=== PATIENT | male | born 1945 | race Caucasian/White ===

== ENCOUNTER 2020-07-02 16:12 | Emergency (ER) | payer OTHER, SELFPAY ==
--- OUTSIDE RECORDS SUMMARY | 2020-07-02 16:16 | XMS REPORT | Clinical Summary ---
:1945 Author Organization [facility] Address [address] [place] [address] Care Team Providers Name Role Phone Pcp, No Primary Care Provider Unavailable Allergies No Known Allergies Medications Medication Sig Dispensed Refills Start Date End Date Status apixaban (ELIQUIS) Take 1 tablet (5 mg 60 tablet 1 02/09/2020 Active 5 mg Tab tablet total) by mouth 2 (two) times daily. atorvastatin Take 1 tablet (10 mg 30 tablet 11 02/09/202002/08 Active (LIPITOR) 10 MG total) by mouth 1 tablet nightly. carvediloL (COREG) Take 1 tablet (12.5 60 tablet 11 02/09/2020 Active 12.5 MG tablet mg total) by mouth 2 1 (two) times daily. citalopram (CELEXA) Take 1 tablet (20 mg 30 tablet 0 0 Active 20 MG tablet total) by mouth 1 daily. folic acid Take 1 tablet (1 mg 30 tablet 11 02/10/2020 02/10/20 2 Active (FOLVITE) 1 MG total) by mouth 1 tablet daily. insulin lispro Inject 12 Units 10 mL 0 02/09/2020 02/09/20 2 Active (HUMALOG) 100 subcutaneously 3 1 unit/mL injection (three) times daily before meals. levothyroxine Take 1 tablet (175 30 tablet 11 02/10/2020 Active (SYNTHROID, mcg total) by mouth 1 LEVOTHROID) 175 MCG Every morning on an tablet empty stomach. pantoprazole Take 1 tablet (40 mg 30 tablet 0 02/10/2020 Active (PROTONIX) 40 MG total) by mouth tablet daily. tamsulosin (FLOMAX) Take 1 capsule (0.4 30 capsule 11 0 Active 0.4 mg Cap 24 hr mg total) by mouth capsule daily. thiamine 100 MG Take 1 tablet (100 30 tablet 11 02/10/2020 04/0 Active tablet mg total) by mouth 1 daily. finasteride Take 1 tablet (5 mg 30 tablet 0 02/09/2020 02 Active (PROSCAR) 5 mg total) by mouth 1 tablet daily. insulin detemir Inject 40 Units 30 mL 1 02/09/2020 02 U-100 (LEVEMIR) 100 subcutaneously 2 0 unit/mL injection (two) times daily for 30 days. furosemide (LASIX) Take 1 tablet (20 mg 30 tablet 0 02/10/2020 20 MG tablet total) by mouth 0 daily for 30 days. Active Problems Problem Noted Date Acute metabolic encephalopathy 01/30/2020 TRICIA (acute kidney injury) 01/30/2020 Acute hypoxemic respiratory failure 01/25/2020 Aspiration pneumonitis 01/25/2020 Encounters Date Type Specialty Care Team Description 01/25/2020 - Hospital General Internal Debbie Cohen MD Acute respiratory failure with hypoxia ( HCC) (Primary Dx); 02/09/2020 Encounter Medicine Clementina Billy Aspiratio n pneumonitis (HCC); MD Jefe Severe sepsis with septic shock (HCC); Jarad Harrison TRICIA (acu te kidney injury) (HCC); MD Sumeet DVT (deep vein thrombosis) in ; Rodo Drake Acute metaboli c encephalopathy; MD Zulema Acute urinary retention Abida Mayberry MD Athreya, Khannan Kameshvaran, MD 01/25/2020 Orders Only General Internal Medicine 01/25/2020 Telephone Critical Care Debbie Cohen MD Peer-to-P eer Call Medicine after 07/02/2019 Social History Tobacco Use Types Packs/Day Years Used Date Never Assessed Sex Assigned at Date Recorded Not on file Job Start Date Occupation Industry Not on file Not on file Not on file Travel History Travel Start Travel End No recent travel history available. Last Filed Vital Signs Vital Sign Reading Time Taken Blood Pressure 116/59 02/09/2020 4:00 PM CDT Pulse 60 02/09/2020 4:00 PM CDT Temperature 36.8 C (98.3 F) 02/09/2020 4:00 PM CDT Respiratory Rate 18 02/09/2020 4:00 PM CDT Oxygen Saturation 96% 02/09/2020 4:00 PM CDT Inhaled Oxygen Concentration 36% 02/07/2020 8:34 PM CDT Weight 103 kg (227 lb) 02/09/2020 6:00 AM CDT Height 177.8 cm (5' 10") 01/25/2020 5:00 PM CDT Body Mass Index 32.57 02/09/2020 6:00 AM CDT Plan of Treatment Not on file Procedures Procedure Name Priority Date/Time Associated Comments Diagnosis RHYTHM STRIP - SCAN 02/10/2020 9:10 AM CDT POCT-GLUCOSE METER Routine 02/09/2020 5:35 Resul ts for this PM CDT procedure are i n the results section. POCT-GLUCOSE METER Routine 02/09/2020 12:47 Resul ts for this PM CDT procedure are i n the results section. US ABDOMEN COMPLETE Routine 02/09/2020 12:05 Resu lts for this PM CDT procedure are i n the results section. POCT-GLUCOSE METER Routine 02/09/2020 8:24 Resul ts for this AM CDT procedure are i n the results section. ECG 12-LEAD Routine 02/09/2020 7:37 Results for this AM CDT procedure are i n the results section. CBC W/PLT COUNT & AUTO Routine 02/09/2020 3:49 R esults for this DIFFERENTIAL AM CDT procedure are i n the results section. BASIC METABOLIC PANEL Routine 02/09/2020 3:49 Re sults for this (7) AM CDT procedure are i n the results section. AMMONIA Routine 02/09/2020 3:49 Results for this AM CDT procedure are i n the results section. CBC W/PLT COUNT & AUTO Routine 02/09/2020 3:49 R esults for this DIFFERENTIAL AM CDT procedure are i n the results section. PHOSPHORUS Routine 02/09/2020 3:49 Results for this AM CDT procedure are i n the results section. CALCIUM, IONIZED Routine 02/09/2020 3:49 Results for this AM CDT procedure are i n the results section. POCT-GLUCOSE METER Routine 02/08/2020 8:55 Resul ts for this PM CDT procedure are i n the results section. POCT-GLUCOSE METER Routine 02/08/2020 5:33 Resul ts for this PM CDT procedure are i n the results section. POCT-GLUCOSE METER Routine 02/08/2020 12:13 Resul ts for this PM CDT procedure are i n the results section. ECG 12-LEAD Routine 02/08/2020 11:33 Results for this AM CDT procedure are i n the results section. POCT-GLUCOSE METER Routine 02/08/2020 7:16 Resul ts for this AM CDT procedure are i n the results section. CALCIUM, IONIZED Routine 02/08/2020 3:36 Results for this AM CDT procedure are i n the results section. CBC W/PLT COUNT & AUTO Routine 02/08/2020 3:35 R esults for this DIFFERENTIAL AM CDT procedure are i n the results section. COMPREHENSIVE METABOLIC Routine 02/08/2020 3:35 Results for this PANEL AM CDT procedure are i n the results section. CBC W/PLT COUNT & AUTO Routine 02/08/2020 3:35 R esults for this DIFFERENTIAL AM CDT procedure are i n the results section. PHOSPHORUS Routine 02/08/2020 3:35 Results for this AM CDT procedure are i n the results section. MAGNESIUM Routine 02/08/2020 3:35 Results for this AM CDT procedure are i n the results section. BASIC METABOLIC PANEL Routine 02/08/2020 3:35 Re sults for this (7) AM CDT procedure are i n the results section. POCT-GLUCOSE METER Routine 02/07/2020 9:08 Resul ts for this PM CDT procedure are i n the results section. POCT-GLUCOSE METER Routine 02/07/2020 6:05 Resul ts for this PM CDT procedure are i n the results section. URINALYSIS W/ REFLEX Routine 02/07/2020 4:10 Res ults for this URINE CULTURE PM CDT procedure are in the results section. MAGNESIUM Routine 02/07/2020 1:49 Results for this PM CDT procedure are i n the results section. BASIC METABOLIC PANEL Routine 02/07/2020 1:49 Re sults for this (7) PM CDT procedure are i n the results section. POCT-GLUCOSE METER Routine 02/07/2020 12:48 Resul ts for this PM CDT procedure are i n the results section. POCT-GLUCOSE METER Routine 02/07/2020 7:03 Resul ts for this AM CDT procedure are i n the results section. CBC W/PLT COUNT & AUTO Routine 02/07/2020 5:19 R esults for this DIFFERENTIAL AM CDT procedure are i n the results section. COMPREHENSIVE METABOLIC Routine 02/07/2020 5:19 Results for this PANEL AM CDT procedure are i n the results section. CBC W/PLT COUNT & AUTO Routine 02/07/2020 5:19 R esults for this DIFFERENTIAL AM CDT procedure are i n the results section. APTT Routine 02/07/2020 5:19 Results for this AM CDT procedure are i n the results section. MAGNESIUM Routine 02/07/2020 5:19 Results for this AM CDT procedure are i n the results section. PHOSPHORUS Routine 02/07/2020 5:19 Results for this AM CDT procedure are i n the results section. CALCIUM, IONIZED Routine 02/07/2020 5:19 Results for this AM CDT procedure are i n the results section. POCT-GLUCOSE METER Routine 02/06/2020 11:00 Resul ts for this PM CDT procedure are i n the results section. MAGNESIUM Routine 02/06/2020 8:39 Results for this PM CDT procedure are i n the results section. BASIC METABOLIC PANEL Routine 02/06/2020 8:39 Re sults for this (7) PM CDT procedure are i n the results section. POCT-GLUCOSE METER Routine 02/06/2020 7:10 Resul ts for this PM CDT procedure are i n the results section. POCT-GLUCOSE METER Routine 02/06/2020 12:30 Resul ts for this PM CDT procedure are i n the results section. CBC W/PLT COUNT & AUTO Routine 02/06/2020 9:54 R esults for this DIFFERENTIAL AM CDT procedure are i n the results section. CBC W/PLT COUNT & AUTO Routine 02/06/2020 9:54 R esults for this DIFFERENTIAL AM CDT procedure are i n the results section. APTT Routine 02/06/2020 9:54 Results for this AM CDT procedure are i n the results section. MAGNESIUM Routine 02/06/2020 9:54 Results for this AM CDT procedure are i n the results section. PHOSPHORUS Routine 02/06/2020 9:54 Results for this AM CDT procedure are i n the results section. BASIC METABOLIC PANEL Routine 02/06/2020 9:54 Re sults for this (7) AM CDT procedure are i n the results section. POCT-GLUCOSE METER Routine 02/06/2020 5:45 Resul ts for this AM CDT procedure are i n the results section. POCT-GLUCOSE METER Routine 02/06/2020 12:25 Resul ts for this AM CDT procedure are i n the results section. MAGNESIUM Routine 02/05/2020 8:47 Results for this PM CDT procedure are i n the results section. BASIC METABOLIC PANEL Routine 02/05/2020 8:47 Re sults for this (7) PM CDT procedure are i n the results section. XR ANKLE 1 VIEW LEFT Routine 02/05/2020 8:42 Res ults for this PM CDT procedure are i n the results section. POCT-GLUCOSE METER Routine 02/05/2020 5:55 Resul ts for this PM CDT procedure are i n the results section. MAGNESIUM Routine 02/05/2020 2:17 Results for this PM CDT procedure are i n the results section. BASIC METABOLIC PANEL Routine 02/05/2020 2:17 Re sults for this (7) PM CDT procedure are i n the results section. XR CHEST 1 VIEW STAT 02/05/2020 10:10 Results for this PORTABLE/BEDSIDE AM CDT procedure a re in the results section. APTT Routine 02/05/2020 10:05 Results for this AM CDT procedure are i n the results section. POCT-GLUCOSE METER Routine 02/05/2020 6:33 Resul ts for this AM CDT procedure are i n the results section. APTT Routine 02/05/2020 6:17 Results for this AM CDT procedure are i n the results section. CBC W/PLT COUNT & AUTO Routine 02/05/2020 6:13 R esults for this DIFFERENTIAL AM CDT procedure are i n the results section. CBC W/PLT COUNT & AUTO Routine 02/05/2020 6:13 R esults for this DIFFERENTIAL AM CDT procedure are i n the results section. MAGNESIUM Routine 02/05/2020 6:13 Results for this AM CDT procedure are i n the results section. PHOSPHORUS Routine 02/05/2020 6:13 Results for this AM CDT procedure are i n the results section. CALCIUM, IONIZED Routine 02/05/2020 6:13 Results for this AM CDT procedure are i n the results section. BASIC METABOLIC PANEL Routine 02/05/2020 6:13 Re sults for this (7) AM CDT procedure are i n the results section. B-TYPE NATRIURETIC Routine 02/05/2020 6:13 Resul ts for this FACTOR (BNP) AM CDT procedure are i n the results section. POCT-GLUCOSE METER Routine 02/05/2020 12:34 Resul ts for this AM CDT procedure are i n the results section. MAGNESIUM Routine 02/04/2020 11:26 Results for this PM CDT procedure are i n the results section. BASIC METABOLIC PANEL Routine 02/04/2020 11:26 Re sults for this (7) PM CDT procedure are i n the results section. POCT-GLUCOSE METER Routine 02/04/2020 5:29 Resul ts for this PM CDT procedure are i n the results section. MAGNESIUM Routine 02/04/2020 12:32 Results for this PM CDT procedure are i n the results section. BASIC METABOLIC PANEL Routine 02/04/2020 12:32 Re sults for this (7) PM CDT procedure are i n the results section. PT/APTT Routine 02/04/2020 11:23 Results for this AM CDT procedure are i n the results section. C. DIFFICILE GDH TOXIN Routine 02/04/2020 11:23 R esults for this AM CDT procedure are i n the results section. POCT-GLUCOSE METER Routine 02/04/2020 11:20 Resul ts for this AM CDT procedure are i n the results section. POCT-GLUCOSE METER Routine 02/04/2020 5:52 Resul ts for this AM CDT procedure are i n the results section. APTT Routine 02/04/2020 4:51 Results for this AM CDT procedure are i n the results section. APTT Routine 02/04/2020 3:42 Results for this AM CDT procedure are i n the results section. CBC W/PLT COUNT & AUTO Routine 02/04/2020 3:02 R esults for this DIFFERENTIAL AM CDT procedure are i n the results section. APTT Routine 02/04/2020 3:02 Results for this AM CDT procedure are i n the results section. CBC W/PLT COUNT & AUTO Routine 02/04/2020 3:02 R esults for this DIFFERENTIAL AM CDT procedure are i n the results section. MAGNESIUM Routine 02/04/2020 3:02 Results for this AM CDT procedure are i n the results section. BASIC METABOLIC PANEL Routine 02/04/2020 3:02 Re sults for this (7) AM CDT procedure are i n the results section. CALCIUM, IONIZED Routine 02/04/2020 3:02 Results for this AM CDT procedure are i n the results section. PHOSPHORUS Routine 02/04/2020 3:02 Results for this AM CDT procedure are i n the results section. POCT-GLUCOSE METER Routine 02/03/2020 11:58 Resul ts for this PM CDT procedure are i n the results section. MAGNESIUM Routine 02/03/2020 8:50 Results for this PM CDT procedure are i n the results section. BASIC METABOLIC PANEL Routine 02/03/2020 8:50 Re sults for this (7) PM CDT procedure are i n the results section. POCT-GLUCOSE METER Routine 02/03/2020 6:07 Resul ts for this PM CDT procedure are i n the results section. POCT-GLUCOSE METER Routine 02/03/2020 12:15 Resul ts for this PM CDT procedure are i n the results section. MAGNESIUM Routine 02/03/2020 11:28 Results for this AM CDT procedure are i n the results section. BASIC METABOLIC PANEL Routine 02/03/2020 11:28 Re sults for this (7) AM CDT procedure are i n the results section. BLOOD CULTURE Routine 02/03/2020 11:28 Results fo r this AM CDT procedure are i n the results section. BLOOD CULTURE Routine 02/03/2020 11:28 Results fo r this AM CDT procedure are i n the results section. POCT-GLUCOSE METER Routine 02/03/2020 5:46 Resul ts for this AM CDT procedure are i n the results section. BLOOD GAS, ARTERIAL Routine 02/03/2020 2:56 Resu lts for this AM CDT procedure are i n the results section. CBC W/PLT COUNT & AUTO Routine 02/03/2020 2:50 R esults for this DIFFERENTIAL AM CDT procedure are i n the results section. APTT Routine 02/03/2020 2:50 Results for this AM CDT procedure are i n the results section. CBC W/PLT COUNT & AUTO Routine 02/03/2020 2:50 R esults for this DIFFERENTIAL AM CDT procedure are i n the results section. COMPREHENSIVE METABOLIC Routine 02/03/2020 2:50 Results for this PANEL AM CDT procedure are i n the results section. CALCIUM, IONIZED Routine 02/03/2020 2:50 Results for this AM CDT procedure are i n the results section. MAGNESIUM Routine 02/03/2020 2:50 Results for this AM CDT procedure are i n the results section. PHOSPHORUS Routine 02/03/2020 2:50 Results for this AM CDT procedure are i n the results section. XR ABDOMEN / KUB 1 VIEW STAT 02/03/2020 12:15 Results for this AM CDT procedure are i n the results section. POCT-GLUCOSE METER Routine 02/03/2020 12:11 Resul ts for this AM CDT procedure are i n the results section. MAGNESIUM Routine 02/02/2020 9:09 Results for this PM CDT procedure are i n the results section. BASIC METABOLIC PANEL Routine 02/02/2020 9:09 Re sults for this (7) PM CDT procedure are i n the results section. XR ABDOMEN / KUB 1 VIEW STAT 02/02/2020 6:46 Results for this PM CDT procedure are i n the results section. POCT-GLUCOSE METER Routine 02/02/2020 5:30 Resul ts for this PM CDT procedure are i n the results section. POCT-GLUCOSE METER Routine 02/02/2020 12:05 Resul ts for this PM CDT procedure are i n the results section. MAGNESIUM Routine 02/02/2020 12:03 Results for this PM CDT procedure are i n the results section. BASIC METABOLIC PANEL Routine 02/02/2020 12:03 Re sults for this (7) PM CDT procedure are i n the results section. POCT-GLUCOSE METER Routine 02/02/2020 5:32 Resul ts for this AM CDT procedure are i n the results section. CBC W/PLT COUNT & AUTO Routine 02/02/2020 3:09 R esults for this DIFFERENTIAL AM CDT procedure are i n the results section. APTT Routine 02/02/2020 3:09 Results for this AM CDT procedure are i n the results section. CBC W/PLT COUNT & AUTO Routine 02/02/2020 3:09 R esults for this DIFFERENTIAL AM CDT procedure are i n the results section. MAGNESIUM Routine 02/02/2020 3:09 Results for this AM CDT procedure are i n the results section. BASIC METABOLIC PANEL Routine 02/02/2020 3:09 Re sults for this (7) AM CDT procedure are i n the results section. PHOSPHORUS Routine 02/02/2020 3:09 Results for this AM CDT procedure are i n the results section. BLOOD GAS, ARTERIAL Routine 02/02/2020 3:04 Resu lts for this AM CDT procedure are i n the results section. CALCIUM, IONIZED Routine 02/02/2020 3:04 Results for this AM CDT procedure are i n the results section. POCT-GLUCOSE METER Routine 02/02/2020 12:25 Resul ts for this AM CDT procedure are i n the results section. MAGNESIUM Routine 02/01/2020 8:24 Results for this PM CDT procedure are i n the results section. BASIC METABOLIC PANEL Routine 02/01/2020 8:24 Re sults for this (7) PM CDT procedure are i n the results section. APTT Routine 02/01/2020 6:11 Results for this PM CDT procedure are i n the results section. POCT-GLUCOSE METER Routine 02/01/2020 5:11 Resul ts for this PM CDT procedure are i n the results section. SPIN/CONCENTRATION Routine 02/01/2020 3:26 Resul ts for this CHARGE PM CDT procedure are i n the results section. SPIN/CONCENTRATION Routine 02/01/2020 3:26 Resul ts for this CHARGE PM CDT procedure are i n the results section. FUNGUS CULTURE + SMEAR Routine 02/01/2020 3:26 Results for this PM CDT procedure are i n the results section. AFB CULTURE + SMEAR Routine 02/01/2020 3:26 Resu lts for this (NON-SPUTUM) PM CDT procedure are i n the results section. AFB CULTURE + SMEAR Routine 02/01/2020 3:26 Resu lts for this (NON-SPUTUM) PM CDT procedure are i n the results section. BRONCHIAL CULTURE + Routine 02/01/2020 3:26 Resu lts for this GRAM STAIN PM CDT procedure are i n the results section. XR CHEST 1 VIEW Routine 02/01/2020 3:19 Results for this PORTABLE/BEDSIDE PM CDT procedure a re in the results section. BLOOD CULTURE Routine 02/01/2020 1:40 Results fo r this PM CDT procedure are i n the results section. URINALYSIS W/ REFLEX Routine 02/01/2020 1:37 Res ults for this URINE CULTURE PM CDT procedure are in the results section. MAGNESIUM Routine 02/01/2020 1:37 Results for this PM CDT procedure are i n the results section. BASIC METABOLIC PANEL Routine 02/01/2020 1:37 Re sults for this (7) PM CDT procedure are i n the results section. URINE CULTURE Routine 02/01/2020 1:37 Results fo r this PM CDT procedure are i n the results section. BLOOD CULTURE Routine 02/01/2020 1:36 Results fo r this IDENTIFICATION PANEL PM CDT procedu re are in the results section. BLOOD CULTURE Routine 02/01/2020 1:36 Results fo r this PM CDT procedure are i n the results section. POCT-GLUCOSE METER Routine 02/01/2020 11:44 Resul ts for this AM CDT procedure are i n the results section. POCT-GLUCOSE METER Routine 02/01/2020 5:58 Resul ts for this AM CDT procedure are i n the results section. CBC W/PLT COUNT & AUTO Routine 02/01/2020 3:04 R esults for this DIFFERENTIAL AM CDT procedure are i n the results section. APTT Routine 02/01/2020 3:04 Results for this AM CDT procedure are i n the results section. CBC W/PLT COUNT & AUTO Routine 02/01/2020 3:04 R esults for this DIFFERENTIAL AM CDT procedure are i n the results section. MAGNESIUM Routine 02/01/2020 2:59 Results for this AM CDT procedure are i n the results section. BASIC METABOLIC PANEL Routine 02/01/2020 2:59 Re sults for this (7) AM CDT procedure are i n the results section. BLOOD GAS, ARTERIAL Routine 02/01/2020 2:59 Resu lts for this AM CDT procedure are i n the results section. CALCIUM, IONIZED Routine 02/01/2020 2:59 Results for this AM CDT procedure are i n the results section. PHOSPHORUS Routine 02/01/2020 2:59 Results for this AM CDT procedure are i n the results section. POCT-GLUCOSE METER Routine 02/01/2020 12:14 Resul ts for this AM CDT procedure are i n the results section. MAGNESIUM Routine 01/31/2020 8:40 Results for this PM CDT procedure are i n the results section. BASIC METABOLIC PANEL Routine 01/31/2020 8:40 Re sults for this (7) PM CDT procedure are i n the results section. POCT-GLUCOSE METER Routine 01/31/2020 6:49 Resul ts for this PM CDT procedure are i n the results section. MAGNESIUM Routine 01/31/2020 1:01 Results for this PM CDT procedure are i n the results section. BASIC METABOLIC PANEL Routine 01/31/2020 1:01 Re sults for this (7) PM CDT procedure are i n the results section. POCT-GLUCOSE METER Routine 01/31/2020 11:22 Resul ts for this AM CDT procedure are i n the results section. POCT-GLUCOSE METER Routine 01/31/2020 6:21 Resul ts for this AM CDT procedure are i n the results section. CBC W/PLT COUNT & AUTO Routine 01/31/2020 5:22 R esults for this DIFFERENTIAL AM CDT procedure are i n the results section. CBC W/PLT COUNT & AUTO Routine 01/31/2020 5:22 R esults for this DIFFERENTIAL AM CDT procedure are i n the results section. BLOOD GAS, ARTERIAL Routine 01/31/2020 5:22 Resu lts for this AM CDT procedure are i n the results section. APTT Routine 01/31/2020 5:15 Results for this AM CDT procedure are i n the results section. MAGNESIUM Routine 01/31/2020 5:11 Results for this AM CDT procedure are i n the results section. BASIC METABOLIC PANEL Routine 01/31/2020 5:11 Re sults for this (7) AM CDT procedure are i n the results section. CALCIUM, IONIZED Routine 01/31/2020 5:11 Results for this AM CDT procedure are i n the results section. PHOSPHORUS Routine 01/31/2020 5:11 Results for this AM CDT procedure are i n the results section. APTT Routine 01/31/2020 12:40 Results for this AM CDT procedure are i n the results section. POCT-GLUCOSE METER Routine 01/30/2020 11:55 Resul ts for this PM CDT procedure are i n the results section. MAGNESIUM Routine 01/30/2020 8:30 Results for this PM CDT procedure are i n the results section. BASIC METABOLIC PANEL Routine 01/30/2020 8:30 Re sults for this (7) PM CDT procedure are i n the results section. POCT-GLUCOSE METER Routine 01/30/2020 6:17 Resul ts for this PM CDT procedure are i n the results section. PT/APTT Routine 01/30/2020 6:12 Results for this PM CDT procedure are i n the results section. POCT-GLUCOSE METER Routine 01/30/2020 11:17 Resul ts for this AM CDT procedure are i n the results section. MAGNESIUM Routine 01/30/2020 11:16 Results for this AM CDT procedure are i n the results section. BASIC METABOLIC PANEL Routine 01/30/2020 11:16 Re sults for this (7) AM CDT procedure are i n the results section. PT/APTT Routine 01/30/2020 11:16 Results for this AM CDT procedure are i n the results section. SPUTUM CULTURE + GRAM Routine 01/30/2020 11:16 Re sults for this STAIN AM CDT procedure are i n the results section. POCT-GLUCOSE METER Routine 01/30/2020 8:17 Resul ts for this AM CDT procedure are i n the results section. POCT-GLUCOSE METER Routine 01/30/2020 5:09 Resul ts for this AM CDT procedure are i n the results section. PT/APTT Routine 01/30/2020 4:00 Results for this AM CDT procedure are i n the results section. BLOOD GAS, ARTERIAL Routine 01/30/2020 4:00 Resu lts for this AM CDT procedure are i n the results section. CBC W/PLT COUNT & AUTO Routine 01/30/2020 3:26 R esults for this DIFFERENTIAL AM CDT procedure are i n the results section. CBC W/PLT COUNT & AUTO Routine 01/30/2020 3:26 R esults for this DIFFERENTIAL AM CDT procedure are i n the results section. B-TYPE NATRIURETIC Routine 01/30/2020 2:56 Resul ts for this FACTOR (BNP) AM CDT procedure are i n the results section. MAGNESIUM Routine 01/30/2020 2:56 Results for this AM CDT procedure are i n the results section. BASIC METABOLIC PANEL Routine 01/30/2020 2:56 Re sults for this (7) AM CDT procedure are i n the results section. CALCIUM, IONIZED Routine 01/30/2020 2:56 Results for this AM CDT procedure are i n the results section. PHOSPHORUS Routine 01/30/2020 2:56 Results for this AM CDT procedure are i n the results section. XR CHEST 1 VIEW Routine 01/30/2020 12:05 Results for this PORTABLE/BEDSIDE AM CDT procedure a re in the results section. POCT-GLUCOSE METER Routine 01/29/2020 11:30 Resul ts for this PM CDT procedure are i n the results section. PT/APTT Routine 01/29/2020 10:46 Results for this PM CDT procedure are i n the results section. PERIPHERAL VASCULAR 01/29/2020 9:10 REPORT - SCAN PM CDT MAGNESIUM Routine 01/29/2020 8:21 Results for this PM CDT procedure are i n the results section. BASIC METABOLIC PANEL Routine 01/29/2020 8:21 Re sults for this (7) PM CDT procedure are i n the results section. POCT-GLUCOSE METER Routine 01/29/2020 6:02 Resul ts for this PM CDT procedure are i n the results section. POCT-GLUCOSE METER Routine 01/29/2020 4:16 Resul ts for this PM CDT procedure are i n the results section. POCT-GLUCOSE METER Routine 01/29/2020 11:57 Resul ts for this AM CDT procedure are i n the results section. URINALYSIS MICROSCOPIC Routine 01/29/2020 11:10 R esults for this AM CDT procedure are i n the results section. URINALYSIS WITH Routine 01/29/2020 11:10 Results for this MICROSCOPIC IF AM CDT procedure are in INDICATED the results section. APTT Routine 01/29/2020 11:02 Results for this AM CDT procedure are i n the results section. TSH/FREE T4 IF Routine 01/29/2020 11:02 Results f or this INDICATED AM CDT procedure are i n the results section. MAGNESIUM Routine 01/29/2020 11:02 Results for this AM CDT procedure are i n the results section. BASIC METABOLIC PANEL Routine 01/29/2020 11:02 Re sults for this (7) AM CDT procedure are i n the results section. VENOUS DOPPLER LEGS Routine 01/29/2020 11:00 Resu lts for this BILATERAL AM CDT procedure are i n the results section. POCT-GLUCOSE METER Routine 01/29/2020 8:54 Resul ts for this AM CDT procedure are i n the results section. POCT-GLUCOSE METER Routine 01/29/2020 5:49 Resul ts for this AM CDT procedure are i n the results section. CBC W/PLT COUNT & AUTO Routine 01/29/2020 3:29 R esults for this DIFFERENTIAL AM CDT procedure are i n the results section. CBC W/PLT COUNT & AUTO Routine 01/29/2020 3:29 R esults for this DIFFERENTIAL AM CDT procedure are i n the results section. MAGNESIUM Routine 01/29/2020 3:29 Results for this AM CDT procedure are i n the results section. BASIC METABOLIC PANEL Routine 01/29/2020 3:29 Re sults for this (7) AM CDT procedure are i n the results section. BLOOD GAS, ARTERIAL Routine 01/29/2020 3:29 Resu lts for this AM CDT procedure are i n the results section. CALCIUM, IONIZED Routine 01/29/2020 3:29 Results for this AM CDT procedure are i n the results section. PHOSPHORUS Routine 01/29/2020 3:29 Results for this AM CDT procedure are i n the results section. XR CHEST 1 VIEW Routine 01/29/2020 3:10 Results for this PORTABLE/BEDSIDE AM CDT procedure a re in the results section. POCT-GLUCOSE METER Routine 01/28/2020 11:40 Resul ts for this PM CDT procedure are i n the results section. PHOSPHORUS Add-On 01/28/2020 7:57 Results for this PM CDT procedure are i n the results section. MAGNESIUM Routine 01/28/2020 7:57 Results for this PM CDT procedure are i n the results section. BASIC METABOLIC PANEL Routine 01/28/2020 7:57 Re sults for this (7) PM CDT procedure are i n the results section. POCT-GLUCOSE METER Routine 01/28/2020 5:46 Resul ts for this PM CDT procedure are i n the results section. POCT-GLUCOSE METER Routine 01/28/2020 11:34 Resul ts for this AM CDT procedure are i n the results section. MAGNESIUM Routine 01/28/2020 11:19 Results for this AM CDT procedure are i n the results section. BASIC METABOLIC PANEL Routine 01/28/2020 11:19 Re sults for this (7) AM CDT procedure are i n the results section. POCT-GLUCOSE METER Routine 01/28/2020 7:54 Resul ts for this AM CDT procedure are i n the results section. ECG 12-LEAD Routine 01/28/2020 3:51 Results for this AM CDT procedure are i n the results section. ECG 12-LEAD Routine 01/28/2020 3:51 AM CDT Procedure Note - Interface, External Ris In - 01/28/2020 4:06 AM CDT Ventricular Rate 79 BPM Atrial Rate 416 BPM QRS Duration 88 ms Q-T Interval 360 ms QTC Calculation(Bazett) 412 ms R [place] 35 degrees T [place] [address] & T wave abnormality, con log feeder lateral ischemia or digitalis effect Abnormal ECG When compared with ECG of 16:44, Atrial fibrillation has repl aced Sinus rhythm Nonspecific T wave abnormali ty, worse in Inferior leads T wave inversion now evident in Lateral leads QT has shortened BLOOD GAS, ARTERIAL Routine 01/28/2020 3:11 AM CDT Results for this procedure are i n the results section . (CELLAVISION MANUAL DIFF) Routine 01/28/2020 3:10 AM CDT Results for this procedure are i n the results section . CBC W/PLT COUNT & AUTO Routine 01/28/2020 3:10 AM CDT Results for this DIFFERENTIAL procedure are i n the results section . CBC W/PLT COUNT & AUTO Routine 01/28/2020 3:10 AM CDT Results for this DIFFERENTIAL procedure are i n the results section . COMPREHENSIVE METABOLIC Routine 01/28/2020 3:10 AM CDT Results for this PANEL procedure are i n the results section . LACTIC ACID, ARTERIAL Routine 01/28/2020 3:10 AM CDT Results for this procedure are i n the results section . PHOSPHORUS Routine 01/28/2020 3:10 AM CDT Resu lts for this procedure are i n the results section . MAGNESIUM Routine 01/28/2020 3:10 AM CDT Resu lts for this procedure are i n the results section . CALCIUM, IONIZED Routine 01/28/2020 2:02 AM CDT Results for this procedure are i n the results section . POCT-GLUCOSE METER Routine 01/28/2020 1:56 AM CDT Results for this procedure are i n the results section . XR CHEST 1 VIEW Routine 01/28/2020 1:32 AM CDT R esults for this PORTABLE/BEDSIDE procedure a re in the results section . PHOSPHORUS Routine 01/27/2020 8:03 PM CDT Resu lts for this procedure are i n the results section . MAGNESIUM Routine 01/27/2020 8:03 PM CDT Resu lts for this procedure are i n the results section . BASIC METABOLIC PANEL (7) Routine 01/27/2020 8:03 PM CDT Results for this procedure are i n the results section . POCT-GLUCOSE METER Routine 01/27/2020 6:40 PM CDT Results for this procedure are i n the results section . POCT-GLUCOSE METER Routine 01/27/2020 11:58 AM CDT Results for this procedure are i n the results section . XR CHEST 1 VIEW Routine 01/27/2020 10:49 AM CDT R esults for this PORTABLE/BEDSIDE procedure a re in the results section . URINALYSIS W/ MICROSCOPIC Routine 01/27/2020 6:19 AM CDT Results for this procedure are i n the results section . POCT-GLUCOSE METER Routine 01/27/2020 6:18 AM CDT Results for this procedure are i n the results section . BLOOD GAS, ARTERIAL Routine 01/27/2020 4:38 AM CDT Results for this procedure are i n the results section . (CELLAVISION MANUAL DIFF) Routine 01/27/2020 4:37 AM CDT Results for this procedure are i n the results section . CBC W/PLT COUNT & AUTO Routine 01/27/2020 4:37 AM CDT Results for this DIFFERENTIAL procedure are i n the results section . CREATINE KINASE (CK) Routine 01/27/2020 4:37 AM CDT Results for this procedure are i n the results section . B-TYPE NATRIURETIC FACTOR Routine 01/27/2020 4:37 AM CDT Results for this (BNP) procedure are i n the results section . CBC W/PLT COUNT & AUTO Routine 01/27/2020 4:37 AM CDT Results for this DIFFERENTIAL procedure are i n the results section . COMPREHENSIVE METABOLIC Routine 01/27/2020 4:37 AM CDT Results for this PANEL procedure are i n the results section . LACTIC ACID, ARTERIAL Routine 01/27/2020 4:37 AM CDT Results for this procedure are i n the results section . CALCIUM, IONIZED Routine 01/27/2020 4:37 AM CDT Results for this procedure are i n the results section . PHOSPHORUS Routine 01/27/2020 4:37 AM CDT Resu lts for this procedure are i n the results section . MAGNESIUM Routine 01/27/2020 4:37 AM CDT Resu lts for this procedure are i n the results section . ECHOCARDIOGRAM REPORT - SCAN 01/26/2020 9:12 PM CDT POCT-GLUCOSE METER Routine 01/26/2020 6:38 PM CDT Results for this procedure are i n the results section . VANCOMYCIN LEVEL, TROUGH Routine 01/26/2020 5:18 PM CDT Results for this procedure are i n the results section . SPUTUM CULTURE + GRAM STAIN Routine 01/26/2020 2:47 PM CDT Results for this procedure are i n the results section . CORTISOL Routine 01/26/2020 2:42 PM CDT Resu lts for this procedure are i n the results section . BASIC METABOLIC PANEL (7) Routine 01/26/2020 2:42 PM CDT Results for this procedure are i n the results section . URINALYSIS W/ REFLEX URINE Routine 01/26/2020 2:18 PM CDT Results for this CULTURE procedure are i n the results section . CREATININE, RANDOM URINE Routine 01/26/2020 2:18 PM CDT Results for this procedure are i n the results section . PROTEIN, RANDOM URINE Routine 01/26/2020 2:18 PM CDT Results for this procedure are i n the results section . POCT-GLUCOSE METER Routine 01/26/2020 1:58 PM CDT Results for this procedure are i n the results section . 2D ECHO W/ DOPPLER Routine 01/26/2020 1:55 PM CDT Results for this (CW/PW/COLOR) procedure are in the results section . PT/APTT Routine 01/26/2020 8:33 AM CDT Resu lts for this procedure are i n the results section . XR CHEST 1 VIEW Routine 01/26/2020 5:56 AM CDT R esults for this PORTABLE/BEDSIDE procedure a re in the results section . BLOOD GAS, ARTERIAL Routine 01/26/2020 4:32 AM CDT Results for this procedure are i n the results section . LACTIC ACID, ARTERIAL Routine 01/26/2020 4:29 AM CDT Results for this procedure are i n the results section . CALCIUM, IONIZED Routine 01/26/2020 4:29 AM CDT Results for this procedure are i n the results section . (CELLAVISION MANUAL DIFF) Routine 01/26/2020 4:28 AM CDT Results for this procedure are i n the results section . CBC W/PLT COUNT & AUTO Routine 01/26/2020 4:28 AM CDT Results for this DIFFERENTIAL procedure are i n the results section . TROPONIN I Add-On 01/26/2020 4:28 AM CDT Resu lts for this procedure are i n the results section . B-TYPE NATRIURETIC FACTOR Routine 01/26/2020 4:28 AM CDT Results for this (BNP) procedure are i n the results section . CREATINE KINASE (CK) Routine 01/26/2020 4:28 AM CDT Results for this procedure are i n the results section . CBC W/PLT COUNT & AUTO Routine 01/26/2020 4:28 AM CDT Results for this DIFFERENTIAL procedure are i n the results section . COMPREHENSIVE METABOLIC Routine 01/26/2020 4:28 AM CDT Results for this PANEL procedure are i n the results section . PHOSPHORUS Routine 01/26/2020 4:28 AM CDT Resu lts for this procedure are i n the results section . MAGNESIUM Routine 01/26/2020 4:28 AM CDT Resu lts for this procedure are i n the results section . BLOOD GAS, ARTERIAL STAT 01/26/2020 12:12 AM CDT Results for this procedure are i n the results section . POCT-GLUCOSE METER Routine 01/26/2020 12:08 AM CDT Results for this procedure are i n the results section . BASIC METABOLIC PANEL (7) Routine 01/26/2020 12:08 AM CDT Results for this procedure are i n the results section . LACTIC ACID, ARTERIAL Routine 01/26/2020 12:08 AM CDT Results for this procedure are i n the results section . BLOOD GAS, ARTERIAL STAT 01/25/2020 8:22 PM CDT Results for this procedure are i n the results section . PROTEIN, RANDOM URINE Routine 01/25/2020 8:13 PM CDT Results for this procedure are i n the results section . VANCOMYCIN LEVEL, RANDOM Routine 01/25/2020 5:30 PM CDT Results for this procedure are i n the results section . (CELLAVISION MANUAL DIFF) Routine 01/25/2020 5:16 PM CDT Results for this procedure are i n the results section . CBC W/PLT COUNT & AUTO Routine 01/25/2020 5:16 PM CDT Results for this DIFFERENTIAL procedure are i n the results section . CBC W/PLT COUNT & AUTO Routine 01/25/2020 5:16 PM CDT Results for this DIFFERENTIAL procedure are i n the results section . URINALYSIS W/ REFLEX URINE Routine 01/25/2020 5:14 PM CDT Results for this CULTURE procedure are i n the results section . MRSA SCREEN Routine 01/25/2020 4:46 PM CDT Resu lts for this procedure are i n the results section . BLOOD GAS, ARTERIAL Routine 01/25/2020 4:45 PM CDT Results for this procedure are i n the results section . ECG 12-LEAD Routine 01/25/2020 4:44 PM CDT Procedure Note - Interface, External Ris In - 01/25/2020 5:54 PM CDT Ventricular Rate 77 BPM Atrial Rate 77 BPM P-R Interval 184 ms QRS Duration 86 ms Q-T Interval 412 ms QTC Calculation(Bazett) 466 ms P [place] 64 degrees R [place] 18 degrees T [place] 47 degrees Normal sinus rhythm Normal ECG No previous ECGs available ECG 12-LEAD Routine 01/25/2020 4:44 PM Results for this CDT procedure are i n the results section. LACTIC ACID, VENOUS Routine 01/25/2020 4:36 PM R esults for this CDT procedure are i n the results section. D-DIMER Routine 01/25/2020 4:36 PM Results for this CDT procedure are i n the results section. CALCIUM, IONIZED Routine 01/25/2020 4:36 PM Resu lts for this CDT procedure are i n the results section. PHOSPHORUS Routine 01/25/2020 4:36 PM Results for this CDT procedure are i n the results section. MAGNESIUM Routine 01/25/2020 4:36 PM Results for this CDT procedure are i n the results section. URIC ACID Routine 01/25/2020 4:36 PM Results for this CDT procedure are i n the results section. C-REACTIVE PROTEIN Routine 01/25/2020 4:36 PM Re sults for this CDT procedure are i n the results section. LACTATE DEHYDROGENASE Routine 01/25/2020 4:36 PM Results for this (LDH) CDT procedure are i n the results section. COMPREHENSIVE Routine 01/25/2020 4:36 PM Results for this METABOLIC PANEL CDT procedure ar e in the results section. TROPONIN I Routine 01/25/2020 4:36 PM Results for this CDT procedure are i n the results section. B-TYPE NATRIURETIC Routine 01/25/2020 4:36 PM Re sults for this FACTOR (BNP) CDT procedure are i n the results section. MISCELLANEOUS LAB Routine 01/25/2020 4:36 PM Res ults for this ORDER CDT procedure are i n the results section. RESPIRATORY PANEL [facility] Routine 01/25/2020 4:36 PM Results for this CDT procedure are i n the results section. BLOOD CULTURE Routine 01/25/2020 4:36 PM Results for this CDT procedure are i n the results section. BLOOD CULTURE Routine 01/25/2020 4:36 PM Results for this CDT procedure are i n the results section. XR CHEST 1 VIEW STAT 01/25/2020 3:41 PM Resul ts for this PORTABLE/BEDSIDE CDT procedure a re in the results section. 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 after 07/02/2019 Results RHYTHM STRIP - SCAN (02/10/2020 9:10 AM CDT) Narrative Performed At This result has an attachment that is no t available. POC-Glucose meter (02/09/2020 5:35 PM CDT)Only the most recent of60 results within the time period is included. POC-Glucose Meter 124 (H)Comment: : TESTED 70 - 110 mg/dL [facility] AT [address], [address]: Grill Associate/Manufacturing Operator ID = [id number] for CRYSTAL VERAS Specimen Blood Performing Organization Address City/State/Zipcode Phone Number [facility] [address] [place] [phone] CENTER US abdomen complete (02/09/2020 12:05 PM CDT) Specimen Narrative Performed At FINAL REPORT [employer] HISTORY : Alcohol abuse, concern for asc ites and cirrhosis. Patient also with acute kidney injury and urinar y retention COMPARISON : None COMMENT : Complete ultrasound examination of the lilibeth dobson was performed. The liver is normal in size measuring 12.6 c m in length along the right midclavicular line and increased in echo -texture without evidence of a focal mass.The gallbladder appears normal without evidence of stones, sludge, wall thickening or peric holecystic fluid.The biliary tract is within normal limits wi th the common bile duct measuring 4 mm in maximum diameter.T he pancreas is poorly visualized secondary to overlying bowel gas.The spleen is normal in size and echo-texture measuring 12 cm. The right kidney measures 11.8 cm and the left kidney 12.3 cm in m aximum size.There is no evidence of cysts, masses, stones or hyd ronephrosis. The portal vein measures to a maximum of 0.9 cm in diameter. There is no ascites or pleural effusion. The visualized inferior vena cava, hepat ic veins and abdominal aorta are within normal limits. The maximum di ameter of the abdominal aorta is 2.3 cm. IMPRESSION : 1. Hepatic steatosis. No focal hepatic m ass. 2. No hydronephrosis. 3. No ascites. Signed: Fabian Howard MD Report Verified Date/Time:02/09/2020 13:37:24 Reading Location: [address] Radiolog y Reading Room Procedure Note Interface, External Ris In - 02/09/2020 1:39 PM CDT FINAL REPORT HISTORY : Alcohol abuse, concern for asc ites and cirrhosis. Patient also with acute kidney injury and urinar y retention COMPARISON : None COMMENT : Complete ultrasound examination of the lilibeth dobson was performed. The liver is normal in size measuring 12.6 c m in length along the right midclavicular line and increased in echo -texture without evidence of a focal mass. The gallbladder appears n ormal without evidence of stones, sludge, wall thickening or peric holecystic fluid. The biliary tract is within normal limits wi th the common bile duct measuring 4 mm in maximum diameter. The pancreas is poorly visualized secondary to overlying bowel gas. The spleen is normal in size and echo-texture measuring 12 cm. The right kidney measures 11.8 cm and the left kidney 12.3 cm in m aximum size. There is no evidence of cysts, masses, stones or hyd ronephrosis. The portal vein measures to a maximum of 0.9 cm in diameter. There is no ascites or pleural effusion. The visualized inferior vena cava, hepat ic veins and abdominal aorta are within normal limits. The maximum di ameter of the abdominal aorta is 2.3 cm. IMPRESSION : 1. Hepatic steatosis. No focal hepatic m ass. 2. No hydronephrosis. 3. No ascites. Signed: Fabian Howard MD Report Verified Date/Time: 02/09/2020 1 3:37:24 Reading Location: [address] Radiolog y Reading Room Performing Organization Address City/[facility] Phone Number GE RIS ECG 12 lead (02/09/2020 7:37 AM CDT)Only the most recent of4 resultswithin the time period is included. Specimen Narrative Performed At Ventricular Rate 59 BPM GE MUSE Atrial Rate 59 BPM P-R Interval 254 ms QRS Duration 88 ms Q-T Interval 438 ms QTC Calculation(Bazett) 433 ms P [place] 70 degrees R [place] 21 degrees T [place] 64 degrees Sinus bradycardia with 1st degree A-V bl ock Nonspecific T wave abnormality Abnormal ECG When compared with ECG of 08-FEB-2020 11 :33, No significant change was found Confirmed by MD Huffman Roberto ([id number]) on 2019 3:40:17 PM Procedure Note Interface, External Ris In - 02/09/2020 3:40 PM CDT Ventricular Rate 59 BPM Atrial Rate 59 BPM P-R Interval 254 ms QRS Duration 88 ms Q-T Interval 438 ms QTC Calculation(Bazett) 433 ms P [place] 70 degrees R [place] 21 degrees T [place] 64 degrees Sinus bradycardia with 1st degree A-V bl ock Nonspecific T wave abnormality Abnormal ECG When compared with ECG of 08-FEB-2020 11 :33, No significant change was found Confirmed by MD Huffman Roberto ([id number]) on 02/09/2020 3:40:17 PM Performing Organization Address [facility] [place], [place] Phone Number GE MUSE Calcium, Ionized (02/09/2020 3:49 AM CDT)Only the most recent of15 results within the time period is included. Calcium, Ion 1.16 1.12 - 1.27 mmol/L [facility] pH, Blood 7.31 [facility] Specimen Blood Performing Organization Address City/[facility]/Zipcoid Phone Number [facility] [address] [place] [phone] CENTER CBC with platelet count + automated diff (02/09/2020 3:49 AM CDT)Only the most recent of16 resultswithin the time period is included. WBC 7.1 3.5 - 10.5 K/L [facility] RBC 3.61 (L) 4.63 - 6.08 M/L [facility] Hemoglobin 11.2 (L) 13.7 - 17.5 GM/DL [facility] Hematocrit 34.8 (L) 40.1 - 51.0 % [facility] MCV 96.4 (H) 79.0 - 92.2 fL [facility] MCH 31.0 25.7 - 32.2 pg [facility] MCHC 32.2 (L) 32.3 - 36.5 GM/DL [facility] RDW 12.9 11.6 - 14.4 % [facility] Platelets 322 150 - 450 K/CU MM [facility] MPV 10.2 9.4 - 12.4 fL [facility] nRBC 0 0 - 0 /100 WBC [facility] % Neutros 41 % [facility] % Lymphs 44 % [facility] % Monos 8 % [facility] % Eos 4 % [facility] % Baso 1 % [facility] # Neutros 2.95 1.78 - 5.38 K/L [facility] # Lymphs 3.16 1.32 - 3.57 K/L [facility] # Monos 0.59 0.30 - 0.82 K/L [facility] # Eos 0.27 0.04 - 0.54 K/L [facility] # Baso 0.07 0.01 - 0.08 K/L [facility] Immature Granulocytes-Relative 1 0 - 1 % C [facility] Specimen Blood Performing Organization Address City/[facility]/Zipcode Phone Number [facility] [address] [place] [phone] CENTER Phosphorus (02/09/2020 3:49 AM CDT)Only the most recent of18 resultswithin the time period is included. Phosphorus 3.5 2.3 - 4.7 mg/dL [facility] Specimen Blood Narrative Performed At Grill Associate ID - DAMION Broussard [facility] Performing Organization Address City/[facility]/Zipcode Phone Number [address] [phone] CENTER Ammonia (02/09/2020 3:49 AM CDT) Ammonia 28 18 - 72 mol/L [facility] Specimen Blood Narrative Performed At Grill Associate ID - DAMION Broussard [facility] Performing Organization Address City/[facility] Phone Number [address] [phone] CENTER Basic Metabolic Panel (02/09/2020 3:49 AM CDT)Only the most recent of33 results within the time period is included. Sodium 137 136 - 145 meq/L [facility] Potassium 4.0 3.5 - 5.1 meq/L [facility] Chloride 104 98 - 107 meq/L [facility] CO2 28 22 - 29 meq/L [facility] BUN 34 (H) 7 - 21 mg/dL [facility] Creatinine 1.32 (H) 0.57 - 1.25 mg/dL [facility] Glucose 87 70 - 105 mg/dL [facility] Calcium 9.1 8.4 - 10.2 mg/dL [facility] EGFR 53Comment: ESTIMATED GFR IS mL/min/1.73 sq m [facility] NOT ACCURATE CREATININE [facility] CLEARANCE IN PREDICTING GLOMERULAR FILTRATION RATE. ESTIMATED GFR IS NOT APPLICABLE FOR DIALYSIS PATIENTS. Specimen Blood Narrative Performed At Grill Associate ID - DAMION Broussard [facility] Performing Organization Address City/[facility] Phone Number [facility] [address] [place] [phone] CENTER Magnesium (02/08/2020 3:35 AM CDT)Only the most recent of36 resultswithin the time period is included. Magnesium 2.0Comment: Specimen slightly 1.6 - 2.6 mg/dL [facility] Specimen Blood Narrative Performed At Grill Associate ID - BRIGITTE Apple [facility] Performing Organization Address [facility] Phone Number [address] [phone] [place] Comprehensive metabolic panel (02/08/2020 3:35 AM CDT)Only the most recent of7 resultswithin the time period is included. Protein, Total 7.7Comment: Specimen 6.0 - 8.3 gm/dL [facility] slightly hemolyzed [facility] Albumin 3.4 (L)Comment: Specimen 3.5 - 5.0 g/dL [facility] slightly hemolyzed [facility] Alkaline Phosphatase 45 40 - 150 U/L [facility] Total Bilirubin 0.4Comment: Specimen 0.2 - 1.2 mg/dL [facility] slightly hemolyzed [facility] Sodium 139 136 - 145 meq/L [facility] Potassium 3.9Comment: Specimen 3.5 - 5.1 meq/L [facility] slightly hemolyzed [facility] Chloride 106 98 - 107 meq/L [facility] CO2 26 22 - 29 meq/L [facility] BUN 40 (H) 7 - 21 mg/dL [facility] Creatinine 1.43 (H)Comment: 0.57 - 1.25 mg/dL [facility] Specimen slightly [facility] hemolyzed Glucose 98 70 - 105 mg/dL [facility] Calcium 9.7 8.4 - 10.2 mg/dL [facility] AST 26Comment: Specimen 5 - 34 U/L [facility] slightly hemolyzed [facility] ALT 52Comment: Specimen 6 - 55 U/L [facility] slightly hemolyzed [facility] EGFR 49Comment: ESTIMATED GFR mL/min/1.73 sq m [facility] IS NOT ACCURATE [facility] CREATININE CLEARANCE IN PREDICTING GLOMERULAR FILTRATION RATE. ESTIMATED GFR IS NOT APPLICABLE FOR DIALYSIS PATIENTS. Specimen Blood Narrative Performed At Grill Associate ID - BRIGITTE Apple [facility] CENTER Performing Organization Address City/State/Zipcode Phone Number [facility] [address] [place] [address] CENTER Urinalysis w/Microscopic + Reflex to Culture (02/07/2020 4:10 PM CDT)Only the most recent of4 resultswithin the time period is included. Color, UA Colorless [facility] Clarity, UA Clear [facility] Specific Bastian, UA 1.013 1.001 - 1.035 [facility] pH, UA 5.0 5.0 - 8.0 [facility] Protein, UA Negative Negative [facility] Glucose, UA Negative Negative [facility] Ketones, UA Negative Negative [facility] Bilirubin, UA Negative Negative [facility] Blood, UA Negative Negative [facility] Nitrite, UA Negative Negative [facility] Leukocytes, UA Negative Negative [facility] Urobilinogen, UA 0.2 0.2 - 1.0 mg/dL [facility] RBC, UA 2 /HPF [facility] ALTH [facility] WBC, UA 1 /HPF [facility] Mucus Rare [facility] Squam Epithel, UA <1 /HPF [facility] Hyaline Casts, UA 8 /LPF [facility] Specimen Source [facility] Specimen Urine Narrative Performed At Grill Associate ID - tech [facility] Performing Organization Address City/State/Zipcode Phone Number [facility] [address] [place] [address] CENTER aPTT (02/07/2020 5:19 AM CDT)Only the most recent of14 resultswithin the time period is included. PTT 33.0 22.5 - 36.0 seconds [facility] Specimen Blood Performing Organization Address City/[facility]/Zipcode Phone Number [facility] [address] [place] [address] [place] XR ankle 1 view left (02/05/2020 8:42 PM CDT) Specimen Narrative Performed At FINAL REPORT GE RIS RAD, ANKLE, 1 VIEW, LEFT CLINICAL HISTORY: left lateral ankle pan n; r/o fracture TECHNIQUE: RAD, ANKLE, 1 VIEW, LEFT COMPARISON: None IMPRESSION: There is no evidence of fracture or trau matic malalignment. Small calcaneal spur. No focal soft tissue abnormality. Signed: Dereck Bass MD Report Verified Date/Time:02/05/2020 21:50:12 Procedure Note Interface, External Ris In - 02/05/2020 9:53 PM CDT FINAL REPORT RAD, ANKLE, 1 VIEW, LEFT CLINICAL HISTORY: left lateral ankle pan n; r/o fracture TECHNIQUE: RAD, ANKLE, 1 VIEW, LEFT COMPARISON: None IMPRESSION: There is no evidence of fracture or trau matic malalignment. Small calcaneal spur. No focal soft tissue abnormality. Signed: Dereck Bass MD Report Verified Date/Time: 02/05/2020 2 1:50:12 Performing Organization Address City/State/Zipcode Phone Number GE R[facility] XR chest 1 view portable / bedside (02/05/2020 10:10 AM CDT)Only the most recent of8 resultswithin the time period is included. Specimen Narrative Performed At FINAL REPORT GE RIS RAD, CHEST, 1 VIEW, NON DEPT INDICATION: pneumonia, pulm edema COMPARISON: Prior day's exam FINDINGS: Portable frontal view of the c hest. IMPRESSION: Limited by underpenetration and patient rotation. Support Lines: Interval extubation. Ente donn tube is stable. Lungs and pleura: Lungs are hypoinflated with central congestive changes favoring edema. No cerebral effu ngozi. No pneumothorax. Heart and mediastinum: Stable contours. Additional findings: None. Signed: JR Loyola Robert MD Report Verified Date/Time:02/05/2020 10:26:24 Reading Location: [facility] Reading Room Procedure Note Interface, External Ris In - 02/05/2020 10:28 AM CDT FINAL REPORT RAD, CHEST, 1 VIEW, NON DEPT INDICATION: pneumonia, pulm edema COMPARISON: Prior day's exam FINDINGS: Portable frontal view of the c hest. IMPRESSION: Limited by underpenetration and patient rotation. Support Lines: Interval extubation. Ente donn tube is stable. Lungs and pleura: Lungs are hypoinflated with central congestive changes favoring edema. No cerebral effu ngozi. No pneumothorax. Heart and mediastinum: Stable contours. Additional findings: None. Signed: JR Milla, Shannan ENG Report Verified Date/Time: 02/05/2020 1 0:26:24 [facility] Reading [facility] Performing Organization Address City/[facility]/Zipcode Phone Number GE RIS B-type Natriuretic Factor (BNP) (02/05/2020 6:13 AM CDT)Only the most recent of 5 resultswithin the time period is included. BNP 66 0 - 100 pg/mL [facility] Specimen Blood Narrative Performed At Grill Associate LISA - ADMION Broussard [facility] Performing Organization Address City/[facility] Phone Number [facility] [address] [place] [address] CENTER Clostridium difficile [facility] Toxin (02/04/2020 11:23 AM CDT) C. Difficle Toxin Negative Negative [facility] C. Difficile [facility] Antigen NegativeComment: No Negative [facility] indication of Clostridium [facility] difficile infection and no colonization. Discontinue enteric isolation and therapy. Specimen Stool Narrative Performed At Testing performed by [employer] [facility] Assay.For GDH, published sensitivity of the assay is 98.7% compared to cytotoxicity testing.For Toxin AB, published sensitivity is 87.8% and specificity 99.4% compared to cytotoxicity testing. Verification of kit performance was done by the [facility] prior to clinical use. Performing Organization Address [facility]/Zipcode Phone Number [facility] [address] [place] [address] CENTER PT/aPTT (02/04/2020 11:23 AM CDT)Only the most recent of6 resultswithin the time period is included. Protime 15.0 (H) 11.9 - 14.2 seconds [facility] INR 1.2 <=5.9 [facility] PTT 89.3 (H) 22.5 - 36.0 seconds [facility] Specimen Blood Narrative Performed At Effective 04/01/2019: PT Reference Range [facility] Change New: 11.9-14.2Previous: 11.7-14.7 RECOMMENDED COUMADIN/WARFARIN INR THERAPY RANGES STANDARD DOSE: 2.0-3.0Includes: PROPHYLAXIS for venous thrombosis, systemic embolization; TREATMENT for venous thrombosis and/or pulmonary embolus. HIGH RISK: Target INR is 2.5-3.5 for patients wiht mechanical heart valves. Performing Organization Address City/[facility] Clinic[facility] Phone Number [address] [address] [place] Blood Culture - Routine (Left Venipuncture) (02/03/2020 11:28 AM CDT)Only the most recent of6 resultswithin the time period is included. Result No growth in 5 days [facility] Specimen Blood Performing Organization Address City/[facility] Phone Number [address] [address] [place] Blood gas, arterial (02/03/2020 2:56 AM CDT)Only the most recent of12 results within the time period is included. pH, Arterial 7.44 7.35 - 7.45 [facility] pCO2, Arterial 38 35 - 45 mmHg [facility] pO2, Arterial 244 (H) 80 - 90 mmHg [facility] O2 Sat, Arterial 99.6 (H) 96.0 - 97.0 % [facility] HCO3, Arterial 26 21 - 29 mmol/L [facility] Base Excess, Arterial 1.7 -2.0 - 3.0 mmol/L [facility] Patient Temperature 37.5 C [facility] FIO2 50.0 % [facility] Specimen Blood, Arterial Performing Organization Address City/[facility]/Zipcode Phone Number [address] [address] CENTER XR abdomen / KUB 1 view (02/03/2020 12:15 AM CDT)Only the most recent of2 resultswithin the time period is included. Specimen Narrative Performed At FINAL REPORT GE RIS CLINICAL HISTORY: NG tube placement chec k TECHNIQUE: RAD, ABDOMEN/KUB, 1 VIEW AP COMPARISON: Radiograph the abdomen dated same day. IMPRESSION: Gastric decompression tube with tip over lying the gastric pylorus, recommend retracting approximately 4 to 5 cm. Otherwise unchanged examination the interval. Nonobstructive bowel gas pattern without distended loops of bowel. Heterogeneous airspace opacities in the bilateral bases, incompletely evaluated. Signed: Jace Ibrahim MD Report Verified Date/Time:02/03/2020 03:33:27 Procedure Note Interface, External Ris In - 02/03/2020 3:35 AM CDT FINAL REPORT CLINICAL HISTORY: NG tube placement chec k TECHNIQUE: RAD, ABDOMEN/KUB, 1 VIEW AP COMPARISON: Radiograph the abdomen dated same day. IMPRESSION: Gastric decompression tube with tip over lying the gastric pylorus, recommend retracting approximately 4 to 5 cm. Otherwise unchanged examination the interval. Nonobstructive bowel gas pattern without distended loops of bowel. Heterogeneous airspace opacities in the bilateral bases, incompletely evaluated. Signed: Jace Ibrahim MD Report Verified Date/Time: 02/03/2020 0 3:33:27 Performing Organization Address City/State/Zipcode Phone Number GE RIS SPIN/CONCENTRATION CHARGE (02/01/2020 3:26 PM CDT)Only the most recent of2 resultswithin the time period is included. Concentration charged Done [facility] Specimen BAL Performing Organization Address City/[facility]/Zipcode Phone Number [facility] [address] [address] [place] AF[place] culture + smear (non-sputum) (02/01/2020 3:26 PM CDT)Only the most recent of2 resultswithin the time period is included. Result No acid-fast bacilli isolated in [facility] 42 days CENTER AFB Smear No acid fast bacilli seen [facility] Specimen Bronch Washing Performing Organization Address [facility] Phone Number [address] [address] [place] Bronchial culture + gram stain (02/01/2020 3:26 PM CDT) Result <1+ Normal respiratory wilbur [facility] Gram Stain Result 2+ WBCs [facility] Gram Stain Result No organisms seen [facility] Specimen Bronch Washing Performing Organization Address [facility] Cliniccoid Phone Number [address] [address] [place] Fungus culture + smear (02/01/2020 3:26 PM CDT) Result <1+ Eli albicans (A) [facility] Fungus Smear No fungi seen [facility] Specimen Bronch Washing Performing Organization Address [facility] Cliniccoid Phone Number [address] [address] [place] Urine culture (02/01/2020 1:37 PM CDT) Result No growth [facility] Specimen Urine Performing Organization Address [facility] Clinic[facility]oid Phone Number [address] [address] [place] Blood Culture Panel(BioFire) (02/01/2020 1:36 PM CDT) LISTERIA MONOCYTOGENES Not detected Not detected [facility] STAPHYLOCOCCUS Detected (A) Not detected [facility] [place] Coagulase negative Staph species (CoNS)- methici llin resistant CENTER First-line therapy: Vancomycin MecA DETECTED Possible contamination. The likelihood of pathogenicity is increased if the organism is observed in multiple blood cultures obtained from separate venipunctures. Reference Range: Not Detected STAPHYLOCOCCUS AUREUS Not detected Not detected [facility] Streptococcus Not detected Not detected [facility] STREPTOCOCCUS AGALACTIAE Not detected Not detected [facility] STREPTOCOCCUS PNEUMONIAE Not detected Not detected [facility] Streptococcus pyogenes (Group Not detected Not detected [facility] ACINETOBACTER BAUMANNII Not detected Not detected [facility] HAEMOPHILUS INFLUENZAE Not detected Not detected [facility] NEISSERIA MENINGITIDIS Not detected Not detected [facility] ENTEROBACTERIACEAE Not detected Not detected [facility] ENTEROBACTER CLOACOE COMPLEX Not detected Not detected [facility] KLEBSIELLA OXYTOCA Not detected Not detected [facility] KLEBSIELLA PNEUMONIAE Not detected Not detected [facility] PROTEUS Not detected Not detected [facility] SERRATIA MARCESCENS Not detected Not detected [facility] ELI ALBICANS Not detected Not detected [facility] ELI GLABRATA Not detected Not detected [facility] ELI KRUSEI Not detected Not detected [facility] ELI PARAPSILOSIS Not detected Not detected [facility] ELI TROPICALIS Not detected Not detected [facility] ESCHERICHIA COLI Not detected Not detected [facility] METHICILLIN-RESISTANCE GENE Detected (A) Not detected [facility] VANCOMYCIN-RESISTANCE GENE [facility] CARBAPENEM-RESISTANCE GENE [facility] ENTEROCOCCUS Not detected Not detected [facility] PSEUDOMONAS AERUGINOSA Not detected Not detected [facility] Specimen Blood Narrative Performed At Other bacteria and resistance markers not [facility] targeted by this PCR panel cannot be excluded; therefore clinical correlation and follow up of serology, culture results, and other molecular studies is required. The results are not intended to be used as the sole means for clinical diagnosis or patient management decisions. This sample was tested at the [facility] using the DAQRI Blood Culture ID Panel. It is FDA cleared and has been verified and approved by the [facility] for clinical use. This laboratory is CLIA-certified and [employer] (CAP)-accredited to perform high complexity testing. Performing Organization Address City/State/Zipcode Phone Number [address] [address] [place] Sputum Culture + Gram Stain (01/30/2020 11:16 AM CDT)Only the most recent of2 resultswithin the time period is included. Result 4+ Normal respiratory wilbur [facility] Gram Stain Result 2+ WBCs [facility] Gram Stain Result 5-10 epithelial cells [facility] Gram Stain Result 2+ gram negative rods [facility] Gram Stain Result <1+ gram positive cocci in [facility] pairs and clusters [facility] R Gram Stain Result <1+ yeast [facility] Gram Stain Result 1+ gram variable rods [facility] Specimen Sputum Performing Organization Address City/State/Zipcode Phone Number [address] [address] [place] PERIPHERAL VASCULAR REPORT - SCAN (01/29/2020 9:10 PM CDT) Narrative Performed At This result has an attachment that is no t available. Urinalysis Microscopic Only (01/29/2020 11:10 AM CDT) RBC, UA 1,122 /HPF [facility] WBC, UA 1 /HPF [facility] Mucus Rare [facility] Squam Epithel, UA 1 /HPF [facility] Specimen Urine Narrative Performed At Grill Associate ID - tech [facility] Performing Organization Address City/State/Zipcode Phone Number [facility] [address] [place] [address] CENTER Urinalysis with Microscopic If Indicated (01/29/2020 11:10 AM CDT) Color, UA Yellow [facility] Clarity, UA Hazy [facility] Specific Bastian, UA 1.011 1.001 - 1.035 [facility] pH, UA 6.0 5.0 - 8.0 [facility] Protein, UA 70 mg/dL (A) Negative [facility] Glucose, UA 300 mg/dL (A) Negative [facility] Ketones, UA Negative Negative [facility] Bilirubin, UA Negative Negative [facility] Blood, UA Large (A) Negative [facility] Nitrite, UA Negative Negative [facility] Leukocytes, UA Moderate (A) Negative [facility] Urobilinogen, UA 0.2 0.2 - 1.0 mg/dL [facility] Specimen Source [facility] Specimen Urine Narrative Performed At Grill Associate ID - [auto] [facility] Performing Organization Address City/State/Zipcode Phone Number [facility] [address] [place] [address] CENTER TSH/Free T4 If Indicated (01/29/2020 11:02 AM CDT) TSH 1.52 0.35 - 4.94 uIU/mL [facility]ENTER Specimen Blood Narrative Performed At Grill Associate ID Edel BELCHER [facility] Performing Organization Address City/State/Zipcode Phone Number [facility] MEDICAL [address] [place] [address] CENTER Venous doppler legs bilateral (01/29/2020 11:00 AM CDT) Ejection Fraction [facility] ECHO HEAR TLAB MKCKESSON CPACS Specimen Impressions Performed At Right Impression [facility] ECHO HEARTLAB MKCKESSON CPACS 1. There is partial deep venous obstruction in the common femoral and femoral veins. 2. There is no deep venous obstruction in the profunda femoral, popliteal, posterior tibial or peroneal veins. 3. There is no superficial venous obstruction in the great saphenous vein. Left Impression 1. There is no deep venous obstruction in the common femoral, profunda femoral, femoral, popliteal, posterior tibial or peroneal veins. 2. There is no superficial venous obstruction in the great saphenous vein. Conclusions Summary Venous duplex imaging and compression of the bilateral lower extremities were performed. The veins were adequately visualized. The right venous system was positive for sub acute partial deep venous obstruction in the thigh. The left venous systems were patent and compressible with no evidence of thrombus. The venous Doppler waveforms were phasic with respiration. Signature Velocities are measured in cm/s ; Diameters are measured in cm Narrative Performed At [facility] - Lower Extremities DVT Study [facility] ECHO HEARTLAB MKCKESSON CPACS Demographics Patient Name JUAN DIEGO KELLEY Date of Study01/29/2020 [id number] Age[age] Visit Number [id number] Male Accession Number [id number] of Birth1945 ReferringDebbie CohenAppleton Municipal Hospital [id number] Physician SonographerMorena BrowningInterpreting Yani Swan RN, RVT PhysicianMD Astrid Siddiqi RVT Procedure Type of Study: Veins: Lower Extremities DVT Study, VENOUS DOPPLER LEG, BILATERAL. Indications for Study:Hypoxemia. Patient Status:Routine. Study Location:Portable. Technical Quality:Adequate visualization . - Results were reported to:Sheela UMAÑA @ [place]. Risk Factors History of Disease + +----+------ + !Diagnosis !Date!Comments ! + +----+------ + !History/Risk Factors:!! DM, HTN, OBESITY ! + +----+------ + Procedure Note Interface, External Ris In - 01/29/2020 6:17 PM CDT [facility] - Lower Extremities DVT Study Demographics Patient Name JUAN DIEGO KELLEY Da te of Study 01/29/2020 Ag e 74 Visit Number [id number] Ge nder Male Accession Number [id number] Da te of 1945 Referring Debbie Diaz om Number [id number] Physician Web Applications Programmer Morena Browning In terpreting Yani Swan RN, RVT Ph ysician MD Astrid Siddiqi RVT Procedure Type of Study: Veins: Lower Extremities DVT Study, ROBBIE OUS DOPPLER LEG, BILATERAL. Indications for Study:Hypoxemia. Patient Status:Routine. Study Location:Portable. Technical Quality:Adequate visualization . - Results were reported to:Sheela UMAÑA @ 1 200. Risk Factors History of Disease + +- ---+ + !Diagnosis !D ate!Comments ! + +- ---+ + !History/Risk Factors: ! !DM, HTN, OBESITY ! + +- ---+ + Impressions Right Impression 1. There is partial deep venous obstruct ion in the common femoral and femoral veins. 2. There is no deep venous obstruction i n the profunda femoral, popliteal, posterior tibial or peroneal veins. 3. There is no superficial venous obstru ction in the great saphenous vein. Left Impression 1. There is no deep venous obstruction i n the common femoral, profunda femoral, femoral, popliteal, posterior t ibial or peroneal veins. 2. There is no superficial venous obstru ction in the great saphenous vein. Conclusions Summary Venous duplex imaging and compression o f the bilateral lower extremities were performed. The veins were adequate ly visualized. The right venous system was positive for sub acute parti al deep venous obstruction in the thigh. The left venous systems were pat ent and compressible with no evidence of thrombus. The venous Dopple r waveforms were phasic with respiration. Signature Velocities are measured in cm/s ; Diamet ers are measured in cm Performing Organization Address City/State/Zipcode Phone Number [facility] MKCKESSON CPACS Manual Differential (01/28/2020 3:10 AM CDT)Only the most recent of4 results within the time period is included. % Neutros 70 % [facility] % Lymphs 10 % [facility] % Monos 7 % [facility] % Eos 4 % [facility] % Bands 9 0 - 10 % [facility] # Neutros 5.53 (H) 1.78 - 5.38 K/ul [facility] # Lymphs 0.79 (L) 1.32 - 3.57 K/ul [facility] # Monos 0.55 0.30 - 0.82 K/uL [facility] # Eos 0.32 0.04 - 0.54 K/uL [facility] # Bands 0.71 0.00 - 0.80 K/uL [facility] Total Counted 100 [facility] RBC Morphology Normal [facility] WBC Morphology Normal [facility] Platelet Morphology Normal [facility] Specimen Blood Narrative Performed At Grill Associate ID - [id number] [facility] Performing Organization Address City/[facility]/Zipcode Phone Number [address] [address] CENTER Lactic Acid, Arterial (01/28/2020 3:10 AM CDT)Only the most recent of4 results within the time period is included. Lactate, Art 1.5 0.5 - 2.2 mmol/L [facility] Specimen Blood, Arterial Narrative Performed At Grill Associate ID - DAMION M [facility] Performing Organization Address City/[facility] Phone Number [address] [address] [place] Urinalysis w/Microscopic (01/27/2020 6:19 AM CDT) Color, UA Yellow [facility] Clarity, UA Hazy [facility] Specific Bastian, UA 1.018 1.001 - 1.035 [facility] pH, UA 5.5 5.0 - 8.0 [facility] Protein, UA 30 mg/dL (A) Negative [facility] Glucose, UA >1000 mg/dL (A) Negative [facility] Ketones, UA Negative Negative [facility] Bilirubin, UA Negative Negative [facility] Blood, UA Moderate (A) Negative [facility] Nitrite, UA Negative Negative [facility] Leukocytes, UA Negative Negative [facility] Urobilinogen, UA 0.2 0.2 - 1.0 mg/dL [facility] RBC, UA 28 /HPF [facility] WBC, UA 3 /HPF [facility] Bacteria, UA Occasional [facility] Hyaline Casts, UA 1 /LPF [facility] Specimen Source [facility] Specimen Urine Narrative Performed At Grill Associate ID - [auto] [facility] Grill Associate ID - tech Performing Organization Address City/[facility]/Zipcode Phone Number [address] [address] CENTER Creatine Kinase (CK) (01/27/2020 4:37 AM CDT)Only the most recent of2 results within the time period is included. Total CK 149 29 - 200 U/L [facility] Specimen Blood Narrative Performed At Grill Associate ID - DAMION Broussard [facility] [place] Performing Organization Address City/[facility]/Zipcode Phone Number [address] [address] CENTER ECHOCARDIOGRAM REPORT - SCAN (01/26/2020 9:12 PM CDT) Narrative Performed At This result has an attachment that is no t available. Vancomycin level, trough (01/26/2020 5:18 PM CDT) Vancomycin Tr 12.5 10.0 - 20.0 ug/mL [facility] Specimen Blood Narrative Performed At Grill Associate ID - HARSHIL [facility] [place] Performing Organization Address City/[facility]/Zipcode Phone Number [address] [address] CENTER Cortisol (01/26/2020 2:42 PM CDT) Cortisol, Total 13.1 3.7 - 19.4 ug/dL [facility] Specimen Blood Narrative Performed At Grill Associate ID - HARSHIL [facility] Performing Organization Address City/[facility]/Zipcode Phone Number [address] [address] CENTER Protein, random urine (01/26/2020 2:18 PM CDT)Only the most recent of2 results within the time period is included. Protein, Urine 25 (H) 0 - 14 mg/dL [facility] Specimen Urine Narrative Performed At Grill Associate ID - BS [facility] Performing Organization Address [facility]/Zipcode Phone Number [address] [address] [place] Creatinine, random urine (01/26/2020 2:18 PM CDT) Creatinine, Ur 123.0 mg/dL [facility] Specimen Urine Narrative Performed At Reference Range: No Normals [facility] Grill Associate ID - BS Performing Organization Address City/[facility]/Zipcode Phone Number [address] [address] [place] 2D Echo W/Doppler(CW/PW/Color) (01/26/2020 1:55 PM CDT) Ejection Fraction [facility] ECHO HEAR TLAB [facility] Specimen Narrative Performed At Transthoracic Echocardiography Report (T TE) [facility] ECHO HEARTLAB [facility] Demographics Patient Name JUAN DIEGO KELLEY Date of Study01/26/2020 [id number] Gender Mal e Visit Number [id number] Unknown [id number] Room [id number] Number Date of Birth1945Referring Everett Black PA-C Age74 year(s)Web Applications Programmer Jessica Garcia Interpreting Mark Lopez Physician MD Albania Gonzalez MD Procedure Type of Study TTE procedure:2DECHO W DOPPLER(CW/PW/COLOR) (Routine) Indications:Hypoxia. Clinical History Tobacco Abuse, AtOH Abuse, HTN, DM II, A KI Contrast Medium: Definity. Height: 70 inches Weight: 108.86 kg (240 lbs) BSA: 2.26 m^2 BMI: 34.44 kg/m^2 HR: 84 bpm BP: 133/76 mmHg Summary 1. The left ventricle is chamber size (by vol index) is normal (male - LVED vol - 34-74ml/m2). Normal LV wall thickness. All of the LV segments contract normally . Global LV systolic function normal . LVEF by Vance's method of disk assessment is normal (>60%) . Grade 1 diastolic dysfunction (impaired relaxation and low-normal LA pressure). 2. RV is partially visualized. In the limited views, the RV is mildly dilated with normal systolic function. S' 13 cm/sec. 3. LA size is mildly enlarged (35-41 ml/m2) . RA cavity size is mildly dilated. 4. A trace of tricuspid regurgitation. Unable to estimate peak systolic PA pressure; inadequate TR velocity signal. The estimated RA pressure by IVC dynamics 0-5mmHg . 5. No significant pericardial effusion is visualized. Previous Study No prior exam available for comparison. Signature Findings Technical Quality: Technically fair exam . Left Ventricle The left ventricle is chamber size (by vol index) is normal (male - LVED vol - 34-74ml/m2). No rmal LV wall thickness. Al l of the LV segments contract normally . Gl obal LV systolic function normal . LV EF by Vance's method of disk assessmen t is no rmal (>60%) . Th e LVEF was measured using Vance's bi-p laila me thod of disk . LV endocardium is adequately visualized wit h IV ul trasound enhancing agent. Gr grant 1 diastolic dysfunction (impaired re laxation an d low-normal LA pressure). LV endocardium is partially visualized with IV ul trasound enhancing agent. Left AtriumLA size is mildly enlarged (35-41 ml/m2) . Right VentricleRV is partially visualized. In the limited views, th e RV is mildly dilated with normal systo lic fu nction. S' 13 cm/sec. Imaging is subopti mal for me asurement of TAPSE. Right Atrium RA cavity size is mildly dilated. Atrial SeptumIV saline contrast injection was technically in adequate to detect a PFO (patent foramen ovale) at rest and post Valsalva . Aortic Valve Trileaflet aortic valve. Mild AoV cusp ca lcification. No evidence of aortic stenosis. No evidence of aortic regurgitation. Mitral Valve Mild MV leaflet thickening. Tr julissa mitral regurgitation. Tricuspid ValveTV structure is normal. A trace of tricuspid regurgitation. Unable to es timate peak systolic PA pressure; inadeq uate TR ve locity signal. Pulmonic Valve Normal PV structure and function. AortaAortic root size (SInus of Valsalva diameter) i s no rmal . Proximal ascending aorta size mil dly di lated . 3.8 cm PericardiumNo significant pericardial effusion is visualized. IVC/SVC/PA/PV/PleuralThe estimated RA pressure by IVC dynamics 0-5mmHg . Chambers/Structures Left Atrium LA Volume: 78.55 ml LA Area: 23.12 cm^2 LA Vol. Index: 35 ml/m^2 Left Ventricle LVIDd: 5.11 cm LV Septum Diastolic: 1.08 cm LV PW Diastolic: 1.07 cm LVEDV Vance's:104.68 ml LVESV Vance's:38.5 ml LVEF Vance's: 63.2 %LVEDV I: 46 ml/m^2 LVESVI: 17 ml/m^2 LVOT Diameter: 2.23 cm Right Atrium RA Area: 17 cm^2 RA Vol. (Sngl Plane): 5 1 ml Right Ventricle RV Diast Dim.: 4.2 cm Aorta Ao Root S of Jacqueline.: 3.35 cmAscending Aorta: 3.82 cm Doppler/Quantitative Measurements Mitral Valve MV Peak E-Wave: 0.62 m/sMV Peak A-Wave: 0.66 m/s E/A Ratio: 0. 94 Peak Gradient: 1.53 mmHg Deceleration Time: 295.4 msec MV Alexei. Peak: Tissue Doppler E' Septal Velocity: 0.07 m/sE/E': 8.94 E' Lateral Velocity: 0.07 m/s Aortic Valve Peak Velocity: 1.17 m/sMean Velocity: 0.88 m/s Peak Gradient: 5.47 mmHg Mean Gradient: 3.44 mmHg AV Area (continuity): 3.2 cm^2 AV VTI: 18.66 cm AV DVI: 0.82 LVOT Peak Velocity: 0.99 m/s Peak Gradient: 3.94 mmHg Mean Velocity: 0.7 m/sMean Gradient: 2.29 mmHg LVOT Diameter: 2.23 cmLVOT VTI: 15.28 cm LVOT Area: 3.91 cm^2LVOT SV:59.65 ml LVOT CO: 5.01 l/min LVOT CI: 2.22 l/min/m^2 Procedure Note Interface, External Ris In - 01/26/2020 4:35 PM CDT Transthoracic Echocardiography Report (TTE) Demographics Patient Name JUAN DIEGO KELLEY Date of Study 01/26/2020 Gender Male Visit Number [id number] Race Unknown Room Num [place] [id number] Number Date of 1945 Refermadelyn barrett Physician En Black PA-C Age 74 year(s) Sonograp her Jessica Patten Car Dumper Mark Kimball MD, MD Procedure Type of Study TTE procedure:2DECHO W DOPPLE R(CW/PW/COLOR) (Routine) Indications:Hypoxia. Clinical History Tobacco Abuse, AtOH Abuse, HTN, DM II, A KI Contrast Medium: Definity. Height: 70 inches Weight: 108.86 kg (240 lbs) BSA: 2.26 m^2 BMI: 34.44 kg/m^2 HR: 84 bpm BP: 133/76 mmHg Summary 1. The left ventricle is chamber size ( by vol index) is normal (male - LVED vol - 34-74ml/m2). Normal LV wall thickness. All of the LV segments contract normally . Global LV systolic function normal . LVEF by Vance's method of disk assessment is normal (>6 0%) . Grade 1 diastolic dysfunction (impaired relaxation and low-normal LA pressure). 2. RV is partially visualized. In the l imited views, the RV is mildly dilated with normal systolic function. S' 13 cm/sec. 3. LA size is mildly enlarged (35-41 ml /m2) . RA cavity size is mildly dilated. 4. A trace of tricuspid regurgitation. Unable to estimate peak systolic PA pressure; inadequate TR velocity signal . The estimated RA pressure by IVC dynamics 0-5mmHg . 5. No significant pericardial effusion is visualized. Previous Study No prior exam available for comparison. Signature Findings Technical Quality: Technically fair exam . Left Ventricle The left ventric le is chamber size (by vol index) is normal (male - LVED vol - 34-74ml/m2). Normal LV wall t hickness. All of the LV se gments contract normally . Global LV systol ic function normal . LVEF by Vance' s method of disk assessment is normal (>60%) . The LVEF was sonu sured using Vance's bi-plane method of disk . LV endocardium i s adequately visualized with IV ultrasound enhan cing agent. Grade 1 diastoli c dysfunction (impaired relaxation and low-normal L A pressure). LV endocardium i s partially visualized with IV ultrasound enhan cing agent. Left Atrium LA size is mildl y enlarged (35-41 ml/m2) . Right Ventricle RV is partially visualized. In the limited views, the RV is mildly dilated with normal systolic function. S' 13 cm/sec. Imaging is suboptimal for measurement of T APSE. Right Atrium RA cavity size i s mildly dilated. Atrial Septum IV saline contra st injection was technically inadequate to de tect a PFO (patent foramen ovale) at rest and post Valsalva . Aortic Valve Trileaflet aorti c valve. Mild AoV cusp calcification. No evidence of a ortic stenosis. No evidence of a ortic regurgitation. Mitral Valve Mild MV leaflet thickening. Trace mitral reg urgitation. Tricuspid Valve TV structure is normal. A trace of tricu spid regurgitation. Unable to estimate peak sy stolic PA pressure; inadequate TR velocity signal. Pulmonic Valve Normal PV struct ure and function. Aorta Aortic root size (SInus of Valsalva diameter) is normal . Proxima l ascending aorta size mildly dilated . 3.8 cm Pericardium No significant p ericardial effusion is visualized. IVC/SVC/PA/PV/Pleural The estimated RA pressure by IVC dynamics 0-5mmHg . Chambers/Structures Left Atrium LA Volume: 78.55 ml LA Area: 23.12 cm^2 LA Vol. Index: 35 ml/m^2 Left Ventricle LVIDd: 5.11 cm LV Septum Diastolic: 1.08 cm LV PW Diastolic: 1.07 cm LVEDV Vance's:104.68 ml LVESV Vance's:38.5 ml LVEF Vance's: 63.2 % LVEDVI: 46 ml/m^2 LVESVI: 17 ml/m^2 LVOT Diameter: 2.23 cm Right Atrium RA Area: 17 cm^2 RA Vol. (Sngl Plane): 51 ml Right Ventricle RV Diast Dim.: 4.2 cm Aorta Ao Root S of Jacqueline.: 3.35 cm Ascending Aorta: 3.82 cm Doppler/Quantitative Measurements Mitral Valve MV Peak E-Wave: 0.62 m/s M V Peak A-Wave: 0.66 m/s E /A Ratio: 0.94 P eak Gradient: 1.53 mmHg D eceleration Time: 295.4 msec MV Alexei. Peak: Tissue Doppler E' Septal Velocity: 0.07 m/s E /E': 8.94 E' Lateral Velocity: 0.07 m/s Aortic Valve Peak Velocity: 1.17 m/s Mean Velocity: 0.88 m/s Peak Gradient: 5.47 mmHg Mean Gradient: 3.44 mmHg AV Area (continuity): 3.2 cm^2 AV VTI: 18.66 cm AV DVI: 0.82 LVOT Peak Velocity: 0.99 m/s Pea k Gradient: 3.94 mmHg Mean Velocity: 0.7 m/s Sonu n Gradient: 2.29 mmHg LVOT Diameter: 2.23 cm LVO T VTI: 15.28 cm LVOT Area: 3.91 cm^2 LVO T SV:59.65 ml LVOT CO: 5.01 l/min LVO T CI: 2.22 l/min/m^2 Performing Organization Address [facility] Phone Number [facility] CPACS Troponin I (01/26/2020 4:28 AM CDT)Only the most recent of2 resultswithin the time period is included. Troponin I 0.18 (H) 0.00 - 0.03 ng/mL [facility] Specimen Blood Narrative Performed At Troponin I (TnI) levels must be interpreted [facility] in the context of the presenting symptoms and the clinical findings. Elevated TnI levels indicate myocardial damage, but are not specific for ischemic heart disease. Elevated TnI levels are seen in patients with other cardiac conditions (including myocarditis and congestive heart failure), and slight TnI elevations occur in patients with other conditions, including sepsis, renal failure, acidosis, acute neurological disease, and persistent tachyarrhythmia. Grill Associate ID - HARSHIL Performing Organization Address [facility] ClinicSurvataid Phone Number [address] [address] CENTER Vancomycin level, random (01/25/2020 5:30 PM CDT) Vancomycin Rm 5.2 ug/mL [facility] Specimen Blood Narrative Performed At Reference Range: No Normals [facility] Grill Associate ID - BS Performing Organization Address [facility] Phone Number [address] [address] CENTER MRSA screen (01/25/2020 4:46 PM CDT) Result No MRSA isolated [facility] Specimen Nasal Performing Organization Address [facility] [place] [place] Phone Number [facility] [address] [place] [address] CENTER Respiratory Panel [facility] (01/25/2020 4:36 PM CDT) Human Metapneumovirus Not detected Not detected, [facility] Rhinovirus Not detected Not detected, [facility] Influenza A Not detected Not detected, [facility] INFLUENZA A (NO SUBTYPE) [facility] Influenza A subtype H1 [facility] Influenza A Subtype H3 [facility] Influenza A Subtype H1-2009 [facility] Influenza B Not detected Not detected, [facility] Respiratory Syncytial Virus Not detected Not detected, [facility] Parainfluenza Virus 1 Not detected Not detected, [facility] Parainfluenza Virus 2 Not detected Not detected, [facility] Parainfluenza virus 3 Not detected Not detected, [facility] Parainfluenza Virus 4 Not detected Not detected, [facility] Adenovirus Not detected Not detected, [facility] Coronavirus 229E Not detected Not detected, [facility] Coronavirus HKU1 Not detected Not detected, [facility] Coronavirus NL63 Not detected Not detected, [facility] Coronavirus OC43 Not detected Not detected, [facility] Bordetella Pertussis Not detected Not detected, [facility] Chlamydophila Pneumoniae Not detected Not detected, [facility] Mycoplasma Pneumoniae Not detected Not detected, [facility] Specimen Nasopharyngeal Narrative Performed At Other viruses and bacteria not targeted by [facility] this PCR panel cannot be excluded; therefore clinical correlation and follow up of serology, culture results, and other molecular studies is required. The results are not intended to be used as the sole means for clinical diagnosis or patient management decisions. This sample was tested at the [facility] using the [employer] FilmArray Respiratory Panel. It is FDA cleared and has been verified and approved by the [facility] for clinical use on nasopharyngeal swab specimens. The performance of the FilmArray RP has not been established in individuals who received influenza vaccine.Recent administration of a nasal influenza vaccine may cause false positive results for Influenza A and/or Influenza B. Performing Organization Address City/State/[facility] Cliniccode Phone Number [address] [address] CENTER C-Reactive Protein (01/25/2020 4:36 PM CDT) CRP 9.61 (H) 0.00 - 0.50 mg/dL [facility] Specimen Blood Narrative Performed At Grill Associate ID - BS [facility] Performing Organization Address [facility] [place] [place] Phone Number [address] [address] CENTER SARS-COV2 (01/25/2020 4:36 PM CDT) Scan Result SEE SCANNED REPORT [facility] Specimen Nasopharyngeal Narrative Performed At This result has an attachment that is no t available. Performing Organization Address City/[facility] Phone Number [facility] [address] [place], [place] Lactic acid, venous (01/25/2020 4:36 PM CDT) Lactate, Venous 6.86 (HH)Comment: 0.50 - 2.20 mmol/L [facility] hemolyzed Specimen Blood Narrative Performed At Grill Associate ID - BS [facility] Performing Organization Address City/[facility] Cliniccode Phone Number [address] [address] CENTER D-dimer (01/25/2020 4:36 PM CDT) D-Dimer, Quant 3.32 (H) <0.50 MG/L FEU [facility] Specimen Blood Narrative Performed At Intended Use: The D-Dimer Assay can be used [facility] to aid in the diagnosis of Deep Vein Thrombosis (DVT) and Pulmonary Embolism Disease (PED). In patients with low pre-test probability, various studies concerning STA Liatest D-dimer test have reported that with a cutoff value of 0.50 MG/L FEU, the Negative Predictive Value (NPV) regarding the exclusion of thrombosis is within 95-100% range. Performing Organization Address [facility] Cliniccode Phone Number [address] [address] [place] Uric acid (01/25/2020 4:36 PM CDT) Uric Acid 10.7 (H) 2.6 - 7.2 mg/dL [facility] Specimen Blood Narrative Performed At Grill Associate ID - BS [facility] Performing Organization Address [facility] Cliniccoid Phone Number [address] [address] CENTER Lactate dehydrogenase (LDH) (01/25/2020 4:36 PM CDT) LDH 187 125 - 220 U/L [facility] Specimen Blood Narrative Performed At Grill Associate ID - BS [facility] Performing Organization Address [facility] Phone Number [address] [address] CENTER Insert Arterial Line (01/25/2020 9:00 AM CDT) Narrative Performed At Zofia Valdes NP 01/25/2020 11: 05 PM Insert Arterial Line Date/Time: 01/25/2020 11:00 PM Performed by: Zofia Valdes NP Authorized by: Zofia Valdes NP Consent: The procedure was performed in an emergent situation. Relevant documents: relevant documents p resent and verified Test results: test results available and properly labeled Site marked: the operative site was bryan ed Imaging studies: imaging studies availab le Patient identity confirmed: arm band and hospital-assi gn identification number Time out: Immediately prior to procedure a "time out" was called to verify the correct patient, procedure, equipmen t, clinical support nurse and site/side marked as required. Preparation: Patient was prepped and draped in the usu al sterile fashion. Indications: multiple ABGs and hemodynam ic monitoring Location: right radial Anesthesia: local infiltration Anesthesia: Local Anesthetic: lidocaine 1% without e pinephrine Sedation: Patient sedated: no Man's test normal: yes Needle gauge: 22 Seldinger technique: Seldinger technique used Number of attempts: 1 (Attempted to guide wire the lef t arteril line and failed ) Post-procedure: line sutured and dressin g applied Post-procedure CMS: normal Patient tolerance: Patient tolerated the procedure wel l with no immediate complications Comments: Left radial arterial line without blood retu rn and positional. Attempted to guidewire and failed. Pressure applied. H emostasis achieved. No complications noted. Pulses are intac t. after 07/02/2019 Insurance Payer Benefit Plan / Group Subscriber ID Type Phone A ddress MEDICARE MEDICARE PART A xxxxxxxxxxx Medicare INSTITUTIONAL S [facility] xxxxxxxxx CDC REVIEW CDC REVIEW xxxxxxxxxx [address] [place] [place] [address] Advance Directives For more information, please contact:[address] [phone] Code Status Date Activated Date Inactivated Comments Partial Code 01/25/2020 6:29 PM 02/09/2020 8:06 PM This code status was determined by: Spouse Step son spoke with spouse who had many previous conversatio ns about medical wishes with the zeina ent Drug Protocol After Arrest Occurs? No Mechanical Ventilation with Yes Intubation? Bag/Mask? Yes Internal/External Pacemaker? Yes Transfer to Critical Care? Yes Chest Compressions? No Defibrillation/Cardioversion? No Full Code 01/25/2020 3:20 PM 01/25/2020 6:28 PM This code status was determined by: Patient
--- OUTSIDE RECORDS SUMMARY | 2020-07-02 16:22 | XMS REPORT | Continuity of Care Document ---
:1945 Author Organization [facility] t Address [address] [place] [address] Care Team Providers Name Role Phone Pcp Primary Care Physician Unavailable VICKI Attending Clinician Unavailable Vicki ENG Attending Clinician Jefe Billy MD Attending Clinician Sumeet Harrison MD Attending Clinician Zulema Drake MD Attending Clinician Jefe ENG Attending Clinician Ady Nelson MD Attending Clinician Nolan Garzon MD Attending Clinician Pob, Lab Main Attending Clinician Unavailable VICKI Admitting Clinician Unavailable Nolan Garzon MD Admitting Clinician Payers Payer Name Policy Policy Number Effective Expiration Source Type Date Date MEDICAREMEDICARE PART xxxxxxxxxxx [facility] INSTIT[facility] [place] xxxxxxxxx [facility] [id number] [facility] CDC REVIEWCDC xxxxxxxxxx [facility] REVIEWxxxxxxxxxxPO [facility] [id number] [place] Advance Directives Directive Decision Effective Date Termination Date Comments Sour ce Partial Code This Yes 2020-01-25 2020-02-09 [facility] code status was 00:00:00 00:00:00 - Medical determined by: Center Spouse Step son spoke with spouse who had many previous conversations about medical wishes with the patient Drug Protocol After Arrest Occurs? No Mechanical Ventilation with Intubation? Yes Bag/Mask? Yes Internal/External Pacemaker? Yes Transfer to Critical Care? Yes Chest Compressions? No Defibrillation/Cardi oversion? No Problems Condition Condition Condition Status Onset Resolution Last Treating Co mments Source Name Details Category Date Date Treatment Clinician Date Acute Acute Disease Active [facility] metabolic metabolic 3-28 [facility] - encephalop encephalop 00:00: Me dical athy athy 00 [place] TRICIA (acute TRICIA (acute Disease Active [facility] kidney kidney 3-28 [facility] - injury) injury) 00:00: Medical 00 [place] Acute Acute Disease Active [facility] hypoxemic hypoxemic 3-23 [facility] - respirator respirator 00:00: Me dical y failure y failure 00 [facility] Aspiration Aspiration Disease Active [facility] pneumoniti pneumoniti 3-23 Felicia kes - s s 00:00: Medical 00 [place] Allergies, Adverse Reactions, Alerts Allergy Allergy Status Severity Reaction(s) Onset Inactive Treating Comm ents Source Name Type Date Date Clinician Penicill DA Active [facility] ins 8 Clear 00:00: Hernandez [address] [place] [address] Social History Social Habit Start Date Stop Date Quantity Comments Source Sex Assigned At [facility] Medications Ordered Filled Start Stop Current Ordering Indication Dosage Frequency Signature Comments Components Source Medication Medication Date Date Medication? Clinician (SIG) Name Name pantoprazol Yes 40mg QD Take [address] [facility] e 4-08 tablet (40 [facility] - (PROTONIX) 00:00: mg total) Me dical 40 MG 00 by mouth Center tablet daily. tamsulosin Yes .4mg QD Take 1 [facility] (FLOMAX) 4-08 capsule [facility] - 0.4 mg Cap 00:00: (0.4 mg Medi danielle 24 hr 00 total) by Center capsule mouth daily. citalopram 2020- No 20mg QD Take [address] [facility] [address] (CELEXA) 20 02-09 04-08 tablet (20 L ukes - MG tablet 00:00: 23:59 mg total) Me dical 00 :00 by mouth Center daily. folic acid 2020- No 1mg QD Take [address] [facility] [address] (FOLVITE) 1 02-09 04-08 tablet (1 Felicia kes - MG tablet 00:00: 23:59 mg total) Me dical 00 :00 by mouth Center daily. levothyroxi 2020- No 175ug Take [address] ne 02-09-08 tablet [facility] - (SYNTHROID, 00:00: 23:59 (175 mcg M edical LEVOTHROID) 00 :00 total) by [facility] ter 175 MCG mouth tablet Every morning on an empty stomach. thiamine 2020- No 100mg QD Take 1 [facility] 100 MG 02-09-08 tablet [facility] - tablet 00:00: 23:59 (100 mg Medical 00 :00 total) by Center mouth daily. furosemide 2019- No 20mg QD Take [address] [facility] [address] (LASIX) 20 02-09 05-08 tablet (20 Felicia kes - MG tablet 00:00: 23:59 mg total) Me dical 00 :00 by mouth Center daily for 30 days. apixaban 2019-0 Yes 5mg Q.5D Take [address] [address] (ELIQUIS) 5 4-07 tablet (5 Zuly es - mg Tab 00:00: mg total) Medica l tablet 00 by mouth 2 Center (two) times daily. atorvastati 2020- No 10mg QD Take [address] [facility] [address] n (LIPITOR) 02-08-07 tablet (10 L ukes - 10 MG 00:00: 23:59 mg total) Medica l tablet 00 :00 by mouth Center nightly. carvediloL 2020- No 12.5mg Q.5D Take [address] (COREG) 02-08-07 tablet [facility] - 12.5 MG 00:00: 23:59 (12.5 mg Medic al tablet 00 :00 total) by Center mouth 2 (two) times daily. insulin No 12U Inject [address] [facility] [address] lispro 02-08-07 Units [facility] - (HUMALOG) 00:00: 23:59 subcutaneo M edical 100 unit/mL 00 :00 usly 3 Center injection (three) times daily before meals. finasteride 5mg QD Take [address] (PROSCAR) 5 02-08 tablet (5 Felicia kes - mg tablet 00:00: 23:59 mg total) Me dical 00 :00 by mouth Center daily. insulin 40U Q.5D Inject 40 [facility] detemir 02-08 05-07 Units [facility] - U-100 00:00: 23:59 subcutaneo Medic al (LEVEMIR) 00 :00 usly 2 Center 100 unit/mL (two) injection times daily for 30 days. Vital Signs Vital Name Observation Time Observation Value Comments Source Systolic blood 2020-02-09 16:00:00 116 mm[Hg] [facility] Diastolic blood 2020-02-09 16:00:00 59 mm[Hg] [facility] Heart rate 2020-02-09 16:00:00 60 /min [facility] Body temperature 2020-02-09 16:00:00 36.83 Rachael [facility] Respiratory rate 2020-02-09 16:00:00 18 /min [facility] Oxygen saturation in 2020-02-09 16:00:00 96 /min [facility] Arterial blood by Medical Ce nter Pulse oximetry Body weight Measured 2020-02-09 06:00:00 102.967 kg [facility] BMI 2020-02-09 06:00:00 32.57 kg/m2 [facility] Body height 2020-01-25 17:00:00 177.8 cm [facility] Procedures Procedure Date / Time Performing Clinician Source Performed RHYTHM STRIP - SCAN 2020-02-10 09:10:08 Provider, Default [facility] POCT-GLUCOSE METER 2020-02-09 17:35:[address] [facility] POCT-GLUCOSE METER 2020-02-09 12:47:[address] [facility] US ABDOMEN COMPLETE 2020-02-09 12:05:[address] [facility] POCT-GLUCOSE METER 2020-02-09 08:24:[address] [facility] ECG 12-LEAD 2020-02-09 07:37:44 LesterrolandAlina mcelroycameron [facility] CALCIUM, IONIZED 2020-02-09 03:49:00 Leodan, Sammy Reynolds [facility] PHOSPHORUS 2020-02-09 03:49:00 Leodan, Sammy K [facility] AMMONIA 2020-02-09 03:49:00 Alina Nelsoncameron [facility] BASIC METABOLIC PANEL (7) 2020-02-09 03:49:00 Aman Nelson [facility] CBC W/PLT COUNT & AUTO 2020-02-09 03:49:00 Kishore Osorio CH I [facility] POCT-GLUCOSE METER 2020-02-08 20:55:[address] [facility] POCT-GLUCOSE METER 2020-02-08 17:33:[address] [facility] POCT-GLUCOSE METER 2020-02-08 12:13:[address] [facility] ECG 12-LEAD 2020-02-08 11:33:24 Alina Nelsoncameron [facility] POCT-GLUCOSE METER 2020-02-08 07:16:00 Amn Jefea [facility] CALCIUM, IONIZED 2020-02-08 03:36:00 Leodan, Sammy K [facility] BASIC METABOLIC PANEL (7) 2020-02-08 03:35:00 Leodan, Sammy K CH I [facility] MAGNESIUM 2020-02-08 03:35:00 Leodan, Sammy Reynolds [facility] PHOSPHORUS 2020-02-08 03:35:00 Leodan, [facility] COMPREHENSIVE METABOLIC 2020-02-08 [facility] W/PLT COUNT & AUTO 2020-02-08 03:35:00 Giorgio Jacques [facility] POCT-GLUCOSE METER 2020-02-07 21:08:00 Jefe, [facility] POCT-GLUCOSE METER 2020-02-07 18:05:00 Jefe, [facility] URINALYSIS W/ REFLEX 2020-02-07 16:10:00 Jefe, [facility] URINE CULTURE [facility] BASIC METABOLIC PANEL (7) 2020-02-07 13:49:00 Leodan, [facility] MAGNESIUM 2020-02-07 13:49:00 Leodan, [facility] POCT-GLUCOSE METER 2020-02-07 12:48:00 Jefe, [facility] POCT-GLUCOSE METER 2020-02-07 07:03:00 Jefe, [facility] CALCIUM, IONIZED 2020-02-07 05:19:00 Leodan, Sammy [facility] PHOSPHORUS 2020-02-07 05:19:00 Leodan, [facility] MAGNESIUM 2020-02-07 05:19:00 Leodan, [facility] Rodolfo [facility] APTT 2020-02-07 05:19:00 Leodan, [facility] COMPREHENSIVE METABOLIC 2020-02-07 05:19:00 Bandar [facility] CBC W/PLT COUNT & AUTO 2020-02-07 05:19:00 Giorgio Jacques [facility] POCT-GLUCOSE METER 2020-02-06 23:00:00 Jefe, [facility] BASIC METABOLIC PANEL (7) 2020-02-06 20:39:00 Leodan, Sammy K [facility] I [facility] MAGNESIUM 2020-02-06 20:39:00 Leodan, Sammy Reynolds [facility] POCT-GLUCOSE METER 2020-02-06 19:10:00 Abida Mayberry [facility] POCT-GLUCOSE METER 2020-02-06 12:30:00 Rodo Drake [facility] BASIC METABOLIC PANEL (7) 2020-02-06 09:54:00 Leodan, Sammy Reynolds [facility] PHOSPHORUS 2020-02-06 09:54:00 Leodan, Sammy Reynolds [facility] MAGNESIUM 2020-02-06 09:54:00 Leodan, Sammy Rodolfo [facility] APTT 2020-02-06 09:54:00 Leodan, [facility] CBC W/PLT COUNT & AUTO 2020-02-06 09:54:00 Giorgio Jacques [facility] POCT-GLUCOSE METER 2020-02-06 05:45:00 Rodo Drake [facility] POCT-GLUCOSE METER 2020-02-06 00:25:00 Rodo Drake [facility] BASIC METABOLIC PANEL (7) 2020-02-05 20:47:00 LeodanSammy swann [facility] MAGNESIUM 2020-02-05 20:47:00 Leodan [facility] XR ANKLE 1 VIEW LEFT 2020-02-05 20:42:00 Leodan, [facility] POCT-GLUCOSE METER 2020-02-05 17:55:00 Rodo Drake [facility] BASIC METABOLIC PANEL (7) 2020-02-05 14:17:00 Leodan, Sammy Rodolfo [facility] MAGNESIUM 2020-02-05 14:17:00 Leodan, [facility] XR CHEST 1 VIEW 2020-02-05 10:10:00 Rodo Drake [facility] PORTABLE/BEDSIDE Medical Center APTT 2020-02-05 10:05:00 Rodo Drake [facility] POCT-GLUCOSE METER 2020-02-05 06:33:00 [facility] 2020-02-05 06:17:00 Leodan, [facility] B-TYPE NATRIURETIC FACTOR 2020-02-05 06:13:00 Leodan, Sammy Reynolds [facility] (BNP) [facility] BASIC METABOLIC PANEL (7) 2020-02-05 06:13:00 Leodan, Sammy Reynolds [facility] CALCIUM, IONIZED 2020-02-05 06:13:00 Leodan, [facility] PHOSPHORUS 2020-02-05 06:13:00 Leodan, [facility] MAGNESIUM 2020-02-05 06:13:00 Leodan, [facility] CBC W/PLT COUNT & AUTO 2020-02-05 06:13:00 Leodan, [facility] POCT-GLUCOSE METER 2020-02-05 00:34:00 Rodo Drake [facility] BASIC METABOLIC PANEL (7) 2020-02-04 23:26:00 Ledoan, Sammy K [facility] MAGNESIUM 2020-02-04 23:26:00 Leodan, [facility] POCT-GLUCOSE METER 2020-02-04 17:29:00 Noelle Rodo [facility] BASIC METABOLIC PANEL (7) 2020-02-04 12:32:[address] [facility] MAGNESIUM 2020-02-04 12:32:00 Jesse Morris [facility] C. DIFFICILE GDH TOXIN 2020-02-04 11:23:00 Giorgio Jacques [facility] PT/APTT 2020-02-04 11:23:[address] [facility] POCT-GLUCOSE METER 2020-02-04 11:20:[address] [facility] POCT-GLUCOSE METER 2020-02-04 05:52:00 Rodo Drake [facility] APTT 2020-02-04 04:51:00 [facility] 2020-02-04 03:42:00 Jarad Gresham [facility] PHOSPHORUS 2020-02-04 03:02:00 En Black [facility] CALCIUM, IONIZED 2020-02-04 03:02:[address] [facility] [place] BASIC METABOLIC PANEL (7) 2020-02-04 03:02:00 Jesse Morris CH I [facility] MAGNESIUM 2020-02-04 03:02:00 Jesse Morris [facility] APTT 2020-02-04 03:02:00 Jarad Gresham [facility] CBC W/PLT COUNT & AUTO 2020-02-04 03:02:00 Sammy Alcocer [facility] POCT-GLUCOSE METER 2020-02-03 23:58:00 Rodo Drake [facility] BASIC METABOLIC PANEL (7) 2020-02-03 20:50:00 Jesse Morris CH I [facility] MAGNESIUM 2020-02-03 20:50:00 Jesse Morris [facility] POCT-GLUCOSE METER 2020-02-03 18:07:00 Rodo Drake [facility] POCT-GLUCOSE METER 2020-02-03 12:15:00 Rodo Drake [facility] BLOOD CULTURE 2020-02-03 11:28:00 Zara [facility] BASIC METABOLIC PANEL (7) 2020-02-03 11:28:00 Jesse Morris CH I [facility] MAGNESIUM 2020-02-03 11:28:00 Jesse Morris [facility] POCT-GLUCOSE METER 2020-02-03 05:46:00 Rodo Drake [facility] BLOOD GAS, ARTERIAL 2020-02-03 02:56:00 Black, En [facility] PHOSPHORUS 2020-02-03 02:50:00 En Black [facility] MAGNESIUM 2020-02-03 02:50:00 Jesse Morris [facility] CALCIUM, IONIZED 2020-02-03 02:50:00 Kwesi Portillo [facility] COMPREHENSIVE METABOLIC 2020-02-03 02:50:00 [facility] 2020-02-03 02:50:00 Jarad Gresham [facility] CBC W/PLT COUNT & AUTO 2020-02-03 02:50:00 [facility] / KUB 1 VIEW 2020-02-03 00:15:00 Ila Freeman [facility] POCT-GLUCOSE METER 2020-02-03 00:11:00 Rodo Drake [facility] BASIC METABOLIC PANEL (7) 2020-02-02 21:09:00 Jesse Morris CH, I [facility] MAGNESIUM 2020-02-02 21:09:00 Jesse Morris [facility] XR ABDOMEN / KUB 1 VIEW 2020-02-02 18:46:00 Rodo Drake [facility] POCT-GLUCOSE METER 2020-02-02 17:30:00 Rodo Drake [facility] POCT-GLUCOSE METER 2020-02-02 12:05:00 Rodo Drake [facility] BASIC METABOLIC PANEL (7) 2020-02-02 12:03:00 Jesse Morris CH, I [facility] MAGNESIUM 2020-02-02 12:03:00 Jesse Morris [facility] POCT-GLUCOSE METER 2020-02-02 05:32:00 Rodo Drake [facility] PHOSPHORUS 2020-02-02 03:09:00 En Black [facility] BASIC METABOLIC PANEL (7) 2020-02-02 03:09:00 RandallJesse stark CARYL I [facility] MAGNESIUM 2020-02-02 03:09:00 ThomasJesse pettit [facility] APTT 2020-02-02 03:09:00 Jarad Gresham [facility] CBC W/PLT COUNT & AUTO 2020-02-02 03:09:00 Ila Freeman [facility] CALCIUM, IONIZED 2020-02-02 03:04:[address] [facility] [place] BLOOD GAS, ARTERIAL 2020-02-02 03:04:00 Wayne En [facility] POCT-GLUCOSE METER 2020-02-02 00:25:00 Rodo Drake Zulema [facility] BASIC METABOLIC PANEL (7) 2020-02-01 20:24:00 RandallJesse stark CARYL I [facility] MAGNESIUM 2020-02-01 20:24:00 RandallJesse stark [facility] APTT 2020-02-01 18:11:00 Jarad Gresham [facility] POCT-GLUCOSE METER 2020-02-01 17:11:00 Rodo Drake Zulema [facility] BRONCHIAL CULTURE + GRAM 2020-02-01 15:26:00 Datar, [facility] AFB CULTURE + SMEAR 2020-02-01 15:26:00 Datar, [facility] (NON-SPUTUM) [facility] FUNGUS CULTURE + SMEAR 2020-02-01 15:26:00 Datar, [facility] SPIN/CONCENTRATION CHARGE 2020-02-01 15:26:00 Datar, [facility] XR CHEST 1 VIEW 2020-02-01 15:19:00 Datar, [facility] PORTABLE/BEDSIDE Medical Center BLOOD CULTURE 2020-02-01 13:40:00 Rodo Drake [facility] URINE CULTURE 2020-02-01 13:37:00 Rodo Drake [facility] BASIC METABOLIC PANEL (7) 2020-02-01 13:37:00 Jesse Morris CH I [facility] MAGNESIUM 2020-02-01 13:37:00 Jesse Morris [facility] URINALYSIS W/ REFLEX 2020-02-01 13:37:00 Rodo Drake [facility] URINE CULTURE [facility] BLOOD CULTURE 2020-02-01 13:36:00 Rodo Drake [facility] BLOOD CULTURE 2020-02-01 13:36:00 Rodo Drake [facility] IDENTIFICATION [facility] Medical Jose ter POCT-GLUCOSE METER 2020-02-01 11:44:00 Rodo Drake [facility] POCT-GLUCOSE METER 2020-02-01 05:58:00 Rodo Drake [facility] APTT 2020-02-01 03:04:00 Jarad Gresham [facility] CBC W/PLT COUNT & AUTO 2020-02-01 03:04:00 Domi Jordan [facility] PHOSPHORUS 2020-02-01 02:59:00 Black [facility] CALCIUM, IONIZED 2020-02-01 02:59:00 Black [facility] BLOOD GAS, ARTERIAL 2020-02-01 02:59:00 Barry [facility] BASIC METABOLIC PANEL (7) 2020-02-01 02:59:00 Jesse Morris CH I [facility] MAGNESIUM 2020-02-01 02:59:00 Jesse Morris [facility] POCT-GLUCOSE METER 2020-02-01 00:14:00 Rodo Drake [facility] BASIC METABOLIC PANEL (7) 2020-01-31 20:40:00 Jesse Morris CH I [facility] MAGNESIUM 2020-01-31 20:40:00 Jesse Morris [facility] POCT-GLUCOSE METER 2020-01-31 18:49:00 Rodo Drake [facility] BASIC METABOLIC PANEL (7) 2020-01-31 13:01:00 Jesse Morris CH I [facility] MAGNESIUM 2020-01-31 13:01:00 Jesse Morris [facility] POCT-GLUCOSE METER 2020-01-31 11:22:00 Rodo Drake [facility] POCT-GLUCOSE METER 2020-01-31 06:21:00 Rodo Drake [facility] BLOOD GAS, ARTERIAL 2020-01-31 05:22:00 [facility] CBC W/PLT COUNT & AUTO 2020-01-31 05:22:00 Elly Duarte [facility] APTT 2020-01-31 05:15:00 Jarad Gresham [facility] PHOSPHORUS 2020-01-31 05:11:00 Barry [facility] CALCIUM, IONIZED 2020-01-31 05:11:00 Barry [facility] BASIC METABOLIC PANEL (7) 2020-01-31 05:11:00 Jesse Morris CH I [facility] MAGNESIUM 2020-01-31 05:11:00 Jesse Morris [facility] APTT 2020-01-31 00:40:00 Domi Jordan [facility] POCT-GLUCOSE METER 2020-01-30 23:55:00 Rodo Drake [facility] BASIC METABOLIC PANEL (7) 2020-01-30 20:30:00 Jesse Morris CH I [facility] MAGNESIUM 2020-01-30 20:30:00 Jesse Morris [facility] POCT-GLUCOSE METER 2020-01-30 18:17:00 Rodo Drake [facility] PT/APTT 2020-01-30 18:12:00 Rodo Drake [facility] POCT-GLUCOSE METER 2020-01-30 11:17:00 Rodo Drake [facility] SPUTUM CULTURE + GRAM 2020-01-30 11:16:00 Domi Jordan [facility] PT/APTT 2020-01-30 11:16:00 Jarad Gresham [facility] BASIC METABOLIC PANEL (7) 2020-01-30 11:16:00 Jesse Morris CH, I [facility] MAGNESIUM 2020-01-30 11:16:00 Jesse Morris [facility] POCT-GLUCOSE METER 2020-01-30 08:17:00 Rodo Drake [facility] POCT-GLUCOSE METER 2020-01-30 05:09:00 Jarad Harrison [facility] BLOOD GAS, ARTERIAL 2020-01-30 04:00:00 En Black [facility] PT/APTT 2020-01-30 04:00:00 Jarad Gresham [facility] CBC W/PLT COUNT & AUTO 2020-01-30 03:26:00 Jarad Gresham [facility] PHOSPHORUS 2020-01-30 02:56:00 Wayne En [facility] CALCIUM, IONIZED 2020-01-30 02:56:[address] [facility] [place] BASIC METABOLIC PANEL (7) 2020-01-30 02:56:00 Jesse Morris CH, I [facility] MAGNESIUM 2020-01-30 02:56:00 Jesse Morris [facility] B-TYPE NATRIURETIC FACTOR 2020-01-30 02:56:00 Rodo Drake [facility] (BNP) [facility] XR CHEST 1 VIEW 2020-01-30 00:05:00 Jarad Harrison [facility] - PORTABLE/BEDSIDE [facility] POCT-GLUCOSE METER 2020-01-29 23:30:00 Jarad Harrison [facility] PT/APTT 2020-01-29 22:46:00 Jarad Gresham [facility] PERIPHERAL VASCULAR 2020-01-29 21:10:34 Lanie Bustos [facility] BASIC METABOLIC PANEL (7) 2020-01-29 20:21:00 Jesse Morris CH, I [facility] MAGNESIUM 2020-01-29 20:21:00 Jesse Morris [facility] POCT-GLUCOSE METER 2020-01-29 18:02:00 Jarad Harrison [facility] POCT-GLUCOSE METER 2020-01-29 16:16:00 Jarad Harrison [facility] POCT-GLUCOSE METER 2020-01-29 11:57:00 Jarda Harrison [facility] URINALYSIS WITH 2020-01-29 11:10:00 Jesse Morris [facility] - MICROSCOPIC IF INDICATED [facility] URINALYSIS MICROSCOPIC 2020-01-29 11:10:00 Jesse Morris [facility] BASIC METABOLIC PANEL (7) 2020-01-29 11:02:00 Jesse Morris CH, I [facility] MAGNESIUM 2020-01-29 11:02:00 Jesse Morris [facility] TSH/FREE T4 IF INDICATED 2020-01-29 11:02:00 Domi Jordan [facility] APTT 2020-01-29 11:02:00 Domi Jordan [facility] VENOUS DOPPLER LEGS 2020-01-29 11:00:00 Taran Dupree [facility] POCT-GLUCOSE METER 2020-01-29 08:54:00 Jarad Harrison [facility] POCT-GLUCOSE METER 2020-01-29 05:49:00 Jarad Harrison [facility] PHOSPHORUS 2020-01-29 03:29:00 En Black [facility] CALCIUM, IONIZED 2020-01-29 03:29:[address] [facility] [place] BLOOD GAS, ARTERIAL 2020-01-29 03:29:00 En Black [facility] BASIC METABOLIC PANEL (7) 2020-01-29 03:29:00 Jesse Morris CH I [facility] MAGNESIUM 2020-01-29 03:29:00 Jesse Morris [facility] CBC W/PLT COUNT & AUTO 2020-01-29 03:29:00 Jovanny Dias [facility] XR CHEST 1 VIEW 2020-01-29 03:10:00 Jarad Harrison [facility]/BEDSIDE [facility] POCT-GLUCOSE METER 2020-01-28 23:40:00 Jarad Harrison [facility] BASIC METABOLIC PANEL (7) 2020-01-28 19:57:00 Jesse Morris CH I [facility] MAGNESIUM 2020-01-28 19:57:00 Jesse Morris [facility] PHOSPHORUS 2020-01-28 19:57:00 Jovanny Dias [facility] POCT-GLUCOSE METER 2020-01-28 17:46:00 Jarad Harrison [facility] POCT-GLUCOSE METER 2020-01-28 11:34:00 Jarad Harrison [facility] BASIC METABOLIC PANEL (7) 2020-01-28 11:19:00 Jesse Morris CH I [facility] MAGNESIUM 2020-01-28 11:19:00 Jesse Morris [facility] POCT-GLUCOSE METER 2020-01-28 07:54:00 Jarad Harrison [facility] ECG 12-LEAD 2020-01-28 03:51:08 Unknown, [facility] BLOOD GAS, ARTERIAL 2020-01-28 03:11:00 En Black [facility] MAGNESIUM 2020-01-28 03:10:00 Black, [facility] PHOSPHORUS 2020-01-28 03:10:00 Wayne [facility] LACTIC ACID, ARTERIAL 2020-01-28 03:10:00 Wayne [facility] COMPREHENSIVE METABOLIC 2020-01-28 03:10:00 Bandar [facility] CBC W/PLT COUNT & AUTO 2020-01-28 03:10:00 Bandar [facility] (CELLAVISION MANUAL DIFF) 2020-01-28 03:10[facility]00 [facility] 2020-01-28 02:02:00 Portillo [facility] POCT-GLUCOSE METER 2020-01-28 01:56:00 [facility] 2020-01-28 01:32:00 Jarad Harrison [facility] - PORTABLE/BEDSIDE [facility] BASIC METABOLIC PANEL (7) 2020-01-27 20:03:00 Jesse Morris [facility] MAGNESIUM 2020-01-27 20:03:00 Jesse Morris [facility] PHOSPHORUS 2020-01-27 20:03:00 Alexandra [facility] POCT-GLUCOSE METER 2020-01-27 18:40:00 Jarad Harrison [facility] POCT-GLUCOSE METER 2020-01-27 11:58:00 Hunter [facility] XR CHEST 1 VIEW 2020-01-27 10:49:00 Datar, Champ Carpenter [facility] PORTABLE/BEDSIDE [facility] URINALYSIS W/ MICROSCOPIC 2020-01-27 06:19:00 Bandar [facility] POCT-GLUCOSE METER 2020-01-27 06:18:00 Clementina Billy [facility] BLOOD GAS, ARTERIAL 2020-01-27 04:38:00 Wayne [facility] MAGNESIUM 2020-01-27 04:37:00 Wayne [facility] PHOSPHORUS 2020-01-27 04:37:00 Wayne [facility] CALCIUM, IONIZED 2020-01-27 04:37:00 Wayne [facility] LACTIC ACID, ARTERIAL 2020-01-27 04:37:00 Wayne [facility] COMPREHENSIVE METABOLIC 2020-01-27 04:37:00 Bandar [facility] B-TYPE NATRIURETIC FACTOR 2020-01-27 04:37:00 [facility] CREATINE KINASE (CK) 2020-01-27 04:37:00 Bandar [facility] CBC W/PLT COUNT & AUTO 2020-01-27 04:37:00 Bandar [facility] (CELLAVISION MANUAL DIFF) 2020-01-27 04:37:00 Kwesi Portillo [facility] ECHOCARDIOGRAM REPORT - 2020-01-26 21:12:42 Provider, [facility] POCT-GLUCOSE METER 2020-01-26 18:38:00 Clementina Billy [facility] VANCOMYCIN LEVEL, TROUGH 2020-01-26 17:18:00 Taran Dupree [facility] SPUTUM CULTURE + GRAM 2020-01-26 14:47:00 Taran Dupree [facility] BASIC METABOLIC PANEL (7) 2020-01-26 14:42:[address] [facility] CORTISOL 2020-01-26 14:42:00 Taran Dupree [facility] PROTEIN, RANDOM URINE 2020-01-26 14:18:00 [facility]AT[facility], RANDOM URINE 2020-01-26 14:18:00 Bandar [facility] URINALYSIS W/ REFLEX 2020-01-26 14:18:[address] [facility] POCT-GLUCOSE METER 2020-01-26 13:58:00 MariajoseClementina [facility] 2D ECHO W/ DOPPLER 2020-01-26 13:55:58 Wayne [facility] (CW/PW/COLOR) [facility] PT/APTT 2020-01-26 08:33:00 Taran Dupree [facility] XR CHEST 1 VIEW 2020-01-26 05:56:[address] [facility]/BEDSIDE [facility] BLOOD GAS, ARTERIAL 2020-01-26 04:32:00 [facility], ION[facility]ED 2020-01-26 04:29:00 [facility] LACTIC ACID, ARTERIAL 2020-01-26 04:29:00 [facility] MAGNESIUM 2020-01-26 04:28[facility]00 [facility] 2020-01-26 [facility]:28[facility] COMPREHENSIVE METABOLIC 2020-01-26 04:28:00 Bandar [facility] CREATINE KINASE (CK) 2020-01-26 04:28:00 [facility] B-TYPE NATRIURETIC FACTOR 2020-01-26 04:28:00 [facility] TROPONIN I 2020-01-26 04:28:00 aTran Dupree [facility] CBC W/PLT COUNT & AUTO 2020-01-26 04:28:00 [facility] (CELLAVISION MANUAL DIFF) 2020-01-26 04:28:00 [facility] BLOOD GAS, ARTERIAL 2020-01-26 00:12:00 Lucio [facility] LACTIC ACID, ARTERIAL 2020-01-26 00:08:00 Latrell Ponce [facility] BASIC METABOLIC PANEL (7) 2020-01-26 00:08:00 Zoifa Valdes I [facility] POCT-GLUCOSE METER 2020-01-26 00:08:00 Debbie Cohen [facility] BLOOD GAS, ARTERIAL 2020-01-25 20:22:00 Zofia Valdes [facility] PROTEIN, RANDOM URINE 2020-01-25 20:13:00 Kwesi Portillo [facility] VANCOMYCIN LEVEL, RANDOM 2020-01-25 17:30:00 MagalisGilmar [facility] CBC W/PLT COUNT & AUTO 2020-01-25 17:16:00 Gus [facility]ac[facility] S t [facility] DIFFERENTIAL [facility] (CELLAVISION MANUAL DIFF) 2020-01-25 17:16:00 Gus Blackegan [facility] URINALYSIS W/ REFLEX 2020-01-25 17:14:00 Gus Blackegan [facility] URINE CULTURE [facility] MRSA SCREEN 2020-01-25 16:46:00 [facility] BLOOD GAS, ARTERIAL 2020-01-25 16:45:00 Wayne [facility] ECG 12-LEAD 2020-01-25 16:44:26 Unknown, Hl7 [facility] BLOOD CULTURE 2020-01-25 16:36:00 Gus Blackegan [facility] RESPIRATORY PANEL [facility] 2020-01-25 16:36:00 Gus Blackegan [facility] S [facility] MISCELLANEOUS LAB ORDER 2020-01-25 16:36:00 Gus Blackegan [facility] B-TYPE NATRIURETIC FACTOR 2020-01-25 16:36:00 En Black [facility] (BNP) [facility] TROPONIN I 2020-01-25 16:36:00 [facility] COMPREHENSIVE METABOLIC 2020-01-25 16:36:00 Gus Blackegan [facility] PANEL [facility] LACTATE DEHYDROGENASE 2020-01-25 16:36:00 Black, [facility] (LDH) [facility] C-REACTIVE PROTEIN 2020-01-25 16:36:00 Black [facility] URIC ACID 2020-01-25 16:36:00 [facility] MAGNESIUM 2020-01-25 16:36:00 [facility] PHOSPHORUS 2020-01-25 16:36:00 Black [facility] CALCIUM, IONIZED 2020-01-25 16:36:00 [facility] s [facility] D-DIMER 2020-01-25 16:36:00 [facility] LACTIC ACID, VENOUS 2020-01-25 16:36:00 [facility] XR CHEST 1 VIEW 2020-01-25 15:41:00 Black [facility] - PORTABLE/BEDSIDE [facility] CA INSERT 2020-01-25 09:00:[address] [facility],ART,PERCUT,SHORTTERM [facility] Encounters Start End Encounter Admission Attending Care Care Encounter Source Date/Time Date/Time Type Type Clinicians Facility Department ID 2019-12-17 2019-12-17 [facility] [id number] 07:58:01 10:31:00 Encounter Gilmar Davis [id number] Nolan Crenshaw [id number] Surgical [id number] Hayes 071 2019-12-15 2019-12-15 Carpenter Maintenance Joan Almodovar [facility] [id number] 15:39:58 15:54:58 Visit Lab Wellington Davis [id number] [place] [id number] Professio [id number] [facility] Results Test Description Test Time Test Comments Results Result Comments Source GLUCOSE BEDSIDE TESTING 2020-06-07 16:38:00 Test Item Value Reference Range Interpretation Comme nts GLUCOSE BEDSIDE TESTING (test code = GLUBED) 133 mg/dL 70-110 H GLUCOSE BEDSIDE [id number] 11:34:00 Test Item Value Reference Range Interpretation Comments GLUCOSE BEDSIDE TESTING (test code 141 mg/dL 70-110 H = GLUBED) BASIC METABOLIC [id number] 11:23:00 Test Item Value Reference Range Interpretation Comments SODIUM (test code = NA) 139 mmol/L 134-147 N POTASSIUM (test code = K) 4.4 mmol/L 3.4-5.0 N CHLORIDE (test code = CL) 103 mmol/L 100-108 N CARBON DIOXIDE (test code = CO2) 34 mmol/L 21-32 H ANION GAP (test code = GAP) 2.0 GAP calc 4.0-15.0 L GLUCOSE (test code = GLU) 134 MG/DL 70-110 H BLOOD UREA NITROGEN (test code = 22 MG/DL 7-18 H BUN) GLOMERULAR FILTRATION RATE (test 40 estGFR >60 L code = GFR) CREATININE (test code = CREAT) 1.8 MG/DL 0.8-1.3 H CALCIUM (test code = CA) 9.0 MG/DL 8.5-10.1 N GLUCOSE BEDSIDE [id number] 08:36:00 Test Item Value Reference Range Interpretation Comments GLUCOSE BEDSIDE TESTING (test code 146 mg/dL 70-110 H = GLUBED) GLUCOSE BEDSIDE [id number] 20:10:00 Test Item Value Reference Range Interpretation Comments GLUCOSE BEDSIDE TESTING (test code 150 mg/dL 70-110 H = GLUBED) - CT ABD PELVIS W/O [id number] 10:02:00 Name: CANDEI KELLEY [facility] : 1945 Age/S: 74 / M [address] [facility] Unit #: [id number] Loc: [place] [address] Phys: Russ Gordon MD Acct: [id number] Dis Date: Status: ADM IN PHONE #: [phone] Exam Date: 06/06/2020 0909 FAX #: Reason: RENAL ST ONE PROTOCOL EXAMS: CPT: [id number] CT ABD PELVIS W/O CONT 28842 TIME OF STUDY: 06/06/2020 6:00 AM REASON FOR EXAM: RENAL STONE PROTOCOL COMPARISON: Ultrasound 06/05/2020. TECHNIQUE: Helical non- contrast enhanced images were obtained through the abdomen and pelvis. Sagittal and coronal reformats were obtained and reviewed. One or more of the following radiation dose reduction techniques was used: automated exposure control, adjustment of mA and/or KV according to patient size, and/or utilization of iterative reconstruction technique. FINDINGS: CT Abdomen: The included lung bases are clear. The liver, pancreas, kidneys, adrenal glands and spleen all have normal appearance. There is no mesenteric or retroperitoneal adenopathy. The bowel loops are nondilated. A normal appendix is visualized. There is no freefluid or free air. Vascular calcifications involving arterial vessels are noted. Degenerative features involve the osseous structures. . CT Pelvis: The ureters are grossly normal. Bladder is moderately distended. Prostate gland is enlarged. There is no free air, free fluid, loculated collection or adenopathy in the pelvis. The osseous and soft tissue structures are age appropriate. IMPRESSION: 1. Moderately distended bladder with an enlarged prostate gland. Correlate with symptoms of bladder outlet obstruction. 2. Normal appendix. No obstructive ureteral calculi and no hydronephrosis seen. at 1002 Reported and signed by: Michael Noguera M.D. PAGE 1 Signed Report (CONTINUED) Name: CANDIE KELLEY :1945 Age/S: 74 / M [address] [address] Unit #: [id number] Loc: [place] [address] Phys: Russ Gordon MD Acct: [id number] Dis Date: Status: ADM IN PHONE #: [phone] Exam Date: 06/06/2020 0909 FAX #: Reason: RENAL STONE PROTOCOL EXAMS: CPT: [id number] CT ABD PELVIS W/O CONT 01989 <Continued> CC: Russ Harrison MD; Hemal Nolasco MD Technologist:Demond Lieberman, RT(R)(CT) CTDI: DLP: Trnscb Date/Time: 06/06/2020 (1002) [email or web address] Orig Print D/T: S: 06/06/2020 (1005) PAGE 2 Signed ReportCBC W/AUTO [id number] 08:29:00 Test Item Value Reference Range Interpretation Comments WHITE BLOOD CELL 4.9 K/mm3 3.5-11.0 N (test code = WBC) RED BLOOD CELL (test 3.99 M/mm3 4.70-6.10 L code = RBC) HEMOGLOBIN (test code 12.2 G/DL 12.3-15.9 L = HGB) HEMATOCRIT (test code 38.4 % 35.8-46.7 N = HCT) MEAN CELL VOLUME 96.2 Fl 86.3-98.9 N (test code = MCV) MEAN CELL HGB (test 30.6 pg 28.9-34.4 N code = MCH) MEAN CELL HGB 31.8 G/DL 32.1-34.5 L CONCETRATION (test code = MCHC) RED CELL DISTRIBUTION 13.5 SD 11.5-14.5 N WIDTH (test code = RDW) PLATELET COUNT (test 128 K/mm3 150-450 L code = PLT) MEAN PLATELET VOLUME 10.00 fL 7.0-9.6 H (test code = MPV) NEUTROPHIL % (test 41.2 % 40-76 code = NT%) IMMATURE GRANULOCYTE 0.4 % 0.0-5.0 N % (test code = IG%) LYMPHOCYTE % (test 38.7 % 20.5-51.1 N code = LY%) MONOCYTE % (test code 12.6 % 1.7-9.3 H = MO%) EOSINOPHIL % (test 6.1 % 0.0-6.0 H code = EO%) BASOPHIL % (test code 1.0 % 0.0-2.0 N = BA%) NUCLEATED RBC % (test 0.0 /100WBC% 0.0-1.0 N code = NRBC%) NEUTROPHIL # (test 2.0 K/mm3 1.8-7.6 N code = NT#) IMMATURE GRANULOCYTE 0.02 x10 3/uL 0.00-0.03 N # (test code = IG#) LYMPHOCYTE # (test 1.9 K/mm3 0.6-3.0 N code = LY#) MONOCYTE # (test code 0.6 K/mm3 0.2-1.5 N = MO#) EOSINOPHIL # (test 0.3 K/mm3 0.0-0.4 N code = EO#) BASOPHIL # (test code 0.1 K/mm3 0.0-0.2 N = BA#) NUCLEATED RBC # (test 0.0 K/mm3 0.00-0.01 N code = NRBC#) MANUAL DIFF REQUIRED NO DIFF/SCN CRITERIA SLIDE Devon RUEDA (test code = MDIFF) CONSISTA NT WITH AUTO DIFFERENTI AL. COMPREHENSIVE METABOLIC [id number] 08:26:00 Test Item Value Reference Range Interpretation Comments SODIUM (test code = NA) 139 mmol/L 134-147 N POTASSIUM (test code = K) 4.4 mmol/L 3.4-5.0 N CHLORIDE (test code = CL) 108 mmol/L 100-108 N CARBON DIOXIDE (test code = CO2) 25 mmol/L 21-32 ANION GAP (test code = GAP) 6.0 GAP calc 4.0-15.0 N GLUCOSE (test code = GLU) 123 MG/DL 70-110 H BLOOD UREA NITROGEN (test code = 24 MG/DL 7-18 H BUN) GLOMERULAR FILTRATION RATE (test 40 estGFR >60 L code = GFR) CREATININE (test code = CREAT) 1.8 MG/DL 0.8-1.3 H TOTAL PROTEIN (test code = PROT) 7.1 G/DL 6.4-8.2 N ALBUMIN (test code = ALB) 3.0 G/DL 3.4-5.0 L GLOBULIN (test code = GLOB) 4.1 GM/dL ALBUMIN/GLOBULIN RATIO (test 0.7 RATIO 1.2-2.2 L code = A/G) CALCIUM (test code = CA) 8.9 MG/DL 8.5-10.1 N BILIRUBIN TOTAL (test code = 0.30 MG/DL 0.2-1.2 N BILT) SGOT/AST (test code = AST) 19 Unit/L 15-37 N SGPT/ALT (test code = ALT) 31 Unit/L 12-78 N ALKALINE PHOSPHATASE TOTAL (test 43 Unit/L 50-136 L code = ALKP) [id number] 08:26:00 Test Item Value Reference Range Interpretation Comments MAGNESIUM (test code = MAG) 1.8 MG/DL 1.8-2.4 N GLUCOSE BEDSIDE [id number] 17:13:00 Test Item Value Reference Range Interpretation Comments GLUCOSE BEDSIDE TESTING (test code 127 mg/dL 70-110 H = GLUBED) - RETROPERITONEAL [id number] 17:09:00 Name: CANDIE KELLEY : 1945 Age/S: 74 / M [address] Unit #: [id number] Loc: [place] [address] Phys: Russ oGrdon MD Acct: [id number] Dis Date: Status: ADM IN PHONE #: [phone] Exam Date: 06/05/2020 1640 FAX #: Reason: R/O ASCI WYATT VS URINARY RETENTION EXAMS: CPT: [id number] US RETROPERITONEAL COM 36810 ULTRASOUND: - US RETROPERITONEAL COM History: Ascites, urinary retention Comparison: None. B-mode/Koo scale imaging with color Doppler perfusion imaging and spectral analysis was performed. No ascites seen. The right kidney is 11.2 x5.7 x 6.1 cm with normal cortical thickness of 1.2 cm. Echogenicity pattern maintained. No obstruction or perfusion abnormality. The left kidney is 12 x 5 x 5.5 cm also withnormal cortical thickness 1.2 cm. Perfusion and tenderness intact. No obstruction or stone shadowing. The bladder appear to have prominent size with volume possibly at 2.8 L. No obvious wall thickening. The ureteral jets cannot be documented on Doppler. Impression: No evidence of renal abnormality or hydronephrosis. Prominent bladder volume possibly towards a 2.8 L volume. No ascites. Location: U 19 at 1709 Reported and signed by: Shannan Grant M.D CC: Russ Harrison MD; Hemal Quiroz MD Technologist: Wendy Childers Trnscb Date/Time: 06/05/2020 (1709) [email or web address] PAGE 1 Signed Report Name: CANDIE KELLEY : 1945 Age/S: 74 / M [address] [address] Unit #: [id number] Loc: [place] [address] Phys: Russ Gordon MD Acct: [id number] Dis Date: Status: ADM IN PHONE #: [phone] Exam Date: 06/05/2020 1640 FAX #: Reason: R/O ASCITES VS URINARY RETENTION EXAMS: CPT: [id number] [facility] [address] <Continued> Orig Print D/T: S: 06/05/2020 (9802) Probe: PAGE 2 Signed ReportGLUCOSE BEDSIDE TESTING 2020-06-05 12:41:00 Test Item Value Reference Range Interpretation Comments GLUCOSE BEDSIDE TESTING (test code 149 mg/dL 70-110 H = GLUBED) CBC W/AUTO [id number] 10:09:00 Test Item Value Reference Range Interpretation Comments WHITE BLOOD CELL 5.8 K/mm3 3.5-11.0 N (test code = WBC) RED BLOOD CELL (test 4.19 M/mm3 4.70-6.10 L code = RBC) HEMOGLOBIN (test code 12.7 G/DL 12.3-15.9 N = HGB) HEMATOCRIT (test code 40.2 % 35.8-46.7 N = HCT) MEAN CELL VOLUME 95.9 Fl 86.3-98.9 N (test code = MCV) MEAN CELL HGB (test 30.3 pg 28.9-34.4 N code = MCH) MEAN CELL HGB 31.6 G/DL 32.1-34.5 L CONCETRATION (test code = MCHC) RED CELL DISTRIBUTION 13.7 SD 11.5-14.5 N WIDTH (test code = RDW) PLATELET COUNT (test 124 K/mm3 150-450 L code = PLT) MEAN PLATELET VOLUME 10.20 fL 7.0-9.6 H (test code = MPV) NEUTROPHIL % (test 55.4 % 40-76 N code = NT%) IMMATURE GRANULOCYTE 0.3 % 0.0-5.0 N % (test code = IG%) LYMPHOCYTE % (test 28.2 % 20.5-51.1 N code = LY%) MONOCYTE % (test code 9.3 % 1.7-9.3 N = MO%) EOSINOPHIL % (test 6.1 % 0.0-6.0 H code = EO%) BASOPHIL % (test code 0.7 % 0.0-2.0 N = BA%) NUCLEATED RBC % (test 0.0 /100WBC% 0.0-1.0 N code = NRBC%) NEUTROPHIL # (test 3.2 K/mm3 1.8-7.6 N code = NT#) IMMATURE GRANULOCYTE 0.02 x10 3/uL 0.00-0.03 N # (test code = IG#) LYMPHOCYTE # (test 1.6 K/mm3 0.6-3.0 N code = LY#) MONOCYTE # (test code 0.5 K/mm3 0.2-1.5 N = MO#) EOSINOPHIL # (test 0.4 K/mm3 0.0-0.4 N code = EO#) BASOPHIL # (test code 0.0 K/mm3 0.0-0.2 N = BA#) NUCLEATED RBC # (test 0.0 K/mm3 0.00-0.01 N code = NRBC#) MANUAL DIFF REQUIRED NO DIFF/SCN CRITERIA SLIDE R MARIAJOSEW (test code = MDIFF) CONSISTA NT WITH AUTO DIFFERENTI AL. GLUCOSE BEDSIDE [id number] 08:51:00 Test Item Value Reference Range Interpretation Comments GLUCOSE BEDSIDE TESTING (test code 177 mg/dL 70-110 H = GLUBED) BASIC METABOLIC [id number] 08:40:00 Test Item Value Reference Range Interpretation Comments SODIUM (test code = NA) 139 mmol/L 134-147 N POTASSIUM (test code = K) 4.5 mmol/L 3.4-5.0 N CHLORIDE (test code = CL) 105 mmol/L 100-108 N CARBON DIOXIDE (test code = CO2) 31 mmol/L 21-32 N ANION GAP (test code = GAP) 3.0 GAP calc 4.0-15.0 L GLUCOSE (test code = GLU) 173 MG/DL 70-110 H BLOOD UREA NITROGEN (test code = 31 MG/DL 7-18 H BUN) GLOMERULAR FILTRATION RATE (test 27 estGFR >60 L code = GFR) CREATININE (test code = CREAT) 2.5 MG/DL 0.8-1.3 H CALCIUM (test code = CA) 9.1 MG/DL 8.5-10.1 N BASIC METABOLIC [id number] 08:38:00 Test Item Value Reference Range Interpretation Comments SODIUM (test code = NA) 139 mmol/L 134-147 N POTASSIUM (test code = K) 4.5 mmol/L 3.4-5.0 N CHLORIDE (test code = CL) 105 mmol/L 100-108 N CARBON DIOXIDE (test code = CO2) 31 mmol/L 21-32 N ANION GAP (test code = GAP) 3.0 GAP calc 4.0-15.0 L GLUCOSE (test code = GLU) 173 MG/DL 70-110 H BLOOD UREA NITROGEN (test code = 31 MG/DL 7-18 H BUN) GLOMERULAR FILTRATION RATE (test estGFR >60 code = GFR) CREATININE (test code = CREAT) MG/DL 0.8-1.3 CALCIUM (test code = CA) 9.1 MG/DL 8.5-10.1 N NT PRO-BRAIN NATRIURETIC [id number] 08:35:00 Test Item Value Reference Range Interpretation Comments NT PRO-BRAIN NATRIURETIC PEPTI 148 PG/ML 0-100 H (test code = PROBNP) CBC W/AUTO [id number] 08:27:00 Test Item Value Reference Range Interpretation Comments WHITE BLOOD CELL (test code = WBC) 5.8 K/mm3 3.5-11.0 N RED BLOOD CELL (test code = RBC) 4.19 M/mm3 4.70-6.10 L HEMOGLOBIN (test code = HGB) 12.7 G/DL 12.3-15.9 N HEMATOCRIT (test code = HCT) 40.2 % 35.8-46.7 N MEAN CELL VOLUME (test code = MCV) 95.9 Fl 86.3-98.9 N MEAN CELL HGB (test code = MCH) 30.3 pg 28.9-34.4 N MEAN CELL HGB CONCETRATION (test 31.6 G/DL 32.1-34.5 L code = MCHC) RED CELL DISTRIBUTION WIDTH (test SD 11.5-14.5 N code = RDW) PLATELET COUNT (test code = PLT) 124 K/mm3 150-450 L MEAN PLATELET VOLUME (test code = fL 7.0-9.6 H MPV) NEUTROPHIL % (test code = NT%) % 40-76 N IMMATURE GRANULOCYTE % (test code % 0.0-5.0 N = IG%) LYMPHOCYTE % (test code = LY%) % 20.5-51.1 N MONOCYTE % (test code = MO%) % 1.7-9.3 N EOSINOPHIL % (test code = EO%) % 0.0-6.0 H BASOPHIL % (test code = BA%) % 0.0-2.0 N NUCLEATED RBC % (test code = /100WBC% 0.0-1.0 N NRBC%) NEUTROPHIL # (test code = NT#) K/mm3 1.8-7.6 N IMMATURE GRANULOCYTE # (test code x10 3/uL 0.00-0.03 N = IG#) LYMPHOCYTE # (test code = LY#) K/mm3 0.6-3.0 N MONOCYTE # (test code = MO#) K/mm3 0.2-1.5 N EOSINOPHIL # (test code = EO#) K/mm3 0.0-0.4 N BASOPHIL # (test code = BA#) K/mm3 0.0-0.2 N NUCLEATED RBC # (test code = K/mm3 0.00-0.01 N NRBC#) MANUAL DIFF REQUIRED (test code = DIFF/SCN CRITERIA MDIFF) [id number] 01:56:00 Test Item Value Reference Range Interpretation Comments TROPONIN-I (test 0.265 NG/ML 0.000-0.045 HH Negative: < /= 0.045 code = TROPI) Positive: >/= 0.046 Correlation wit h serial results, other cardiac markers, and cl inical findings is nec essary to determine the c linical significance of this result. Quantit ative results using d ifferent methodologies s hould not be compared to one another as nume rical results may julita yby method. Completed by Nursing: NOCoronavirus 2019 nCoV [id number] 00:15:00 Test Item Value Reference Range Interpretation Comments Coronavirus 2019 nCoV Negative Negative Per ma nufacturer, Bedside (test code = negativ e results should [id number]) be treated aspresumptive a nd, if inconsistent wi th clinical signs andsymptoms or necessary for p atient management, belen uld betested with a n alternative mol ecular assay. Negative resultsdo not p reclude SARS-CoV-2 infe ction and should not be usedas the sole basis for patient man agement decisions. Neg ative results should be considered in t he context of apat ient's recent exposure s, history, prese nce of clinicalsigns a nd symptoms consis tent with COVID-19. Emergent procedure? [id number] 22:54:00 Test Item Value Reference Range Interpretation Comments MAGNESIUM (test code = MAG) 1.7 MG/DL 1.8-2.4 L [id number] 22:50:00 Test Item Value Reference Range Interpretation Comments TROPONIN-I (test 0.244 NG/ML 0.000-0.045 HH Negative: < /= 0.045 code = TROPI) Positive: >/= 0.046 Correlation wit h serial results, other cardiac markers, and cl inical findings is nec essary to determine the c linical significance of this result. Quantit ative results using d ifferent methodologies s hould not be compared to one another as nume rical results may julita yby method. Completed by Nursing: NOAFB CULTURE + SMEAR (NON-SPUTUM)2020-03-14 15:15:00 Test Item Value Reference Range Interpretation Comments CULTURE (BEAKER) (test No acid-fast bacilli code = 1095) isolated in 42 days AFB SMEAR (BEAKER) No acid fast bacilli (test code = 994) seen AFB culture + smear (non-sputum)2020-03-14 15:14:00 Test Item Value Reference Range Interpretation Comments Result (test code = No acid-fast bacilli 6463-4) isolated in 42 days AFB Smear (test code = No acid fast bacilli 95811-7) [facility]2020-03-14 15:14:00 Test Item Value Reference Range Interpretation Comments CULTURE (BEAKER) (test No acid-fast bacilli code = 1095) isolated in 42 days AFB SMEAR (BEAKER) No acid fast bacilli (test code = 994) seen [id number] 08:28:00 Test Item Value Reference Range Interpretation Comments Ammonia (test code = 28 18- 72 mol/L 57030-1) JOSE FRANCISCO (test code = JOSE FRANCISCO) 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 ID - DAMION M Lab Interpretation (test Normal code = 58129-5) [facility] Test Item Value Reference Range Interpretation Comments AMMONIA (BEAKER) (test code = 348) 28 mol/L 18-72 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 ID - DAMION MFungus culture + [id number] 18:10:00 Test Item Value Reference Range Interpretation Comments Result (test code = <1+ Miguel Ángel A 6463-4) albicans Fungus Smear (test code = No fungi seen 1406) Lab Interpretation (test Abnormal code = 59892-1) [facility] [id number] 18:10:00 Test Item Value Reference Range Interpretation Comments CULTURE (BEAKER) A <1+ Miguel Ángel albicans (test code = 1095) FUNGUS SMEAR No fungi seen (BEAKER) (test code = 1406) POC-Glucose [id number] 17:46:00 Test Item Value Reference Range Interpretation Comments POC-Glucose Meter (test 124 mg/dL 70-110 H : TE STED AT [facility] code = 1538) [address] [facility], [address]70 30: 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/Techni antonio ID = [id number] for CRYSTAL VERAS Lab Interpretation (test Abnormal code = 68170-3) [facility] [id number] 17:46:00 Test Item Value Reference Range Interpretation Comments POC-GLUCOSE METER 124 mg/dL 70-110 H : TESTED A T [facility] 6720 (BEAKER) (test code = [facility], 1538) [address]: 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/Techni antonio ID = [id number] for CRYSTAL JOSE ECG 12 [id number] 15:40:18Interface, External Ris In - 02/09/2020 3:40 PM CDTVentricular Rate 59 BPMAtrial Rate 59 BPMP-R Interval 254 msQRS Duration 88 msQ-T Interval 438 msQTC Calculation(Bazett) 433 msP [place] 70 degreesR [place] 21 degreesT [place] 64 degreesSinus bradycardia with 1st degree A-V blockNonspecific T wave abnormalityAbnormal ECGWhen compared with ECG of 08-FEB-2020 11:33,No significant change was foundConfirmed by MD Nathanael, Steven ([id number]) on 02/09/2020 3:40:17 [facility], COMPLETE 2020-02-09 13:37:00Reason for exam:->alcohol abuse- concern cirrhosis and ascites. also with TRICIA with urinary retention.FINAL REPORT HISTORY : Alcohol abuse, concern for ascites and cirrhosis. Patient also with acute kidney injury and urinary retention COMPARISON : None COMMENT : Complete ultrasound examination of the abdomen was performed. The liver is normal in size measuring 12.6 cm in lengthalong the right midclavicular line and increased in echo-texture without evidence of a focal mass. The gallbladder appears normal without evidence of stones, sludge, wall thickening or pericholecysticfluid. The biliary tract is within normal limits with the common bile duct measuring 4 mm in maximum diameter. The pancreas is poorly visualized secondary to overlying bowel gas. The spleen is normal in size and echo-texture measuring 12 cm. The right kidney measures 11.8 cm and the left kidney 12.3 cm in maximum size. There is no evidence of cysts, masses, stones or hydronephrosis. The portal vein measures to a maximum of 0.9 cm in diameter. There is no ascites or pleural effusion. The visualized inferior vena cava, hepatic veins and abdominal aorta are within normal limits. The maximum diameter of the abdominal aorta is 2.3 cm. IMPRESSION :1. Hepatic steatosis. No focal hepatic mass.2. No hydronephrosis.3. No ascites. Signed: Fabian Lewis MDReport Verified Date/Time: 02/09/2020 13:37:24 Reading Location: [address] Radiology Reading Room US abdomen [id number] 13:37:00Interface, External Ris In - 02/09/2020 1:39 PM CDTFINAL REPORT HISTORY : Alcohol abuse, concern for ascites and cirrhosis. Patient also with acute kidney injury and urinary retention COMPARISON : None COMMENT : Complete ultrasound examination of the abdomen was performed. Theliver is normal in size measuring 12.6 cm in length along the right midclavicular line and increasedin echo- texture without evidence of a focal mass. The gallbladder appears normal without evidence of stones, sludge, wall thickening or pericholecystic fluid. The biliary tract is within normal limits with the common bile duct measuring 4 mm in maximum diameter. The pancreas is poorly visualized secondary to overlying bowel gas. The spleen is normal in size and echo-texture measuring 12 cm. The right kidney measures 11.8 cm and the left kidney 12.3 cm in maximum size. There is no evidence of cysts, masses, stones or hydronephrosis. The portal vein measures to a maximum of 0.9 cm in diameter. There is no ascites or pleural effusion. The visualized inferior vena cava, hepatic veins and abdominal aorta are within normal limits. The maximum diameter of the abdominal aorta is 2.3 cm. IMPRESSION :1. Hepatic steatosis. No focal hepatic mass.2. No hydronephrosis.3. No ascites. Signed: Fabian Lewis Verified Date/Time: 02/09/2020 13:37:24 Reading Location: [address] [facility] CenterPOCT[facility] [id number] 12:58:00 Test Item Value Reference Range Interpretation Comments POC-GLUCOSE METER 145 mg/dL 70-110 H : TESTED A T [facility] 6720 (BEAKER) (test code = [facility], 1538) [address]: 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/Techni antonio ID = [id number] for SA CRYSTAL HENNESSY POCT-GLUCOSE [id number] 08:36:00 Test Item Value Reference Range Interpretation Comments POC-GLUCOSE METER 100 mg/dL 70-110 : TESTED A T [facility] 6720 (BEAKER) (test code = [facility] [employer] [facility], 1538) [address]: 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/Techni antonio ID = [id number] for SA NTOS, CRYSTAL Calcium, [id number] 07:15:00 Test Item Value Reference Range Interpretation Comments Calcium, Ion (test code = 1993-) 1.16 mmol/L 1.12-1.27 pH, Blood (test code = 79868-0) 7.31 [facility] HospitalCALCIUM, [id number] 07:15:00 Test Item Value Reference Range Interpretation Comments CALCIUM IONIZED (BEAKER) (test 1.16 mmol/L 1.12-1.27 code = 698) PH, BLOOD (BEAKER) (test code = 7.31 1810) Basic Metabolic [id number] 04:26:00 Test Item Value Reference Range Interpretation Comments Sodium (test code = 137 meq/L 498-743 0135-2) Potassium (test code = 4.0 meq/L 3.5-5.1 2823-3) Chloride (test code = 104 meq/L 98-107 2075-0) CO2 (test code = 28 meq/L 22-29 8-9) BUN (test code = 34 mg/dL 7-21 H 3094-0) Creatinine (test code 1.32 mg/dL 0.57-1.25 H = 2160-0) Glucose (test code = 87 mg/dL 70-105 2345-7) Calcium (test code = 9.1 mg/dL 8.4-10.2 00266-8) EGFR (test code = 53 mL/min/1.73 [place] [address]-7) NOT ACCURATE CREATININE CLEARANCE IN PREDICTING GLOMERULAR FILTRATION RATE . ESTIMATED GFR I S NOT APPLICABLE FOR DIALYSIS PATIENTS. JOSE FRANCISCO (test code = JOSE FRANCISCO) 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 ID - DAMION M Lab Interpretation Abnormal (test code = 86436-9) [facility] 04:26:00 Test Item Value Reference Range Interpretation Comments Phosphorus (test code = 3.5 mg/dL 2.3-4.7 2777-1) JOSE FRANCISCO (test code = JOSE FRANCISCO) 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 ID - DAMION M Lab Interpretation (test Normal code = 72636-1) [facility]US2020-[facility]-07 04:26:00 Test Item Value Reference Range Interpretation Comments PHOSPHORUS (BEAKER) (test code = 3.5 mg/dL 2.3-4.7 604) 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 ID - DAMION MBASIC METABOLIC [id number] 04:26:00 Test Item Value Reference Range Interpretation Comments SODIUM (BEAKER) 137 meq/L 136-145 (test code = 381) POTASSIUM (BEAKER) 4.0 meq/L 3.5-5.1 (test code = 379) CHLORIDE (BEAKER) 104 meq/L 98-107 (test code = 382) CO2 (BEAKER) (test 28 meq/L 22-29 code = 355) BLOOD UREA NITROGEN 34 mg/dL 7-21 H (BEAKER) (test code = 354) CREATININE (BEAKER) 1.32 mg/dL 0.57-1.25 H (test code = 358) GLUCOSE RANDOM 87 mg/dL 70-105 (BEAKER) (test code = 652) CALCIUM (BEAKER) 9.1 mg/dL 8.4-10.2 (test code = 697) EGFR (ARIES) (test 53 mL/min/1.73 ESTIMA SARIKA GFR IS code = 1092) sq m NOT ACCURATE CREATININE CLEARANCE IN PREDICTING GLOMERULAR FILTRATION RATE . ESTIMATED GFR I S NOT APPLICABLE FOR DIALYSIS PATIEN TS. 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 ID - DAMION MCBC with platelet count + automated [id number] 04:16:00 Test Item Value Reference Range Interpretation Comments WBC (test code = 6690-2) 7.1 3.5- 10.5 K/L RBC (test code = 789-8) 3.61 4.63- 6.08 M/L L MCHC (test code = 786-4) 32.2 32.3- 36.5 GM/DL L Hematocrit (test code = 4544-3) 34.8 % 40.1-51 L MCV (test code = 787-2) 96.4 fL 79-92.2 H MCH (test code = 785-6) 31.0 pg 25.7-32.2 RDW (test code = 788-0) 12.9 % 11.6-14.4 Platelets (test code = 777-3) 322 150- 450 K/CU MM MPV (test code = 48064-4) 10.2 fL 9.4-12.4 nRBC (test code = 413) 0 0- 0 /100 WBC % Neutros (test code = 429) 41 % % Lymphs (test code = 430) 44 % % Monos (test code = 431) 8 % % Eos (test code = 432) 4 % % Baso (test code = 437) 1 % # Neutros (test code = 670) 2.95 1.78- 5.38 K/L # Lymphs (test code = 414) 3.16 1.32- 3.57 K/L # Monos (test code = 415) 0.59 0.30- 0.82 K/L # Eos (test code = 416) 0.27 0.04- 0.54 K/L # Baso (test code = 417) 0.07 0.01- 0.08 K/L Immature Granulocytes-Relative 1 % 0-1 (test code = 2801) Lab Interpretation (test code = Abnormal 11566-0) [facility] Center[facility] W/PLT COUNT & AUTO [id number] 04:16:00 Test Item Value Reference Range Interpretation Comments WHITE BLOOD CELL COUNT (BEAKER) 7.1 K/ L 3.5-10.5 (test code = 775) RED BLOOD CELL COUNT (BEAKER) 3.61 M/ L 4.63-6.08 L (test code = 761) HEMOGLOBIN (BEAKER) (test code = 11.2 GM/DL 13.7-17.5 L 410) HEMATOCRIT (BEAKER) (test code = 34.8 % 40.1-51.0 L 411) MEAN CORPUSCULAR VOLUME (BEAKER) 96.4 fL 79.0-92.2 H (test code = 753) MEAN CORPUSCULAR HEMOGLOBIN 31.0 pg 25.7-32.2 (BEAKER) (test code = 751) MEAN CORPUSCULAR HEMOGLOBIN CONC 32.2 GM/DL 32.3-36.5 L (BEAKER) (test code = 752) RED CELL DISTRIBUTION WIDTH 12.9 % 11.6-14.4 (BEAKER) (test code = 412) PLATELET COUNT (BEAKER) (test 322 K/CU MM 150-450 code = 756) MEAN PLATELET VOLUME (BEAKER) 10.2 fL 9.4-12.4 (test code = 754) NUCLEATED RED BLOOD CELLS 0 /100 WBC 0-0 (BEAKER) (test code = 413) NEUTROPHILS RELATIVE PERCENT 41 % (BEAKER) (test code = 429) LYMPHOCYTES RELATIVE PERCENT 44 % (BEAKER) (test code = 430) MONOCYTES RELATIVE PERCENT 8 % (BEAKER) (test code = 431) EOSINOPHILS RELATIVE PERCENT 4 % (BEAKER) (test code = 432) BASOPHILS RELATIVE PERCENT 1 % (BEAKER) (test code = 437) NEUTROPHILS ABSOLUTE COUNT 2.95 K/ L 1.78-5.38 (BEAKER) (test code = 670) LYMPHOCYTES ABSOLUTE COUNT 3.16 K/ L 1.32-3.57 (BEAKER) (test code = 414) MONOCYTES ABSOLUTE COUNT (BEAKER) 0.59 K/ L 0.30-0.82 (test code = 415) EOSINOPHILS ABSOLUTE COUNT 0.27 K/ L 0.04-0.54 (BEAKER) (test code = 416) BASOPHILS ABSOLUTE COUNT (BEAKER) 0.07 K/ L 0.01-0.08 (test code = 417) IMMATURE GRANULOCYTES-RELATIVE 1 % 0-1 PERCENT (BEAKER) (test code = 2801) POCT-GLUCOSE [id number] 21:12:00 Test Item Value Reference Range Interpretation Comments POC-GLUCOSE METER 132 mg/dL 70-110 H : [facility] (test code = [facility], 1538) [address]: 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/Techni antonio ID = [id number] for SA MONTEZ, RONI POCT-GLUCOSE [id number] 17:47:00 Test Item Value Reference Range Interpretation Comments POC-GLUCOSE METER 158 mg/dL 70-110 H : [facility] (test code = [facility], 1538) [address]: 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/Techni antonio ID = [id number] for SA NTOS, CRYSTAL Blood Culture - Routine (Left Venipuncture)2020-02-08 13:00:00 Test Item Value Reference Range Interpretation Comments Result (test code = No growth in 5 days 6463-4) [facility] CenterBLOOD [id number] 13:00:00 Test Item Value Reference Range Interpretation Comments CULTURE (BEAKER) (test No growth in 5 days code = 1095) BLOOD [id number] 13:00:00 Test Item Value Reference Range Interpretation Comments CULTURE (BEAKER) (test No growth in 5 days code = 1095) POCT-GLUCOSE [id number] 12:24:00 Test Item Value Reference Range Interpretation Comments POC-GLUCOSE METER 141 mg/dL 70-110 H : Notified RN/MD: (ARIES) (test code = TESTED AT [facility] 6720 1538) [facility], [address]: 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/Techni antonio ID = [id number] for SA NTOS, CRYSTAL POCT-GLUCOSE [id number] 08:24:00 Test Item Value Reference Range Interpretation Comments POC-GLUCOSE METER 109 mg/dL 70-110 : Notified RN/MD: (ARIES) (test code = TESTED AT [facility] 6720 1538) [facility], [address]: 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/Techni antonio ID = [id number] for SA NTOS, CRYSTAL CALCIUM, [id number] 07:47:00 Test Item Value Reference Range Interpretation Comments CALCIUM IONIZED (BEAKER) (test 1.17 mmol/L 1.12-1.27 code = 698) PH, BLOOD (BEAKER) (test code = 7.34 1810) Comprehensive metabolic [id number] 04:20:00 Test Item Value Reference Range Interpretation Comments Protein, Total (test 7.7 6.0- 8.3 gm/dL Speci men slightly code = 2885-2) hemolyzed Albumin (test code = 3.4 g/dL 3.5-5 L Specime n slightly 31152-3) hemolyzed Alkaline Phosphatase 45 U/L 40-150 (test code = 6768-6) Total Bilirubin (test 0.4 mg/dL 0.2-1.2 Specim en slightly code = 1975-2) hemolyzed Sodium (test code = 139 meq/L 213-335 4888-2) Potassium (test code = 3.9 meq/L 3.5-5.1 Speci men slightly 2823-3) hemolyzed Chloride (test code = 106 meq/L 98-107 2075-0) CO2 (test code = 26 meq/L 22-29 2028-9) BUN (test code = 40 mg/dL 7-21 H 3094-0) Creatinine (test code 1.43 mg/dL 0.57-1.25 H Specim en slightly = 2160-0) hemolyzed Glucose (test code = 98 mg/dL 70-105 2345-7) Calcium (test code = 9.7 mg/dL 8.4-10.2 07534-5) AST (test code = 26 U/L 5-34 Specimen sl ightly 1920-8) hemolyzed ALT (test code = 52 U/L 6-55 Specimen sl ightly 1742-6) hemolyzed EGFR (test code = 49 mL/min/1.73 [place] [address]-9) NOT ACCURATE CREATININE CLEARANCE IN PREDICTING GLOMERULAR FILTRATION RATE . ESTIMATED GFR I S NOT APPLICABLE FOR DIALYSIS PATIENTS. JOSE FRANCISCO (test code = JOSE FRANCISCO) 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 ID - BRIGITTE W Lab Interpretation Abnormal (test code = 13850-0) [facility]esium2020-04-06 04:20:00 Test Item Value Reference Range Interpretation Comments Magnesium (test code = 2.0 mg/dL 1.6-2.6 Speci men 11240-0) slightly hemolyzed JOSE FRANCISCO (test code = JOSE FRANCISCO) 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 ID - BRIGITTE W Lab Interpretation Normal (test code = 22245-4) [facility]IUM2020-04-06 04:20:00 Test Item Value Reference Range Interpretation Comments MAGNESIUM (BEAKER) 2.0 mg/dL 1.6-2.6 Specimen slightly (test code = 627) hemolyzed 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 ID - BRIGITTE [id number] 04:20:00 Test Item Value Reference Range Interpretation Comments PHOSPHORUS (BEAKER) 4.3 mg/dL 2.3-4.7 Specimen slightly (test code = 604) hemolyzed 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 ID - BRIGITTE WBASIC METABOLIC [id number] 04:20:00 Test Item Value Reference Range Interpretation Comments SODIUM (BEAKER) 139 meq/L 136-145 (test code = 381) POTASSIUM (BEAKER) 3.9 meq/L 3.5-5.1 Specimen slightly (test code = 379) hemolyzed CHLORIDE (BEAKER) 106 meq/L 98-107 (test code = 382) CO2 (BEAKER) (test 26 meq/L 22-29 code = 355) BLOOD UREA NITROGEN 40 mg/dL 7-21 H (BEAKER) (test code = 354) CREATININE (BEAKER) 1.43 mg/dL 0.57-1.25 H Specimen slightly (test code = 358) hemolyzed GLUCOSE RANDOM 98 mg/dL 70-105 (BEAKER) (test code = 652) CALCIUM (BEAKER) 9.7 mg/dL 8.4-10.2 (test code = 697) EGFR (BEAKER) (test 49 mL/min/1.73 ESTIMA SARIKA GFR IS code = 1092) sq m NOT ACCURATE CREATININE CLEARANCE IN PREDICTING GLOMERULAR FILTRATION RATE . ESTIMATED GFR I S NOT APPLICABLE FOR DIALYSIS PATIEN TS. COMPREHENSIVE METABOLIC [id number] 04:20:00 Test Item Value Reference Range Interpretation Comments TOTAL PROTEIN 7.7 gm/dL 6.0-8.3 Specimen sligh tly (BEAKER) (test code = hemoly zed 770) ALBUMIN (BEAKER) 3.4 g/dL 3.5-5.0 L Specimen sl ightly (test code = 1145) hemolyzed ALKALINE PHOSPHATASE 45 U/L 40-150 (BEAKER) (test code = 346) BILIRUBIN TOTAL 0.4 mg/dL 0.2-1.2 Specimen sli ghtly (BEAKER) (test code = hemoly zed 377) SODIUM (BEAKER) (test 139 meq/L 136-145 code = 381) POTASSIUM (BEAKER) 3.9 meq/L 3.5-5.1 Specimen slightly (test code = 379) hemolyzed CHLORIDE (BEAKER) 106 meq/L 98-107 (test code = 382) CO2 (BEAKER) (test 26 meq/L 22-29 code = 355) BLOOD UREA NITROGEN 40 mg/dL 7-21 H (BEAKER) (test code = 354) CREATININE (BEAKER) 1.43 mg/dL 0.57-1.25 H Specimen slightly (test code = 358) hemolyzed GLUCOSE RANDOM 98 mg/dL 70-105 (BEAKER) (test code = 652) CALCIUM (BEAKER) 9.7 mg/dL 8.4-10.2 (test code = 697) AST (SGOT) (BEAKER) 26 U/L 5-34 Specimen slightly (test code = 353) hemolyzed ALT (SGPT) (BEAKER) 52 U/L 6-55 Specimen slightly (test code = 347) hemolyzed EGFR (BEAKER) (test 49 mL/min/1.73 ESTIMA SARIKA GFR IS code = 1092) sq m NOT ACCURATE CREATININE CLEARANCE IN PREDICTING GLOMERULAR FILTRATION RATE . ESTIMATED GFR I S NOT APPLICABLE FOR DIALYSIS PATIEN TS. 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 ID - BRIGITTE WCBC W/PLT COUNT & AUTO [id number] 04:02:00 Test Item Value Reference Range Interpretation Comments WHITE BLOOD CELL COUNT (BEAKER) 7.1 K/ L 3.5-10.5 (test code = 775) RED BLOOD CELL COUNT (BEAKER) 3.78 M/ L 4.63-6.08 L (test code = 761) HEMOGLOBIN (BEAKER) (test code = 11.6 GM/DL 13.7-17.5 L 410) HEMATOCRIT (BEAKER) (test code = 36.5 % 40.1-51.0 L 411) MEAN CORPUSCULAR VOLUME (BEAKER) 96.6 fL 79.0-92.2 H (test code = 753) MEAN CORPUSCULAR HEMOGLOBIN 30.7 pg 25.7-32.2 (BEAKER) (test code = 751) MEAN CORPUSCULAR HEMOGLOBIN CONC 31.8 GM/DL 32.3-36.5 L (BEAKER) (test code = 752) RED CELL DISTRIBUTION WIDTH 12.9 % 11.6-14.4 (BEAKER) (test code = 412) PLATELET COUNT (BEAKER) (test 337 K/CU MM 150-450 code = 756) MEAN PLATELET VOLUME (BEAKER) 10.2 fL 9.4-12.4 (test code = 754) NUCLEATED RED BLOOD CELLS 0 /100 WBC 0-0 (BEAKER) (test code = 413) NEUTROPHILS RELATIVE PERCENT 39 % (BEAKER) (test code = 429) LYMPHOCYTES RELATIVE PERCENT 45 % (BEAKER) (test code = 430) MONOCYTES RELATIVE PERCENT 9 % (BEAKER) (test code = 431) EOSINOPHILS RELATIVE PERCENT 4 % (BEAKER) (test code = 432) BASOPHILS RELATIVE PERCENT 1 % (BEAKER) (test code = 437) NEUTROPHILS ABSOLUTE COUNT 2.82 K/ L 1.78-5.38 (BEAKER) (test code = 670) LYMPHOCYTES ABSOLUTE COUNT 3.23 K/ L 1.32-3.57 (BEAKER) (test code = 414) MONOCYTES ABSOLUTE COUNT (BEAKER) 0.61 K/ L 0.30-0.82 (test code = 415) EOSINOPHILS ABSOLUTE COUNT 0.29 K/ L 0.04-0.54 (BEAKER) (test code = 416) BASOPHILS ABSOLUTE COUNT (BEAKER) 0.09 K/ L 0.01-0.08 H (test code = 417) IMMATURE GRANULOCYTES-RELATIVE 1 % 0-1 PERCENT (BEAKER) (test code = 2801) POCT-GLUCOSE [id number] 21:20:00 Test Item Value Reference Range Interpretation Comments POC-GLUCOSE METER 213 mg/dL 70-110 H : TESTED Gael T [facility] 6720 (BEAKER) (test code = [place], 1538) [address]: 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/Techni antonio ID = [id number] for MARCIANO DONG POCT-GLUCOSE [id number] 18:16:00 Test Item Value Reference Range Interpretation Comments POC-GLUCOSE METER 177 mg/dL 70-110 H : TESTED A T [facility] 6720 (BEAKER) (test code = [place], 1538) [address]: 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/Techni antonio ID = [id number] for [place] KAMLA, CHAR Urinalysis w/Microscopic + Reflex to [id number] 16:39:00 Test Item Value Reference Range Interpretation Comments Color, UA (test code = Colorless 5778-6) Clarity, UA (test code = Clear 5767-9) Specific [place], UA (test 1.013 1.001-1.035 code = 5811-5) pH, UA (test code = 5.0 5.0-8.0 5803-2) Protein, UA (test code = Negative Negative 30521-4) Glucose, UA (test code = Negative Negative 365) Ketones, UA (test code = Negative Negative 2514-8) Bilirubin, UA (test code = Negative Negative 07344-8) Blood, UA (test code = Negative Negative 82014-7) Nitrite, UA (test code = Negative Negative 5802-4) Leukocytes, UA (test code Negative Negative = 5799-2) Urobilinogen, UA (test 0.2 mg/dL 0.2-1 code = 04903-6) RBC, UA (test code = 2 /HPF 94917-3) WBC, UA (test code = 1 /HPF 5821-4) Mucus (test code = 8247-9) Rare Squam Epithel, UA (test <1 /HPF code = 69101-6) Hyaline Casts, UA (test 8 /LPF code = 68226-9) Specimen Source (test code = 2795) JOSE FRANCISCO (test code = JOSE FRANCISCO) 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 ID - tech [facility]/ REFLEX URINE [id number] 16:39:00 Test Item Value Reference Range Interpretation Comments COLOR (BEAKER) (test code = 470) Colorless CLARITY (BEAKER) (test code = 469) Clear SPECIFIC GRAVITY UA (BEAKER) (test 1.013 1.001-1.035 code = 468) PH UA (BEAKER) (test code = 467) 5.0 5.0-8.0 PROTEIN UA (BEAKER) (test code = Negative Negative 464) GLUCOSE UA (BEAKER) (test code = Negative Negative 365) KETONES UA (BEAKER) (test code = Negative Negative 371) BILIRUBIN UA (BEAKER) (test code = Negative Negative 462) BLOOD UA (BEAKER) (test code = 461) Negative Negative NITRITE UA (BEAKER) (test code = Negative Negative 465) LEUKOCYTE ESTERASE UA (BEAKER) Negative Negative (test code = 466) UROBILINOGEN UA (BEAKER) (test code 0.2 mg/dL 0.2-1.0 = 463) RBC UA (BEAKER) (test code = 519) 2 /HPF WBC UA (BEAKER) (test code = 520) 1 /HPF MUCUS (BEAKER) (test code = 1574) Rare SQUAMOUS EPITHELIAL (BEAKER) (test < /HPF code = 516) HYALINE CASTS (BEAKER) (test code = 8 /LPF 514) SOURCE(BEAKER) (test code = 2795) 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 ID - [id number] 14:19:00 Test Item Value Reference Range Interpretation Comments MAGNESIUM (BEAKER) 2.0 mg/dL 1.6-2.6 Specimen slightly (test code = 627) hemolyzed 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 ID - [place] FBASIC METABOLIC [id number] 14:19:00 Test Item Value Reference Range Interpretation Comments SODIUM (BEAKER) 137 meq/L 136-145 (test code = 381) POTASSIUM (BEAKER) 4.5 meq/L 3.5-5.1 Specimen slightly (test code = 379) hemolyzed CHLORIDE (BEAKER) 109 meq/L 98-107 H (test code = 382) CO2 (BEAKER) (test 17 meq/L 22-29 L code = 355) BLOOD UREA NITROGEN 42 mg/dL 7-21 H (BEAKER) (test code = 354) CREATININE (BEAKER) 1.35 mg/dL 0.57-1.25 H Specimen slightly (test code = 358) hemolyzed GLUCOSE RANDOM 141 mg/dL 70-105 H (BEAKER) (test code = 652) CALCIUM (BEAKER) 9.5 mg/dL 8.4-10.2 (test code = 697) EGFR (BEAKER) (test 52 mL/min/1.73 ESTIMA SARIKA GFR IS code = 1092) sq m NOT ACCURATE CREATININE CLEARANCE IN PREDICTING GLOMERULAR FILTRATION RATE . ESTIMATED GFR I S NOT APPLICABLE FOR DIALYSIS PATIEN TS. 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 ID - [place] FPOCT-GLUCOSE [id number] 12:59:00 Test Item Value Reference Range Interpretation Comments POC-GLUCOSE METER 148 mg/dL 70-110 H : TESTED A T [facility] 6720 (BEAKER) (test code = [place], 1538) [address]: 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/Techni antonio ID = [id number] for CO RTEZ, YO POCT-GLUCOSE [id number] 07:14:00 Test Item Value Reference Range Interpretation Comments POC-GLUCOSE METER 86 mg/dL 70-110 : TESTED A T [facility] 6720 (BEAKER) ([place], [address]: code = 1538) 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/Techni antonio ID = [id number] for JONAS GUYNAEEMJACIEL KLEIN HAIDER IN [id number] 06:46:00 Test Item Value Reference Range Interpretation Comments MAGNESIUM (BEAKER) 1.9 mg/dL 1.6-2.6 Specimen slightly (test code = 627) hemolyzed 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 ID - TONNY [id number] 06:46:00 Test Item Value Reference Range Interpretation Comments PHOSPHORUS (BEAKER) 4.4 mg/dL 2.3-4.7 Specimen slightly (test code = 604) hemolyzed 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 ID - TONNY LCOMPREHENSIVE METABOLIC [id number] 06:46:00 Test Item Value Reference Range Interpretation Comments TOTAL PROTEIN 8.0 gm/dL 6.0-8.3 Specimen sligh tly (BEAKER) (test code = hemoly zed 770) ALBUMIN (BEAKER) 3.5 g/dL 3.5-5.0 Specimen sl ightly (test code = 1145) hemolyzed ALKALINE PHOSPHATASE 45 U/L 40-150 (BEAKER) (test code = 346) BILIRUBIN TOTAL 0.5 mg/dL 0.2-1.2 Specimen sli ghtly (BEAKER) (test code = hemoly zed 377) SODIUM (BEAKER) (test 140 meq/L 136-145 code = 381) POTASSIUM (BEAKER) 4.4 meq/L 3.5-5.1 Specimen slightly (test code = 379) hemolyzed CHLORIDE (BEAKER) 105 meq/L 98-107 (test code = 382) CO2 (BEAKER) (test 27 meq/L 22-29 code = 355) BLOOD UREA NITROGEN 43 mg/dL 7-21 H (BEAKER) (test code = 354) CREATININE (BEAKER) 1.43 mg/dL 0.57-1.25 H Specimen slightly (test code = 358) hemolyzed GLUCOSE RANDOM 76 mg/dL 70-105 (BEAKER) (test code = 652) CALCIUM (BEAKER) 9.7 mg/dL 8.4-10.2 (test code = 697) AST (SGOT) (BEAKER) 27 U/L 5-34 Specimen slightly (test code = 353) hemolyzed ALT (SGPT) (BEAKER) 62 U/L 6-55 H Specimen slightly (test code = 347) hemolyzed EGFR (BEAKER) (test 49 mL/min/1.73 ESTIMA SARIKA GFR IS code = 1092) sq m NOT ACCURATE CREATININE CLEARANCE IN PREDICTING GLOMERULAR FILTRATION RATE . ESTIMATED GFR I S NOT APPLICABLE FOR DIALYSIS PATIEN TS. 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 ID - PIAYA LCALCIUM, [id number] 06:41:00 Test Item Value Reference Range Interpretation Comments CALCIUM IONIZED (BEAKER) (test 1.22 mmol/L 1.12-1.27 code = 698) PH, BLOOD (BEAKER) (test code = 7.31 1810) [id number] 06:26:00 Test Item Value Reference Range Interpretation Comments PTT (test code = 15084-1) 33.0 22.5- 36.0 seconds Lab Interpretation (test code = Normal 77633-1) [facility] Test Item Value Reference Range Interpretation Comments PARTIAL THROMBOPLASTIN TIME 33.0 seconds 22.5-36.0 (BEAKER) (test code = 760) CBC W/PLT COUNT & AUTO [id number] 06:08:00 Test Item Value Reference Range Interpretation Comments WHITE BLOOD CELL COUNT (BEAKER) 8.7 K/ L 3.5-10.5 (test code = 775) RED BLOOD CELL COUNT (BEAKER) 3.73 M/ L 4.63-6.08 L (test code = 761) HEMOGLOBIN (BEAKER) (test code = 11.8 GM/DL 13.7-17.5 L 410) HEMATOCRIT (BEAKER) (test code = 37.0 % 40.1-51.0 L 411) MEAN CORPUSCULAR VOLUME (BEAKER) 99.2 fL 79.0-92.2 H (test code = 753) MEAN CORPUSCULAR HEMOGLOBIN 31.6 pg 25.7-32.2 (BEAKER) (test code = 751) MEAN CORPUSCULAR HEMOGLOBIN CONC 31.9 GM/DL 32.3-36.5 L (BEAKER) (test code = 752) RED CELL DISTRIBUTION WIDTH 13.1 % 11.6-14.4 (BEAKER) (test code = 412) PLATELET COUNT (BEAKER) (test 360 K/CU MM 150-450 code = 756) MEAN PLATELET VOLUME (BEAKER) 10.5 fL 9.4-12.4 (test code = 754) NUCLEATED RED BLOOD CELLS 0 /100 WBC 0-0 (BEAKER) (test code = 413) NEUTROPHILS RELATIVE PERCENT 51 % (BEAKER) (test code = 429) LYMPHOCYTES RELATIVE PERCENT 35 % (BEAKER) (test code = 430) MONOCYTES RELATIVE PERCENT 8 % (BEAKER) (test code = 431) EOSINOPHILS RELATIVE PERCENT 4 % (BEAKER) (test code = 432) BASOPHILS RELATIVE PERCENT 1 % (BEAKER) (test code = 437) NEUTROPHILS ABSOLUTE COUNT 4.40 K/ L 1.78-5.38 (BEAKER) (test code = 670) LYMPHOCYTES ABSOLUTE COUNT 3.06 K/ L 1.32-3.57 (BEAKER) (test code = 414) MONOCYTES ABSOLUTE COUNT (BEAKER) 0.66 K/ L 0.30-0.82 (test code = 415) EOSINOPHILS ABSOLUTE COUNT 0.35 K/ L 0.04-0.54 (BEAKER) (test code = 416) BASOPHILS ABSOLUTE COUNT (BEAKER) 0.11 K/ L 0.01-0.08 H (test code = 417) IMMATURE GRANULOCYTES-RELATIVE 1 % 0-1 PERCENT (BEAKER) (test code = 2801) POCT-GLUCOSE [id number] 23:12:00 Test Item Value Reference Range Interpretation Comments POC-GLUCOSE METER 119 mg/dL 70-110 H : TESTED A T [facility] 6720 (BEAKER) (test code = [facility], 1538) [id number]: 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/Techni antonio ID = [id number] for Kayleigh Soto [id number] 21:23:00 Test Item Value Reference Range Interpretation Comments MAGNESIUM (BEAKER) (test code = 1.9 mg/dL 1.6-2.6 627) 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 ID - DBBASIC METABOLIC [id number] 21:23:00 Test Item Value Reference Range Interpretation Comments SODIUM (BEAKER) 138 meq/L 136-145 (test code = 381) POTASSIUM (BEAKER) 4.0 meq/L 3.5-5.1 (test code = 379) CHLORIDE (BEAKER) 104 meq/L 98-107 (test code = 382) CO2 (BEAKER) (test 24 meq/L 22-29 code = 355) BLOOD UREA NITROGEN 42 mg/dL 7-21 H (BEAKER) (test code = 354) CREATININE (BEAKER) 1.35 mg/dL 0.57-1.25 H (test code = 358) GLUCOSE RANDOM 126 mg/dL 70-105 H (BEAKER) (test code = 652) CALCIUM (BEAKER) 9.5 mg/dL 8.4-10.2 (test code = 697) EGFR (BEAKER) (test 52 mL/min/1.73 ESTIMA SARIKA GFR IS code = 1092) sq m NOT ACCURATE CREATININE CLEARANCE IN PREDICTING GLOMERULAR FILTRATION RATE . ESTIMATED GFR I S NOT APPLICABLE FOR DIALYSIS PATIEN TS. 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 ID - DBPOCT-GLUCOSE [id number] 19:22:00 Test Item Value Reference Range Interpretation Comments POC-GLUCOSE METER 114 mg/dL 70-110 H : TESTED A T [facility] 6720 (BEAKER) (test code = [facility], 1538) [address]: 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/Techni antonio ID = [id number] for Kayleigh Soto POCT-GLUCOSE [id number] 18:30:00 Test Item Value Reference Range Interpretation Comments POC-GLUCOSE METER 170 mg/dL 70-110 H : TESTED A T [facility] 6720 (BEAKER) (test code = [facility], 1538) [id number]: 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/Techni antonio ID = [id number] for [place] KRISTIAN ORELLANA POCT-GLUCOSE [id number] 18:22:00 Test Item Value Reference Range Interpretation Comments POC-GLUCOSE METER 64 mg/dL 70-110 L : TESTED A T [facility] 6720 (BEAKER) (test code = [place], 1538) [address]: 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/Techni antonio ID = [id number] for ROZ FENG BLOOD [id number] 16:00:00 Test Item Value Reference Range Interpretation Comments CULTURE (BEAKER) (test No growth in 5 days code = 1095) Clostridium difficile GDH [id number] 13:33:00 Test Item Value Reference Range Interpretation Comments C. Difficle Toxin Negative Negative (test code = 3494065633) C. Difficile GDH Negative Negative No indicati on of Antigen (test code = Clostri dium 9229471911) difficile infection and n o colonization. Discontinue enteric isolati on and therapy. JOSE FRANCISCO (test code = Testing performed JOSE FRANCISCO) by Alere Rapid Cassette Assay. For GDH, published sensitivity of the assay is 98.7% compared to cytotoxicity testing. For Toxin AB, published sensitivity is 87.8% and specificity 99.4% compared to cytotoxicity testing.Verificati on of kit performance was done by the [facility] Microbiology Lab prior to clinical use. Lab Interpretation Normal (test code = 02934-1) [facility] DI[facility]IC[facility] [id number] 13:33:00 Test Item Value Reference Range Interpretation Comments CDT TOXIN (test code Negative Negative = 9641222421) CDT GDH ANTIGEN (test Negative Negative No ind ication of code = 6823243280) Clostridi um difficile infection and n o colonization. Discontinue ent mirtha isolation and t herapy. Testing performed by Alere Rapid Cassette Assay. For GDH, published sensitivity of the assay is 98.7% compared to cytotoxicity testing. For Toxin AB, published sensitivity is 87.8% and specificity 99.4% compared to cytotoxicity testing.Verification of kit performance was done by the [facility] Microbiology Lab prior to clinical use.[id number] 10:43:00 Test Item Value Reference Range Interpretation Comments MAGNESIUM (BEAKER) 1.8 mg/dL 1.6-2.6 Specimen slightly (test code = 627) hemolyzed 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 ID - CAROLINA [id number] 10:43:00 Test Item Value Reference Range Interpretation Comments PHOSPHORUS (BEAKER) 3.5 mg/dL 2.3-4.7 Specimen slightly (test code = 604) hemolyzed 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 LISA SIM FBASIC METABOLIC [id number] 10:43:00 Test Item Value Reference Range Interpretation Comments SODIUM (BEAKER) 134 meq/L 136-145 L (test code = 381) POTASSIUM (BEAKER) 4.3 meq/L 3.5-5.1 Specimen slightly (test code = 379) hemolyzed CHLORIDE (BEAKER) 104 meq/L 98-107 (test code = 382) CO2 (BEAKER) (test 21 meq/L 22-29 L code = 355) BLOOD UREA NITROGEN 50 mg/dL 7-21 H (BEAKER) (test code = 354) CREATININE (BEAKER) 1.44 mg/dL 0.57-1.25 H Specimen slightly (test code = 358) hemolyzed GLUCOSE RANDOM 309 mg/dL 70-105 H (BEAKER) (test code = 652) CALCIUM (BEAKER) 9.3 mg/dL 8.4-10.2 (test code = 697) EGFR (BEAKER) (test 48 mL/min/1.73 ESTIMA SARIKA GFR IS code = 1092) sq m NOT ACCURATE CREATININE CLEARANCE IN PREDICTING GLOMERULAR FILTRATION RATE . ESTIMATED GFR I S NOT APPLICABLE FOR DIALYSIS PATIEN TSLoulou 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 ID Edel SIM [id number] 10:36:00 Test Item Value Reference Range Interpretation Comments PARTIAL THROMBOPLASTIN TIME 30.1 seconds 22.5-36.0 (BEAKER) (test code = 760) CBC W/PLT COUNT & AUTO [id number] 10:12:00 Test Item Value Reference Range Interpretation Comments WHITE BLOOD CELL COUNT (BEAKER) 8.8 K/ L 3.5-10.5 (test code = 775) RED BLOOD CELL COUNT (BEAKER) 3.63 M/ L 4.63-6.08 L (test code = 761) HEMOGLOBIN (BEAKER) (test code = 11.5 GM/DL 13.7-17.5 L 410) HEMATOCRIT (BEAKER) (test code = 35.0 % 40.1-51.0 L 411) MEAN CORPUSCULAR VOLUME (BEAKER) 96.4 fL 79.0-92.2 H (test code = 753) MEAN CORPUSCULAR HEMOGLOBIN 31.7 pg 25.7-32.2 (BEAKER) (test code = 751) MEAN CORPUSCULAR HEMOGLOBIN CONC 32.9 GM/DL 32.3-36.5 (BEAKER) (test code = 752) RED CELL DISTRIBUTION WIDTH 13.0 % 11.6-14.4 (BEAKER) (test code = 412) PLATELET COUNT (BEAKER) (test 356 K/CU MM 150-450 code = 756) MEAN PLATELET VOLUME (BEAKER) 10.3 fL 9.4-12.4 (test code = 754) NUCLEATED RED BLOOD CELLS 0 /100 WBC 0-0 (BEAKER) (test code = 413) NEUTROPHILS RELATIVE PERCENT 67 % (BEAKER) (test code = 429) LYMPHOCYTES RELATIVE PERCENT 22 % (BEAKER) (test code = 430) MONOCYTES RELATIVE PERCENT 6 % (BEAKER) (test code = 431) EOSINOPHILS RELATIVE PERCENT 3 % (BEAKER) (test code = 432) BASOPHILS RELATIVE PERCENT 1 % (BEAKER) (test code = 437) NEUTROPHILS ABSOLUTE COUNT 5.88 K/ L 1.78-5.38 H (BEAKER) (test code = 670) LYMPHOCYTES ABSOLUTE COUNT 1.94 K/ L 1.32-3.57 (BEAKER) (test code = 414) MONOCYTES ABSOLUTE COUNT (BEAKER) 0.48 K/ L 0.30-0.82 (test code = 415) EOSINOPHILS ABSOLUTE COUNT 0.30 K/ L 0.04-0.54 (BEAKER) (test code = 416) BASOPHILS ABSOLUTE COUNT (BEAKER) 0.08 K/ L 0.01-0.08 (test code = 417) IMMATURE GRANULOCYTES-RELATIVE 1 % 0-1 PERCENT (BEAKER) (test code = 2801) POCT-GLUCOSE [id number] 00:37:00 Test Item Value Reference Range Interpretation Comments POC-GLUCOSE METER 82 mg/dL 70-110 : TESTED A T [facility] 6720 (BEAKER) (test code = [place], 1538) [address]: 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/Techni antonio ID = [id number] for TIMO , RONALD RAD, ANKLE, 1 VIEW, [id number] 21:50:00Reason for exam:->left lateral ankle pain; r/o fractureFINAL REPORT RAD, ANKLE, 1 VIEW, LEFT CLINICAL HISTORY: left lateral ankle pain; r/o fracture TECHNIQUE: RAD, ANKLE, 1 VIEW, LEFT COMPARISON: None IMPRESSION: There is no evidence of fracture or traumatic malalignment. Small calcaneal spur. No focal soft tissue abnormality. Signed: Dereck Aguirre MDReport Verified Date/Time: 02/05/2020 21:50:12 XR ankle 1 view [id number] 21:50:00Interface, External Ris In - 02/05/2020 9:53 PM CDTFINAL REPORT RAD, ANKLE, 1 VIEW, LEFT CLINICAL HISTORY: left lateral ankle pain; r/o fracture TECHNIQUE: RAD, ANKLE, 1 VIEW, LEFT COMPARISON: None IMPRESSION: There is no evidence of fracture or traumatic malalignment. Small calcaneal spur. No focal soft tissue abnormality. Signed: Dereck Aguirre MDReport Verified Date/Time:02/05/2020 21:50:12 [facility] 21:14:00 Test Item Value Reference Range Interpretation Comments MAGNESIUM (BEAKER) (test code = 2.1 mg/dL 1.6-2.6 627) 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 ID - DAMION MBASIC METABOLIC [id number] 21:14:00 Test Item Value Reference Range Interpretation Comments SODIUM (BEAKER) 141 meq/L 136-145 (test code = 381) POTASSIUM (BEAKER) 4.1 meq/L 3.5-5.1 (test code = 379) CHLORIDE (BEAKER) 107 meq/L 98-107 (test code = 382) CO2 (BEAKER) (test 27 meq/L 22-29 code = 355) BLOOD UREA NITROGEN 56 mg/dL 7-21 H (BEAKER) (test code = 354) CREATININE (BEAKER) 1.48 mg/dL 0.57-1.25 H (test code = 358) GLUCOSE RANDOM 121 mg/dL 70-105 H (BEAKER) (test code = 652) CALCIUM (BEAKER) 9.7 mg/dL 8.4-10.2 (test code = 697) EGFR (BEAKER) (test 47 mL/min/1.73 ESTIMA SARIKA GFR IS code = 1092) sq m NOT ACCURATE CREATININE CLEARANCE IN PREDICTING GLOMERULAR FILTRATION RATE . ESTIMATED GFR I S NOT APPLICABLE FOR DIALYSIS PATIEN TS. 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 ID - DAMION MPOCT-GLUCOSE [id number] 18:07:00 Test Item Value Reference Range Interpretation Comments POC-GLUCOSE METER 291 mg/dL 70-110 H : TESTED A T [facility] 6720 (BEAKER) (test code = [place], 1538) [address]: 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/Techni antonio ID = [id number] for BRIANNE LIN [id number] 14:46:00 Test Item Value Reference Range Interpretation Comments MAGNESIUM (BEAKER) (test code = 2.2 mg/dL 1.6-2.6 627) 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 ID - NTPBASIC METABOLIC [id number] 14:46:00 Test Item Value Reference Range Interpretation Comments SODIUM (BEAKER) 137 meq/L 136-145 (test code = 381) POTASSIUM (BEAKER) 4.1 meq/L 3.5-5.1 (test code = 379) CHLORIDE (BEAKER) 106 meq/L 98-107 (test code = 382) CO2 (BEAKER) (test 23 meq/L 22-29 code = 355) BLOOD UREA NITROGEN 55 mg/dL 7-21 H (BEAKER) (test code = 354) CREATININE (BEAKER) 1.51 mg/dL 0.57-1.25 H (test code = 358) GLUCOSE RANDOM 300 mg/dL 70-105 H (BEAKER) (test code = 652) CALCIUM (BEAKER) 9.6 mg/dL 8.4-10.2 (test code = 697) EGFR (BEAKER) (test 46 mL/min/1.73 ESTIMA SARIKA GFR IS code = 1092) sq m NOT ACCURATE CREATININE CLEARANCE IN PREDICTING GLOMERULAR FILTRATION RATE . ESTIMATED GFR I S NOT APPLICABLE FOR DIALYSIS PATIEN TS. 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 ID - [id number] 10:36:00 Test Item Value Reference Range Interpretation Comments PARTIAL THROMBOPLASTIN TIME 42.7 seconds 22.5-36.0 H (ARIES) (test code = 760) RAD, CHEST, 1 VIEW, NON [id number] 10:26:00Reason for exam:->pneumonia, pulm edemaShould this be performed at the bedside?->YesFINAL REPORT RAD, CHEST, 1 VIEW, NON DEPT INDICATION: pneumonia, pulm edema CO MPARISON: Prior day's exam FINDINGS: Portable frontal view of the chest. IMPRESSION: Limited by underpenetration and patient rotation.Support Lines: Interval extubation. Enteric tube is stable. Lungsand pleura: Lungs are hypoinflated with central congestive changes favoring edema. No cerebral effusi on. No pneumothorax.Heart and mediastinum: Stable contours. Additional findings: None. Signed: JR Loyola Robert MDReport Verified Date/Time: 02/05/2020 10:26:24 [facility] 1 view portable / [id number] 10:26:00Interface, External Ris In - 02/05/2020 10:28 AM CDTFINAL REPORT RAD, CHEST, 1 VIEW, NON DEPT INDICATION: pneumonia, pulm edema COMPARISON: Prior day's exam FINDINGS: Portable frontal view of the chest. IMPRESSION: Limited by underpenetration and patient rotation.Support Lines: Interval extubation. Enteric tube is stable. Lungs and pleura: Lungs are hypoinflated with central c ongestive changes favoring edema. No cerebral effusion. No pneumothorax.Heart and mediastinum: Stable contours. Additional findings: None. Signed: JR Loyola Robert MDReport Verified Date/Time:02/05/2020 10:26:24 Reading Location: [facility] Radiology Reading [facility] 07:25:00 Test Item Value Reference Range Interpretation Comments PARTIAL THROMBOPLASTIN TIME > seconds 22.5-36.0 HH (ARIES) (test code = 760) B-type Natriuretic Factor (BNP)2020-02-05 06:54:00 Test Item Value Reference Range Interpretation Comments BNP (test code = 96312-9) 66 pg/mL 0-100 JOSE FRANCISCO (test code = JOSE FRANCISCO) 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 LISA Edel DAMION M Lab Interpretation (test Normal code = 35686-2) [facility] (BNP)2020-02-05 06:54:00 Test Item Value Reference Range Interpretation Comments B-TYPE NATRIURETIC PEPTIDE (BEAKER) 66 pg/mL 0-100 (test code = 700) 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 ID - DAMION [id number] 06:48:00 Test Item Value Reference Range Interpretation Comments PHOSPHORUS (BEAKER) (test code = 4.6 mg/dL 2.3-4.7 604) 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 ID - DAMION [id number] 06:48:00 Test Item Value Reference Range Interpretation Comments MAGNESIUM (BEAKER) (test code = 2.4 mg/dL 1.6-2.6 627) 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 LISA - DAMION MBASIC METABOLIC [id number] 06:48:00 Test Item Value Reference Range Interpretation Comments SODIUM (BEAKER) 141 meq/L 136-145 (test code = 381) POTASSIUM (BEAKER) 4.2 meq/L 3.5-5.1 (test code = 379) CHLORIDE (BEAKER) 109 meq/L 98-107 H (test code = 382) CO2 (BEAKER) (test 24 meq/L 22-29 code = 355) BLOOD UREA NITROGEN 54 mg/dL 7-21 H (BEAKER) (test code = 354) CREATININE (BEAKER) 1.42 mg/dL 0.57-1.25 H (test code = 358) GLUCOSE RANDOM 217 mg/dL 70-105 H (BEAKER) (test code = 652) CALCIUM (BEAKER) 9.3 mg/dL 8.4-10.2 (test code = 697) EGFR (BEAKER) (test 49 mL/min/1.73 ESTIMA SARIKA GFR IS code = 1092) sq m NOT ACCURATE CREATININE CLEARANCE IN PREDICTING GLOMERULAR FILTRATION RATE . ESTIMATED GFR I S NOT APPLICABLE FOR DIALYSIS PATIEN TS. 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 ID - DAMION MPOCT-GLUCOSE [id number] 06:45:00 Test Item Value Reference Range Interpretation Comments POC-GLUCOSE METER 190 mg/dL 70-110 H : TESTED A T [facility] 6720 (BEAKER) (test code = [place], 1538) [address]: 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/Techni antonio ID = [id number] for TERRI DAVIS CALCIUM, [id number] 06:33:00 Test Item Value Reference Range Interpretation Comments CALCIUM IONIZED (BEAKER) (test 1.17 mmol/L 1.12-1.27 code = 698) PH, BLOOD (BEAKER) (test code = 7.36 1810) CBC W/PLT COUNT & AUTO [id number] 06:28:00 Test Item Value Reference Range Interpretation Comments WHITE BLOOD CELL COUNT (BEAKER) 8.9 K/ L 3.5-10.5 (test code = 775) RED BLOOD CELL COUNT (BEAKER) 3.69 M/ L 4.63-6.08 L (test code = 761) HEMOGLOBIN (BEAKER) (test code = 11.8 GM/DL 13.7-17.5 L 410) HEMATOCRIT (BEAKER) (test code = 36.9 % 40.1-51.0 L 411) MEAN CORPUSCULAR VOLUME (BEAKER) 100.0 fL 79.0-92.2 H (test code = 753) MEAN CORPUSCULAR HEMOGLOBIN 32.0 pg 25.7-32.2 (BEAKER) (test code = 751) MEAN CORPUSCULAR HEMOGLOBIN CONC 32.0 GM/DL 32.3-36.5 L (BEAKER) (test code = 752) RED CELL DISTRIBUTION WIDTH 13.0 % 11.6-14.4 (BEAKER) (test code = 412) PLATELET COUNT (BEAKER) (test 324 K/CU MM 150-450 code = 756) MEAN PLATELET VOLUME (BEAKER) 10.7 fL 9.4-12.4 (test code = 754) NUCLEATED RED BLOOD CELLS 0 /100 WBC 0-0 (BEAKER) (test code = 413) NEUTROPHILS RELATIVE PERCENT 61 % (BEAKER) (test code = 429) LYMPHOCYTES RELATIVE PERCENT 28 % (BEAKER) (test code = 430) MONOCYTES RELATIVE PERCENT 6 % (BEAKER) (test code = 431) EOSINOPHILS RELATIVE PERCENT 4 % (BEAKER) (test code = 432) BASOPHILS RELATIVE PERCENT 1 % (BEAKER) (test code = 437) NEUTROPHILS ABSOLUTE COUNT 5.41 K/ L 1.78-5.38 H (BEAKER) (test code = 670) LYMPHOCYTES ABSOLUTE COUNT 2.47 K/ L 1.32-3.57 (BEAKER) (test code = 414) MONOCYTES ABSOLUTE COUNT (BEAKER) 0.54 K/ L 0.30-0.82 (test code = 415) EOSINOPHILS ABSOLUTE COUNT 0.35 K/ L 0.04-0.54 (BEAKER) (test code = 416) BASOPHILS ABSOLUTE COUNT (BEAKER) 0.09 K/ L 0.01-0.08 H (test code = 417) IMMATURE GRANULOCYTES-RELATIVE 1 % 0-1 PERCENT (BEAKER) (test code = 2801) [id number] 01:07:00 Test Item Value Reference Range Interpretation Comments MAGNESIUM (BEAKER) (test code = 2.5 mg/dL 1.6-2.6 627) 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 ID - PIAYA LBASIC METABOLIC [id number] 01:07:00 Test Item Value Reference Range Interpretation Comments SODIUM (BEAKER) 139 meq/L 136-145 (test code = 381) POTASSIUM (BEAKER) 3.9 meq/L 3.5-5.1 (test code = 379) CHLORIDE (BEAKER) 108 meq/L 98-107 H (test code = 382) CO2 (BEAKER) (test 23 meq/L 22-29 code = 355) BLOOD UREA NITROGEN 52 mg/dL 7-21 H (BEAKER) (test code = 354) CREATININE (BEAKER) 1.41 mg/dL 0.57-1.25 H (test code = 358) GLUCOSE RANDOM 168 mg/dL 70-105 H (BEAKER) (test code = 652) CALCIUM (BEAKER) 9.4 mg/dL 8.4-10.2 (test code = 697) EGFR (BEAKER) (test 49 mL/min/1.73 ESTIMA SARIKA GFR IS code = 1092) sq m NOT ACCURATE CREATININE CLEARANCE IN PREDICTING GLOMERULAR FILTRATION RATE . ESTIMATED GFR I S NOT APPLICABLE FOR DIALYSIS PATIEN TS. 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 ID - PIAYA LPOCT-GLUCOSE [id number] 00:45:00 Test Item Value Reference Range Interpretation Comments POC-GLUCOSE METER 158 mg/dL 70-110 H : TESTED A T [facility] 6720 (BEAKER) (test code = [place], 1538) [address]: 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/Techni antonio ID = [id number] for TERRI DAVIS POCT-GLUCOSE [id number] 17:40:00 Test Item Value Reference Range Interpretation Comments POC-GLUCOSE METER 176 mg/dL 70-110 H : TESTED A T [facility] 6720 (BEAKER) (test code = [place], 1538) [address]: 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/Techni antonio ID = [id number] for BRIANNE LIN [id number] 13:00:00 Test Item Value Reference Range Interpretation Comments MAGNESIUM (BEAKER) (test code = 1.9 mg/dL 1.6-2.6 627) 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 ID - CHIQUIS FBASIC METABOLIC [id number] 13:00:00 Test Item Value Reference Range Interpretation Comments SODIUM (BEAKER) 140 meq/L 136-145 (test code = 381) POTASSIUM (BEAKER) 3.7 meq/L 3.5-5.1 (test code = 379) CHLORIDE (BEAKER) 109 meq/L 98-107 H (test code = 382) CO2 (BEAKER) (test 25 meq/L 22-29 code = 355) BLOOD UREA NITROGEN 49 mg/dL 7-21 H (BEAKER) (test code = 354) CREATININE (BEAKER) 1.32 mg/dL 0.57-1.25 H (test code = 358) GLUCOSE RANDOM 190 mg/dL 70-105 H (BEAKER) (test code = 652) CALCIUM (BEAKER) 8.7 mg/dL 8.4-10.2 (test code = 697) EGFR (BEAKER) (test 53 mL/min/1.73 ESTIMA SARIKA GFR IS code = 1092) sq m NOT ACCURATE CREATININE CLEARANCE IN PREDICTING GLOMERULAR FILTRATION RATE . ESTIMATED GFR I S NOT APPLICABLE FOR DIALYSIS PATIEN TS. 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 ID - CHIQUIS FBronchial culture + gram [id number] 11:46:00 Test Item Value Reference Range Interpretation Comments Result (test code = <1+ Normal respiratory 6463-4) wilbur present Gram Stain Result No organisms seen (test code = 1123) [facility] Center[facility] + GRAM [id number] 11:46:00 Test Item Value Reference Range Interpretation Comments CULTURE (BEAKER) <1+ Normal respiratory (test code = 1095) wilbur present GRAM STAIN RESULT 2+ WBCs (BEAKER) (test code = 1123) GRAM STAIN RESULT No organisms seen (BEAKER) (test code = 79625) [id number] 11:43:00 Test Item Value Reference Range Interpretation Comments Protime (test code = 15.0 11.9- 14.2 H 5902-2) seconds INR (test code = 1.2 <=5.9 6301-6) PTT (test code = 89.3 22.5- 36.0 H 10100-1) seconds JOSE FRANCISCO (test code = JOSE FRANCISCO) Effective 04/01/2019: PT Reference Range ChangeNew: 11.9-14.2 Previous: 11.7-14.7 RECOMMENDED COUMADIN/WARFARIN INR THERAPY RANGESSTANDARD DOSE: 2.0-3.0 Includes: PROPHYLAXIS for venous thrombosis, systemic embolization; TREATMENT for venous thrombosis and/or pulmonary embolus.HIGH RISK: Target INR is 2.5-3.5 for patients wiht mechanical heart valves. Lab Interpretation Abnormal (test code = 17611-4) [id number]:43[facility]00 Test Item Value Reference Range Interpretation Comments PROTIME (BEAKER) (test code = 15.0 seconds 11.9-14.2 H 759) INR (BEAKER) (test code = 370) 1.2 <=5.9 PARTIAL THROMBOPLASTIN TIME 89.3 seconds 22.5-36.0 H (BEAKER) (test code = 760) Effective 04/01/2019: PT Reference Range ChangeNew: 11.9-14.2 Previous: 11.7- 14.7RECOMMENDED COUMADIN/WARFARIN INR THERAPY RANGESSTANDARD DOSE: 2.0-3.0 Includes: PROPHYLAXIS for venous thrombosis, systemic embolization; TREATMENT for venous thrombosis and/or pulmonary embolus.HIGH RISK: Target INR is2.5-3.5 for patients wiht mechanical heart valves.POCT-GLUCOSE [id number] 11:38:00 Test Item Value Reference Range Interpretation Comments POC-GLUCOSE METER 173 mg/dL 70-110 H : TESTED A T [facility] 6720 (BEAKER) (test code = [place], 1538) [id number]: 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/Techni antonio ID = [id number] for BRIANNE LIN BLOOD [id number] 10:14:00 Test Item Value Reference Range Interpretation Comments CULTURE A From Aerobic An d (BEAKER) (test Anaerobic Bot tles code = 1095) Coagulase negat gurpreet Staphylococcus GRAM STAIN From aerobic and RESULT (BEAKER) anaerobic (test code = bottles: gram 1123) positive cocci in clusters POCT-GLUCOSE [id number] 06:04:00 Test Item Value Reference Range Interpretation Comments POC-GLUCOSE METER 231 mg/dL 70-110 H : TESTED A T [facility] 6720 (BEAKER) (test code = [facility], 1538) [id number]: 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/Techni antonio ID = [id number] for ROZ LEVINE [id number] 05:28:00 Test Item Value Reference Range Interpretation Comments PARTIAL THROMBOPLASTIN TIME 87.0 seconds 22.5-36.0 H (BEAKER) (test code = 760) [id number] 04:00:00 Test Item Value Reference Range Interpretation Comments PARTIAL THROMBOPLASTIN TIME 160.0 seconds 22.5-36.0 HH (BEAKER) (test code = 760) [id number] 03:34:00 Test Item Value Reference Range Interpretation Comments PARTIAL THROMBOPLASTIN TIME 157.3 seconds 22.5-36.0 HH (BEAKER) (test code = 760) [id number] 03:29:00 Test Item Value Reference Range Interpretation Comments PHOSPHORUS (BEAKER) (test code = 4.5 mg/dL 2.3-4.7 604) 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 ID - [id number] 03:29:00 Test Item Value Reference Range Interpretation Comments MAGNESIUM (BEAKER) (test code = 2.0 mg/dL 1.6-2.6 627) 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 ID - LMBASIC METABOLIC [id number] 03:29:00 Test Item Value Reference Range Interpretation Comments SODIUM (BEAKER) 141 meq/L 136-145 (test code = 381) POTASSIUM (BEAKER) 3.6 meq/L 3.5-5.1 (test code = 379) CHLORIDE (BEAKER) 109 meq/L 98-107 H (test code = 382) CO2 (BEAKER) (test 25 meq/L 22-29 code = 355) BLOOD UREA NITROGEN 43 mg/dL 7-21 H (BEAKER) (test code = 354) CREATININE (BEAKER) 1.45 mg/dL 0.57-1.25 H (test code = 358) GLUCOSE RANDOM 238 mg/dL 70-105 H (BEAKER) (test code = 652) CALCIUM (BEAKER) 8.4 mg/dL 8.4-10.2 (test code = 697) EGFR (BEAKER) (test 48 mL/min/1.73 ESTIMA SARIKA GFR IS code = 1092) sq m NOT ACCURATE CREATININE CLEARANCE IN PREDICTING GLOMERULAR FILTRATION RATE . ESTIMATED GFR I S NOT APPLICABLE FOR DIALYSIS PATIEN TS. 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 ID - LMCALCIUM, [id number] 03:13:00 Test Item Value Reference Range Interpretation Comments CALCIUM IONIZED (BEAKER) (test 1.05 mmol/L 1.12-1.27 L code = 698) PH, BLOOD (BEAKER) (test code = 7.34 1810) CBC W/PLT COUNT & AUTO [id number] 03:12:00 Test Item Value Reference Range Interpretation Comments WHITE BLOOD CELL COUNT (BEAKER) 7.9 K/ L 3.5-10.5 (test code = 775) RED BLOOD CELL COUNT (BEAKER) 3.52 M/ L 4.63-6.08 L (test code = 761) HEMOGLOBIN (BEAKER) (test code = 11.1 GM/DL 13.7-17.5 L 410) HEMATOCRIT (BEAKER) (test code = 36.1 % 40.1-51.0 L 411) MEAN CORPUSCULAR VOLUME (BEAKER) 102.6 fL 79.0-92.2 H (test code = 753) MEAN CORPUSCULAR HEMOGLOBIN 31.5 pg 25.7-32.2 (BEAKER) (test code = 751) MEAN CORPUSCULAR HEMOGLOBIN CONC 30.7 GM/DL 32.3-36.5 L (BEAKER) (test code = 752) RED CELL DISTRIBUTION WIDTH 13.1 % 11.6-14.4 (BEAKER) (test code = 412) PLATELET COUNT (BEAKER) (test 292 K/CU MM 150-450 code = 756) MEAN PLATELET VOLUME (BEAKER) 10.5 fL 9.4-12.4 (test code = 754) NUCLEATED RED BLOOD CELLS 0 /100 WBC 0-0 (BEAKER) (test code = 413) NEUTROPHILS RELATIVE PERCENT 64 % (BEAKER) (test code = 429) LYMPHOCYTES RELATIVE PERCENT 22 % (BEAKER) (test code = 430) MONOCYTES RELATIVE PERCENT 7 % (BEAKER) (test code = 431) EOSINOPHILS RELATIVE PERCENT 4 % (BEAKER) (test code = 432) BASOPHILS RELATIVE PERCENT 1 % (BEAKER) (test code = 437) NEUTROPHILS ABSOLUTE COUNT 5.02 K/ L 1.78-5.38 (BEAKER) (test code = 670) LYMPHOCYTES ABSOLUTE COUNT 1.75 K/ L 1.32-3.57 (BEAKER) (test code = 414) MONOCYTES ABSOLUTE COUNT (BEAKER) 0.55 K/ L 0.30-0.82 (test code = 415) EOSINOPHILS ABSOLUTE COUNT 0.34 K/ L 0.04-0.54 (BEAKER) (test code = 416) BASOPHILS ABSOLUTE COUNT (BEAKER) 0.07 K/ L 0.01-0.08 (test code = 417) IMMATURE GRANULOCYTES-RELATIVE 2 % 0-1 H PERCENT (BEAKER) (test code = 2801) POCT-GLUCOSE [id number] 00:09:00 Test Item Value Reference Range Interpretation Comments POC-GLUCOSE METER 165 mg/dL 70-110 H : [facility] ([facility]ER[facility] (test code = [place], 1538) [address]: 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/Techni antonio ID = [id number] for ROZ LEVINE [id number] 21:34:00 Test Item Value Reference Range Interpretation Comments MAGNESIUM (BEAKER) (test code = 2.1 mg/dL 1.6-2.6 627) 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 ID - CHIQUIS FBASIC METABOLIC [id number] 21:34:00 Test Item Value Reference Range Interpretation Comments SODIUM (BEAKER) 140 meq/L 136-145 (test code = 381) POTASSIUM (BEAKER) 3.5 meq/L 3.5-5.1 (test code = 379) CHLORIDE (BEAKER) 106 meq/L 98-107 (test code = 382) CO2 (BEAKER) (test 24 meq/L 22-29 code = 355) BLOOD UREA NITROGEN 44 mg/dL 7-21 H (BEAKER) (test code = 354) CREATININE (BEAKER) 1.48 mg/dL 0.57-1.25 H (test code = 358) GLUCOSE RANDOM 246 mg/dL 70-105 H (BEAKER) (test code = 652) CALCIUM (BEAKER) 8.8 mg/dL 8.4-10.2 (test code = 697) EGFR (BEAKER) (test 47 mL/min/1.73 ESTIMA SARIKA GFR IS code = 1092) sq m NOT ACCURATE CREATININE CLEARANCE IN PREDICTING GLOMERULAR FILTRATION RATE . ESTIMATED GFR I S NOT APPLICABLE FOR DIALYSIS PATIEN TS. 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 ID Edel SIM FPOCT-GLUCOSE [id number] 18:20:00 Test Item Value Reference Range Interpretation Comments POC-GLUCOSE METER 202 mg/dL 70-110 H : TESTED A T [facility] (BEAKER) (test code = EN[facility]ADUANE Osorio [facility], 1538) [address]: 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/Techni antonio ID = [id number] for DREA RAYA [id number] 12:36:00 Test Item Value Reference Range Interpretation Comments MAGNESIUM (BEAKER) (test code = 2.3 mg/dL 1.6-2.6 627) 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 ID Edel SIM FBASIC METABOLIC [id number] 12:36:00 Test Item Value Reference Range Interpretation Comments SODIUM (BEAKER) 141 meq/L 136-145 (test code = 381) POTASSIUM (BEAKER) 3.5 meq/L 3.5-5.1 (test code = 379) CHLORIDE (BEAKER) 106 meq/L 98-107 (test code = 382) CO2 (BEAKER) (test 26 meq/L 22-29 code = 355) BLOOD UREA NITROGEN 42 mg/dL 7-21 H (BEAKER) (test code = 354) CREATININE (BEAKER) 1.39 mg/dL 0.57-1.25 H (test code = 358) GLUCOSE RANDOM 197 mg/dL 70-105 H (BEAKER) (test code = 652) CALCIUM (BEAKER) 9.2 mg/dL 8.4-10.2 (test code = 697) EGFR (BEAKER) (test 50 mL/min/1.73 ESTIMA SARIKA GFR IS code = 1092) sq m NOT ACCURATE CREATININE CLEARANCE IN PREDICTING GLOMERULAR FILTRATION RATE . ESTIMATED GFR I S NOT APPLICABLE FOR DIALYSIS PATIEN TS. 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 ID - CHIQUIS FPOCT-GLUCOSE [id number] 12:26:00 Test Item Value Reference Range Interpretation Comments POC-GLUCOSE METER 188 mg/dL 70-110 H : TESTED A T [facility] 6720 (BEAKER) (test code = [facility], 1538) [address]: 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/Techni antonio ID = [id number] for DREA RAYA Urine [id number] 07:59:00 Test Item Value Reference Range Interpretation Comments Result (test code = 6463-4) [facility] [id number] 05:57:00 Test Item Value Reference Range Interpretation Comments POC-GLUCOSE METER 199 mg/dL 70-110 H : TESTED A T [facility] 6720 (BEAKER) (test code = [facility], 1538) [address]: 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/Techni antonio ID = [id number] for MO RRIS, MARÍA Blood gas, [id number] 03:37:00 Test Item Value Reference Range Interpretation Comments pH, Arterial (test code = 2744-1) 7.44 7.35-7.45 pCO2, Arterial (test code = 38 35- 45 mmHg 2019-06) pO2, Arterial (test code = 2703-7) 244 80- 90 mmHg H O2 Sat, Arterial (test code = 99.6 % 96-97 H 8-6) HCO3, Arterial (test code = 26 mmol/L 21-29 1959-4) Base Excess, Arterial (test code = 1.7 mmol/L -2-3 1925-7) Patient Temperature (test code = 37.5 C 8310-5) FIO2 (test code = 1819) 50 % Lab Interpretation (test code = Abnormal 20021-0) [facility] [id number] 03:37:00 Test Item Value Reference Range Interpretation Comments PH ARTERIAL (BEAKER) (test code = 7.44 7.35-7.45 383) PCO2 ARTERIAL (BEAKER) (test code 38 mmHg 35-45 = 384) PO2 ARTERIAL (BEAKER) (test code = 244 mmHg 80-90 H 385) O2 SATURATION ARTERIAL (BEAKER) 99.6 % 96.0-97.0 H (test code = 386) HCO3 ARTERIAL (BEAKER) (test code 26 mmol/L 21-29 = 388) BASE EXCESS ARTERIAL (BEAKER) 1.7 mmol/L -2.0-3.0 (test code = 387) PATIENT TEMPERATURE (BEAKER) (test 37.5 C code = 1818) FIO2 (BEAKER) (test code = 1819) 50.0 % CALCIUM, [id number] 03:37:00 Test Item Value Reference Range Interpretation Comments CALCIUM IONIZED (BEAKER) (test 1.14 mmol/L 1.12-1.27 code = 698) PH, BLOOD (BEAKER) (test code = 7.45 1810) [id number] 03:34:00 Test Item Value Reference Range Interpretation Comments MAGNESIUM (BEAKER) (test code = 2.5 mg/dL 1.6-2.6 627) 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 ID - DAMION MCOMPREHENSIVE METABOLIC [id number] 03:34:00 Test Item Value Reference Range Interpretation Comments TOTAL PROTEIN 7.2 gm/dL 6.0-8.3 (BEAKER) (test code = 770) ALBUMIN (BEAKER) 3.2 g/dL 3.5-5.0 L (test code = 1145) ALKALINE PHOSPHATASE 43 U/L 40-150 (BEAKER) (test code = 346) BILIRUBIN TOTAL 0.4 mg/dL 0.2-1.2 (BEAKER) (test code = 377) SODIUM (BEAKER) (test 141 meq/L 136-145 code = 381) POTASSIUM (BEAKER) 3.8 meq/L 3.5-5.1 (test code = 379) CHLORIDE (BEAKER) 106 meq/L 98-107 (test code = 382) CO2 (BEAKER) (test 24 meq/L 22-29 code = 355) BLOOD UREA NITROGEN 43 mg/dL 7-21 H (BEAKER) (test code = 354) CREATININE (BEAKER) 1.38 mg/dL 0.57-1.25 H (test code = 358) GLUCOSE RANDOM 251 mg/dL 70-105 H (BEAKER) (test code = 652) CALCIUM (BEAKER) 9.2 mg/dL 8.4-10.2 (test code = 697) AST (SGOT) (BEAKER) 40 U/L 5-34 H (test code = 353) ALT (SGPT) (BEAKER) 74 U/L 6-55 H (test code = 347) EGFR (BEAKER) (test 51 mL/min/1.73 ESTIMA SARIKA GFR IS code = 1092) sq m NOT ACCURATE CREATININE CLEARANCE IN PREDICTING GLOMERULAR FILTRATION RATE . ESTIMATED GFR I S NOT APPLICABLE FOR DIALYSIS PATIEN TS. 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 ID - DAMION [id number] 03:33:00 Test Item Value Reference Range Interpretation Comments PHOSPHORUS (ARIES) (test code = 4.3 mg/dL 2.3-4.7 604) 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 ID - DAMION MRAD, ABDOMEN/KUB, 1 VIEW [id number] 03:33:00Reason for exam:->NG tube placement checkFINAL REPORT CLINICAL HISTORY: NG tube placement check TECHNIQUE: RAD, ABDOMEN/KUB, 1 VIEW AP COMPARISON: Radiograph the abdomen dated same day. IMPRESSION: Gastric decompressiontube with tip overlying the gastric pylorus, recommend retracting approximately 4 to 5 cm. Otherwiseunchanged examination the interval. Nonobstructive bowel gas pattern without distended loops of bowel. Heterogeneous airspace opacities in the bilateral bases, incompletely evaluated. Signed: Sun Ibrahim MDReport Verified Date/Time: 02/03/2020 03:33:27 XR abdomen / KUB 1 [id number] 03:33:00Interface, External Ris In - 02/03/2020 3:35 AM CDTFINAL REPORT CLINICAL HISTORY: NG tube placement check TECHNIQUE: RAD, ABDOMEN/KUB, 1 VIEW AP COMPARISON: Radiograph the abdomen dated same day. IMPRESSION: Gastric decompression tube with tip overlying the gastric pylorus, recommend retracting approximately 4 to 5 cm. Otherwise unchanged examination the interval. Nonobstructive bowel gas pattern without distended loops of bowel. Heterogeneous airspace opacities in the bilateral bases, incompletely evaluated. Signed: Sun Ibrahim MDReport Verified Date/Time: 02/03/2020 03:33:27 [facility] 03[facility]27[facility]00 Test Item Value Reference Range Interpretation Comments PARTIAL THROMBOPLASTIN TIME 85.5 seconds 22.5-36.0 H (BEAKER) (test code = 760) CBC W/PLT COUNT & AUTO [id number] 03:21:00 Test Item Value Reference Range Interpretation Comments WHITE BLOOD CELL COUNT (BEAKER) 7.8 K/ L 3.5-10.5 (test code = 775) RED BLOOD CELL COUNT (BEAKER) 3.61 M/ L 4.63-6.08 L (test code = 761) HEMOGLOBIN (BEAKER) (test code = 11.4 GM/DL 13.7-17.5 L 410) HEMATOCRIT (BEAKER) (test code = 35.9 % 40.1-51.0 L 411) MEAN CORPUSCULAR VOLUME (BEAKER) 99.4 fL 79.0-92.2 H (test code = 753) MEAN CORPUSCULAR HEMOGLOBIN 31.6 pg 25.7-32.2 (BEAKER) (test code = 751) MEAN CORPUSCULAR HEMOGLOBIN CONC 31.8 GM/DL 32.3-36.5 L (BEAKER) (test code = 752) RED CELL DISTRIBUTION WIDTH 13.1 % 11.6-14.4 (BEAKER) (test code = 412) PLATELET COUNT (BEAKER) (test 321 K/CU MM 150-450 code = 756) MEAN PLATELET VOLUME (BEAKER) 10.5 fL 9.4-12.4 (test code = 754) NUCLEATED RED BLOOD CELLS 0 /100 WBC 0-0 (BEAKER) (test code = 413) NEUTROPHILS RELATIVE PERCENT 72 % (BEAKER) (test code = 429) LYMPHOCYTES RELATIVE PERCENT 17 % (BEAKER) (test code = 430) MONOCYTES RELATIVE PERCENT 6 % (BEAKER) (test code = 431) EOSINOPHILS RELATIVE PERCENT 4 % (BEAKER) (test code = 432) BASOPHILS RELATIVE PERCENT 1 % (BEAKER) (test code = 437) NEUTROPHILS ABSOLUTE COUNT 5.57 K/ L 1.78-5.38 H (BEAKER) (test code = 670) LYMPHOCYTES ABSOLUTE COUNT 1.29 K/ L 1.32-3.57 L (BEAKER) (test code = 414) MONOCYTES ABSOLUTE COUNT (BEAKER) 0.49 K/ L 0.30-0.82 (test code = 415) EOSINOPHILS ABSOLUTE COUNT 0.28 K/ L 0.04-0.54 (BEAKER) (test code = 416) BASOPHILS ABSOLUTE COUNT (BEAKER) 0.05 K/ L 0.01-0.08 (test code = 417) IMMATURE GRANULOCYTES-RELATIVE 2 % 0-1 H PERCENT (BEAKER) (test code = 2801) POCT-GLUCOSE [id number] 00:28:00 Test Item Value Reference Range Interpretation Comments POC-GLUCOSE METER 209 mg/dL 70-110 H : TESTED A T [facility] (BEAKER) (test code = [place], 1538) [address]: 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/Techni antonio ID = [id number] for ROOSEVELT SWANSON [id number] 21:46:00 Test Item Value Reference Range Interpretation Comments MAGNESIUM (BEAKER) (test code = 1.9 mg/dL 1.6-2.6 627) 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 ID - DBBASIC METABOLIC [id number] 21:46:00 Test Item Value Reference Range Interpretation Comments SODIUM (BEAKER) 142 meq/L 136-145 (test code = 381) POTASSIUM (BEAKER) 3.7 meq/L 3.5-5.1 (test code = 379) CHLORIDE (BEAKER) 107 meq/L 98-107 (test code = 382) CO2 (BEAKER) (test 26 meq/L 22-29 code = 355) BLOOD UREA NITROGEN 41 mg/dL 7-21 H (BEAKER) (test code = 354) CREATININE (BEAKER) 1.32 mg/dL 0.57-1.25 H (test code = 358) GLUCOSE RANDOM 196 mg/dL 70-105 H (BEAKER) (test code = 652) CALCIUM (BEAKER) 9.1 mg/dL 8.4-10.2 (test code = 697) EGFR (BEAKER) (test 53 mL/min/1.73 ESTIMA SARIKA GFR IS code = 1092) sq m NOT ACCURATE CREATININE CLEARANCE IN PREDICTING GLOMERULAR FILTRATION RATE . ESTIMATED GFR I S NOT APPLICABLE FOR DIALYSIS PATIEN TS. 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 ID - DBRAD, ABDOMEN/KUB, 1 VIEW [id number] 19:20:00Reason for exam:- >NG TUBE PLACEMENTShould this be performed at the bedside?->YesFINAL REPORT Abdomen one view Comparison: None. Reason for exam: NG TUBE PLACEMENT Findings: Supine view of the abdomen was obtained. There is a nasogastric tube with tip in thegastric body. There is no bowel obstruction. There are small bibasilar opacities which may representatelectasis and/or pneumonia. Signed: Talia Trivedi MDReport Verified Date/Time: 02/02/2020 19:20:58 POCT-GLUCOSE [id number] 17:41:00 Test Item Value Reference Range Interpretation Comments POC-GLUCOSE METER 167 mg/dL 70-110 H : TESTED A T [facility] 6720 ([facility]) (test code = [place], 1538) [address]: 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/Techni antonio ID = [id number] for KENNY LUCIANO SLICK Blood Culture Panel([employer])2020-02-02 16:11:00 Test Item Value Reference Interpretation Comments Range LISTERIA MONOCYTOGENES Not detected Not detected (test code = 90077-3) STAPHYLOCOCCUS (test Detected Not detected A Coagula se code = 21588-5) negative Sta ph species (CoNS)- methicillin resistantFirst- li ne therapy: Vancomycin MecA DETECTED Possib le contamination. The likelihood of pathogenicity i s increased if th e organism is observed in multiple blood cultures obtain ed from separate venipunctures. Reference Range : Not Detected STAPHYLOCOCCUS AUREUS Not detected Not detected (test code = 77307-1) Streptococcus (test Not detected Not detected code = 61799-3) STREPTOCOCCUS Not detected Not detected AGALACTIAE (GROUP B) (test code = 11922-2) STREPTOCOCCUS Not detected Not detected PNEUMONIAE (test code = 50725-0) Streptococcus pyogenes Not detected Not detected (Group A) (test code = 21098-4) ACINETOBACTER BAUMANNII Not detected Not detected (test code = 18672-9) HAEMOPHILUS INFLUENZAE Not detected Not detected (test code = 55703-1) NEISSERIA MENINGITIDIS Not detected Not detected (test code = 80646-9) ENTEROBACTERIACEAE Not detected Not detected (test code = 49438-0) ENTEROBACTER CLOACOE Not detected Not detected COMPLEX (test code = 52151-4) KLEBSIELLA OXYTOCA Not detected Not detected (test code = 87949-8) KLEBSIELLA PNEUMONIAE Not detected Not detected (test code = 47449-7) PROTEUS (test code = Not detected Not detected 22177-8) SERRATIA MARCESCENS Not detected Not detected (test code = 93715-5) MIGUEL ÁNGEL ALBICANS (test Not detected Not detected code = 91678-5) MIGUEL ÁNGEL GLABRATA (test Not detected Not detected code = 88619-7) MIGUEL ÁNGEL KRUSEI (test Not detected Not detected code = 26730-5) MIGUEL ÁNGEL PARAPSILOSIS Not detected Not detected (test code = 08361-7) MIGUEL ÁNGEL TROPICALIS Not detected Not detected (test code = 61039-9) ESCHERICHIA COLI (test Not detected Not detected code = 47760-4) METHICILLIN-RESISTANCE Detected Not detected A GENE (test code = 03372-9) VANCOMYCIN-RESISTANCE GENE (test code = 37578-6) CARBAPENEM-RESISTANCE GENE (test code = 43011-0) ENTEROCOCCUS (test code Not detected Not detected = 07580-1) PSEUDOMONAS AERUGINOSA Not detected Not detected (test code = 37294-3) JOSE FRANCISCO (test code = JOSE FRANCISCO) Other bacteria and resistance markers not targeted by this PCR panel cannot be excluded; therefore clinical correlation and follow up of serology, culture results, and other molecular studies is required. The results are not intended to be used as the sole means for clinical diagnosis or patient management decisions. This sample was tested at the [facility] using the [employer] Blood Culture ID Panel. It is FDA cleared and has been verified and approved by the [facility] for clinical use. This laboratory is CLIA-certified and [employer] (CAP)-accredited to perform high complexity testing. Lab Interpretation Abnormal (test code = 58291-4) [facility] [id number] 16:11:00 Test Item Value Reference Range Interpretation Comments LISTERIA MONOCYTOGENES Not detected Not detected (test code = 8613258) STAPHYLOCOCCUS (test Detected Not detected A Coagula se negative code = 4976867) Staph specie s (CoNS)- methicillin resistantFirst- miguelito e therapy: Vancomycin MecA DETECTED Possib le contamination. The likelihood of pathogenicity i s increased if th e organism is observed in multiple blood cultures obtain ed from separate venipunctures. Reference Range : Not Detected STAPHYLOCOCCUS AUREUS Not detected Not detected (test code = 20161010) STREPTOCOCCUS (test code Not detected Not detected = 0034917) STREPTOCOCCUS AGALACTIAE Not detected Not detected (GROUP B) (test code = 8263344) STREPTOCOCCUS PNEUMONIAE Not detected Not detected (test code = 4268443) STREPTOCOCCUS PYOGENES Not detected Not detected (GROUP A) (test code = 9848698) ACINETOBACTER BAUMANNII Not detected Not detected (test code = 2600471) HAEMOPHILUS INFLUENZAE Not detected Not detected (test code = 7224937) NEISSERIA MENINGITIDIS Not detected Not detected (test code = 0210795) ENTEROBACTERIACEAE (test Not detected Not detected code = 3651581) ENTEROBACTER CLOACOE Not detected Not detected COMPLEX (test code = 8504208) KLEBSIELLA OXYTOCA (test Not detected Not detected code = 6897643) KLEBSIELLA PNEUMONIAE Not detected Not detected (test code = 1650) PROTEUS (test code = Not detected Not detected 1805557) SERRATIA MARCESCENS Not detected Not detected (test code = 2154651) MIGUEL ÁNGEL ALBICANS (test Not detected Not detected code = 9374763) MIGUEL ÁNGEL GLABRATA (test Not detected Not detected code = 7569366) MIGUEL ÁNGEL KRUSEI (test Not detected Not detected code = 3850945) MIGUEL ÁNGEL PARAPSILOSIS Not detected Not detected (test code = 2490142) MIGUEL ÁNGEL TROPICALIS (test Not detected Not detected code = 0910837) ESCHERICHIA COLI (test Not detected Not detected code = 7137589) METHICILLIN-RESISTANCE Detected Not detected A GENE (test code = 9552213) VANCOMYCIN-RESISTANCE GENE (test code = 4459174) CARBAPENEM-RESISTANCE GENE (test code = 5597810) ENTEROCOCCUS-BEAKER Not detected Not detected (test code = 8577879) PSEUDOMONAS Not detected Not detected AERUGINOSA-BEAKER (test code = 5112282) Other bacteria and resistance markers not targeted by this PCR panel cannot be excluded; therefore clinical correlation and follow up of serology, culture results, and other molecular studies is required. The results are not intended to be used as the sole means for clinical diagnosis or patient management decisions. This sample was tested at the [facility] using the [employer] Blood Culture ID Panel. It is FDA cleared and has been verified and approved by the [facility] for clinical use. This laboratory is CLIA-certified and College ofAmerican Pathologists (CAP)-accredited to perform high complexity testing.MAGNESIUM 2020-02-02 14:02:00 Test Item Value Reference Range Interpretation Comments MAGNESIUM (BEAKER) (test code = 2.0 mg/dL 1.6-2.6 627) 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 ID - DAMION MBASIC METABOLIC [id number] 14:02:00 Test Item Value Reference Range Interpretation Comments SODIUM (BEAKER) 141 meq/L 136-145 (test code = 381) POTASSIUM (BEAKER) 3.8 meq/L 3.5-5.1 (test code = 379) CHLORIDE (BEAKER) 103 meq/L 98-107 (test code = 382) CO2 (BEAKER) (test 27 meq/L 22-29 code = 355) BLOOD UREA NITROGEN 44 mg/dL 7-21 H (BEAKER) (test code = 354) CREATININE (BEAKER) 1.33 mg/dL 0.57-1.25 H (test code = 358) GLUCOSE RANDOM 247 mg/dL 70-105 H (BEAKER) (test code = 652) CALCIUM (BEAKER) 9.1 mg/dL 8.4-10.2 (test code = 697) EGFR (BEAKER) (test 53 mL/min/1.73 ESTIMA SARIKA GFR IS code = 1092) sq m NOT ACCURATE CREATININE CLEARANCE IN PREDICTING GLOMERULAR FILTRATION RATE . ESTIMATED GFR I S NOT APPLICABLE FOR DIALYSIS PATIEN TS. 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 ID - DAMION MPOCT-GLUCOSE [id number] 12:16:00 Test Item Value Reference Range Interpretation Comments POC-GLUCOSE METER 230 mg/dL 70-110 H : TESTED A T [facility] 6720 (BEAKER) (test code = ANA[facility] Osorio [facility], 1538) [address]: 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/Techni antonio ID = [id number] for KENNY MUSTAPHA SLICK SPIN/CONCENTRATION [id number] 10:51:00 Test Item Value Reference Range Interpretation Comments Concentration charged (test code = Done 2657) [facility] [id number] 10:51:00 Test Item Value Reference Range Interpretation Comments CONCENTRATION CHARGED (BEAKER) (test Done code = 2657) SPIN/CONCENTRATION [id number] 10:51:00 Test Item Value Reference Range Interpretation Comments CONCENTRATION CHARGED (BEAKER) (test Done code = 2657) POCT-GLUCOSE [id number] 05:43:00 Test Item Value Reference Range Interpretation Comments POC-GLUCOSE METER 287 mg/dL 70-110 H : TESTED A T [facility] (BEAKER) (test code = [place], 1538) [address]: 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/Techni antonio ID = [id number] for MARÍA HOLGUIN [id number] 04:00:00 Test Item Value Reference Range Interpretation Comments PARTIAL THROMBOPLASTIN TIME 78.5 seconds 22.5-36.0 H (BEAKER) (test code = 760) [id number] 03:54:00 Test Item Value Reference Range Interpretation Comments PHOSPHORUS (BEAKER) (test code = 3.5 mg/dL 2.3-4.7 604) 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 ID - DAMION [id number] 03:54:00 Test Item Value Reference Range Interpretation Comments MAGNESIUM (BEAKER) (test code = 2.2 mg/dL 1.6-2.6 627) 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 ID - DAMION MBASIC METABOLIC [id number] 03:54:00 Test Item Value Reference Range Interpretation Comments SODIUM (BEAKER) 141 meq/L 136-145 (test code = 381) POTASSIUM (BEAKER) 3.9 meq/L 3.5-5.1 (test code = 379) CHLORIDE (BEAKER) 104 meq/L 98-107 (test code = 382) CO2 (BEAKER) (test 25 meq/L 22-29 code = 355) BLOOD UREA NITROGEN 43 mg/dL 7-21 H (BEAKER) (test code = 354) CREATININE (BEAKER) 1.41 mg/dL 0.57-1.25 H (test code = 358) GLUCOSE RANDOM 293 mg/dL 70-105 H (BEAKER) (test code = 652) CALCIUM (BEAKER) 9.0 mg/dL 8.4-10.2 (test code = 697) EGFR (BEAKER) (test 49 mL/min/1.73 ESTIMA SARIKA GFR IS code = 1092) sq m NOT ACCURATE CREATININE CLEARANCE IN PREDICTING GLOMERULAR FILTRATION RATE . ESTIMATED GFR I S NOT APPLICABLE FOR DIALYSIS PATIEN TS. 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 ID - DAMION [facility]BC W/PLT COUNT & AUTO [id number] 03:26:00 Test Item Value Reference Range Interpretation Comments WHITE BLOOD CELL COUNT (BEAKER) 7.9 K/ L 3.5-10.5 (test code = 775) RED BLOOD CELL COUNT (BEAKER) 3.51 M/ L 4.63-6.08 L (test code = 761) HEMOGLOBIN (BEAKER) (test code = 11.1 GM/DL 13.7-17.5 L 410) HEMATOCRIT (BEAKER) (test code = 35.2 % 40.1-51.0 L 411) MEAN CORPUSCULAR VOLUME (BEAKER) 100.3 fL 79.0-92.2 H (test code = 753) MEAN CORPUSCULAR HEMOGLOBIN 31.6 pg 25.7-32.2 (BEAKER) (test code = 751) MEAN CORPUSCULAR HEMOGLOBIN CONC 31.5 GM/DL 32.3-36.5 L (BEAKER) (test code = 752) RED CELL DISTRIBUTION WIDTH 13.3 % 11.6-14.4 (BEAKER) (test code = 412) PLATELET COUNT (BEAKER) (test 274 K/CU MM 150-450 code = 756) MEAN PLATELET VOLUME (BEAKER) 10.8 fL 9.4-12.4 (test code = 754) NUCLEATED RED BLOOD CELLS 0 /100 WBC 0-0 (BEAKER) (test code = 413) NEUTROPHILS RELATIVE PERCENT 71 % (BEAKER) (test code = 429) LYMPHOCYTES RELATIVE PERCENT 18 % (BEAKER) (test code = 430) MONOCYTES RELATIVE PERCENT 6 % (BEAKER) (test code = 431) EOSINOPHILS RELATIVE PERCENT 3 % (BEAKER) (test code = 432) BASOPHILS RELATIVE PERCENT 1 % (BEAKER) (test code = 437) NEUTROPHILS ABSOLUTE COUNT 5.59 K/ L 1.78-5.38 H (BEAKER) (test code = 670) LYMPHOCYTES ABSOLUTE COUNT 1.39 K/ L 1.32-3.57 (BEAKER) (test code = 414) MONOCYTES ABSOLUTE COUNT (BEAKER) 0.46 K/ L 0.30-0.82 (test code = 415) EOSINOPHILS ABSOLUTE COUNT 0.20 K/ L 0.04-0.54 (BEAKER) (test code = 416) BASOPHILS ABSOLUTE COUNT (BEAKER) 0.04 K/ L 0.01-0.08 (test code = 417) IMMATURE GRANULOCYTES-RELATIVE 3 % 0-1 H PERCENT (BEAKER) (test code = 2801) BLOOD GAS, [id number] 03:11:00 Test Item Value Reference Range Interpretation Comments PH ARTERIAL (BEAKER) (test code = 7.48 7.35-7.45 H 383) PCO2 ARTERIAL (BEAKER) (test code 38 mmHg 35-45 = 384) PO2 ARTERIAL (BEAKER) (test code = 83 mmHg 80-90 385) O2 SATURATION ARTERIAL (BEAKER) 96.7 % 96.0-97.0 (test code = 386) HCO3 ARTERIAL (BEAKER) (test code 28 mmol/L 21-29 = 388) BASE EXCESS ARTERIAL (BEAKER) 4.3 mmol/L -2.0-3.0 H (test code = 387) PATIENT TEMPERATURE (BEAKER) (test 37.5 C code = 1818) FIO2 (BEAKER) (test code = 1819) 50.0 % CALCIUM, [id number] 03:11:00 Test Item Value Reference Range Interpretation Comments CALCIUM IONIZED (BEAKER) (test 1.11 mmol/L 1.12-1.27 L code = 698) PH, BLOOD (BEAKER) (test code = 7.49 1810) POCT-GLUCOSE [id number] 00:37:00 Test Item Value Reference Range Interpretation Comments POC-GLUCOSE METER 219 mg/dL 70-110 H : TESTED A T [facility] 6720 (BEAKER) (test code = [place], 1538) [address]: 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/Techni antonio ID = [id number] for ROZ LEVINE [id number] 20:47:00 Test Item Value Reference Range Interpretation Comments MAGNESIUM (BEAKER) (test code = 1.9 mg/dL 1.6-2.6 627) 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 ID - [id number] METABOLIC [id number] 20:47:00 Test Item Value Reference Range Interpretation Comments SODIUM (BEAKER) 140 meq/L 136-145 (test code = 381) POTASSIUM (BEAKER) 3.9 meq/L 3.5-5.1 (test code = 379) CHLORIDE (BEAKER) 103 meq/L 98-107 (test code = 382) CO2 (BEAKER) (test 30 meq/L 22-29 H code = 355) BLOOD UREA NITROGEN 45 mg/dL 7-21 H (BEAKER) (test code = 354) CREATININE (BEAKER) 1.43 mg/dL 0.57-1.25 H (test code = 358) GLUCOSE RANDOM 251 mg/dL 70-105 H (BEAKER) (test code = 652) CALCIUM (BEAKER) 8.8 mg/dL 8.4-10.2 (test code = 697) EGFR (BEAKER) (test 49 mL/min/1.73 ESTIMA SARIKA GFR IS code = 1092) sq m NOT ACCURATE CREATININE CLEARANCE IN PREDICTING GLOMERULAR FILTRATION RATE . ESTIMATED GFR I S NOT APPLICABLE FOR DIALYSIS PATIEN TS. 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 ID - [id number] 18:33:00 Test Item Value Reference Range Interpretation Comments PARTIAL THROMBOPLASTIN TIME 70.5 seconds 22.5-36.0 H (BEAKER) (test code = 760) POCT-GLUCOSE [id number] 17:22:00 Test Item Value Reference Range Interpretation Comments POC-GLUCOSE METER 243 mg/dL 70-110 H : TESTED A T [facility] 6720 (BEAKER) (test code = [facility], 1538) [address]: 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/Techni antonio ID = [id number] for KRISTIAN LOZANO RAD, CHEST, 1 VIEW, NON [id number] 15:25:00Reason for exam:- >pneumoniaReason for exam:->post bronchShould this be performed at the bedside?->YesFINAL REPORT Chest, one view HISTORY: Status post bronchoscopy Comparison: 01/30/2020 Findings: Lungs: Mild right basilar airspace disease. Heart: Normal in size. Pleura: No pleural effusion or pneumothorax. Bones: Unremarkable. Lines/tubes: Unchanged in position. IMPRESSION: No significant interval change. Signed: Rafat Torrez Verified Date/Time: 02/01/2020 15:25:50 Reading Location: [facility] Diagnostic Imaging Reading Room - [place] [address] Sputum Culture + Gram [id number] 15:15:00 Test Item Value Reference Range Interpretation Comments Result (test code = 4+ Normal respiratory 6463-4) wilbur present Gram Stain Result 1+ gram variable rods (test code = 1123) [facility] [id number] 15:15:00 Test Item Value Reference Range Interpretation Comments CULTURE (BEAKER) 4+ Normal respiratory (test code = 1095) wilbur present GRAM STAIN RESULT 2+ WBCs (BEAKER) (test code = 1123) GRAM STAIN RESULT 5-10 epithelial cells (BEAKER) (test code = 46382) GRAM STAIN RESULT 2+ gram negative rods (BEAKER) (test code = 56041) GRAM STAIN RESULT <1+ gram positive cocci (BEAKER) (test code = in pairs and clusters 450187) GRAM STAIN RESULT <1+ yeast (BEAKER) (test code = 703413) GRAM STAIN RESULT 1+ gram variable rods (BEAKER) (test code = 848479) URINALYSIS W/ REFLEX URINE [id number] 14:22:00 Test Item Value Reference Range Interpretation Comments COLOR (BEAKER) (test code = 470) Yellow CLARITY (BEAKER) (test code = 469) Clear SPECIFIC GRAVITY UA (BEAKER) (test 1.017 1.001-1.035 code = 468) PH UA (BEAKER) (test code = 467) 5.5 5.0-8.0 PROTEIN UA (BEAKER) (test code = 20 mg/dL Negative A 464) GLUCOSE UA (BEAKER) (test code = Negative Negative 365) KETONES UA (BEAKER) (test code = Negative Negative 371) BILIRUBIN UA (BEAKER) (test code = Negative Negative 462) BLOOD UA (BEAKER) (test code = Moderate Negative A 461) NITRITE UA (BEAKER) (test code = Negative Negative 465) LEUKOCYTE ESTERASE UA (BEAKER) Negative Negative (test code = 466) UROBILINOGEN UA (BEAKER) (test 0.2 mg/dL 0.2-1.0 code = 463) RBC UA (BEAKER) (test code = 519) 201 /HPF WBC UA (BEAKER) (test code = 520) 10 /HPF MUCUS (BEAKER) (test code = 1574) Occasional SOURCE(BEAKER) (test code = 2795) 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 ID - [auto]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 ID - [id number] 14:08:00 Test Item Value Reference Range Interpretation Comments MAGNESIUM (BEAKER) (test code = 1.9 mg/dL 1.6-2.6 627) 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 ID - DAMION MBASIC METABOLIC [id number] 14:08:00 Test Item Value Reference Range Interpretation Comments SODIUM (BEAKER) 141 meq/L 136-145 (test code = 381) POTASSIUM (BEAKER) 3.6 meq/L 3.5-5.1 (test code = 379) CHLORIDE (BEAKER) 103 meq/L 98-107 (test code = 382) CO2 (BEAKER) (test 31 meq/L 22-29 H code = 355) BLOOD UREA NITROGEN 46 mg/dL 7-21 H (BEAKER) (test code = 354) CREATININE (BEAKER) 1.34 mg/dL 0.57-1.25 H (test code = 358) GLUCOSE RANDOM 277 mg/dL 70-105 H (BEAKER) (test code = 652) CALCIUM (BEAKER) 9.0 mg/dL 8.4-10.2 (test code = 697) EGFR (BEAKER) (test 52 mL/min/1.73 ESTIMA SARIKA GFR IS code = 1092) sq m NOT ACCURATE CREATININE CLEARANCE IN PREDICTING GLOMERULAR FILTRATION RATE . ESTIMATED GFR I S NOT APPLICABLE FOR DIALYSIS PATIEN TS. 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 ID - DAMION MPOCT-GLUCOSE [id number] 11:55:00 Test Item Value Reference Range Interpretation Comments POC-GLUCOSE METER 247 mg/dL 70-110 H : TESTED A T [facility] 6720 (BEAKER) (test code = [facility], 1538) [address]: 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/Techni antonio ID = [id number] for [place] LLIAMS, KRISTIAN POCT-GLUCOSE [id number] 06:09:00 Test Item Value Reference Range Interpretation Comments POC-GLUCOSE METER 236 mg/dL 70-110 H : TESTED A T [facility] 6720 (BEAKER) (test code = [facility], 1538) [address]: 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/Techni antonio ID = [id number] for ROZ LEVINE [id number] 03:37:00 Test Item Value Reference Range Interpretation Comments PHOSPHORUS (BEAKER) (test code = 2.7 mg/dL 2.3-4.7 604) 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 ID - DAMION [id number] 03:37:00 Test Item Value Reference Range Interpretation Comments MAGNESIUM (BEAKER) (test code = 2.3 mg/dL 1.6-2.6 627) 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 ID - DAMION MBASIC METABOLIC [id number] 03:37:00 Test Item Value Reference Range Interpretation Comments SODIUM (BEAKER) 141 meq/L 136-145 (test code = 381) POTASSIUM (BEAKER) 3.4 meq/L 3.5-5.1 L (test code = 379) CHLORIDE (BEAKER) 102 meq/L 98-107 (test code = 382) CO2 (BEAKER) (test 30 meq/L 22-29 H code = 355) BLOOD UREA NITROGEN 45 mg/dL 7-21 H (BEAKER) (test code = 354) CREATININE (BEAKER) 1.43 mg/dL 0.57-1.25 H (test code = 358) GLUCOSE RANDOM 235 mg/dL 70-105 H (BEAKER) (test code = 652) CALCIUM (BEAKER) 9.0 mg/dL 8.4-10.2 (test code = 697) EGFR (BEAKER) (test 49 mL/min/1.73 ESTIMA SARIKA GFR IS code = 1092) sq m NOT ACCURATE CREATININE CLEARANCE IN PREDICTING GLOMERULAR FILTRATION RATE . ESTIMATED GFR I S NOT APPLICABLE FOR DIALYSIS PATIEN TS. 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 ID - DAMION [id number] 03:32:00 Test Item Value Reference Range Interpretation Comments PARTIAL THROMBOPLASTIN TIME 66.5 seconds 22.5-36.0 H (BEAKER) (test code = 760) BLOOD GAS, [id number] 03:19:00 Test Item Value Reference Range Interpretation Comments PH ARTERIAL (BEAKER) (test code = 7.47 7.35-7.45 H 383) PCO2 ARTERIAL (BEAKER) (test code 43 mmHg 35-45 = 384) PO2 ARTERIAL (BEAKER) (test code = 67 mmHg 80-90 L 385) O2 SATURATION ARTERIAL (BEAKER) 94.3 % 96.0-97.0 L (test code = 386) HCO3 ARTERIAL (BEAKER) (test code 31 mmol/L 21-29 H = 388) BASE EXCESS ARTERIAL (BEAKER) 6.2 mmol/L -2.0-3.0 H (test code = 387) PATIENT TEMPERATURE (BEAKER) (test 37.0 C code = 1818) FIO2 (BEAKER) (test code = 1819) 40.0 % CALCIUM, [id number] 03:15:00 Test Item Value Reference Range Interpretation Comments CALCIUM IONIZED (BEAKER) (test 1.14 mmol/L 1.12-1.27 code = 698) PH, BLOOD (BEAKER) (test code = 7.47 1810) CBC W/PLT COUNT & AUTO [id number] 03:09:00 Test Item Value Reference Range Interpretation Comments WHITE BLOOD CELL COUNT (BEAKER) 8.3 K/ L 3.5-10.5 (test code = 775) RED BLOOD CELL COUNT (BEAKER) 3.56 M/ L 4.63-6.08 L (test code = 761) HEMOGLOBIN (BEAKER) (test code = 11.3 GM/DL 13.7-17.5 L 410) HEMATOCRIT (BEAKER) (test code = 35.2 % 40.1-51.0 L 411) MEAN CORPUSCULAR VOLUME (BEAKER) 98.9 fL 79.0-92.2 H (test code = 753) MEAN CORPUSCULAR HEMOGLOBIN 31.7 pg 25.7-32.2 (BEAKER) (test code = 751) MEAN CORPUSCULAR HEMOGLOBIN CONC 32.1 GM/DL 32.3-36.5 L (BEAKER) (test code = 752) RED CELL DISTRIBUTION WIDTH 13.1 % 11.6-14.4 (BEAKER) (test code = 412) PLATELET COUNT (BEAKER) (test 231 K/CU MM 150-450 code = 756) MEAN PLATELET VOLUME (BEAKER) 10.6 fL 9.4-12.4 (test code = 754) NUCLEATED RED BLOOD CELLS 0 /100 WBC 0-0 (BEAKER) (test code = 413) NEUTROPHILS RELATIVE PERCENT 63 % (BEAKER) (test code = 429) LYMPHOCYTES RELATIVE PERCENT 22 % (BEAKER) (test code = 430) MONOCYTES RELATIVE PERCENT 8 % (BEAKER) (test code = 431) EOSINOPHILS RELATIVE PERCENT 3 % (BEAKER) (test code = 432) BASOPHILS RELATIVE PERCENT 1 % (BEAKER) (test code = 437) NEUTROPHILS ABSOLUTE COUNT 5.24 K/ L 1.78-5.38 (BEAKER) (test code = 670) LYMPHOCYTES ABSOLUTE COUNT 1.86 K/ L 1.32-3.57 (BEAKER) (test code = 414) MONOCYTES ABSOLUTE COUNT (BEAKER) 0.68 K/ L 0.30-0.82 (test code = 415) EOSINOPHILS ABSOLUTE COUNT 0.26 K/ L 0.04-0.54 (BEAKER) (test code = 416) BASOPHILS ABSOLUTE COUNT (BEAKER) 0.05 K/ L 0.01-0.08 (test code = 417) IMMATURE GRANULOCYTES-RELATIVE 3 % 0-1 H PERCENT (BEAKER) (test code = 2801) POCT-GLUCOSE [id number] 00:26:00 Test Item Value Reference Range Interpretation Comments POC-GLUCOSE METER 183 mg/dL 70-110 H : TESTED A T [facility] 6720 (BEAKER) (test code = [place], 1538) [address]: 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/Techni antonio ID = [id number] for ROZ LEVINE [id number] 21:06:00 Test Item Value Reference Range Interpretation Comments MAGNESIUM (BEAKER) (test code = 1.9 mg/dL 1.6-2.6 627) 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 ID - BSBASIC METABOLIC [id number] 21:06:00 Test Item Value Reference Range Interpretation Comments SODIUM (BEAKER) 142 meq/L 136-145 (test code = 381) POTASSIUM (BEAKER) 3.5 meq/L 3.5-5.1 (test code = 379) CHLORIDE (BEAKER) 104 meq/L 98-107 (test code = 382) CO2 (BEAKER) (test 30 meq/L 22-29 H code = 355) BLOOD UREA NITROGEN 48 mg/dL 7-21 H (BEAKER) (test code = 354) CREATININE (BEAKER) 1.42 mg/dL 0.57-1.25 H (test code = 358) GLUCOSE RANDOM 239 mg/dL 70-105 H (BEAKER) (test code = 652) CALCIUM (BEAKER) 9.0 mg/dL 8.4-10.2 (test code = 697) EGFR (BEAKER) (test 49 mL/min/1.73 ESTIMA SARIKA GFR IS code = 1092) sq m NOT ACCURATE CREATININE CLEARANCE IN PREDICTING GLOMERULAR FILTRATION RATE . ESTIMATED GFR I S NOT APPLICABLE FOR DIALYSIS PATIEN TS. 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 ID - BSPOCT-GLUCOSE [id number] 19:01:00 Test Item Value Reference Range Interpretation Comments POC-GLUCOSE METER 234 mg/dL 70-110 H : TESTED A T [facility] 6720 (BEAKER) (test code = [facility] [employer] [facility], 1538) [address]: 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/Techni antonio ID = [id number] for BRIANNE LIN BASIC METABOLIC [id number] 13:27:00 Test Item Value Reference Range Interpretation Comments SODIUM (BEAKER) 139 meq/L 136-145 (test code = 381) POTASSIUM (BEAKER) 4.1 meq/L 3.5-5.1 Specimen slightly (test code = 379) hemolyzed CHLORIDE (BEAKER) 101 meq/L 98-107 (test code = 382) CO2 (BEAKER) (test 28 meq/L 22-29 code = 355) BLOOD UREA NITROGEN 50 mg/dL 7-21 H (BEAKER) (test code = 354) CREATININE (BEAKER) 1.50 mg/dL 0.57-1.25 H Specimen slightly (test code = 358) hemolyzed GLUCOSE RANDOM 403 mg/dL 70-105 HH (BEAKER) (test code = 652) CALCIUM (BEAKER) 8.6 mg/dL 8.4-10.2 (test code = 697) EGFR (BEAKER) (test 46 mL/min/1.73 ESTIMA SARIKA GFR IS code = 1092) sq m NOT ACCURATE CREATININE CLEARANCE IN PREDICTING GLOMERULAR FILTRATION RATE . ESTIMATED GFR I S NOT APPLICABLE FOR DIALYSIS PATIEN TS. 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 ID - [id number] 13:26:00 Test Item Value Reference Range Interpretation Comments MAGNESIUM (BEAKER) 2.0 mg/dL 1.6-2.6 Specimen slightly (test code = 627) hemolyzed 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 ID - DBPOCT-GLUCOSE [id number] 11:35:00 Test Item Value Reference Range Interpretation Comments POC-GLUCOSE METER 355 mg/dL 70-110 H : TESTED A T [facility] 6720 (BEAKER) (test code = [employer] [facility], 1538) 14[address]: 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/Techni antonio ID = [id number] for BRIANNE LIN BLOOD GAS, [id number] 06:43:00 Test Item Value Reference Range Interpretation Comments PH ARTERIAL (BEAKER) (test code = 7.51 7.35-7.45 H 383) PCO2 ARTERIAL (BEAKER) (test code 39 mmHg 35-45 = 384) PO2 ARTERIAL (BEAKER) (test code = 168 mmHg 80-90 H 385) O2 SATURATION ARTERIAL (BEAKER) 99.3 % 96.0-97.0 H (test code = 386) HCO3 ARTERIAL (BEAKER) (test code 30 mmol/L 21-29 H = 388) BASE EXCESS ARTERIAL (BEAKER) 7.1 mmol/L -2.0-3.0 H (test code = 387) PATIENT TEMPERATURE (BEAKER) (test 37.5 C code = 1818) FIO2 (BEAKER) (test code = 1819) 40.0 % POCT-GLUCOSE [id number] 06:33:00 Test Item Value Reference Range Interpretation Comments POC-GLUCOSE METER 291 mg/dL 70-110 H : [facility] (BEAKER[facility] (test code = [facility], 1538) [address]: 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/Techni antonio ID = [id number] for TERRI DAVIS CALCIUM, [id number] 06:28:00 Test Item Value Reference Range Interpretation Comments CALCIUM IONIZED (BEAKER) (test 1.08 mmol/L 1.12-1.27 L code = 698) PH, BLOOD (BEAKER) (test code = 7.42 1810) [id number] 06:00:00 Test Item Value Reference Range Interpretation Comments MAGNESIUM (BEAKER) 2.1 mg/dL 1.6-2.6 Specimen slightly (test code = 627) hemolyzed 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 ID - [id number] 06:00:00 Test Item Value Reference Range Interpretation Comments PHOSPHORUS (BEAKER) 2.8 mg/dL 2.3-4.7 Specimen slightly (test code = 604) hemolyzed 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 ID - DBBASIC METABOLIC [id number] 06:00:00 Test Item Value Reference Range Interpretation Comments SODIUM (BEAKER) 138 meq/L 136-145 (test code = 381) POTASSIUM (BEAKER) 4.3 meq/L 3.5-5.1 Specimen slightly (test code = 379) hemolyzed CHLORIDE (BEAKER) 101 meq/L 98-107 (test code = 382) CO2 (BEAKER) (test 28 meq/L 22-29 code = 355) BLOOD UREA NITROGEN 45 mg/dL 7-21 H (BEAKER) (test code = 354) CREATININE (BEAKER) 1.47 mg/dL 0.57-1.25 H Specimen slightly (test code = 358) hemolyzed GLUCOSE RANDOM 346 mg/dL 70-105 H (BEAKER) (test code = 652) CALCIUM (BEAKER) 8.7 mg/dL 8.4-10.2 (test code = 697) EGFR (BEAKER) (test 47 mL/min/1.73 ESTIMA SARIKA GFR IS code = 1092) sq m NOT ACCURATE CREATININE CLEARANCE IN PREDICTING GLOMERULAR FILTRATION RATE . ESTIMATED GFR I S NOT APPLICABLE FOR DIALYSIS PATIEN TS. 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 ID - [id number] 05:53:00 Test Item Value Reference Range Interpretation Comments PARTIAL THROMBOPLASTIN TIME 82.7 seconds 22.5-36.0 H (BEAKER) (test code = 760) CBC W/PLT COUNT & AUTO [id number] 05:43:00 Test Item Value Reference Range Interpretation Comments WHITE BLOOD CELL COUNT (BEAKER) 6.4 K/ L 3.5-10.5 (test code = 775) RED BLOOD CELL COUNT (BEAKER) 3.28 M/ L 4.63-6.08 L (test code = 761) HEMOGLOBIN (BEAKER) (test code = 10.5 GM/DL 13.7-17.5 L 410) HEMATOCRIT (BEAKER) (test code = 32.9 % 40.1-51.0 L 411) MEAN CORPUSCULAR VOLUME (BEAKER) 100.3 fL 79.0-92.2 H (test code = 753) MEAN CORPUSCULAR HEMOGLOBIN 32.0 pg 25.7-32.2 (BEAKER) (test code = 751) MEAN CORPUSCULAR HEMOGLOBIN CONC 31.9 GM/DL 32.3-36.5 L (BEAKER) (test code = 752) RED CELL DISTRIBUTION WIDTH 13.2 % 11.6-14.4 (BEAKER) (test code = 412) PLATELET COUNT (BEAKER) (test 176 K/CU MM 150-450 code = 756) MEAN PLATELET VOLUME (BEAKER) 11.1 fL 9.4-12.4 (test code = 754) NUCLEATED RED BLOOD CELLS 0 /100 WBC 0-0 (BEAKER) (test code = 413) NEUTROPHILS RELATIVE PERCENT 57 % (BEAKER) (test code = 429) LYMPHOCYTES RELATIVE PERCENT 25 % (BEAKER) (test code = 430) MONOCYTES RELATIVE PERCENT 11 % (BEAKER) (test code = 431) EOSINOPHILS RELATIVE PERCENT 3 % (BEAKER) (test code = 432) BASOPHILS RELATIVE PERCENT 1 % (BEAKER) (test code = 437) NEUTROPHILS ABSOLUTE COUNT 3.63 K/ L 1.78-5.38 (BEAKER) (test code = 670) LYMPHOCYTES ABSOLUTE COUNT 1.62 K/ L 1.32-3.57 (BEAKER) (test code = 414) MONOCYTES ABSOLUTE COUNT (BEAKER) 0.72 K/ L 0.30-0.82 (test code = 415) EOSINOPHILS ABSOLUTE COUNT 0.17 K/ L 0.04-0.54 (BEAKER) (test code = 416) BASOPHILS ABSOLUTE COUNT (BEAKER) 0.04 K/ L 0.01-0.08 (test code = 417) IMMATURE GRANULOCYTES-RELATIVE 4 % 0-1 H PERCENT (BEAKER) (test code = 2801) [id number] 01:48:00 Test Item Value Reference Range Interpretation Comments PARTIAL THROMBOPLASTIN TIME 76.9 seconds 22.5-36.0 H (BEAKER) (test code = 760) POCT-GLUCOSE [id number] 00:07:00 Test Item Value Reference Range Interpretation Comments POC-GLUCOSE METER 285 mg/dL 70-110 H : TESTED A T [facility] 6720 (BEAKER) (test code = [facility] [place], 1538) [address]: 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/Techni antonio ID = [id number] for TERRI DAVIS [id number] 20:58:00 Test Item Value Reference Range Interpretation Comments MAGNESIUM (BEAKER) (test code = 1.6 mg/dL 1.6-2.6 627) 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 ID - NTPBASIC METABOLIC [id number] 20:58:00 Test Item Value Reference Range Interpretation Comments SODIUM (BEAKER) 141 meq/L 136-145 (test code = 381) POTASSIUM (BEAKER) 3.8 meq/L 3.5-5.1 (test code = 379) CHLORIDE (BEAKER) 103 meq/L 98-107 (test code = 382) CO2 (BEAKER) (test 30 meq/L 22-29 H code = 355) BLOOD UREA NITROGEN 40 mg/dL 7-21 H (BEAKER) (test code = 354) CREATININE (BEAKER) 1.30 mg/dL 0.57-1.25 H (test code = 358) GLUCOSE RANDOM 255 mg/dL 70-105 H (BEAKER) (test code = 652) CALCIUM (BEAKER) 9.0 mg/dL 8.4-10.2 (test code = 697) EGFR (BEAKER) (test 54 mL/min/1.73 ESTIMA SARIKA GFR IS code = 1092) sq m NOT ACCURATE CREATININE CLEARANCE IN PREDICTING GLOMERULAR FILTRATION RATE . ESTIMATED GFR I S NOT APPLICABLE FOR DIALYSIS PATIEN TS. 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 ID - [id number] 18:36:00 Test Item Value Reference Range Interpretation Comments PROTIME (BEAKER) (test code = 13.6 seconds 11.9-14.2 759) INR (BEAKER) (test code = 370) 1.1 <=5.9 PARTIAL THROMBOPLASTIN TIME 46.9 seconds 22.5-36.0 H (BEAKER) (test code = 760) Effective 04/01/2019: PT Reference Range ChangeNew: 11.9-14.2 Previous: 11.7- 14.7RECOMMENDED COUMADIN/WARFARIN INR THERAPY RANGESSTANDARD DOSE: 2.0-3.0 Includes: PROPHYLAXIS for venous thrombosis, systemic embolization; TREATMENT for venous thrombosis and/or pulmonary embolus.HIGH RISK: Target INR is2.5-3.5 for patients wiht mechanical heart valves.POCT-GLUCOSE [id number] 18:33:00 Test Item Value Reference Range Interpretation Comments POC-GLUCOSE METER 205 mg/dL 70-110 H : TESTED A T [facility] 6720 (BEAKER) (test code = [facility] [place], 1538) [id number]: 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/Techni antonio ID = [id number] for BRIANNE LIN BLOOD [id number] 18:00:00 Test Item Value Reference Range Interpretation Comments CULTURE (BEAKER) (test No growth in 5 days code = 1095) BLOOD [id number] 18:00:00 Test Item Value Reference Range Interpretation Comments CULTURE (BEAKER) (test No growth in 5 days code = 1095) [id number] 12:05:00 Test Item Value Reference Range Interpretation Comments MAGNESIUM (BEAKER) 1.7 mg/dL 1.6-2.6 Specimen slightly (test code = 627) hemolyzed 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 ID - PIAYA LBASIC METABOLIC [id number] 12:05:00 Test Item Value Reference Range Interpretation Comments SODIUM (BEAKER) 140 meq/L 136-145 (test code = 381) POTASSIUM (BEAKER) 3.9 meq/L 3.5-5.1 Specimen slightly (test code = 379) hemolyzed CHLORIDE (BEAKER) 101 meq/L 98-107 (test code = 382) CO2 (BEAKER) (test 31 meq/L 22-29 H code = 355) BLOOD UREA NITROGEN 37 mg/dL 7-21 H (BEAKER) (test code = 354) CREATININE (BEAKER) 1.36 mg/dL 0.57-1.25 H Specimen slightly (test code = 358) hemolyzed GLUCOSE RANDOM 316 mg/dL 70-105 H (BEAKER) (test code = 652) CALCIUM (BEAKER) 9.2 mg/dL 8.4-10.2 (test code = 697) EGFR (BEAKER) (test 52 mL/min/1.73 ESTIMA SARIKA GFR IS code = 1092) sq m NOT ACCURATE CREATININE CLEARANCE IN PREDICTING GLOMERULAR FILTRATION RATE . ESTIMATED GFR I S NOT APPLICABLE FOR DIALYSIS PATIEN TS. 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 ID - PIAYA [id number] 12:01:00 Test Item Value Reference Range Interpretation Comments PROTIME (BEAKER) (test code = 13.6 seconds 11.9-14.2 759) INR (BEAKER) (test code = 370) 1.1 <=5.9 PARTIAL THROMBOPLASTIN TIME 54.5 seconds 22.5-36.0 H (BEAKER) (test code = 760) Effective 04/01/2019: PT Reference Range ChangeNew: 11.9-14.2 Previous: 11.7- 14.7RECOMMENDED COUMADIN/WARFARIN INR THERAPY RANGESSTANDARD DOSE: 2.0-3.0 Includes: PROPHYLAXIS for venous thrombosis, systemic embolization; TREATMENT for venous thrombosis and/or pulmonary embolus.HIGH RISK: Target INR is2.5-3.5 for patients wiht mechanical heart valves.POCT-GLUCOSE [id number] 11:40:00 Test Item Value Reference Range Interpretation Comments POC-GLUCOSE METER 285 mg/dL 70-110 H : TESTED A T [facility] (BEAKER) (test code = [facility], 1538) [address]: 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/Techni antonio ID = [id number] for GR TETE, TIEARA POCT-GLUCOSE [id number] 08:30:00 Test Item Value Reference Range Interpretation Comments POC-GLUCOSE METER 286 mg/dL 70-110 H : TESTED A T [facility] 67[facility] (BEAKER) (test code = [facility], 1538) [id number]: 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/Techni antonio ID = [id number] for GR ANT, TIEARA POCT-GLUCOSE [id number] 05:21:00 Test Item Value Reference Range Interpretation Comments POC-GLUCOSE METER 309 mg/dL 70-110 H : TESTED A T [facility] (BEAKER) (test code = [facility], 1538) [address]: 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/Techni antonio ID = [id number] for Pau [place] [id number] 04:59:00 Test Item Value Reference Range Interpretation Comments PHOSPHORUS (BEAKER) (test code = 3.1 mg/dL 2.3-4.7 604) 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 ID - TONNY [id number] 04:59:00 Test Item Value Reference Range Interpretation Comments MAGNESIUM (BEAKER) (test code = 1.8 mg/dL 1.6-2.6 627) 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 ID - TONNY LBASIC METABOLIC [id number] 04:59:00 Test Item Value Reference Range Interpretation Comments SODIUM (BEAKER) 141 meq/L 136-145 (test code = 381) POTASSIUM (BEAKER) 3.9 meq/L 3.5-5.1 (test code = 379) CHLORIDE (BEAKER) 102 meq/L 98-107 (test code = 382) CO2 (BEAKER) (test 29 meq/L 22-29 code = 355) BLOOD UREA NITROGEN 37 mg/dL 7-21 H (BEAKER) (test code = 354) CREATININE (BEAKER) 1.43 mg/dL 0.57-1.25 H (test code = 358) GLUCOSE RANDOM 312 mg/dL 70-105 H (BEAKER) (test code = 652) CALCIUM (BEAKER) 9.3 mg/dL 8.4-10.2 (test code = 697) EGFR (BEAKER) (test 49 mL/min/1.73 ESTIMA SARIKA GFR IS code = 1092) sq m NOT ACCURATE CREATININE CLEARANCE IN PREDICTING GLOMERULAR FILTRATION RATE . ESTIMATED GFR I S NOT APPLICABLE FOR DIALYSIS PATIEN TS. 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 ID - TONNY LB-TYPE NATRIURETIC FACTOR (BNP)2020-01-30 04:48:00 Test Item Value Reference Range Interpretation Comments B-TYPE NATRIURETIC PEPTIDE (BEAKER) 172 pg/mL 0-100 H (test code = 700) 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 ID - TONNY LPT/[id number] 04:39:00 Test Item Value Reference Range Interpretation Comments PROTIME (BEAKER) (test code = 13.9 seconds 11.9-14.2 759) INR (BEAKER) (test code = 370) 1.1 <=5.9 PARTIAL THROMBOPLASTIN TIME 56.7 seconds 22.5-36.0 H (BEAKER) (test code = 760) Effective 04/01/2019: PT Reference Range ChangeNew: 11.9-14.2 Previous: 11.7- 14.7RECOMMENDED COUMADIN/WARFARIN INR THERAPY RANGESSTANDARD DOSE: 2.0-3.0 Includes: PROPHYLAXIS for venous thrombosis, systemic embolization; TREATMENT for venous thrombosis and/or pulmonary embolus.HIGH RISK: Target INR is2.5-3.5 for patients wiht mechanical heart valves.CBC W/PLT COUNT & AUTO [id number] 04:30:00 Test Item Value Reference Range Interpretation Comments WHITE BLOOD CELL COUNT (BEAKER) 5.7 K/ L 3.5-10.5 (test code = 775) RED BLOOD CELL COUNT (BEAKER) 3.42 M/ L 4.63-6.08 L (test code = 761) HEMOGLOBIN (BEAKER) (test code = 10.9 GM/DL 13.7-17.5 L 410) HEMATOCRIT (BEAKER) (test code = 34.1 % 40.1-51.0 L 411) MEAN CORPUSCULAR VOLUME (BEAKER) 99.7 fL 79.0-92.2 H (test code = 753) MEAN CORPUSCULAR HEMOGLOBIN 31.9 pg 25.7-32.2 (BEAKER) (test code = 751) MEAN CORPUSCULAR HEMOGLOBIN CONC 32.0 GM/DL 32.3-36.5 L (BEAKER) (test code = 752) RED CELL DISTRIBUTION WIDTH 13.2 % 11.6-14.4 (BEAKER) (test code = 412) PLATELET COUNT (BEAKER) (test 147 K/CU MM 150-450 L code = 756) MEAN PLATELET VOLUME (BEAKER) 11.4 fL 9.4-12.4 (test code = 754) NUCLEATED RED BLOOD CELLS 0 /100 WBC 0-0 (BEAKER) (test code = 413) NEUTROPHILS RELATIVE PERCENT 57 % (BEAKER) (test code = 429) LYMPHOCYTES RELATIVE PERCENT 21 % (BEAKER) (test code = 430) MONOCYTES RELATIVE PERCENT 14 % (BEAKER) (test code = 431) EOSINOPHILS RELATIVE PERCENT 3 % (BEAKER) (test code = 432) BASOPHILS RELATIVE PERCENT 1 % (BEAKER) (test code = 437) NEUTROPHILS ABSOLUTE COUNT 3.25 K/ L 1.78-5.38 (BEAKER) (test code = 670) LYMPHOCYTES ABSOLUTE COUNT 1.20 K/ L 1.32-3.57 L (BEAKER) (test code = 414) MONOCYTES ABSOLUTE COUNT (BEAKER) 0.80 K/ L 0.30-0.82 (test code = 415) EOSINOPHILS ABSOLUTE COUNT 0.19 K/ L 0.04-0.54 (BEAKER) (test code = 416) BASOPHILS ABSOLUTE COUNT (BEAKER) 0.04 K/ L 0.01-0.08 (test code = 417) IMMATURE GRANULOCYTES-RELATIVE 3 % 0-1 H PERCENT (BEAKER) (test code = 2801) CALCIUM, [id number] 04:18:00 Test Item Value Reference Range Interpretation Comments CALCIUM IONIZED (BEAKER) (test 1.16 mmol/L 1.12-1.27 code = 698) PH, BLOOD (BEAKER) (test code = 7.43 1810) BLOOD GAS, [id number] 04:17:00 Test Item Value Reference Range Interpretation Comments PH ARTERIAL (BEAKER) (test code = 7.43 7.35-7.45 383) PCO2 ARTERIAL (BEAKER) (test code 45 mmHg 35-45 = 384) PO2 ARTERIAL (BEAKER) (test code = 85 mmHg 80-90 385) O2 SATURATION ARTERIAL (BEAKER) 96.3 % 96.0-97.0 (test code = 386) HCO3 ARTERIAL (BEAKER) (test code 29 mmol/L 21-29 = 388) BASE EXCESS ARTERIAL (BEAKER) 3.9 mmol/L -2.0-3.0 H (test code = 387) PATIENT TEMPERATURE (BEAKER) (test 37.5 C code = 1818) FIO2 (BEAKER) (test code = 1819) 45.0 % RAD, CHEST, 1 VIEW, NON [id number] 01:32:00Reason for exam:->respiratory failureShould this be performed at the bedside?->YesFINAL REPORT RAD, CHEST, 1 VIEW, NON DEPT INDICATION: respiratory failure COMP ARISON: Prior day's exam FINDINGS: Portable frontal view of the chest. IMPRESSION: Support Lines:Stable. Lungs and pleura: Unchanged airspace and pleural opacities. No pneumothorax.Heart and mediastinum: Stable contours. Additional findings: None. Signed: Sun Ibrahim Verified Date/ Time: 01/30/2020 01:32:33 POCT-GLUCOSE [id number] 23:41:00 Test Item Value Reference Range Interpretation Comments POC-GLUCOSE METER 326 mg/dL 70-110 H : TESTED A T [facility] 6720 (BEAKER) (test code = [place], 1538) [address]: 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/Techni antonio ID = [id number] for Pau Denton [id number] 23:07:00 Test Item Value Reference Range Interpretation Comments PROTIME (BEAKER) (test code = 14.4 seconds 11.9-14.2 H 759) INR (BEAKER) (test code = 370) 1.2 <=5.9 PARTIAL THROMBOPLASTIN TIME 71.5 seconds 22.5-36.0 H (BEAKER) (test code = 760) Effective 04/01/2019: PT Reference Range ChangeNew: 11.9-14.2 Previous: 11.7- 14.7RECOMMENDED COUMADIN/WARFARIN INR THERAPY RANGESSTANDARD DOSE: 2.0-3.0 Includes: PROPHYLAXIS for venous thrombosis, systemic embolization; TREATMENT for venous thrombosis and/or pulmonary embolus.HIGH RISK: Target INR is2.5-3.5 for patients wiht mechanical heart valves.[id number] 21:32:00 Test Item Value Reference Range Interpretation Comments MAGNESIUM (BEAKER) 1.9 mg/dL 1.6-2.6 Specimen moderately (test code = 627) hemolyzed 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 ID - QUINN EBASIC METABOLIC [id number] 21:32:00 Test Item Value Reference Range Interpretation Comments SODIUM (BEAKER) 139 meq/L 136-145 (test code = 381) POTASSIUM (BEAKER) 4.3 meq/L 3.5-5.1 Specimen moderately (test code = 379) hemolyzed CHLORIDE (BEAKER) 101 meq/L 98-107 (test code = 382) CO2 (BEAKER) (test 29 meq/L 22-29 code = 355) BLOOD UREA NITROGEN 33 mg/dL 7-21 H (BEAKER) (test code = 354) CREATININE (BEAKER) 1.47 mg/dL 0.57-1.25 H Specimen moderately (test code = 358) hemolyzed GLUCOSE RANDOM 343 mg/dL 70-105 H (BEAKER) (test code = 652) CALCIUM (BEAKER) 9.3 mg/dL 8.4-10.2 (test code = 697) EGFR (BEAKER) (test 47 mL/min/1.73 ESTIMA SARIKA GFR IS code = 1092) sq m NOT ACCURATE CREATININE CLEARANCE IN PREDICTING GLOMERULAR FILTRATION RATE . ESTIMATED GFR I S NOT APPLICABLE FOR DIALYSIS PATIEN TS. 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 There is partial deep venous ob struction in the common femoral andfemoral veins.2. There is no deep venous obstruction in the profunda femoral, popliteal,posterior tibial or peroneal veins.3. There is no superficial venous obstruction in the great saphenous vein.Left Impression1. There is no deep venous obstruction in the common fem oral, profundafemoral, femoral, popliteal, posterior tibial or peroneal veins.2. There is no superficial venous obstruction in the great saphenous vein. Conclusions Summary Venous duplex imaging andcompression of the bilateral lower extremities were performed. The veins were adequately visualized.The right venous system was positive for sub acute partial deep venous obstruction in the thigh. Theleft venous systems were patent and compressible with no evidence of thrombus. The venous Doppler waveforms were phasic with respiration. 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 Indications for Study:Hypoxemia.Patient Status:Routine.Study Location:Portable.Technical Quality:Adequate visualization. - Results were reported to:Meaghangael UMAÑA @ 3025.Risk FactorsHistory of Disease+ +----+ --+!Diagnosis !Date!Comments !+ +-- --+ +!History/Risk Factors: ! !DM, HTN, OBESITY !+ +----+ +Imp ressionsRight Impression1. There is partial deep venous obstruction in the common femoral andfemoral veins.2. There is no deep venous obstruction in the profunda femoral, popliteal,posterior tibial or peroneal veins.3. There is no superficial venous obstruction in the great saphenous vein.Left Impression1. There is no deep venous obstruction in the common femoral, profundafemoral, femoral, popliteal, posterior tibial or peroneal veins.2. There is no superficial venous obstruction in [...] Doppler waveforms were phasic with respiration. Signature ------- Velocities are measured in cm/s ; Diameters are measured in [facility] POCT-GLUCOSE [id number] 16:40:00 Test Item Value Reference Range Interpretation Comments POC-GLUCOSE METER 328 mg/dL 70-110 H : TESTED A T [facility] 6720 ([employer]) (test code = [facility], 1538) [address]: 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/Techni antonio ID = [id number] for AMNA CASTANDEA [id number] 16:31:00 Test Item Value Reference Range Interpretation Comments Scan Result (test code = SEE SCANNED REPORT [id number]) [facility] [id number] 16:31:00 Test Item Value Reference Range Interpretation Comments SCAN RESULT (test code = SEE SCANNED REPORT [id number]) POCT-GLUCOSE [id number] 12:19:00 Test Item Value Reference Range Interpretation Comments POC-GLUCOSE METER 328 mg/dL 70-110 H : TESTED A T [facility] 6720 ([employer]) (test code = [employer] [facility], 1538) [address]: 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/Techni antonio ID = [id number] for KRISTIAN LOZANO TSH/Free T4 If [id number] 11:50:00 Test Item Value Reference Range Interpretation Comments TSH (test code = 92435-4) 1.52 0.35- 4.94 uIU/mL JOSE FRANCISCO (test code = JOSE FRANCISCO) 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 ID - ROSIGGYG Lab Interpretation (test Normal code = 56435-7) [facility] T4 IF [id number] 11:50:00 Test Item Value Reference Range Interpretation Comments THYROID STIMULATING HORMONE 1.52 uIU/mL 0.35-4.94 (BEAKER) (test code = 772) 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 ID - ROSIANGUrinalysis Microscopic [id number] 11:30:00 Test Item Value Reference Range Interpretation Comments RBC, UA (test code = 1122 /HPF 40207-0) WBC, UA (test code = 1 /HPF 5821-4) Mucus (test code = 8247-9) Rare Squam Epithel, UA (test 1 /HPF code = 46224-7) JOSE FRANCISCO (test code = JOSE FRANCISCO) 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 ID - tech [facility] CenterURINAL[facility]IS [id number] 11:30:00 Test Item Value Reference Range Interpretation Comments RBC UA (BEAKER) (test code = 519) 1122 /HPF WBC UA (BEAKER) (test code = 520) 1 /HPF MUCUS (BEAKER) (test code = 1574) Rare SQUAMOUS EPITHELIAL (BEAKER) (test 1 /HPF code = 516) 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 ID - [id number] 11:30:00 Test Item Value Reference Range Interpretation Comments MAGNESIUM (BEAKER) 2.0 mg/dL 1.6-2.6 Specimen slightly (test code = 627) hemolyzed 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 ID - ROSIANGBASIC METABOLIC [id number] 11:30:00 Test Item Value Reference Range Interpretation Comments SODIUM (BEAKER) 140 meq/L 136-145 (test code = 381) POTASSIUM (BEAKER) 4.0 meq/L 3.5-5.1 Specimen slightly (test code = 379) hemolyzed CHLORIDE (BEAKER) 102 meq/L 98-107 (test code = 382) CO2 (BEAKER) (test 28 meq/L 22-29 code = 355) BLOOD UREA NITROGEN 28 mg/dL 7-21 H (BEAKER) (test code = 354) CREATININE (BEAKER) 1.46 mg/dL 0.57-1.25 H Specimen slightly (test code = 358) hemolyzed GLUCOSE RANDOM 313 mg/dL 70-105 H (BEAKER) (test code = 652) CALCIUM (BEAKER) 10.0 mg/dL 8.4-10.2 (test code = 697) EGFR (BEAKER) (test 47 mL/min/1.73 ESTIMA SARIKA GFR IS code = 1092) sq m NOT ACCURATE CREATININE CLEARANCE IN PREDICTING GLOMERULAR FILTRATION RATE . ESTIMATED GFR I S NOT APPLICABLE FOR DIALYSIS PATIEN TS. 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 ID - ROSIANGUrinalysis with Microscopic If [id number] 11:27:00 Test Item Value Reference Range Interpretation Comments Color, UA (test code = Yellow 5778-6) Clarity, UA (test code = Hazy 5767-9) Specific [place], UA (test 1.011 1.001-1.035 code = 5811-5) pH, UA (test code = 6.0 5.0-8.0 5803-2) Protein, UA (test code = 70 mg/dL Negative A 39885-3) Glucose, UA (test code = 300 mg/dL Negative A 365) Ketones, UA (test code = Negative Negative 2514-8) Bilirubin, UA (test code = Negative Negative 19794-3) Blood, UA (test code = Large Negative A 31401-5) Nitrite, UA (test code = Negative Negative 5802-4) Leukocytes, UA (test code Moderate Negative A = 5799-2) Urobilinogen, UA (test 0.2 mg/dL 0.2-1 code = 66242-7) Specimen Source (test code = 2795) JOSE FRANCISCO (test code = JOSE FRANCISCO) 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 ID - [auto] Lab Interpretation (test Abnormal code = 98992-5) [facility] WITH MICROSCOPIC IF [id number] 11:27:00 Test Item Value Reference Range Interpretation Comments COLOR (BEAKER) (test code = 470) Yellow CLARITY (BEAKER) (test code = 469) Hazy SPECIFIC GRAVITY UA (BEAKER) (test 1.011 1.001-1.035 code = 468) PH UA (BEAKER) (test code = 467) 6.0 5.0-8.0 PROTEIN UA (BEAKER) (test code = 70 mg/dL Negative A 464) GLUCOSE UA (BEAKER) (test code = 300 mg/dL Negative A 365) KETONES UA (BEAKER) (test code = Negative Negative 371) BILIRUBIN UA (BEAKER) (test code = Negative Negative 462) BLOOD UA (BEAKER) (test code = 461) Large Negative A NITRITE UA (BEAKER) (test code = Negative Negative 465) LEUKOCYTE ESTERASE UA (BEAKER) Moderate Negative A (test code = 466) UROBILINOGEN UA (BEAKER) (test code 0.2 mg/dL 0.2-1.0 = 463) SOURCE(BEAKER) (test code = 2795) 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 ID - [auto][id number] 11:22:00 Test Item Value Reference Range Interpretation Comments PARTIAL THROMBOPLASTIN TIME 29.3 seconds 22.5-36.0 (BEAKER) (test code = 760) Prior to initiating heparinPOCT-GLUCOSE [id number] 09:13:00 Test Item Value Reference Range Interpretation Comments POC-GLUCOSE METER 249 mg/dL 70-110 H : TESTED A T [facility] 6720 (BEAKER) (test code = [facility], 1538) [address]: 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/Techni antonio ID = [id number] for AMNA CASTANEDA POCT-GLUCOSE [id number] 06:09:00 Test Item Value Reference Range Interpretation Comments POC-GLUCOSE METER 251 mg/dL 70-110 H : TESTED A T [facility] 6720 (BEAKER) (test code = [facility] [employer] [facility], 1538) [address]: 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/Techni antonio ID = [id number] for MARÍA HOLGUIN BASIC METABOLIC [id number] 04:23:00 Test Item Value Reference Range Interpretation Comments SODIUM (BEAKER) 138 meq/L 136-145 (test code = 381) POTASSIUM (BEAKER) 4.0 meq/L 3.5-5.1 (test code = 379) CHLORIDE (BEAKER) 102 meq/L 98-107 (test code = 382) CO2 (BEAKER) (test 29 meq/L 22-29 code = 355) BLOOD UREA NITROGEN 27 mg/dL 7-21 H (BEAKER) (test code = 354) CREATININE (BEAKER) 1.46 mg/dL 0.57-1.25 H (test code = 358) GLUCOSE RANDOM 303 mg/dL 70-105 H (BEAKER) (test code = 652) CALCIUM (BEAKER) 9.2 mg/dL 8.4-10.2 (test code = 697) EGFR (BEAKER) (test 47 mL/min/1.73 ESTIMA SARIKA GFR IS code = 1092) sq m NOT ACCURATE CREATININE CLEARANCE IN PREDICTING GLOMERULAR FILTRATION RATE . ESTIMATED GFR I S NOT APPLICABLE FOR DIALYSIS PATIEN TS. 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 ID - TONNY [id number] 04:07:00 Test Item Value Reference Range Interpretation Comments PHOSPHORUS (BEAKER) (test code = 3.0 mg/dL 2.3-4.7 604) 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 ID - TONNY [id number] 04:07:00 Test Item Value Reference Range Interpretation Comments MAGNESIUM (BEAKER) (test code = 2.3 mg/dL 1.6-2.6 627) 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 ID - TONNY LCBC W/PLT COUNT & AUTO [id number] 03:42:00 Test Item Value Reference Range Interpretation Comments WHITE BLOOD CELL COUNT (BEAKER) 5.7 K/ L 3.5-10.5 (test code = 775) RED BLOOD CELL COUNT (BEAKER) 3.39 M/ L 4.63-6.08 L (test code = 761) HEMOGLOBIN (BEAKER) (test code = 10.8 GM/DL 13.7-17.5 L 410) HEMATOCRIT (BEAKER) (test code = 33.2 % 40.1-51.0 L 411) MEAN CORPUSCULAR VOLUME (BEAKER) 97.9 fL 79.0-92.2 H (test code = 753) MEAN CORPUSCULAR HEMOGLOBIN 31.9 pg 25.7-32.2 (BEAKER) (test code = 751) MEAN CORPUSCULAR HEMOGLOBIN CONC 32.5 GM/DL 32.3-36.5 (BEAKER) (test code = 752) RED CELL DISTRIBUTION WIDTH 13.2 % 11.6-14.4 (BEAKER) (test code = 412) PLATELET COUNT (BEAKER) (test 110 K/CU MM 150-450 L code = 756) MEAN PLATELET VOLUME (BEAKER) 10.5 fL 9.4-12.4 (test code = 754) NUCLEATED RED BLOOD CELLS 0 /100 WBC 0-0 (BEAKER) (test code = 413) NEUTROPHILS RELATIVE PERCENT 70 % (BEAKER) (test code = 429) LYMPHOCYTES RELATIVE PERCENT 15 % (BEAKER) (test code = 430) MONOCYTES RELATIVE PERCENT 11 % (BEAKER) (test code = 431) EOSINOPHILS RELATIVE PERCENT 3 % (BEAKER) (test code = 432) BASOPHILS RELATIVE PERCENT 1 % (BEAKER) (test code = 437) NEUTROPHILS ABSOLUTE COUNT 3.93 K/ L 1.78-5.38 (BEAKER) (test code = 670) LYMPHOCYTES ABSOLUTE COUNT 0.83 K/ L 1.32-3.57 L (BEAKER) (test code = 414) MONOCYTES ABSOLUTE COUNT (BEAKER) 0.62 K/ L 0.30-0.82 (test code = 415) EOSINOPHILS ABSOLUTE COUNT 0.19 K/ L 0.04-0.54 (BEAKER) (test code = 416) BASOPHILS ABSOLUTE COUNT (BEAKER) 0.03 K/ L 0.01-0.08 (test code = 417) IMMATURE GRANULOCYTES-RELATIVE 1 % 0-1 PERCENT (BEAKER) (test code = 2801) BLOOD GAS, [id number] 03:39:00 Test Item Value Reference Range Interpretation Comments PH ARTERIAL (BEAKER) (test code = 7.46 7.35-7.45 H 383) PCO2 ARTERIAL (BEAKER) (test code 43 mmHg 35-45 = 384) PO2 ARTERIAL (BEAKER) (test code = 155 mmHg 80-90 H 385) O2 SATURATION ARTERIAL (BEAKER) 99.1 % 96.0-97.0 H (test code = 386) HCO3 ARTERIAL (BEAKER) (test code 30 mmol/L 21-29 H = 388) BASE EXCESS ARTERIAL (BEAKER) 5.6 mmol/L -2.0-3.0 H (test code = 387) PATIENT TEMPERATURE (BEAKER) (test 37.5 C code = 1818) FIO2 (BEAKER) (test code = 1819) 50.0 % CALCIUM, [id number] 03:38:00 Test Item Value Reference Range Interpretation Comments CALCIUM IONIZED (BEAKER) (test 1.14 mmol/L 1.12-1.27 code = 698) PH, BLOOD (BEAKER) (test code = 7.47 1810) RAD, CHEST, 1 VIEW, NON [id number] 03:24:00Reason for exam:->respiratory failureShould this be performed at the bedside?->YesFINAL REPORT RAD, CHEST, 1 VIEW, NON DEPT INDICATION: respiratory failure COMP ARISON: Prior day's exam FINDINGS: Portable frontal view of the chest. IMPRESSION: Support Lines:Stable. Lungs and pleura: Worsening heterogeneous airspace opacities bilaterally, particularly in the right lower lobe with increased left retrocardiac airspace opacity. Small left pleural effusion. No pneumothorax.Heart and mediastinum: Stable contours. Additional findings: None. Signed: Sun Ibrahim Verified Date/Time: 01/29/2020 03:24:48 -GLUCOSE [id number] 23:53:00 Test Item Value Reference Range Interpretation Comments POC-GLUCOSE METER 282 mg/dL 70-110 H : TESTED A T [facility] 6720 (BEAKER) (test code = [place], 1538) [address]: 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/Techni antonio ID = [id number] for MARÍA HOLGUIN [id number] 21:58:00 Test Item Value Reference Range Interpretation Comments PHOSPHORUS (BEAKER) 2.1 mg/dL 2.3-4.7 L Specimen slightly (test code = 604) hemolyzed 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 ID - DBBASIC METABOLIC [id number] 21:14:00 Test Item Value Reference Range Interpretation Comments SODIUM (BEAKER) 140 meq/L 136-145 (test code = 381) POTASSIUM (BEAKER) 3.2 meq/L 3.5-5.1 L (test code = 379) CHLORIDE (BEAKER) 109 meq/L 98-107 H (test code = 382) CO2 (BEAKER) (test 24 meq/L 22-29 code = 355) BLOOD UREA NITROGEN 24 mg/dL 7-21 H (BEAKER) (test code = 354) CREATININE (BEAKER) 1.18 mg/dL 0.57-1.25 (test code = 358) GLUCOSE RANDOM 251 mg/dL 70-105 H (BEAKER) (test code = 652) CALCIUM (BEAKER) 7.7 mg/dL 8.4-10.2 L Discordant CALCIUM (test code = 697) result Com pared to previous result , Clinical correl ation required. EGFR (BEAKER) (test 61 mL/min/1.73 ESTIMA SARIKA GFR IS NOT code = 1092) sq m ACCURATE CREATININE [place] IN PREDICTING GLOMERULAR FILTRATION RATE . ESTIMATED GFR I S NOT APPLICABLE FOR DIALYSIS PATIEN TS. 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 ID - [id number] 20:35:00 Test Item Value Reference Range Interpretation Comments MAGNESIUM (BEAKER) (test code = 1.5 mg/dL 1.6-2.6 L 627) 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 ID - DBPOCT-GLUCOSE [id number] 18:05:00 Test Item Value Reference Range Interpretation Comments POC-GLUCOSE METER 243 mg/dL 70-110 H : TESTED A T [facility] 6720 (BEAKER) (test code = [place], 1538) [address]: 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/Techni antonio ID = [id number] for KRISTIAN LOZANO [id number] 12:02:00 Test Item Value Reference Range Interpretation Comments MAGNESIUM (BEAKER) 2.3 mg/dL 1.6-2.6 Specimen slightly (test code = 627) hemolyzed 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 ID - CHIQUIS FBASIC METABOLIC [id number] 12:02:00 Test Item Value Reference Range Interpretation Comments SODIUM (BEAKER) 138 meq/L 136-145 (test code = 381) POTASSIUM (BEAKER) 4.1 meq/L 3.5-5.1 Specimen slightly (test code = 379) hemolyzed CHLORIDE (BEAKER) 105 meq/L 98-107 (test code = 382) CO2 (BEAKER) (test 25 meq/L 22-29 code = 355) BLOOD UREA NITROGEN 27 mg/dL 7-21 H (BEAKER) (test code = 354) CREATININE (BEAKER) 1.37 mg/dL 0.57-1.25 H Specimen slightly (test code = 358) hemolyzed GLUCOSE RANDOM 214 mg/dL 70-105 H (BEAKER) (test code = 652) CALCIUM (BEAKER) 9.2 mg/dL 8.4-10.2 (test code = 697) EGFR (BEAKER) (test 51 mL/min/1.73 ESTIMA SARIKA GFR IS code = 1092) sq m NOT ACCURATE CREATININE CLEARANCE IN PREDICTING GLOMERULAR FILTRATION RATE . ESTIMATED GFR I S NOT APPLICABLE FOR DIALYSIS PATIEN TS. 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 ID - CHIQUIS FPOCT-GLUCOSE [id number] 11:47:00 Test Item Value Reference Range Interpretation Comments POC-GLUCOSE METER 200 mg/dL 70-110 H : TESTED A T [facility] 6720 (BEAKER) (test code = [facility], 1538) 14882: 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/Techni antonio ID = [id number] for KRISTIAN LOZANO SPUTUM CULTURE + GRAM [id number] 11:24:00 Test Item Value Reference Range Interpretation Comments CULTURE (BEAKER) 4+ Normal respiratory (test code = 1095) wilbur present GRAM STAIN RESULT 4+ WBCs (BEAKER) (test code = 1123) GRAM STAIN RESULT 10-15 epithelial cells (BEAKER) (test code = 79122) GRAM STAIN RESULT 2+ gram positive cocci in (BEAKER) (test code chains and pairs = 41964) GRAM STAIN RESULT 1+ yeast with (BEAKER) (test code pseudohyphae = 342338) GRAM STAIN RESULT <1+ gram variable rods (BEAKER) (test code = 679011) POCT-GLUCOSE [id number] 10:02:00 Test Item Value Reference Range Interpretation Comments POC-GLUCOSE METER 236 mg/dL 70-110 H : TESTED A T [facility] 6720 (BEAKER) (test code = [facility], 1538) [id number]: 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/Techni antonio ID = [id number] for RIZWAN SALCEDO POCT-GLUCOSE [id number] 09:58:00 Test Item Value Reference Range Interpretation Comments POC-GLUCOSE METER 285 mg/dL 70-110 H : TESTED A T [facility] 6720 (BEAKER) (test code = [facility], 1538) 27532: 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/Techni antonio ID = [id number] for MARY DURAN ROZ Manual [id number] 08:52:00 Test Item Value Reference Range Interpretation Comments % Neutros (test code = 70 % 281) % Lymphs (test code = 10 % 2817) % Monos (test code = 2818) 7 % % Eos (test code = 2819) 4 % % Bands (test code = 2826) 9 % 0-10 # Neutros (test code = 5.53 K/ul 1.78-5.38 H 2830) # Lymphs (test code = 0.79 K/ul 1.32-3.57 L 2831) # Monos (test code = 2832) 0.55 K/uL 0.3-0.82 # Eos (test code = 2834) 0.32 K/uL 0.04-0.54 # Bands (test code = 2840) 0.71 K/uL 0-0.8 Total Counted (test code = 100 1351) RBC Morphology (test code Normal = 762) WBC Morphology (test code Normal = 487) Platelet Morphology (test Normal code = 486) JOSE FRANCISCO (test code = JOSE FRANCISCO) 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 ID - [id number] Lab Interpretation (test Abnormal code = 96838-1) [facility] W/PLT COUNT & AUTO [id number] 08:52:00 Test Item Value Reference Range Interpretation Comments WHITE BLOOD CELL COUNT (BEAKER) 7.9 K/ L 3.5-10.5 (test code = 775) RED BLOOD CELL COUNT (BEAKER) 3.10 M/ L 4.63-6.08 L (test code = 761) HEMOGLOBIN (BEAKER) (test code = 9.8 GM/DL 13.7-17.5 L 410) HEMATOCRIT (BEAKER) (test code = 30.2 % 40.1-51.0 L 411) MEAN CORPUSCULAR VOLUME (BEAKER) 97.4 fL 79.0-92.2 H (test code = 753) MEAN CORPUSCULAR HEMOGLOBIN 31.6 pg 25.7-32.2 (BEAKER) (test code = 751) MEAN CORPUSCULAR HEMOGLOBIN CONC 32.5 GM/DL 32.3-36.5 (BEAKER) (test code = 752) RED CELL DISTRIBUTION WIDTH 13.2 % 11.6-14.4 (BEAKER) (test code = 412) PLATELET COUNT (BEAKER) (test code 96 K/CU MM 150-450 L = 756) MEAN PLATELET VOLUME (BEAKER) 10.3 fL 9.4-12.4 (test code = 754) NUCLEATED RED BLOOD CELLS (BEAKER) 0 /100 WBC 0-0 (test code = 413) (CELLAVISION MANUAL DIFF)2020-01-28 08:52:00 Test Item Value Reference Range Interpretation Comments NEUTROPHILS - REL 70 % (CELLAVISION)(BEAKER) (test code = 2816) LYMPHOCYTES - REL 10 % (CELLAVISION)(BEAKER) (test code = 2817) MONOCYTES - REL 7 % (CELLAVISION)(BEAKER) (test code = 2818) EOSINOPHILS - REL 4 % (CELLAVISION)(BEAKER) (test code = 2819) BANDS - REL (CELLAVISION)(BEAKER) 9 % 0-10 (test code = 2826) NEUTROPHILS - ABS 5.53 K/ul 1.78-5.38 H (CELLAVISION)(BEAKER) (test code = 2830) LYMPHOCYTES - ABS 0.79 K/ul 1.32-3.57 L (CELLAVISION)(BEAKER) (test code = 2831) MONOCYTES - ABS 0.55 K/uL 0.30-0.82 (CELLAVISION)(BEAKER) (test code = 2832) EOSINOPHILS - ABS 0.32 K/uL 0.04-0.54 (CELLAVISION)(BEAKER) (test code = 2834) BANDS - ABS (CELLAVISION)(BEAKER) 0.71 K/uL 0.00-0.80 (test code = 2840) TOTAL COUNTED (BEAKER) (test code = 100 1351) RBC MORPHOLOGY (BEAKER) (test code Normal = 762) WBC MORPHOLOGY (BEAKER) (test code Normal = 487) PLT MORPHOLOGY (BEAKER) (test code Normal = 486) 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 ID - [id number], CHEST, 1 VIEW, NON [id number] 04:04:00Reason for exam:->respiratory failureShould this be performed at the bedside?->Yes FINAL REPORT RAD, CHEST, 1 VIEW, NON DEPT INDICATION: respiratory failure COMPARISON: Prior day's exam FINDINGS: Portable frontal view of the chest. IMPRESSION: Support Lines:Stable. Lungs and pleura: Mildly improved aeration of the left base with persistent right basilar atelectasis. No pneumothorax.Heart and mediastinum: Stable contours. Additional findings: None. Signed:Sun Ibrahim [facility] Verified Date/Time: 01/28/2020 04:04:58 REHENSIVE METABOLIC [id number] 03:50:00 Test Item Value Reference Range Interpretation Comments TOTAL PROTEIN 5.6 gm/dL 6.0-8.3 L (BEAKER) (test code = 770) ALBUMIN (BEAKER) 2.7 g/dL 3.5-5.0 L (test code = 1145) ALKALINE PHOSPHATASE 44 U/L 40-150 (BEAKER) (test code = 346) BILIRUBIN TOTAL 0.3 mg/dL 0.2-1.2 (BEAKER) (test code = 377) SODIUM (BEAKER) (test 140 meq/L 136-145 code = 381) POTASSIUM (BEAKER) 3.2 meq/L 3.5-5.1 L (test code = 379) CHLORIDE (BEAKER) 107 meq/L 98-107 (test code = 382) CO2 (BEAKER) (test 25 meq/L 22-29 code = 355) BLOOD UREA NITROGEN 28 mg/dL 7-21 H (BEAKER) (test code = 354) CREATININE (BEAKER) 1.41 mg/dL 0.57-1.25 H (test code = 358) GLUCOSE RANDOM 300 mg/dL 70-105 H (BEAKER) (test code = 652) CALCIUM (BEAKER) 8.1 mg/dL 8.4-10.2 L (test code = 697) AST (SGOT) (BEAKER) 10 U/L 5-34 (test code = 353) ALT (SGPT) (BEAKER) 14 U/L 6-55 (test code = 347) EGFR (BEAKER) (test INSUFFIC IENT CLINICAL code = 1092) DATA TO CALCULA TE ESTIMATED GFR. 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 ID - DAMION MCALCIUM, [id number] 03:46:00 Test Item Value Reference Range Interpretation Comments CALCIUM IONIZED (BEAKER) (test 1.13 mmol/L 1.12-1.27 code = 698) PH, BLOOD (BEAKER) (test code = 7.42 1810) BLOOD GAS, [id number] 03:45:00 Test Item Value Reference Range Interpretation Comments PH ARTERIAL (BEAKER) (test code = 7.41 7.35-7.45 383) PCO2 ARTERIAL (BEAKER) (test code 47 mmHg 35-45 H = 384) PO2 ARTERIAL (BEAKER) (test code = 178 mmHg 80-90 H 385) O2 SATURATION ARTERIAL (BEAKER) 99.2 % 96.0-97.0 H (test code = 386) HCO3 ARTERIAL (BEAKER) (test code 29 mmol/L 21-29 = 388) BASE EXCESS ARTERIAL (BEAKER) 3.8 mmol/L -2.0-3.0 H (test code = 387) PATIENT TEMPERATURE (BEAKER) (test 38.0 C code = 1818) FIO2 (BEAKER) (test code = 1819) 60.0 % [id number] 03:45:00 Test Item Value Reference Range Interpretation Comments PHOSPHORUS (BEAKER) (test code = 2.8 mg/dL 2.3-4.7 604) 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 ID Edel BRUNO [id number] 03:45:00 Test Item Value Reference Range Interpretation Comments MAGNESIUM (BEAKER) (test code = 1.9 mg/dL 1.6-2.6 627) 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 LISA BRUNO MLactic Acid, [id number] 03:37:00 Test Item Value Reference Range Interpretation Comments Lactate, Art (test code = 1.5 mmol/L 0.5-2.2 2874) JOSE FRANCISCO (test code = JOSE FRANCISCO) 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 LISA BRUNO M Lab Interpretation (test Normal code = 89147-3) [facility] Center[facility]CT[facility]ID, [id number] 03:37:00 Test Item Value Reference Range Interpretation Comments LACTATE BLOOD ARTERIAL (2) 1.5 mmol/L 0.5-2.2 (BEAKER) (test code = 2874) 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 LISA - DAMION MBASIC METABOLIC [id number] 20:38:00 Test Item Value Reference Range Interpretation Comments SODIUM (BEAKER) (test 138 meq/L 136-145 code = 381) POTASSIUM (BEAKER) 3.6 meq/L 3.5-5.1 (test code = 379) CHLORIDE (BEAKER) 102 meq/L 98-107 (test code = 382) CO2 (BEAKER) (test 28 meq/L 22-29 code = 355) BLOOD UREA NITROGEN 30 mg/dL 7-21 H (BEAKER) (test code = 354) CREATININE (BEAKER) 1.86 mg/dL 0.57-1.25 H (test code = 358) GLUCOSE RANDOM 241 mg/dL 70-105 H (BEAKER) (test code = 652) CALCIUM (BEAKER) 9.1 mg/dL 8.4-10.2 (test code = 697) EGFR (BEAKER) (test INSUFFIC IENT CLINICAL code = 1092) DATA TO CALCULA TE ESTIMATED GFR. 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 ID - [id number] 20:29:00 Test Item Value Reference Range Interpretation Comments PHOSPHORUS (BEAKER) (test code = 2.2 mg/dL 2.3-4.7 L 604) 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 ID - [id number] 20:29:00 Test Item Value Reference Range Interpretation Comments MAGNESIUM (BEAKER) (test code = 1.9 mg/dL 1.6-2.6 627) 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 ID - DBPOCT-GLUCOSE [id number] 18:51:00 Test Item Value Reference Range Interpretation Comments POC-GLUCOSE METER 227 mg/dL 70-110 H : TESTED A T [facility] 6720 (BEAKER) (test code = [facility], 1538) [address]: 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/Techni antonio ID = [id number] for KRISTIAN LOZANO POCT-GLUCOSE [id number] 12:10:00 Test Item Value Reference Range Interpretation Comments POC-GLUCOSE METER 295 mg/dL 70-110 H : TESTED A T [facility] 6720 (BEAKER) (test code = [facility], 1538) [address]: 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/Techni antonio ID = [id number] for [place] LLIAMS, KRISTIAN RAD, CHEST, 1 VIEW, NON [id number] 11:12:00Reason for exam:->Eval for congestion Should this be performed at the bedside?->YesFINAL REPORT Chest, portable AP view History: Congestion Comparison: 0 IMPRESSION: Endotracheal tube is in stable position. The heart is unchanged in size and configuration. Bibasilar atelectasis is present. There is mild interstitial prominence which may relate to a component of edema. No sizable pleural effusion or pneumothorax. Signed: Fabian Lewiseport Verified Date/Time: 01/27/2020 11:12:34 Reading Location: [facility] Diagnostic Imaging Reading Room - [facility] 1.310.12 MRSA [id number] 10:55:00 Test Item Value Reference Range Interpretation Comments Result (test code = 6463-4) No MRSA isolated [facility] CenterMR[facility] [id number] 10:55:00 Test Item Value Reference Range Interpretation Comments CULTURE (BEAKER) (test code No MRSA isolated = 1095) CBC W/PLT COUNT & AUTO [id number] 08:03:00 Test Item Value Reference Range Interpretation Comments WHITE BLOOD CELL COUNT (BEAKER) 8.8 K/ L 3.5-10.5 (test code = 775) RED BLOOD CELL COUNT (BEAKER) 3.44 M/ L 4.63-6.08 L (test code = 761) HEMOGLOBIN (BEAKER) (test code = 11.2 GM/DL 13.7-17.5 L 410) HEMATOCRIT (BEAKER) (test code = 33.8 % 40.1-51.0 L 411) MEAN CORPUSCULAR VOLUME (BEAKER) 98.3 fL 79.0-92.2 H (test code = 753) MEAN CORPUSCULAR HEMOGLOBIN 32.6 pg 25.7-32.2 H (BEAKER) (test code = 751) MEAN CORPUSCULAR HEMOGLOBIN CONC 33.1 GM/DL 32.3-36.5 (BEAKER) (test code = 752) RED CELL DISTRIBUTION WIDTH 13.2 % 11.6-14.4 (BEAKER) (test code = 412) PLATELET COUNT (BEAKER) (test 107 K/CU MM 150-450 L code = 756) MEAN PLATELET VOLUME (BEAKER) 10.2 fL 9.4-12.4 (test code = 754) NUCLEATED RED BLOOD CELLS 0 /100 WBC 0-0 (BEAKER) (test code = 413) (CELLAVISION MANUAL DIFF)2020-01-27 08:03:00 Test Item Value Reference Range Interpretation Comments NEUTROPHILS - REL 53 % (CELLAVISION)(BEAKER) (test code = 2816) LYMPHOCYTES - REL 11 % (CELLAVISION)(BEAKER) (test code = 2817) MONOCYTES - REL 5 % (CELLAVISION)(BEAKER) (test code = 2818) EOSINOPHILS - REL 2 % (CELLAVISION)(BEAKER) (test code = 2819) BANDS - REL (CELLAVISION)(BEAKER) 29 % 0-10 H (test code = 2826) NEUTROPHILS - ABS 4.66 K/ul 1.78-5.38 (CELLAVISION)(BEAKER) (test code = 2830) LYMPHOCYTES - ABS 0.97 K/ul 1.32-3.57 L (CELLAVISION)(BEAKER) (test code = 2831) MONOCYTES - ABS 0.44 K/uL 0.30-0.82 (CELLAVISION)(BEAKER) (test code = 2832) EOSINOPHILS - ABS 0.18 K/uL 0.04-0.54 (CELLAVISION)(BEAKER) (test code = 2834) BANDS - ABS (CELLAVISION)(BEAKER) 2.55 K/uL 0.00-0.80 H (test code = 2840) TOTAL COUNTED (BEAKER) (test code = 100 1351) RBC MORPHOLOGY (BEAKER) (test code Normal = 762) PLT MORPHOLOGY (BEAKER) (test code Normal = 486) SMUDGE CELLS (BEAKER) (test code = Present 1371) VACUOLATED NEUTROPHILS (BEAKER) Present (test code = 483) ARTIFACT (CELLAVISION)(BEAKER) Present (test code = 3432) PLATELET CONCENTRATION Decreased (CELLAVISION)(BEAKER) (test code = 3438) 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 ID - Natasha OverholtUser comments: Slide comments:Urinalysis w/[id number] 07:15:00 Test Item Value Reference Range Interpretation Comments Color, UA (test code = Yellow 5778-6) Clarity, UA (test code = Hazy 5767-9) Specific [place], UA 1.018 1.001-1.035 (test code = 5811-5) pH, UA (test code = 5.5 5.0-8.0 5803-2) Protein, UA (test code = 30 mg/dL Negative A 80802-7) Glucose, UA (test code = >1000 mg/dL Negative A 365) Ketones, UA (test code = Negative Negative 2514-8) Bilirubin, UA (test code Negative Negative = 95999-0) Blood, UA (test code = Moderate Negative A 99241-9) Nitrite, UA (test code = Negative Negative 5802-4) Leukocytes, UA (test code Negative Negative = 5799-2) Urobilinogen, UA (test 0.2 mg/dL 0.2-1 code = 19616-7) RBC, UA (test code = 28 /HPF 96715-1) WBC, UA (test code = 3 /HPF 5821-4) Bacteria, UA (test code = Occasional 68294-6) Hyaline Casts, UA (test 1 /LPF code = 27840-2) Specimen Source (test code = 2795) JOSE FRANCISCO (test code = JOSE FRANCISCO) 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 ID - [auto]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 ID - tech Lab Interpretation (test Abnormal code = 64520-4) [facility] CenterURINALYSIS W/ [id number] 07:15:00 Test Item Value Reference Range Interpretation Comments COLOR (BEAKER) (test code = 470) Yellow CLARITY (BEAKER) (test code = Hazy 469) SPECIFIC GRAVITY UA (BEAKER) 1.018 1.001-1.035 (test code = 468) PH UA (BEAKER) (test code = 467) 5.5 5.0-8.0 PROTEIN UA (BEAKER) (test code = 30 mg/dL Negative A 464) GLUCOSE UA (BEAKER) (test code = >1000 mg/dL Negative A 365) KETONES UA (BEAKER) (test code = Negative Negative 371) BILIRUBIN UA (BEAKER) (test code Negative Negative = 462) BLOOD UA (BEAKER) (test code = Moderate Negative A 461) NITRITE UA (BEAKER) (test code = Negative Negative 465) LEUKOCYTE ESTERASE UA (BEAKER) Negative Negative (test code = 466) UROBILINOGEN UA (BEAKER) (test 0.2 mg/dL 0.2-1.0 code = 463) RBC UA (BEAKER) (test code = 519) 28 /HPF WBC UA (BEAKER) (test code = 520) 3 /HPF BACTERIA (BEAKER) (test code = Occasional 517) HYALINE CASTS (BEAKER) (test code 1 /LPF = 514) SOURCE(BEAKER) (test code = 2795) 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 ID - [auto]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 ID - techPOCT-GLUCOSE [id number] 06:30:00 Test Item Value Reference Range Interpretation Comments POC-GLUCOSE METER 319 mg/dL 70-110 H : TESTED A T [facility] 6720 (BEAKER) (test code = [place], 1538) [address]: 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/Techni antonio ID = [id number] for CL VICENTEKLAN [id number] 05:49:00 Test Item Value Reference Range Interpretation Comments PHOSPHORUS (BEAKER) (test code = 1.4 mg/dL 2.3-4.7 LL 604) 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 ID - DAMION MLACTIC ACID, [id number] 05:36:00 Test Item Value Reference Range Interpretation Comments LACTATE BLOOD 1.9 mmol/L 0.5-2.2 Specimen moder ately ARTERIAL (2) (BEAKER) hemoly zed (test code = 2874) 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 ID - DAMION MCOMPREHENSIVE METABOLIC [id number] 05:31:00 Test Item Value Reference Range Interpretation Comments TOTAL PROTEIN 6.0 gm/dL 6.0-8.3 (BEAKER) (test code = 770) ALBUMIN (BEAKER) 3.0 g/dL 3.5-5.0 L (test code = 1145) ALKALINE PHOSPHATASE 46 U/L 40-150 (BEAKER) (test code = 346) BILIRUBIN TOTAL 0.6 mg/dL 0.2-1.2 (BEAKER) (test code = 377) SODIUM (BEAKER) (test 135 meq/L 136-145 L code = 381) POTASSIUM (BEAKER) 3.9 meq/L 3.5-5.1 (test code = 379) CHLORIDE (BEAKER) 103 meq/L 98-107 (test code = 382) CO2 (BEAKER) (test 25 meq/L 22-29 code = 355) BLOOD UREA NITROGEN 32 mg/dL 7-21 H (BEAKER) (test code = 354) CREATININE (BEAKER) 2.06 mg/dL 0.57-1.25 H (test code = 358) GLUCOSE RANDOM 317 mg/dL 70-105 H (BEAKER) (test code = 652) CALCIUM (BEAKER) 8.7 mg/dL 8.4-10.2 (test code = 697) AST (SGOT) (BEAKER) 13 U/L 5-34 (test code = 353) ALT (SGPT) (BEAKER) 26 U/L 6-55 (test code = 347) EGFR (BEAKER) (test INSUFFIC IENT CLINICAL code = 1092) DATA TO CALCULA TE ESTIMATED GFR. 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 ID - DAMION MB-TYPE NATRIURETIC FACTOR (BNP)2020-01-27 05:31:00 Test Item Value Reference Range Interpretation Comments B-TYPE NATRIURETIC PEPTIDE (BEAKER) 35 pg/mL 0-100 (test code = 700) 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 ID - DAMION MCreatine Kinase (CK)2020-01-27 05:30:00 Test Item Value Reference Range Interpretation Comments Total CK (test code = 149 U/L 29-200 2157-6) JOSE FRANCISCO (test code = JOSE FRANCISCO) 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 ID - DAMION M Lab Interpretation (test Normal code = 42348-4) [facility] CenterMAGNESIUM2020-03-25 05:30:00 Test Item Value Reference Range Interpretation Comments MAGNESIUM (BEAKER) (test code = 1.6 mg/dL 1.6-2.6 627) 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 ID - DAMION MCREATINE KINASE (CK)2020-01-27 05:30:00 Test Item Value Reference Range Interpretation Comments CREATINE KINASE TOTAL (BEAKER) (test 149 U/L 29-200 code = 380) 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 ID - DAMION MBLOOD GAS, [id number] 05:25:00 Test Item Value Reference Range Interpretation Comments PH ARTERIAL (BEAKER) (test code = 7.42 7.35-7.45 383) PCO2 ARTERIAL (BEAKER) (test code 43 mmHg 35-45 = 384) PO2 ARTERIAL (BEAKER) (test code = 121 mmHg 80-90 H 385) O2 SATURATION ARTERIAL (BEAKER) 98.3 % 96.0-97.0 H (test code = 386) HCO3 ARTERIAL (BEAKER) (test code 27 mmol/L 21-29 = 388) BASE EXCESS ARTERIAL (BEAKER) 2.1 mmol/L -2.0-3.0 (test code = 387) PATIENT TEMPERATURE (BEAKER) (test 37.5 C code = 1818) FIO2 (BEAKER) (test code = 1819) 40.0 % CALCIUM, [id number] 05:24:00 Test Item Value Reference Range Interpretation Comments CALCIUM IONIZED (BEAKER) (test 1.12 mmol/L 1.12-1.27 code = 698) PH, BLOOD (BEAKER) (test code = 7.45 1810) POCT-GLUCOSE [id number] 18:55:00 Test Item Value Reference Range Interpretation Comments POC-GLUCOSE METER 196 mg/dL 70-110 H : TESTED A T [facility] 6720 (BEAKER) (test code [facility], = 1538) [address]: 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/Techni antonio ID = [id number] for Moon Ruiz Vancomycin level, [id number] 18:00:00 Test Item Value Reference Range Interpretation Comments Vancomycin Tr (test code = 12.5 ug/mL 10-20 4092-3) JOSE FRANCISCO (test code = JOSE FRANCISCO) 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 ID - HARSHIL Lab Interpretation (test Normal code = 52026-4) [facility] CenterVANCOMYCIN LEVEL, [id number] 18:00:00 Test Item Value Reference Range Interpretation Comments VANCOMYCIN TROUGH (BEAKER) (test 12.5 ug/mL 10.0-20.0 code = 522) 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 ID - [id number] Echo W/Doppler(CW/PW/Color)2020-01-26 16:35:14Ejection FractionSLEH ECHO HEARTLAB MKCKESSON CPACSInterface, External Ris In - 01/26/2020 4:35 PM CDTTransthoracic Echocardiography Report (TTE) Demographics Patient Name CANDIE KELLEY Date of Study 01/26/2020 Gender Male Visit Number [id number] Race Unknown Room Number 7A05 Number Date of 1945 Referring Physician En Black PA-C Age 74 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 The left ventricle is chamber size (by vol index) is normal(male - LVED vol - 34- 74ml/m2). Normal LV wall thickness. All of the LV segments contract normally . Global LV systolic function normal . LVEF by Vance's method of disk assessment is normal (>60%). Grade 1 diastolic dysfunction (impaired relaxation and low-normal LA pressure). 2. RV is partially visualized. In the limited views, the RV is mildly dilated with normal systolic function. S' 13 cm/sec. 3. LA size is mildly enlarged (35-41 ml/m2) . RA cavity size is mildly dilated. 4. A trace of tricuspid regurgitation. Unable to estimate peak systolic PA pressure; inadequate TR velocity signal.The estimated RA pressure by IVC dynamics 0-5mmHg . 5. No significant pericardial effusion is visualized. Previous Study No prior exam available for comparison. Signature Findings T echnical Quality: Technically fair exam. Left Ventricle The left ventricle is chamber size (by vol index) is normal (male - LVED vol - 34-74ml/m2).Normal LV wall thickness. All of the LV segments contract normally . Global LV systolic function normal . LVEF by Vance's method of disk assessment is normal (>60%) . The LVEF was sonu sured using Vance's bi-plane method of disk . LV endocardium is adequately visualized with IV ultrasound enhancing agent. Grade 1 diastolic dysfunction (impaired relaxation and low-normal LA pressure). LV endocardium is partially visualized with IV ultrasound enhancing agent. Left Atrium LA size is mildly enlarged (35-41 ml/m2). Right Ventricle RV is partially visualized. In the limited views, the RV is mildly dilated with normal systolic function. S' 13 cm/sec. Imaging is suboptimal for measurement of TAPSE. Right Atrium RA cavity size is mildly dilated. Atrial Septum IV saline contrast injection was technically inadequate to detect a PFO (patent foramen ovale) at rest and post Valsalva . Aortic Valve Trileaflet aortic valve. Mild AoV cusp calcification. No evidence of aortic stenosis. No evidence of aortic regurgitation. Mitral Valve Mild MV leaflet thickening. Trace mitral regurgitation. Tricuspid Valve TV structure is normal. A trace of tricuspid regurgitation. Unable to estimate peak systolic PA pressure; inadequate TR velocity signal. Pulmonic Valve Normal PV structure andfunction. Aorta Aortic root size (SInus of Valsalva diameter) is normal . Proximal ascending aorta size mildly dilated . 3.8 cm Pericardium No significant pericardial effusion is visualized. IVC/SVC/PA/PV/Pleural The estimated RA [...] Mitral Valve MV Peak E-Wave: 0.62 m/s MV Peak A-Wave: 0.66 m/s E/A Ratio: 0.94 Peak Gradient: 1.53 mmHg Deceleration Time: 295.4 msec MV Alexei. Peak: Tissue Doppler E' Septal Velocity: 0.07 m/s E/E': 8.94 E' Lateral Velocity: 0.07 m/s Aortic Valve Peak Velocity: 1.17 m/s Mean Velocity: 0.88 m/s Peak Gradient: 5.47 mmHg Mean Gradient: 3.44 mmHg AV Area (continuity): 3.2 cm^2 AV VTI: 18.66 cm AV DVI: 0.82 LVOT Peak Velocity: 0.99 m/s Peak Gradient: 3.94 mmHg Mean Velocity: 0.7 m/s Mean Gradient: 2.29 mmHg LVOT Diameter: 2.23 cm LVOTVTI: 15.28 cm LVOT Area: 3.91 cm^2 LVOT SV:59.65 ml LVOT CO: 5.01 l/min LVOT CI: 2.22 l/min/m^2[facility] HospitalCortisol2020-03-24 15:42:00 Test Item Value Reference Range Interpretation Comments Cortisol, Total (test code 13.1 ug/dL 3.7-19.4 = 2755) JOSE FRANCISCO (test code = JOSE FRANCISCO) 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 ID - HARSHIL Lab Interpretation (test Normal code = 70735-3) [facility] CenterCORTISOL2020-03-24 15:42:00 Test Item Value Reference Range Interpretation Comments CORTISOL, TOTAL (BEAKER) (test 13.1 ug/dL 3.7-19.4 code = 2755) 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 ID - EMERSONBASIC METABOLIC [id number] 15:20:00 Test Item Value Reference Range Interpretation Comments SODIUM (BEAKER) (test 136 meq/L 136-145 code = 381) POTASSIUM (BEAKER) 4.3 meq/L 3.5-5.1 Specimen slightly (test code = 379) hemolyzed CHLORIDE (BEAKER) 101 meq/L 98-107 (test code = 382) CO2 (BEAKER) (test 24 meq/L 22-29 code = 355) BLOOD UREA NITROGEN 34 mg/dL 7-21 H (BEAKER) (test code = 354) CREATININE (BEAKER) 2.85 mg/dL 0.57-1.25 H Specimen slightly (test code = 358) hemolyzed GLUCOSE RANDOM 207 mg/dL 70-105 H (BEAKER) (test code = 652) CALCIUM (BEAKER) 8.8 mg/dL 8.4-10.2 (test code = 697) EGFR (BEAKER) (test INSUFFIC IENT CLINICAL code = 1092) DATA TO CALCULA TE ESTIMATED GFR. 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 ID - EMERSONCreatinine, random [id number] 15:13:00 Test Item Value Reference Range Interpretation Comments Creatinine, Ur 123.0 mg/dL (test code = 2161-8) JOSE FRANCISCO (test code = Reference Range: No JOSE FRANCISCO) NormalsOperator ID - BS [facility] CenterProtein, random [id number] 15:13:00 Test Item Value Reference Range Interpretation Comments Protein, Urine (test code = 25 mg/dL 0-14 H 2888-6) JOSE FRANCISCO (test code = JOSE FRANCISCO) 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 ID - BS Lab Interpretation (test Abnormal code = 84127-5) [facility] CenterCREATININE, RANDOM [id number] 15:13:00 Test Item Value Reference Range Interpretation Comments CREATININE URINE (BEAKER) (test 123.0 mg/dL code = 375) Reference Range: No NormalsOperator ID - BSPROTEIN, RANDOM [id number] 15:13:00 Test Item Value Reference Range Interpretation Comments PROTEIN, URINE (BEAKER) (test code = 25 mg/dL 0-14 H 1569) 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 ID - BSURINALYSIS W/ REFLEX URINE [id number] 15:11:00 Test Item Value Reference Range Interpretation Comments COLOR (BEAKER) (test code = 470) Yellow CLARITY (BEAKER) (test code = 469) Clear SPECIFIC GRAVITY UA (BEAKER) (test 1.019 1.001-1.035 code = 468) PH UA (BEAKER) (test code = 467) 5.5 5.0-8.0 PROTEIN UA (BEAKER) (test code = 20 mg/dL Negative A 464) GLUCOSE UA (BEAKER) (test code = Negative Negative 365) KETONES UA (BEAKER) (test code = Negative Negative 371) BILIRUBIN UA (BEAKER) (test code = Negative Negative 462) BLOOD UA (BEAKER) (test code = Small Negative A 461) NITRITE UA (BEAKER) (test code = Negative Negative 465) LEUKOCYTE ESTERASE UA (BEAKER) Negative Negative (test code = 466) UROBILINOGEN UA (BEAKER) (test 0.2 mg/dL 0.2-1.0 code = 463) RBC UA (BEAKER) (test code = 519) 30 /HPF WBC UA (BEAKER) (test code = 520) 3 /HPF BACTERIA (BEAKER) (test code = Occasional 517) MUCUS (BEAKER) (test code = 1574) Rare SQUAMOUS EPITHELIAL (BEAKER) (test < /HPF code = 516) HYALINE CASTS (BEAKER) (test code 1 /LPF = 514) CASTS (BEAKER) (test code = 1579) 3 /LPF CRYSTALS, URINE (BEAKER) (test Rare code = 1521) SOURCE(BEAKER) (test code = 2795) 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 ID - [auto]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 ID - techPOCT-GLUCOSE [id number] 15:01:00 Test Item Value Reference Range Interpretation Comments POC-GLUCOSE METER 208 mg/dL 70-110 H : TESTED A T [facility] 6720 (BEAKER) (test code [facility], = 1538) [address]: 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/Techni antonio ID = [id number] for Moon Ruiz PT/[id number] 09:22:00 Test Item Value Reference Range Interpretation Comments PROTIME (BEAKER) (test code = 15.8 seconds 11.9-14.2 H 759) INR (BEAKER) (test code = 370) 1.3 <=5.9 PARTIAL THROMBOPLASTIN TIME 33.7 seconds 22.5-36.0 (BEAKER) (test code = 760) Effective 04/01/2019: PT Reference Range ChangeNew: 11.9-14.2 Previous: 11.7- 14.7RECOMMENDED COUMADIN/WARFARIN INR THERAPY RANGESSTANDARD DOSE: 2.0-3.0 Includes: PROPHYLAXIS for venous thrombosis, systemic embolization; TREATMENT for venous thrombosis and/or pulmonary embolus.HIGH RISK: Target INR is2.5-3.5 for patients wiht mechanical heart valves.Troponin [id number] 08:53:00 Test Item Value Reference Range Interpretation Comments Troponin I (test code = 0.18 ng/mL 0-0.03 H 16910-7) JOSE FRANCISCO (test code = JOSE FRANCISCO) Troponin I (TnI) levels must be interpreted in the context of the presenting symptoms and the clinical findings. Elevated TnI levels indicate myocardial damage, but are not specific for ischemic heart disease. Elevated TnI levels are seen in patients with other cardiac conditions (including myocarditis and congestive heart failure), and slight TnI elevations occur in patients with other conditions, including sepsis, renal failure, acidosis, acute neurological disease, and persistent tachyarrhythmia.Opera tor ID - HARSHIL Lab Interpretation (test Abnormal code = 13762-3) [facility]JEFF[facility] [id number] 08:53:00 Test Item Value Reference Range Interpretation Comments TROPONIN I (BEAKER) (test code = 0.18 ng/mL 0.00-0.03 H 397) Troponin I (TnI) levels must be interpreted in the context of the presenting symptoms and the clinical findings. Elevated TnI levels indicate myocardial damage, but are not specific for ischemic heart disease. Elevated TnI levels are seen in patients with other cardiac conditions (including myocarditis and congestive heart failure), and slight TnI elevations occur in patients with other conditions, including sepsis, renal failure, acidosis, acute neurological disease, and persistent tachyarrhythmia.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 ID - EMERSONCBC W/PLT COUNT & AUTO [id number] 07:57:00 Test Item Value Reference Range Interpretation Comments WHITE BLOOD CELL COUNT (BEAKER) 6.4 K/ L 3.5-10.5 (test code = 775) RED BLOOD CELL COUNT (BEAKER) 3.88 M/ L 4.63-6.08 L (test code = 761) HEMOGLOBIN (BEAKER) (test code = 12.4 GM/DL 13.7-17.5 L 410) HEMATOCRIT (BEAKER) (test code = 36.9 % 40.1-51.0 L 411) MEAN CORPUSCULAR VOLUME (BEAKER) 95.1 fL 79.0-92.2 H (test code = 753) MEAN CORPUSCULAR HEMOGLOBIN 32.0 pg 25.7-32.2 (BEAKER) (test code = 751) MEAN CORPUSCULAR HEMOGLOBIN CONC 33.6 GM/DL 32.3-36.5 (BEAKER) (test code = 752) RED CELL DISTRIBUTION WIDTH 13.2 % 11.6-14.4 (BEAKER) (test code = 412) PLATELET COUNT (BEAKER) (test 153 K/CU MM 150-450 code = 756) MEAN PLATELET VOLUME (BEAKER) 10.0 fL 9.4-12.4 (test code = 754) NUCLEATED RED BLOOD CELLS 0 /100 WBC 0-0 (BEAKER) (test code = 413) (CELLAVISION MANUAL DIFF)2020-01-26 07:57:00 Test Item Value Reference Range Interpretation Comments NEUTROPHILS - REL 43 % (CELLAVISION)(BEAKER) (test code = 2816) LYMPHOCYTES - REL 20 % (CELLAVISION)(BEAKER) (test code = 2817) MONOCYTES - REL 2 % (CELLAVISION)(BEAKER) (test code = 2818) METAMYELOCYTES - REL 1 % 0-0 H (CELLAVISION)(BEAKER) (test code = 2821) MYELOCYTES - REL 2 % 0-0 H (CELLAVISION)(BEAKER) (test code = 2822) BANDS - REL (CELLAVISION)(BEAKER) 31 % 0-10 H (test code = 2826) ATYPICAL LYMPHOCYTES - REL 1 % 0-0 H (CELLAVISION)(BEAKER) (test code = 2829) NEUTROPHILS - ABS 2.75 K/ul 1.78-5.38 (CELLAVISION)(BEAKER) (test code = 2830) LYMPHOCYTES - ABS 1.28 K/ul 1.32-3.57 L (CELLAVISION)(BEAKER) (test code = 2831) MONOCYTES - ABS 0.13 K/uL 0.30-0.82 L (CELLAVISION)(BEAKER) (test code = 2832) METAMYELOCYTES - ABS 0.06 K/uL 0.00-0.00 H (CELLAVISION)(BEAKER) (test code = 2836) MYELOCYTES-ABS 0.13 K/uL 0.00-0.00 H (CELLAVISION)(BEAKER) (test code = 2837) BANDS - ABS (CELLAVISION)(BEAKER) 1.98 K/uL 0.00-0.80 H (test code = 2840) ATYPICAL LYMPHOCYTES - ABS 0.06 K/uL 0.00-0.00 H (CELLAVISION)(BEAKER) (test code = 2858) TOTAL COUNTED (BEAKER) (test code = 100 1351) RBC MORPHOLOGY (BEAKER) (test code Normal = 762) PLT MORPHOLOGY (BEAKER) (test code Normal = 486) SMUDGE CELLS (BEAKER) (test code = Present 1371) ARTIFACT (CELLAVISION)(BEAKER) Present (test code = 3432) PLATELET CONCENTRATION Adequate (CELLAVISION)(BEAKER) (test code = 3438) 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 ID - [id number] ID - Su Lance comments: Slide comments:RAD, CHEST, 1 VIEW, NON [id number] 07:23:00Reason for exam:->intubationShould this be performed at the bedside?->YesFINAL REPORT RAD, CHEST, 1 VIEW, NON DEPT INDICATION: intubation COMPARISON: Prior day's exam FINDINGS: Portable frontal view of the chest. IMPRESSION: Limited by suboptimal technique and patient positioning.Support Lines: Stable. Lungs and pleura: Stable subsegmental atelectasis on the left. No pneumothorax.Heart and mediastinum: Stable contours. Additional findings: None. Signed: JR Loyola Robert MDReport Verified Date/Time: 01/26/2020 07:23:59 Reading Location: [facility] Radiology Reading Room 07:23 AMLACTIC ACID, [id number] 05:32:00 Test Item Value Reference Range Interpretation Comments LACTATE BLOOD 2.7 mmol/L 0.5-2.2 H Specimen sligh tly ARTERIAL (2) (BEAKER) hemoly zed (test code = 2874) 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 ID - DAMION MCALCIUM, [id number] 05:30:00 Test Item Value Reference Range Interpretation Comments CALCIUM IONIZED (BEAKER) (test 1.11 mmol/L 1.12-1.27 L code = 698) PH, BLOOD (BEAKER) (test code = 7.42 1810) COMPREHENSIVE METABOLIC [id number] 05:30:00 Test Item Value Reference Range Interpretation Comments TOTAL PROTEIN 6.1 gm/dL 6.0-8.3 (BEAKER) (test code = 770) ALBUMIN (BEAKER) 3.4 g/dL 3.5-5.0 L (test code = 1145) ALKALINE PHOSPHATASE 28 U/L 40-150 L (BEAKER) (test code = 346) BILIRUBIN TOTAL 0.6 mg/dL 0.2-1.2 (BEAKER) (test code = 377) SODIUM (BEAKER) (test 137 meq/L 136-145 code = 381) POTASSIUM (BEAKER) 4.0 meq/L 3.5-5.1 (test code = 379) CHLORIDE (BEAKER) 103 meq/L 98-107 (test code = 382) CO2 (BEAKER) (test 23 meq/L 22-29 code = 355) BLOOD UREA NITROGEN 36 mg/dL 7-21 H (BEAKER) (test code = 354) CREATININE (BEAKER) 3.54 mg/dL 0.57-1.25 H (test code = 358) GLUCOSE RANDOM 190 mg/dL 70-105 H (BEAKER) (test code = 652) CALCIUM (BEAKER) 8.7 mg/dL 8.4-10.2 (test code = 697) AST (SGOT) (BEAKER) 13 U/L 5-34 (test code = 353) ALT (SGPT) (BEAKER) 24 U/L 6-55 (test code = 347) EGFR (BEAKER) (test INSUFFIC IENT CLINICAL code = 1092) DATA TO CALCULA TE ESTIMATED GFR. 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 ID - DAMION [id number] 05:29:00 Test Item Value Reference Range Interpretation Comments PHOSPHORUS (BEAKER) (test code = 2.6 mg/dL 2.3-4.7 604) 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 ID - DAMION [id number] 05:29:00 Test Item Value Reference Range Interpretation Comments MAGNESIUM (BEAKER) (test code = 1.5 mg/dL 1.6-2.6 L 627) 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 ID - DAMION MCREATINE KINASE (CK)2020-01-26 05:29:00 Test Item Value Reference Range Interpretation Comments CREATINE KINASE TOTAL (BEAKER) (test 100 U/L 29-200 code = 380) 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 ID - DAMION MB-TYPE NATRIURETIC FACTOR (BNP)2020-01-26 05:26:00 Test Item Value Reference Range Interpretation Comments B-TYPE NATRIURETIC PEPTIDE (BEAKER) 113 pg/mL 0-100 H (test code = 700) 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 ID - DAMION MBLOOD GAS, [id number] 05:20:00 Test Item Value Reference Range Interpretation Comments PH ARTERIAL (BEAKER) (test code = 7.39 7.35-7.45 383) PCO2 ARTERIAL (BEAKER) (test code 43 mmHg 35-45 = 384) PO2 ARTERIAL (BEAKER) (test code = 92 mmHg 80-90 H 385) O2 SATURATION ARTERIAL (BEAKER) 96.1 % 96.0-97.0 (test code = 386) HCO3 ARTERIAL (BEAKER) (test code 25 mmol/L 21-29 = 388) BASE EXCESS ARTERIAL (BEAKER) 0.5 mmol/L -2.0-3.0 (test code = 387) PATIENT TEMPERATURE (BEAKER) (test 39.0 C code = 1818) FIO2 (BEAKER) (test code = 1819) 80.0 % BASIC METABOLIC [id number] 00:39:00 Test Item Value Reference Range Interpretation Comments SODIUM (BEAKER) (test 134 meq/L 136-145 L code = 381) POTASSIUM (BEAKER) 4.1 meq/L 3.5-5.1 (test code = 379) CHLORIDE (BEAKER) 103 meq/L 98-107 (test code = 382) CO2 (BEAKER) (test 21 meq/L 22-29 L code = 355) BLOOD UREA NITROGEN 39 mg/dL 7-21 H (BEAKER) (test code = 354) CREATININE (BEAKER) 4.08 mg/dL 0.57-1.25 H (test code = 358) GLUCOSE RANDOM 260 mg/dL 70-105 H (BEAKER) (test code = 652) CALCIUM (BEAKER) 8.5 mg/dL 8.4-10.2 (test code = 697) EGFR (BEAKER) (test INSUFFIC IENT CLINICAL code = 1092) DATA TO CALCULA TE ESTIMATED GFR. 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 ID - BSLACTIC ACID, [id number] 00:34:00 Test Item Value Reference Range Interpretation Comments LACTATE BLOOD ARTERIAL (2) 3.1 mmol/L 0.5-2.2 H (BEAKER) (test code = 2874) 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 ID - BSBLOOD GAS, [id number] 00:30:00 Test Item Value Reference Range Interpretation Comments PH ARTERIAL (BEAKER) (test code = 7.38 7.35-7.45 383) PCO2 ARTERIAL (BEAKER) (test code 37 mmHg 35-45 = 384) PO2 ARTERIAL (BEAKER) (test code 98 mmHg 80-90 H = 385) O2 SATURATION ARTERIAL (BEAKER) 97.2 % 96.0-97.0 H (test code = 386) HCO3 ARTERIAL (BEAKER) (test code 22 mmol/L 21-29 = 388) BASE EXCESS ARTERIAL (BEAKER) -2.9 mmol/L -2.0-3.0 L (test code = 387) PATIENT TEMPERATURE (BEAKER) 37.5 C (test code = 1818) FIO2 (BEAKER) (test code = 1819) 80.0 % POCT-GLUCOSE [id number] 00:23:00 Test Item Value Reference Range Interpretation Comments POC-GLUCOSE METER 248 mg/dL 70-110 H : TESTED A T [facility] 6720 (BEAKER) (test code = [place], 1538) [address]3571: 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/Techni antonio ID = [id number] for AL I, TAMERA Respiratory Panel [id number] 21:07:00 Test Item Value Reference Range Interpretation Comments Human Metapneumovirus Not detected Not detected, (test code = 45664-3) Equivocal Rhinovirus (test code = Not detected Not detected, 19824-2) Equivocal INFLUENZA A (NO Not detected Not detected, SUBTYPE) (test code = Equivocal 20877-1) Influenza A subtype H1 (test code = 17510-8) Influenza A Subtype H3 (test code = 71007-0) Influenza A Subtype H1-2009 (test code = 41072-5) Influenza B (test code Not detected Not detected, = 31077-9) Equivocal Respiratory Syncytial Not detected Not detected, Virus (test code = Equivocal 66474-3) Parainfluenza Virus 1 Not detected Not detected, (test code = 52305-0) Equivocal Parainfluenza Virus 2 Not detected Not detected, (test code = 60452-1) Equivocal Parainfluenza virus 3 Not detected Not detected, (test code = 68115-6) Equivocal Parainfluenza Virus 4 Not detected Not detected, (test code = 26665-5) Equivocal Adenovirus (test code = Not detected Not detected, 97545-1) Equivocal Coronavirus 229E (test Not detected Not detected, code = 48211-5) Equivocal Coronavirus HKU1 (test Not detected Not detected, code = 56396-2) Equivocal Coronavirus NL63 (test Not detected Not detected, code = 83209-0) Equivocal Coronavirus OC43 (test Not detected Not detected, code = 72068-0) Equivocal Bordetella Pertussis Not detected Not detected, (test code = 10376-5) Equivocal Chlamydophila Not detected Not detected, Pneumoniae (test code = Equivocal 94416-2) Mycoplasma Pneumoniae Not detected Not detected, (test code = 61179-2) Equivocal JOSE FRANCISCO (test code = JOSE FRANCISCO) Other viruses and bacteria not targeted by this PCR panel cannot be excluded; therefore clinical correlation and follow up of serology, culture results, and other molecular studies is required. The results are not intended to be used as the sole means for clinical diagnosis or patient management decisions. This sample was tested at the [facility] Molecular Diagnostics [facility] using the SinaArray Respiratory Panel. It is FDA cleared and has been verified and approved by the [facility] for clinical use on nasopharyngeal swab specimens. The performance of the FilmArray RP has not been established in individuals who received influenza vaccine. Recent administration of a nasal influenza vaccine may cause false positive results for Influenza A and/orInfluenza B. [facility] [id number] 21:07:00 Test Item Value Reference Range Interpretation Comments HUMAN METAPNEUMOVIRUS Not detected Not detected, (BEAKER) (test code = 2683) Equivocal RHINOVIRUS (BEAKER) (test Not detected Not detected, code = 2684) Equivocal INFLUENZA A (BEAKER) (test Not detected Not detected, code = 2685) Equivocal INFLUENZA A (NO SUBTYPE) (test code = 3606) INFLUENZA A SUBTYPE H1 (BEAKER) (test code = 2686) INFLUENZA A SUBTYPE H3 (BEAKER) (test code = 2687) INFLUENZA A SUBTYPE H1-2009 (BEAKER) (test code = 3198) INFLUENZA B (BEAKER) (test Not detected Not detected, code = 2688) Equivocal RESPIRATORY SYNCYTIAL VIRUS Not detected Not detected, (BEAKER) (test code = 3199) Equivocal PARAINFLUENZA VIRUS 1 Not detected Not detected, (BEAKER) (test code = 2691) Equivocal PARAINFLUENZA VIRUS 2 Not detected Not detected, (BEAKER) (test code = 2692) Equivocal PARAINFLUENZA VIRUS 3 Not detected Not detected, (BEAKER) (test code = 2693) Equivocal PARAINFLUENZA VIRUS 4 Not detected Not detected, (BEAKER) (test code = 3200) Equivocal ADENOVIRUS (BEAKER) (test Not detected Not detected, code = 2694) Equivocal CORONAVIRUS 229E (BEAKER) Not detected Not detected, (test code = 3201) Equivocal CORONAVIRUS HKU1 (BEAKER) Not detected Not detected, (test code = 3202) Equivocal CORONAVIRUS NL63 (BEAKER) Not detected Not detected, (test code = 3203) Equivocal CORONAVIRUS OC43 (BEAKER) Not detected Not detected, (test code = 3204) Equivocal BORDETELLA PERTUSSIS Not detected Not detected, (BEAKER) (test code = 3205) Equivocal CHLAMYDOPHILA PNEUMONIAE Not detected Not detected, (BEAKER) (test code = 3206) Equivocal MYCOPLASMA PNEUMONIAE Not detected Not detected, (BEAKER) (test code = 3207) Equivocal Other viruses and bacteria not targeted by this PCR panel cannot be excluded; therefore clinical correlation and follow up of serology, culture results, and other molecular studies is required. The results are not intended to be used as the sole means for clinical diagnosis or patient management decisions. This sample was tested at the [facility] Diagnostics Laboratory using the SinaArray Respiratory Panel. It is FDA cleared and has been verified and approved by the [facility] for clinical use on nasopharyngeal swab specimens.The performance of the FilmArrayRP has not been established in individuals who received influenza vaccine. Recent administration ofa nasal influenza vaccine may cause false positive results for Influenza A and/orInfluenza B.PROTEIN, RANDOM [id number] 20:49:00 Test Item Value Reference Range Interpretation Comments PROTEIN, URINE (BEAKER) (test code = 22 mg/dL 0-14 H 1569) 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 ID - BSBLOOD GAS, [id number] 20:43:00 Test Item Value Reference Range Interpretation Comments PH ARTERIAL (BEAKER) (test code = 7.32 7.35-7.45 L 383) PCO2 ARTERIAL (BEAKER) (test code 36 mmHg 35-45 = 384) PO2 ARTERIAL (BEAKER) (test code 93 mmHg 80-90 H = 385) O2 SATURATION ARTERIAL (BEAKER) 96.4 % 96.0-97.0 (test code = 386) HCO3 ARTERIAL (BEAKER) (test code 18 mmol/L 21-29 L = 388) BASE EXCESS ARTERIAL (BEAKER) -6.8 mmol/L -2.0-3.0 L (test code = 387) PATIENT TEMPERATURE (BEAKER) 37.5 C (test code = 1818) FIO2 (BEAKER) (test code = 1819) 80.0 % URINALYSIS W/ REFLEX URINE [id number] 20:39:00 Test Item Value Reference Range Interpretation Comments COLOR (BEAKER) (test code = 470) Yellow CLARITY (BEAKER) (test code = 469) Clear SPECIFIC GRAVITY UA (BEAKER) (test 1.013 1.001-1.035 code = 468) PH UA (BEAKER) (test code = 467) 5.0 5.0-8.0 PROTEIN UA (BEAKER) (test code = 20 mg/dL Negative A 464) GLUCOSE UA (BEAKER) (test code = Negative Negative 365) KETONES UA (BEAKER) (test code = Negative Negative 371) BILIRUBIN UA (BEAKER) (test code = Negative Negative 462) BLOOD UA (BEAKER) (test code = 461) Moderate Negative A NITRITE UA (BEAKER) (test code = Negative Negative 465) LEUKOCYTE ESTERASE UA (BEAKER) Negative Negative (test code = 466) UROBILINOGEN UA (BEAKER) (test code 0.2 mg/dL 0.2-1.0 = 463) RBC UA (BEAKER) (test code = 519) 130 /HPF WBC UA (BEAKER) (test code = 520) 1 /HPF MUCUS (BEAKER) (test code = 1574) Rare SQUAMOUS EPITHELIAL (BEAKER) (test < /HPF code = 516) HYALINE CASTS (BEAKER) (test code = 10 /LPF 514) SOURCE(BEAKER) (test code = 2795) 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 ID - [auto]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 ID - techVancomycin level, [id number] 18:53:00 Test Item Value Reference Range Interpretation Comments Vancomycin Rm (test 5.2 ug/mL code = 93703-3) JOSE FRANCISCO (test code = Reference Range: No JOSE FRANCISCO) NormalsOperator ID - BS [facility] HospitalVANCOMYCIN LEVEL, [id number] 18:53:00 Test Item Value Reference Range Interpretation Comments VANCOMYCIN RANDOM (BEAKER) (test 5.2 ug/mL code = 523) Reference Range: No NormalsOperator ID - BSCALCIUM, [id number] 18:06:00 Test Item Value Reference Range Interpretation Comments CALCIUM IONIZED (BEAKER) (test 1.09 mmol/L 1.12-1.27 L code = 698) PH, BLOOD (BEAKER) (test code = 7.17 1810) CBC W/PLT COUNT & AUTO [id number] 17:58:00 Test Item Value Reference Range Interpretation Comments WHITE BLOOD CELL COUNT (BEAKER) 4.4 K/ L 3.5-10.5 (test code = 775) RED BLOOD CELL COUNT (BEAKER) 4.23 M/ L 4.63-6.08 L (test code = 761) HEMOGLOBIN (BEAKER) (test code = 13.7 GM/DL 13.7-17.5 410) HEMATOCRIT (BEAKER) (test code = 42.3 % 40.1-51.0 411) MEAN CORPUSCULAR VOLUME (BEAKER) 100.0 fL 79.0-92.2 H (test code = 753) MEAN CORPUSCULAR HEMOGLOBIN 32.4 pg 25.7-32.2 H (BEAKER) (test code = 751) MEAN CORPUSCULAR HEMOGLOBIN CONC 32.4 GM/DL 32.3-36.5 (BEAKER) (test code = 752) RED CELL DISTRIBUTION WIDTH 13.3 % 11.6-14.4 (BEAKER) (test code = 412) PLATELET COUNT (BEAKER) (test 161 K/CU MM 150-450 code = 756) MEAN PLATELET VOLUME (BEAKER) 9.7 fL 9.4-12.4 (test code = 754) NUCLEATED RED BLOOD CELLS 0 /100 WBC 0-0 (BEAKER) (test code = 413) (CELLAVISION MANUAL DIFF)2020-01-25 17:58:00 Test Item Value Reference Range Interpretation Comments NEUTROPHILS - REL 22 % (CELLAVISION)(BEAKER) (test code = 2816) LYMPHOCYTES - REL 7 % (CELLAVISION)(BEAKER) (test code = 2817) MONOCYTES - REL 16 % (CELLAVISION)(BEAKER) (test code = 2818) METAMYELOCYTES - REL 2 % 0-0 H (CELLAVISION)(BEAKER) (test code = 2821) BANDS - REL (CELLAVISION)(BEAKER) 52 % 0-10 H (test code = 2826) ATYPICAL LYMPHOCYTES - REL 1 % 0-0 H (CELLAVISION)(BEAKER) (test code = 2829) NEUTROPHILS - ABS 0.97 K/ul 1.78-5.38 L (CELLAVISION)(BEAKER) (test code = 2830) LYMPHOCYTES - ABS 0.31 K/ul 1.32-3.57 L (CELLAVISION)(BEAKER) (test code = 2831) MONOCYTES - ABS 0.70 K/uL 0.30-0.82 (CELLAVISION)(BEAKER) (test code = 2832) METAMYELOCYTES - ABS 0.09 K/uL 0.00-0.00 H (CELLAVISION)(BEAKER) (test code = 2836) BANDS - ABS (CELLAVISION)(BEAKER) 2.29 K/uL 0.00-0.80 H (test code = 2840) ATYPICAL LYMPHOCYTES - ABS 0.04 K/uL 0.00-0.00 H (CELLAVISION)(BEAKER) (test code = 2858) TOTAL COUNTED (BEAKER) (test code = 100 1351) SMUDGE CELLS (BEAKER) (test code = Present 1371) GIANT PLATELETS (BEAKER) (test code Present = 313) POIKILOCYTES (BEAKER) (test code = 1+ few 966) ARTIFACT (CELLAVISION)(BEAKER) Present (test code = 3432) PLATELET CONCENTRATION Adequate (CELLAVISION)(BEAKER) (test code = 3438) Licensed Journeyman Electrician ID - vicente Medina comments: Slide comments:TROPONIN [id number] 17:58:00 Test Item Value Reference Range Interpretation Comments TROPONIN I (BEAKER) (test code = 0.14 ng/mL 0.00-0.03 H 397) Troponin I (TnI) levels must be interpreted in the context of the presenting symptoms and the clinical findings. Elevated TnI levels indicate myocardial damage, but are not specific for ischemic heart disease. Elevated TnI levels are seen in patients with other cardiac conditions (including myocarditis and congestive heart failure), and slight TnI elevations occur in patients with other conditions, including sepsis, renal failure, acidosis, acute neurological disease, and persistent tachyarrhythmia.Licensed Journeyman Electrician ID - BSLactic acid, venous 2020-01-25 17:57:00 Test Item Value Reference Range Interpretation Comments Lactate, Venous (test 6.86 mmol/L 0.5-2.2 HH Specim en code = 2872) slightly hemolyzed JOSE FRANCISCO (test code = JOSE FRANCISCO) Licensed Journeyman Electrician ID - BS Lab Interpretation Abnormal (test code = 73039-0) [facility] CenterLACTIC ACID, [id number] 17:57:00 Test Item Value Reference Range Interpretation Comments LACTATE BLOOD VENOUS 6.86 mmol/L 0.50-2.20 HH Specime n slightly (2) (BEAKER) (test hemolyzed code = 2872) Licensed Journeyman Electrician ID - BSB-TYPE NATRIURETIC FACTOR (BNP)2020-01-25 17:54:00 Test Item Value Reference Range Interpretation Comments B-TYPE NATRIURETIC PEPTIDE (BEAKER) 110 pg/mL 0-100 H (test code = 700) Licensed Journeyman Electrician ID - BSLactate dehydrogenase (LDH)2020-01-25 17:52:00 Test Item Value Reference Range Interpretation Comments LDH (test code = 2532-0) 187 U/L 125-220 JOSE FRANCISCO (test code = JOSE FRANCISCO) Licensed Journeyman Electrician ID - BS Lab Interpretation (test Normal code = 70562-9) [facility] CenterUric [id number] 17:52:00 Test Item Value Reference Range Interpretation Comments Uric Acid (test code = 10.7 mg/dL 2.6-7.2 H 3084-1) JOSE FRANCISCO (test code = JOSE FRANCISCO) Licensed Journeyman Electrician ID - BS Lab Interpretation (test Abnormal code = 28579-6) [facility] CenterC-Reactive [id number] 17:52:00 Test Item Value Reference Range Interpretation Comments CRP (test code = 676) 9.61 mg/dL 0-0.5 H JOSE FRANCISCO (test code = JOSE FRANCISCO) Licensed Journeyman Electrician ID - BS Lab Interpretation (test Abnormal code = 97159-4) [facility] CenterURIC [id number] 17:52:00 Test Item Value Reference Range Interpretation Comments URIC ACID (BEAKER) (test code = 10.7 mg/dL 2.6-7.2 H 773) Licensed Journeyman Electrician ID - [id number] 17:52:00 Test Item Value Reference Range Interpretation Comments MAGNESIUM (BEAKER) (test code = 1.2 mg/dL 1.6-2.6 L 627) Licensed Journeyman Electrician ID - [id number] 17:52:00 Test Item Value Reference Range Interpretation Comments PHOSPHORUS (BEAKER) (test code = 2.2 mg/dL 2.3-4.7 L 604) Licensed Journeyman Electrician ID - BSLACTATE DEHYDROGENASE (LDH)2020-01-25 17:52:00 Test Item Value Reference Range Interpretation Comments LACTATE DEHYDROGENASE (BEAKER) (test 187 U/L 125-220 code = 635) Licensed Journeyman Electrician ID - BSC-REACTIVE [id number] 17:52:00 Test Item Value Reference Range Interpretation Comments C-REACTIVE PROTEIN (BEAKER) (test 9.61 mg/dL 0.00-0.50 H code = 676) Licensed Journeyman Electrician ID - BSCOMPREHENSIVE METABOLIC [id number] 17:52:00 Test Item Value Reference Range Interpretation Comments TOTAL PROTEIN 6.4 gm/dL 6.0-8.3 (BEAKER) (test code = 770) ALBUMIN (BEAKER) 3.6 g/dL 3.5-5.0 (test code = 1145) ALKALINE PHOSPHATASE 28 U/L 40-150 L (BEAKER) (test code = 346) BILIRUBIN TOTAL 0.7 mg/dL 0.2-1.2 (BEAKER) (test code = 377) SODIUM (BEAKER) (test 136 meq/L 136-145 code = 381) POTASSIUM (BEAKER) 3.1 meq/L 3.5-5.1 L (test code = 379) CHLORIDE (BEAKER) 103 meq/L 98-107 (test code = 382) CO2 (BEAKER) (test 17 meq/L 22-29 L code = 355) BLOOD UREA NITROGEN 34 mg/dL 7-21 H (BEAKER) (test code = 354) CREATININE (BEAKER) 4.88 mg/dL 0.57-1.25 H (test code = 358) GLUCOSE RANDOM 325 mg/dL 70-105 H (BEAKER) (test code = 652) CALCIUM (BEAKER) 7.9 mg/dL 8.4-10.2 L (test code = 697) AST (SGOT) (BEAKER) 14 U/L 5-34 (test code = 353) ALT (SGPT) (BEAKER) 28 U/L 6-55 (test code = 347) EGFR (BEAKER) (test INSUFFIC IENT CLINICAL code = 1092) DATA TO CALCULA TE ESTIMATED GFR. Licensed Journeyman Electrician ID - [id number] 17:40:00 Test Item Value Reference Range Interpretation Comments D-Dimer, Quant (test code 3.32 <0.50 MG/L FEU H = 58159-0) JOSE FRANCISCO (test code = JOSE FRANCISCO) Intended Use: The D-Dimer Assay can be used to aid in the diagnosis of Deep Vein Thrombosis (DVT) and Pulmonary Embolism Disease (PED).In patients with low pre-test probability, various studies concerning STA Liatest D-dimer test have reported that with a cutoff value of 0.50 MG/L FEU, the Negative Predictive Value (NPV) regarding the exclusion of thrombosis is within 95-100% range. Lab Interpretation (test Abnormal code = 60146-5) [id number]:40:00 Test Item Value Reference Range Interpretation Comments D-DIMER QUANTITATIVE (BEAKER) 3.32 MG/L FEU <0.50 H (test code = 671) Intended Use: The D-Dimer Assay can be used to aid in the diagnosis of Deep Vein Thrombosis (DVT) and Pulmonary Embolism Disease (PED).In patients with low pre- test probability, various studies concerning STA Liatest D-dimer test have reported that with a cutoff value of 0.50 MG/L FEU, the Negative Predictive Value (NPV) regarding the exclusion of thrombosis is within 95-100% range.BLOOD GAS, [id number] 17:13:00 Test Item Value Reference Range Interpretation Comments PH ARTERIAL (BEAKER) (test code = 7.27 7.35-7.45 L 383) PCO2 ARTERIAL (BEAKER) (test code 40 mmHg 35-45 = 384) PO2 ARTERIAL (BEAKER) (test code 74 mmHg 80-90 L = 385) O2 SATURATION ARTERIAL (BEAKER) 92.3 % 96.0-97.0 L (test code = 386) HCO3 ARTERIAL (BEAKER) (test code 18 mmol/L 21-29 L = 388) BASE EXCESS ARTERIAL (BEAKER) -8.7 mmol/L -2.0-3.0 L (test code = 387) PATIENT TEMPERATURE (BEAKER) 37.6 C (test code = 1818) FIO2 (BEAKER) (test code = 1819) 100.0 % RAD, CHEST, 1 VIEW, NON [id number] 16:23:00Post-intubationReason for exam:- >ETTShould this be performed at the bedside?->YesFINAL REPORT RAD, CHEST, 1 VIEW, NON DEPT INDICATION: ETT COMPARISON: None FIN DINGS: Portable frontal view of the chest. IMPRESSION: Support Lines: Enteric tube terminates 5.6cm above the tiffany. Enteric tube courses into the upper abdomen with tip outside the [id number].Lungs and pleura: Retrocardiac consolidation likely atelectasis but pneumonia not excluded. No pneumothorax. Blunted left costophrenic angle likely due to atelectasis but small effusions not excluded.Heart and mediastinum: No acute finding. Additional findings: None. Signed: Dereck Aguirre MDReport Verified Date/Time: 01/25/2020 16:23:41 Insert Arterial [id number] 09:00:00ThZofia cosme NP 01/25/2020 11:05 PMInsert Arterial LineDate/Time: 01/25/2020 11:00 PMPerformed by: Zofia Valdes NPAuthorized by: Zofia Valdes NP Consent: The procedure was performed in an emergent situation.Relevant documents: relevant documents present and verifiedTest results: test results available and properly labeledSite marked: the operative site was markedImaging studies: imaging studies availablePatient identity confirmed: arm band and hospital-assigned identification numberTime ou t: Immediately prior to procedure a "time out" was called to verify the correct patient, procedure, equipment, technician support association and site/side marked as required.Preparation: Patient was prepped and drapedin the usual sterile fashion.Indications: multiple ABGs and hemodynamic monitoringLocation: right rad ialAnesthesia: local infiltration Anesthesia:Local Anesthetic: lidocaine 1% without epinephrine Sedation:Patient sedated: no Man's test normal: yesNeedle gauge: 22Seldinger technique: Seldinger technique usedNumber of attempts: 1 (Attempted to guide wire the left arteril line and failed )Post-procedure: line sutured and dressing appliedPost-procedure CMS: normalPatient tolerance: Patient tolerated the procedure well with no immediate complicationsComments: Left radial arterial line without blood return and positional. Attempted to guidewire and failed. Pressure applied. Hemostasis achieved. No complications noted. Pulses are intact.[facility]
[2020-07-02 17:05] LABS: Absolute Lymphocytes (CBC) 1.8 K/uL (0.7-4.9); Basophils % 0.7 % (0-1.3); Hematocrit 32.8 % (39.6-49.0); Lymphocytes % 33.7 % (15.3-44.8); MPV 7.6 fL (7.6-11.3); RBC Red Blood Cell Count 3.55 M/uL (4.33-5.43)
[2020-07-02 17:11] LABS: ALT/SGPT 27 U/L (12-78); AST/SGOT 25 U/L (15-37); Albumin 3.6 g/dL (3.4-5.0); Alkaline Phosphatase 44 U/L (45-117); BUN Blood Urea Nitrogen 17 mg/dL (7-18); Bicarbonate 27 mmol/L (21-32); Bilirubin Direct 0.2 mg/dL (0-0.2); Bilirubin Total 0.6 mg/dL (0.2-1.0); Glucose Level 76 mg/dL (74-106); Potassium 3.4 mmol/L (3.5-5.1); Protein, Total 7.5 g/dL (6.4-8.2); Sodium Level 137 mmol/L (136-145)
[2020-07-02] MEDS ORDERED: LORazepam 2 MG/ML VIAL ONE ×2 (17:30→21:42)
[2020-07-02 18:47] LABS: Urine Blood NEGATIVE (NEG); Urine Glucose NEGATIVE (NEG); Urine Protein NEGATIVE (NEG)
[2020-07-02 18:51] LABS: Barbiturates NEGATIVE (NEGATIVE); Benzodiazepines POSITIVE (NEGATIVE); Cocaine NEGATIVE (NEGATIVE); METHAMPHETAM NEGATIVE (NEGATIVE); Methadone NEGATIVE (NEGATIVE); Opiates NEGATIVE (NEGATIVE); Phencyclidine NEGATIVE (NEGATIVE); THC Cannibis NEGATIVE (NEGATIVE)
[2020-07-02] MEDS ORDERED: NA CHLORIDE 0.9% 500 ML ONE (19:48)
--- NOTE | 2020-07-02 23:15 | ER ---
Nurse's Notes [facility] Name: Juan Diego Kelley Age: 74 yrs Sex: Male : 1945 Arrival Date: 07/02/2020 Time: 16:18 Bed 17 Private MD: Diagnosis: Suicidal ideations Presentation: 07/02 16:29 Chief complaint: EMS states: called out for SI, pt has been feeling depressed for em awhile, pt reports he "wants to not live anymore, I'm 74, I've called several friends and no one answers, my is in the hospital and she doesn't want to talk to me" EMS reports pt put gun in his mouth. pt calm and cooperative, reports drinking alcohol [facility], denies HI or hallucinations. Coronavirus screen: Client denies travel out of the [place] in the last 14 days. Ebola Screen: Patient negative for fever greater than or equal to 101.5 degrees Fahrenheit, and additional compatible Ebola Virus Disease symptoms Patient denies exposure to infectious person. Patient denies travel to an Ebola-affected area in the 21 days before illness onset. No symptoms or risks identified at this time. Initial Sepsis Screen: Does the patient meet any 2 criteria? No. Patient's initial sepsis screen is negative. Does the patient have a suspected source of infection? No. Patient's initial sepsis screen is negative. Risk Assessment: Do you want to hurt yourself or someone else? Patient reports desire/thoughts of hurting themselves or someone else. Provider notified. Onset of symptoms was July 02, 2020. 16:29 Method Of Arrival: EMS: [facility] em 16:29 Acuity: DANIEL 2 em Historical: - Allergies: 16:35 Tetanus Vaccines \\T\\ Toxoid; em 16:35 PENICILLINS; em - Home Meds: 07/03 03:51 aspirin 81 mg Oral chew 1 tab once daily [Active]; chlordiazepoxide HCl 25 mg Oral cap lc4 2 caps 4 times per day [Active]; citalopram 40 mg tab 1 tab once daily [Active]; finasteride 5 mg oral tab 1 tab once daily [Active]; furosemide 40 mg Oral tab 1 tab once daily [Active]; gabapentin 100 mg oral cap 3 caps 3 times per day [Active]; insulin detemir subcutaneous subcutaneous [Active]; levothyroxine oral [Active]; lisinopril 20 mg Oral tab 1 tab once daily [Active]; lovastatin 40 mg Oral tab 1 tab once daily [Active]; Antivert 25 mg Oral tab 1 tab 3 times per day for Vertigo [Active]; metformin 1,000 mg Oral tr24 1 tab once daily [Active]; tamsulosin 0.4 mg oral cp24 1 cap once daily [Active]; - PMHx: 07/02 16:35 CHF; Hypertension; Diabetes - IDDM; em - Immunization history:: Adult Immunizations up to date. - Social history:: Smoking status: Patient denies any tobacco usage or history of. Screenin:45 Abuse screen: Denies threats or abuse. Nutritional screening: No deficits noted. em Tuberculosis screening: No symptoms or risk factors identified. Fall Risk None identified. Assessment: 16:29 General: Appears in no apparent distress. comfortable, Behavior is calm, cooperative, em Denies fever. Pain: Denies pain. Neuro: Level of Consciousness is awake, alert, obeys commands, Oriented to person, place, time, situation, Appropriate for age. Cardiovascular: Capillary refill < 3 seconds Patient's skin is warm and dry. Respiratory: Airway is patent Respiratory effort is even, unlabored, Respiratory pattern is regular, symmetrical. Derm: Skin is intact, is healthy with good turgor, Skin is pink, warm \\T\\ dry. Musculoskeletal: Capillary refill < 3 seconds, Range of motion: intact in all extremities. 17:22 Reassessment: Patient appears in no apparent distress at this time. Patient and/or em family updated on plan of care and expected duration. Pain level reassessed. Patient is alert, oriented x 3, equal unlabored respirations, skin warm/dry/pink. 18:22 Reassessment: Patient appears in no apparent distress at this time. Patient and/or em family updated on plan of care and expected duration. Pain level reassessed. Patient is alert, oriented x 3, equal unlabored respirations, skin warm/dry/pink. 19:05 Reassessment: Patient appears in no apparent distress at this time. Patient and/or jb4 family updated on plan of care and expected duration. Pain level reassessed. Patient is alert, oriented x 3, equal unlabored respirations, skin warm/dry/pink. Pt reports continued SI. reports feeling alone and does not want to live anymore. 20:00 Reassessment: Patient appears in no apparent distress at this time. Patient and/or jb4 family updated on plan of care and expected duration. Pain level reassessed. Patient is alert, oriented x 3, equal unlabored respirations, skin warm/dry/pink. 21:00 Reassessment: Patient appears in no apparent distress at this time. Patient and/or jb4 family updated on plan of care and expected duration. Pain level reassessed. Patient is alert, oriented x 3, equal unlabored respirations, skin warm/dry/pink. 22:00 Reassessment: Patient appears in no apparent distress at this time. Patient and/or jb4 family updated on plan of care and expected duration. Pain level reassessed. Patient is alert, oriented x 3, equal unlabored respirations, skin warm/dry/pink. 22:53 Reassessment: Patient appears in no apparent distress at this time. Patient and/or jb4 family updated on plan of care and expected duration. Pain level reassessed. Patient is alert, oriented x 3, equal unlabored respirations, skin warm/dry/pink. Nurse to Nurse done with CHASIDY Drake at [facility]. 07/03 00:00 Reassessment: Patient appears in no apparent distress at this time. Patient and/or jb4 family updated on plan of care and expected duration. Pain level reassessed. Patient is alert, oriented x 3, equal unlabored respirations, skin warm/dry/pink. 01:00 Reassessment: Patient appears in no apparent distress at this time. Patient and/or jb4 family updated on plan of care and expected duration. Pain level reassessed. Patient is alert, oriented x 3, equal unlabored respirations, skin warm/dry/pink. 02:00 Reassessment: Patient appears in no apparent distress at this time. Patient and/or jb4 family updated on plan of care and expected duration. Pain level reassessed. Patient is alert, oriented x 3, equal unlabored respirations, skin warm/dry/pink. Pt is resting in bed using his tablet. 03:24 Reassessment: Patient appears in no apparent distress at this time. Patient and/or jb4 family updated on plan of care and expected duration. Pain level reassessed. Patient is alert, oriented x 3, equal unlabored respirations, skin warm/dry/pink. Report given to CHASIDY MARTINO consent form for transfer. 04:47 Reassessment: Patient appears in no apparent distress at this time. Patient and/or jb4 family updated on plan of care and expected duration. Pain level reassessed. Patient is alert, oriented x 3, equal unlabored respirations, skin warm/dry/pink. pt transferred to [facility] via [facility]. Psych: 07/02 16:29 Subjective: Delusions are denied, Hallucinations are denied Having thoughts of suicide. em Plan for suicide is shooting self. Objective: Patient is cooperative, Speech is normal, Affect is appropriate. Interventions: Removed personal items and placed in bag. Patient placed in hospital gown. Searched person for dangerous items. Belonging list filled out. Suicide Risk Assessment: Sad Person Scale: Sex of patient: Male: Score 1 point. Age of patient: Score 1 point if patient is over 65. Depression: Score 1 point if signs of depression are present. Previous Attempt: Score 1 point if patient has previously attempted suicide. Substance Abuse: Score 1 point if patient abuses alcohol or drugs. Rational Thinking: Score 0 point if patient has rational thinking. Social Support: Score 1 point if social support is lacking and/or unavailable. Organized Plan: Score 1 point if patient had a plan in place. Relationship: Score 0 point if patient has a spouse or domestic partner. Chronic Sickness: Score 0 point if patient does not have a chronic illness, debilitating, or severe disorder. TOTAL POINTS: If total points are 7-10, the proposed clinical action is to hospitalize or commit. Implement suicide precautions. Safety Checks: Personal items have been removed. Door is open. No visitors are present at this time. Patient uses one fifth. Commitment: Patient will be a voluntary commitment. Patient will be an involuntary commitment. Vital Signs: 16:29 BP 135 / 72; Pulse 56; Resp 18; Pulse Ox 94% on R/A; Weight 105.69 kg; Height 5 ft. 10 em in. (177.80 cm); Pain 0/10; 16:43 Temp 98.1; em 21:30 BP 126 / 64; Pulse 64; Resp 16; Pulse Ox 98% on R/A; jb4 07/03 00:50 BP 133 / 60; Pulse 87; Resp 16; Temp 98.1(A); Pulse Ox 93% on R/A; Pain 0/10; ds4 03:15 Pulse 67; Resp 16; Pulse Ox 99% on R/A; jb4 07/02 16:29 Body Mass Index 33.43 (105.69 kg, 177.80 cm) em ED Course: 07/02 16:18 Patient arrived in ED. ss 16:20 [facility]-C [facility] kb 16:20 Nathalie Houston MD is Attending Physician. kb 16:29 Denny Rodas, CHASIDY is Primary Nurse. em 16:29 Patient has correct armband on for positive identification. Placed in gown. Bed in low em position. Call light in reach. 16:30 Safety checks: Items removed: yes. Door open/sign placed on door: yes. Family/friend bret present: no. Sitter present: Yes. Warm blanket given. Pillow given. PO fluids given. Verbal reassurance given. Sitter at bedside. 16:33 Triage completed. em 16:35 Arm band placed on. em 16:35 Initial lab(s) drawn, by ma, sent to lab. EKG done, by ED staff, reviewed by Pauline FAN. Inserted saline lock: 20 gauge in right antecubital area, using aseptic technique. Blood collected. 18:41 Urine collected: clean catch specimen, clear, pepper colored, Legal drug screen obtained bret per protocol. Patient maintains SpO2 saturation greater than 95% on room air. 22:02 Faxed Pt. clinical's to psych facilities. ar5 22:40 [facility] called for nurse-nurse. ar5 23:39 Called [facility] to get an update on transfer, Noelle Tala stated they [facility] do not have anymore beds. 23:50 Faxed pt. clinical's to psych facilities again. 07/03 00:14 Called Paola \\German\\ [facility] to check for bed availability. She needs clinical's, ar5 exclusionary, and psych evaluation before 00:21 Called Carleen Gamez to get evaluation on pt. 5 01:30 Faxed exclusionary, lab clinical's and psych evaluation to [facility]. 02:20 Janna done with psych physician Anamika Valladares\\ [facility]. ar5 02:29 Acceptance pending a bed given by Paola Duong. Accepting physician Dr. Cullen Lopez. ar5 03:15 Going to [address]. Report called to . ar5 03:18 [facility] will be here in 45 minutes to an hour. ar5 04:47 No provider procedures requiring assistance completed. IV discontinued, intact, jb4 bleeding controlled, No redness/swelling at site. Pressure dressing applied. Administered Medications: 07/02 16:50 Drug: Ativan 1 mg Route: IVP; Site: right antecubital; em 18:51 Follow up: Response: No adverse reaction em 19:40 Drug: NS 0.9% 500 ml Route: IV; Rate: calculated rate; Site: right antecubital; jb4 20:10 Follow up: Response: No adverse reaction; IV Status: Completed infusion; IV Intake: jb4 500ml 21:35 Drug: Ativan 0.5 mg Route: IVP; Site: right antecubital; jb4 22:00 Follow up: Response: No adverse reaction; Marked relief of symptoms jb4 Intake: 20:10 IV: 500ml; Total: 500ml. jb4 Outcome: 23:14 ER care complete, transfer ordered by MD. michael 07/03 04:47 Transferred by [facility] to [facility]. jb4 Condition: stable Discharge instructions given to patient, Instructed on the need for transfer, Demonstrated understanding of instructions. 04:51 Patient left the ED. jb4 Signatures: Pauline English, MENG MARIO-Denny Mendosa RN RN Glenny Bridges RN RN Joel Alejandre4 Jovanny Gardiner RN RN jb4 Augusto Vallecillo jp3 Sol Cabral4 Debbie Stevens ar5 Corrections: (The following items were deleted from the chart) 07/02 18:50 18:22 Reassessment: Patient appears in no apparent distress at this time. Patient em and/or family updated on plan of care and expected duration. Pain level reassessed. Patient is alert, oriented x 3, equal unlabored respirations, skin warm/dry/pink. em 18:50 18:20 Reassessment: Patient appears in no apparent distress at this time. Patient em and/or family updated on plan of care and expected duration. Pain level reassessed. Patient is alert, oriented x 3, equal unlabored respirations, skin warm/dry/pink. em
--- NOTE | 2020-07-02 23:15 | EDPHYS ---
Physician Documentation [facility] Name: Juan Diego Kelley Age: 74 yrs Sex: Male : 1945 Arrival Date: 07/02/2020 Time: 16:18 Bed 17 Private MD: ED Physician Nathalie Houston HPI: 07/02 17:59 This 74 yrs old Male presents to ER via EMS with complaints of Depression. kb 17:59 The patient presents to the emergency department with depression, suicide ideation, and kb the patient has a plan, to shoot self. Onset: The symptoms/episode began/occurred this morning. Associated signs and symptoms: Pertinent positives; depression, substance abuse, suicide ideation, Pertinent negatives: abdominal pain, anxiety, chest pain, chills, delusions, fever, hallucinations, headache, homicidal ideation, nausea, night sweats, palpitations, paranoia, shortness of breath, tremor, vomiting. Severity of symptoms: At their worst the symptoms were moderate in the emergency department the symptoms are unchanged. The patient has experienced similar episodes in the past, several times. The patient has not recently seen a physician. Pt reports he has decided he no longer wants to live. States he called his friends this morning and they won't answer. States his is in the hospital in [place] and won't return his calls either. States he had his 45 out this morning to shoot himself. [facility] was called by pt's son after he got a call from pt saying he was going to shoot himself. . Historical: - Allergies: 16:35 Tetanus Vaccines \T\ Toxoid; em 16:35 PENICILLINS; em - Home Meds: 07/03 03:51 aspirin 81 mg Oral chew 1 tab once daily [Active]; chlordiazepoxide HCl 25 mg Oral cap lc4 2 caps 4 times per day [Active]; citalopram 40 mg tab 1 tab once daily [Active]; finasteride 5 mg oral tab 1 tab once daily [Active]; furosemide 40 mg Oral tab 1 tab once daily [Active]; gabapentin 100 mg oral cap 3 caps 3 times per day [Active]; insulin detemir subcutaneous subcutaneous [Active]; levothyroxine oral [Active]; lisinopril 20 mg Oral tab 1 tab once daily [Active]; lovastatin 40 mg Oral tab 1 tab once daily [Active]; Antivert 25 mg Oral tab 1 tab 3 times per day for Vertigo [Active]; metformin 1,000 mg Oral tr24 1 tab once daily [Active]; tamsulosin 0.4 mg oral cp24 1 cap once daily [Active]; - PMHx: 07/02 16:35 CHF; Hypertension; Diabetes - IDDM; em - Immunization history:: Adult Immunizations up to date. - Social history:: Smoking status: Patient denies any tobacco usage or history of. ROS: 17:59 Constitutional: Negative for fever, chills, and weight loss, Cardiovascular: Negative kb for chest pain, palpitations, and edema, Respiratory: Negative for shortness of breath, cough, wheezing, and pleuritic chest pain, Abdomen/GI: Negative for abdominal pain, nausea, vomiting, diarrhea, and constipation, Back: Negative for injury and pain, MS/Extremity: Negative for injury and deformity, Skin: Negative for injury, rash, and discoloration, Neuro: Negative for headache, weakness, numbness, tingling, and seizure. 17:59 Psych: Positive for depression, suicidal ideation. Exam: 16:56 Constitutional: This is a well developed, well nourished patient who is awake, alert, kb and in no acute distress. Head/Face: Normocephalic, atraumatic. Chest/axilla: Normal chest wall appearance and motion. Nontender with no deformity. No lesions are appreciated. Cardiovascular: Regular rate and rhythm with a normal S1 and S2. No gallops, murmurs, or rubs. Normal PMI, no JVD. No pulse deficits. Respiratory: Lungs have equal breath sounds bilaterally, clear to auscultation and percussion. No rales, rhonchi or wheezes noted. No increased work of breathing, no retractions or nasal flaring. Abdomen/GI: Soft, non-tender, with normal bowel sounds. No distension or tympany. No guarding or rebound. No evidence of tenderness throughout. Back: No spinal tenderness. No costovertebral tenderness. Full range of motion. Skin: Warm, dry with normal turgor. Normal color with no rashes, no lesions, and no evidence of cellulitis. MS/ Extremity: Pulses equal, no cyanosis. Neurovascular intact. Full, normal range of motion. Neuro: Awake and alert, GCS 15, oriented to person, place, time, and situation. Cranial nerves II-XII grossly intact. Motor strength 5/5 in all extremities. Sensory grossly intact. Cerebellar exam normal. Normal gait. 16:56 ECG was reviewed by the Attending Physician. 16:57 Psych: Behavior/mood is pleasant, cooperative, suicidal, depressed, Affect is calm, kb Oriented to person, place, time, Patient having thoughts of suicide. Plan for suicide is shoot himself Judgement / Insight is normal. Memory is normal. Delusions/hallucinations are not present. Vital Signs: 16:29 BP 135 / 72; Pulse 56; Resp 18; Pulse Ox 94% on R/A; Weight 105.69 kg; Height 5 ft. 10 em in. (177.80 cm); Pain 0/10; 16:43 Temp 98.1; em 21:30 BP 126 / 64; Pulse 64; Resp 16; Pulse Ox 98% on R/A; jb4 07/03 00:50 BP 133 / 60; Pulse 87; Resp 16; Temp 98.1(A); Pulse Ox 93% on R/A; Pain 0/10; ds4 03:15 Pulse 67; Resp 16; Pulse Ox 99% on R/A; jb4 07/02 16:29 Body Mass Index 33.43 (105.69 kg, 177.80 cm) em MDM: 07/02 16:20 Patient medically screened. 16:57 Data reviewed: vital signs, nurses notes. Data interpreted: Pulse oximetry: on room air kb is 94 %. Interpretation: normal. 17:59 Data reviewed: lab test result(s), EKG. 07/03 00:13 ED course: Awaiting inpatient psychiatric facility placement. Pt will be voluntary for kb any facility except the [facility]. [facility] and refuses to go back there. 00:53 Counseling: I had a detailed discussion with the patient and/or guardian regarding: the historical points, exam findings, and any diagnostic results supporting the discharge/admit diagnosis, lab results, the need to transfer to another facility, [facility] does not immediately have the required specialist. Transition of care: After a detail discussion of the patient's case, care is transferred to Cristian Morales MD. 07/02 16:20 Order name: Acetaminophen; Complete Time: 17:17 kb 07/02 16:20 Order name: Basic Metabolic Panel; Complete Time: 17:17 kb 07/02 16:20 Order name: CBC with Diff; Complete Time: 17:27 kb 07/02 16:20 Order name: ETOH Level; Complete Time: 17:17 kb 07/02 16:20 Order name: Hepatic Function; Complete Time: 17:17 kb 07/02 16:20 Order name: PT-INR; Complete Time: 17:27 kb 07/02 16:20 Order name: Ptt, Activated; Complete Time: 17:27 kb 07/02 16:20 Order name: Salicylate; Complete Time: 17:27 kb 07/02 16:20 Order name: Urine Drug Screen; Complete Time: 18:52 kb 07/02 16:51 Order name: Glucose, Ancillary Testing; Complete Time: 16:51 EDMS 07/02 18:43 Order name: Urine Dipstick--Ancillary (enter results); Complete Time: 18:48 eb 07/02 19:49 Order name: ETOH Level; Complete Time: 20:23 kb 07/02 20:54 Order name: SARS-COV-2 RT PCR; Complete Time: 21:00 EDMS 07/02 16:20 Order name: EKG; Complete Time: 16:22 kb 07/02 16:20 Order name: EKG - Nurse/Tech; Complete Time: 17:39 kb 07/02 16:20 Order name: IV Saline Lock; Complete Time: 17:39 kb 07/02 16:20 Order name: Labs collected and sent; Complete Time: 17:39 kb 07/02 16:20 Order name: Urine Dipstick-Ancillary (obtain specimen); Complete Time: 18:42 kb 07/03 03:33 Order name: Glucose, Ancillary Testing EDMS EC/29 16:56 Rate is 55 beats/min. Rhythm is regular. QRS [place] is Normal. ND interval is prolonged kb at 294 msec. QRS interval is normal at 92 msec. QT interval is normal at 464 msec. Administered Medications: 16:50 Drug: Ativan 1 mg Route: IVP; Site: right antecubital; em 18:51 Follow up: Response: No adverse reaction em 19:40 Drug: NS 0.9% 500 ml Route: IV; Rate: calculated rate; Site: right antecubital; jb4 20:10 Follow up: Response: No adverse reaction; IV Status: Completed infusion; IV Intake: jb4 500ml 21:35 Drug: Ativan 0.5 mg Route: IVP; Site: right antecubital; jb4 22:00 Follow up: Response: No adverse reaction; Marked relief of symptoms jb4 Disposition: 07/02/20 23:14 Transfer ordered to [facility]. Diagnosis is Suicidal ideations. - Reason for transfer: Higher level of care. - Accepting physician is Dr. Lopez. - Condition is Stable. - Problem is new. - Symptoms are unchanged. Signatures: Dispatcher [employer] [facility] Pauline English, TRAFFIC SUPERINTENDENT-C TRAFFIC SUPERINTENDENT-Ckb Denny Rodas, CHASIDY RN Jovanny Reagan RN RN jb4 Sol Cabral 4 Cristian Morales MD MD [email or web address] Corrections: (The following items were deleted from the chart) 19:41 18:59 CORONAVIRUS+MR.LAB.BRZ ordered. [facility] 07/03 00:13 07/02 23:14 07/02/2020 23:14 Transfer ordered to [facility] Facility. Diagnosis is Suicidal kb ideations. Reason for transfer: Higher level of care. Accepting physician is Conner Gonzalez. Condition is Stable. Problem is new. Symptoms are unchanged. 07/03 02:58 00:13 07/02/2020 23:14 Transfer ordered to Psych Facility. Diagnosis is Suicidal mh7 ideations. Reason for transfer: Higher level of care. Accepting physician is Psych. Condition is Stable. Problem is new. Symptoms are unchanged. 04:51 02:58 07/02/2020 23:14 Transfer ordered to [facility]. Diagnosis is Suicidal jb4 ideations. Reason for transfer: Higher level of care. Accepting physician is Dr. Lopez. Condition is Stable. Problem is new. Symptoms are unchanged. mh7
[2020-07-06 11:43] VITALS: TEMP 98.1
[2020-07-06 11:46] VITALS: BP 133/60
[2020-07-06 11:47] VITALS: O2SAT 99
== END 2020-07-03 04:51 | disposition short-term general hospital (02) ==
LOC: ER 16:12
DX: R45.851 Suicidal ideations (principal); F32.9 Major depressive disorder, single episode, unspecified; I10 Essential (primary) hypertension; E11.9 Type 2 diabetes mellitus without complications; Z79.4 Long term (current) use of insulin; Z79.82 Long term (current) use of aspirin; Z88.0 Allergy status to penicillin; Z88.7 Allergy status to serum and vaccine
CPT/HCPCS: 93005; 85025; 80048; 36415; 80320 ×2; 80329 ×2; 85610; 82947 ×2; 80076; 80307 ×8; 85730; 81003; 96374; 99285; U0003; J7040

== ENCOUNTER 2020-08-17 22:26 | Emergency (ER) | payer OTHER ==
--- OUTSIDE RECORDS SUMMARY | 2020-08-17 22:29 | XMS REPORT | Clinical Summary ---
:1945 Author Organization [facility] Address [address] [place] [address] Care Team Providers Name Role Phone Asked, Pcp Primary Care Provider Unavailable Allergies Active Allergy Reactions Severity Noted Date Comments Penicillins Rash Low 02/15/2019 Tetanus Toxoid Other (See Comments) 09/02/2019 Medications Medication Sig Dispensed Refills Start End Status Date Date aspirin (ECOTRIN) 81 Take 81 mg by 0 Active MG enteric coated mouth daily. tabletIndications: myocardial infarction prevention finasteride Take 5 mg by 0 Activ e (PROSCAR) 5 mg mouth daily. tabletIndications: benign prostatic hyperplasia with lower urinary tract sx insulin detemir Inject 40 0 Acti ve U-100 (LEVEMIR) 100 Units under unit/mL the skin. injectionIndications : type 2 diabetes mellitus lovastatin (MEVACOR) Take 40 mg by 0 Active 10 MG mouth nightly. tabletIndications: hyperlipidemia metFORMIN Take 1,000 mg 0 Active (GLUCOPHAGE) 1,000 by mouth daily mg with tabletIndications: breakfast. type 2 diabetes mellitus tamsulosin (FLOMAX) Take 0.4 mg by 0 Active 0.4 mg mouth daily capsuleIndications: with dinner. benign prostatic hyperplasia with lower urinary tract sx apixaban (ELIQUIS) 5 Take 1 tablet 0 Active mg (5 mg total) 0 tabletIndications: by mouth 2 afib (two) times a day .afib. omeprazole OTC Take 1 tablet 0 A ctive (PriLOSEC OTC) 20 MG (20 mg total) 0 EC by mouth 2 tabletIndications: (two) times a gastroesophageal day reflux disease .gastroesophag eal reflux disease. citalopram (CeleXA) Take 40 mg by 0 Discontinued 40 MG tablet mouth daily. 020 (Reo rder) furosemide (LASIX) Take 40 mg by 0 Discontinued 40 mg tablet mouth 2 (two) 020 (Re order) times a day. levothyroxine Take 75 mcg by 0 D iscontinued (SYNTHROID) 75 mcg mouth daily. 020 (Reorder) tablet lisinopriL Take 20 mg by 0 Disco ntinued (PRINIVIL) 20 mg mouth daily. 020 (Reorder) tablet meclizine (ANTIVERT) Take 25 mg by 0 07/12 Discontinued 25 mg tablet mouth 3 020 (three) times a day as needed for dizziness. citalopram (CeleXA) Take 0.5 15 tablet 0 40 MG tablets (20 mg 0 020 tabletIndications: total) by major depressive mouth daily disorder for 30 days .major depressive disorder. furosemide (LASIX) Take 0.5 30 tablet 0 E xpired 40 mg tablets (20 mg 0 020 tabletIndications: total) by hypertension mouth 2 (two) times a day for 30 days .high blood pressure. lisinopriL Take 0.5 15 tablet 0 (PRINIVIL) 20 mg tablets (10 mg 0 020 tabletIndications: total) by hypertension mouth daily for 30 days .high blood pressure. levothyroxine Take 1 tablet 30 tablet 0 Ex pired (SYNTHROID) 175 mcg (175 mcg 0 020 tabletIndications: total) by hypothyroidism mouth daily for 30 days .a condition with low thyroid hormone levels. gabapentin Take 2 180 capsule 0 (NEURONTIN) 100 mg capsules (200 0 020 capsuleIndications: mg total) by neuropathic pain mouth 3 (three) times a day for 30 days .neuropathic pain. multivitamin Take 1 tablet 30 tablet 0 Exp ired (THERAGRAN) by mouth daily 0 020 tabletIndications: for 30 days vitamin deficiency .vitamin deficiency. folic acid (FOLVITE) Take 1 tablet 30 tablet 0 08/12 1 MG (1 mg total) 0 020 tabletIndications: by mouth daily folate deficiency for 30 days .inadequate folic acid. thiamine Take 1 tablet 30 tablet 0 d mononitrate, vit B1, (100 mg total) 0 020 (B-1) 100 mg by mouth daily tabletIndications: for 30 days thiamine deficiency .deficiency in thiamine or vitamin B1. Active Problems Problem Noted Date Class 2 obesity in adult 07/06/2020 Suicide attempt 07/04/2020 Severe episode of recurrent major depressive disorder, without psychotic 07/04/2020 features Chronic post-traumatic stress disorder (PTSD) 07/04/20 20 Substance induced mood disorder 07/03/2020 Alcohol withdrawal 07/03/2020 Falls frequently 07/03/2020 THEO (obstructive sleep apnea) 07/03/2020 Type 2 diabetes mellitus 07/03/2020 CHF (congestive heart failure) 07/03/2020 Paroxysmal atrial fibrillation 07/03/2020 BPH (benign prostatic hyperplasia) 07/03/2020 BPV (benign positional vertigo) 07/03/2020 Essential hypertension 07/03/2020 Encounters Date Type Specialty Care Team Description 07/18/2020 Clinical Support Home Health Asked, No Pcp Services 07/03/2020 - Hospital Encounter Psychiatry Callie Lopez Subst ance induced 07/12/2020 MD Lucy mood disorder ( HCC) (Primary Dx) 07/03/2020 Travel after 08/17/2019 Immunizations Name Administration Dates Next Due FLUCELVAX QUAD PF 07/12/2020 Pneumococcal Polysaccharide 07/12/2020 (Deferred: Other) Surgical History Surgery Date Site/Laterality Comments ABDOMINAL SURGERY Medical History Medical History Date Comments Type 2 diabetes mellitus (HCC) Hypertension Hypothyroidism Depression Anxiety Alcoholism (HCC) Withdrawal symptoms, alcohol (HCC) Family History Medical History Relation Name Comments Alcohol abuse Father Cancer Mother Diabetes Mother Relation Name Status Comments Father Mother Social History Tobacco Use Types Packs/Day Years Used Date Never Smoker Smokeless Tobacco: Never Used Alcohol Use Drinks/Week oz/Week Comments Yes 1/4 pint daily Sex Assigned at Date Recorded Not on file Last Filed Vital Signs Vital Sign Reading Time Taken Comments Blood Pressure 167/80 07/18/2020 11:24 AM CDT Pulse 66 07/18/2020 11:24 AM CDT Temperature 37.2 C (98.9 F) 07/18/2020 11:24 AM CDT Respiratory Rate 17 07/18/2020 11:24 AM CDT Oxygen Saturation 96% 07/12/2020 5:56 AM CDT Inhaled Oxygen Concentration - - Weight 110 kg (242 lb 4.8 oz) 07/06/2020 6:31 AM CDT Height 177.8 cm (5' 10") 07/03/2020 6:10 AM CDT Body Mass Index 34.77 07/03/2020 6:10 AM CDT Plan of Treatment Health Maintenance Due Date Last Done Comments DIABETIC RETINAL EYE EXAM 1945 DIABETIC FOOT EXAM 1957 URINE MICROALBUMIN 1957 COLONOSCOPY SCREENING 1997 SHINGLES VACCINES (#1) 1997 65+ PNEUMOCOCCAL VACCINE (1 of 1 - PPSV23) 2012 INFLUENZA VACCINE Completed 07/12/2020 Procedures Procedure Name Priority Date/Time Associated Comments Diagnosis POC GLUCOSE Routine 07/12/2020 12:02 Results for this PM CDT procedure are i n the results section. POC GLUCOSE Routine 07/12/2020 6:38 Results for this AM CDT procedure are i n the results section. POC GLUCOSE Routine 07/11/2020 8:21 Results for this PM CDT procedure are i n the results section. POC GLUCOSE Routine 07/11/2020 5:02 Results for this PM CDT procedure are i n the results section. POC GLUCOSE Routine 07/11/2020 12:02 Results for this PM CDT procedure are i n the results section. POC GLUCOSE Routine 07/11/2020 6:19 Results for this AM CDT procedure are i n the results section. POC GLUCOSE Routine 07/10/2020 8:33 Results for this PM CDT procedure are i n the results section. POC GLUCOSE Routine 07/10/2020 5:28 Results for this PM CDT procedure are i n the results section. POC GLUCOSE Routine 07/10/2020 12:11 Results for this PM CDT procedure are i n the results section. POC GLUCOSE Routine 07/10/2020 6:36 Results for this AM CDT procedure are i n the results section. T4, FREE Routine 07/09/2020 11:00 Results for this PM CDT procedure are i n the results section. POC GLUCOSE Routine 07/09/2020 8:36 Results for this PM CDT procedure are i n the results section. POC GLUCOSE Routine 07/09/2020 5:10 Results for this PM CDT procedure are i n the results section. POC GLUCOSE Routine 07/09/2020 12:11 Results for this PM CDT procedure are i n the results section. POC GLUCOSE Routine 07/09/2020 6:43 Results for this AM CDT procedure are i n the results section. POC GLUCOSE Routine 07/08/2020 8:23 Results for this PM CDT procedure are i n the results section. POC GLUCOSE Routine 07/08/2020 5:04 Results for this PM CDT procedure are i n the results section. POC GLUCOSE Routine 07/08/2020 12:06 Results for this PM CDT procedure are i n the results section. POC GLUCOSE Routine 07/08/2020 7:11 Results for this AM CDT procedure are i n the results section. POC GLUCOSE Routine 07/07/2020 7:49 Results for this PM CDT procedure are i n the results section. POC GLUCOSE Routine 07/07/2020 5:08 Results for this PM CDT procedure are i n the results section. POC GLUCOSE Routine 07/07/2020 12:03 Results for this PM CDT procedure are i n the results section. POC GLUCOSE Routine 07/07/2020 6:49 Results for this AM CDT procedure are i n the results section. POC GLUCOSE Routine 07/06/2020 8:58 Results for this PM CDT procedure are i n the results section. POC GLUCOSE Routine 07/06/2020 5:02 Results for this PM CDT procedure are i n the results section. POC GLUCOSE Routine 07/06/2020 12:03 Results for this PM CDT procedure are i n the results section. POC GLUCOSE Routine 07/06/2020 7:58 Results for this AM CDT procedure are i n the results section. POC GLUCOSE Routine 07/06/2020 6:27 Results for this AM CDT procedure are i n the results section. ESTIMATED GFR Routine 07/05/2020 10:00 Results fo r this PM CDT procedure are i n the results section. THYROID STIMULATING Routine 07/05/2020 10:00 Resu lts for this HORMONE PM CDT procedure are i n the results section. VITAMIN B12 LEVEL Routine 07/05/2020 10:00 Result s for this PM CDT procedure are i n the results section. VITAMIN D 25 HYDROXY Routine 07/05/2020 10:00 Res ults for this LEVEL PM CDT procedure are i n the results section. FOLATE LEVEL Routine 07/05/2020 10:00 Results for this PM CDT procedure are i n the results section. BASIC METABOLIC PANEL Routine 07/05/2020 10:00 Re sults for this PM CDT procedure are i n the results section. HC COMPLETE BLD COUNT Routine 07/05/2020 10:00 Re sults for this W/AUTO DIFF PM CDT procedure are i n the results section. POC GLUCOSE Routine 07/05/2020 8:29 Results for this PM CDT procedure are i n the results section. POC GLUCOSE Routine 07/05/2020 5:30 Results for this PM CDT procedure are i n the results section. POC GLUCOSE Routine 07/05/2020 12:25 Results for this PM CDT procedure are i n the results section. POC GLUCOSE Routine 07/05/2020 7:20 Results for this AM CDT procedure are i n the results section. POC GLUCOSE Routine 07/05/2020 6:15 Results for this AM CDT procedure are i n the results section. POC GLUCOSE Routine 07/04/2020 8:53 Results for this PM CDT procedure are i n the results section. POC GLUCOSE Routine 07/04/2020 5:40 Results for this PM CDT procedure are i n the results section. POC GLUCOSE Routine 07/04/2020 11:55 Results for this AM CDT procedure are i n the results section. POC GLUCOSE Routine 07/04/2020 6:51 Results for this AM CDT procedure are i n the results section. SYPHILIS TOTAL Routine 07/04/2020 6:15 Results f or this ANTIBODY AM CDT procedure are i n the results section. HIV AG/AB COMBINATION Routine 07/04/2020 6:15 Re sults for this AM CDT procedure are i n the results section. HEMOGLOBIN A1C Routine 07/04/2020 6:15 Results f or this AM CDT procedure are i n the results section. ESTIMATED GFR Routine 07/04/2020 4:00 Results fo r this AM CDT procedure are i n the results section. BASIC METABOLIC PANEL Routine 07/04/2020 4:00 Re sults for this AM CDT procedure are i n the results section. LIPID PANEL Routine 07/04/2020 4:00 Results for this AM CDT procedure are i n the results section. POC GLUCOSE Routine 07/03/2020 8:16 Results for this PM CDT procedure are i n the results section. POC GLUCOSE Routine 07/03/2020 5:44 Results for this PM CDT procedure are i n the results section. POC GLUCOSE Routine 07/03/2020 11:56 Results for this AM CDT procedure are i n the results section. ECG 12-LEAD STAT 07/03/2020 10:18 Results for this AM CDT procedure are i n the results section. POC GLUCOSE Routine 07/03/2020 6:37 Results for this AM CDT procedure are i n the results section. after 08/17/2019 Results POC glucose (07/12/2020 12:02 PM CDT)Only the most recent of40 resultswithin the time period is included. [facility] Sig nature POC glucose 192 (H) 65 - 99 mg/dL [facility] Comment: HOSPITAL Box Sealing Machine Feeder Name: Saweyr Cowan Device ID: [id number] Chartable: [facility] Notified RN Specimen Blood Performing Organization Address City/[facility] Phon e Number [facility] DEPARTMENT OF PATHOLOGY AND [address] [place] [address] [address] T4, free (07/09/2020 11:00 PM CDT) [facility] T4, free 1.0 0.9 - 1.7 ng/dL [facility] Specimen Blood Performing Organization Address [facility] Phon e Number [facility] DEPARTMENT OF PATHOLOGY AND [address] [place] [address] [address] Estimated GFR (07/05/2020 10:00 PM CDT)Only the most recent of2 resultswithin the time period is included. Pathologist [facility] Estimated GFR 39 (A) mL/min/1.73 [facility] Comment: HOSPITAL Catergory Units Interpretation G1 >=90 Normal or high G2 60-89 Mildly decreased G3a 45-59 Mildly to moderately decreas ed G3b 30-44 Moderately to severely decre ased G4 15-29 Severely decreased G5 <15 Kidney failure The eGFR was calculated using the Chronic Kidney Disea se Epidemiology Collaboration (CKD-EPI) equation. Interpretation is based on recommendations of the National Kidney Foundation-Kidney Disease Outcomes Eduardo lity Initiative (NKF-KDOQI) published in 2014. Specimen Performing Organization Address City/[facility]/ZIP [facility] Phon e Number [facility] DEPARTMENT OF PATHOLOGY AND [address] [place] [address] [place] [phone] [facility] [address] [place] [address] Vitamin D 25 hydroxy level (07/05/2020 10:00 PM CDT) [facility] Vitamin D, 38.4 30.0 - 150.0 [facility] 25-hydroxy Comment: ng/mL HOSPITAL This assay reports the sum of 25-hydroxy vitamin D3 an d 25-hydroxy vitamin D2. Reference range: 0-17 years: Deficiency: less than 20ng/mL Optimum level: greater than or equal to 20 ng/mL. 18 years and older: Deficiency: less than 20ng/mL Insufficiency: 20-29 ng/mL Optimum Level: 30-80 ng/mL The assay reportable range is 3.4 155.9 ng/mL. Level s higher than 150 ng/mL may be associated with toxicity. If toxicity is clinically suspected and the reported r esult is >155.9 ng/mL,contact lab for alternative methods to obtain a definitive level. If separate quantitation of 25-hydroxy vitamin D3 and 25-hydroxy vitamin D2 is needed, please contact lab for alternative methods. Specimen Blood Performing Organization Address City/State/ZIP Code Phon e Number [facility] DEPARTMENT OF PATHOLOGY AND [address] [place] [address] [phone] [place] [id number] [place] [address] CBC with platelet and differential (07/05/2020 10:00 PM CDT) [facility] WBC 7.72 4.50 - 11.00 [facility] k/uL [facility] RBC 3.80 (L) 4.40 - 6.00 [facility] m/uL [facility] HGB 11.8 (L) 14.0 - 18.0 [facility] g/dL [facility] HCT 36.8 (L) 41.0 - 51.0 % [facility] MCV 96.8 82.0 - 100.0 [facility] MCH 31.1 27.0 - 34.0 pg [facility] MCHC 32.1 31.0 - 37.0 [facility] gdL [facility] RDW - SD 50.6 37.0 - 55.0 fL [facility] MPV 9.7 8.8 - 13.2 fL [facility] Platelet count 123 (L) 150 - 400 k/uL [facility] Nucleated RBC 0.00 /100 WBC [facility] Neutrophils 55.4 39.0 - 69.0 % [facility] Lymphocytes 30.8 25.0 - 45.0 % [facility] Monocytes 8.5 0.0 - 10.0 % [facility] Eosinophils 4.3 0.0 - 5.0 % [facility] Basophils 0.5 0.0 - 1.0 % [facility] Immature granulocytes 0.5Comment: 0.0 - 1.0 % [facility] "[facility] granulocytes" (promyelocytes , myelocytes, metamyelocytes ) Specimen Blood Performing Organization Address [facility] Phon e Number [facility] DEPARTMENT OF PATHOLOGY AND [address] [place] [address] [phone] [address] Thyroid stimulating hormone (07/05/2020 10:00 PM CDT) Pathologist Sig nature TSH 10.19 (H) 0.27 - 4.20 uIU/mL [facility] Specimen Blood Performing Organization Address [facility] Phon e Number [facility] DEPARTMENT OF PATHOLOGY AND [address] [place] [address] [phone] [address] Folate level (07/05/2020 10:00 PM CDT) Pathologist Sig nature Folate >20.0 4.8 - 24.2 ng/mL [facility] Specimen Serum Performing Organization Address [facility] Phon e Number [facility] DEPARTMENT OF PATHOLOGY AND [address] [place] [address] [phone] [address] Vitamin B12 level (07/05/2020 10:00 PM CDT) Vitamin B12 788 205 - 222 [facility] Comment: pg/mL HOSPITAL Significant overlap exists between normal and deficien cy states. However, most patients with deficiencies will have Ser um B12 <200 pg/mL. Specimen Serum Performing Organization Address [facility] Phon e Number [facility] DEPARTMENT OF PATHOLOGY AND [address] [place] [address] [phone] [address] Basic metabolic panel (07/05/2020 10:00 PM CDT)Only the most recent of2 results within the time period is included. Pathologist Sig nature Sodium 137 135 - 148 mEq/L [facility] Potassium 4.2 3.5 - 5.0 mEq/L [facility] Chloride 93 (L) 98 - 112 mEq/L [facility] CO2 29 24 - 31 mEq/L [facility] Anion gap 15@ANIO 7 - 15 mEq/L [facility] BUN 21 8 - 23 mg/dL [facility] Creatinine 1.72 (H) 0.70 - 1.20 mg/dL [facility] Glucose 170 (H) 65 - 99 mg/dL [facility] Calcium 10.1 8.8 - 10.2 mg/dL [facility] Specimen Blood Performing Organization Address City/[facility] Phon e Number [facility] DEPARTMENT OF PATHOLOGY AND [address] [place] [address] [address] Syphilis total antibody (07/04/2020 6:15 AM CDT) Syphilis total Non-reactiveComment Non-reactive [facility] antibody : No serological HOSPITAL evidence of syphilis infection. Specimen Blood Performing Organization Address City/State/[facility] Phon e Number [facility] DEPARTMENT OF PATHOLOGY AND [address] [place] [address] [address] HIV Ag/Ab combination (07/04/2020 6:15 AM CDT) HIV Ag/Ab combination Non-reactive Non-reactive [facility] Specimen Blood Performing Organization Address City/[facility] Phon e Number [facility] DEPARTMENT OF PATHOLOGY AND [address] [place] [address] [address] Hemoglobin A1c (07/04/2020 6:15 AM CDT) Hemoglobin A1C 6.0 (H) 4.0 - 5.6 % [facility] Comment: HOSPITAL HbA1c cutoffs for diagnosing diabetes: 4.0% - 5.6% = normal 5.7% - 6.4% = increased risk for diabetes (prediabetes )9 >=6.5% = diabetes9 Goals for glycemic control (ADA 2016) < 7.0% Target for non adults with diabetes. More or less stringent targets may be appropriate for individual patients. <7.5% Target for Children and adolescents with type 1 diabetes. Specimen Blood Performing Organization Address City/[facility] Phon e Number [facility] DEPARTMENT OF PATHOLOGY AND [address] [place], [place] [address] [address] Lipid panel (07/04/2020 4:00 AM CDT) Cholesterol 149 <200 mg/dL [facility] Triglycerides 121 <150 mg/dL [facility] HDL cholesterol 69 >40 mg/dL [facility] LDL cholesterol 74Comment: Result <100 mg/dL [place] obtained by direct [facility] LDL measurement [facility] Lipid panel [facility] interpretation Comment: [facility] Total Cholesterol (mg/dL) HOSPIT AL <200 Desirable 200-239 Borderline-high >=240 High Triglycerides (mg/dL) <150 Normal 150-199 Borderline-high 200-499 High >=500 Very high HDL Cholesterol (mg/dL) <40 Low (male) <40 Low (female) LDL Cholesterol (mg/dL) <100 Optimal 100-129 Near or above optimal 130-159 Borderline-high 160-189 High >=190 Very high Risk Catergories that modify LDL goals. Risk Catergories LDL goal (mg/d L) CHD and CHD risk equivalent <100 (10-year risk >20%) Multiple (2+) risk factors <130 (10-year risk =<20%) 0-1 risk factors <160 (<10-year risk) Defining levels of lipids in metabolic syndrome Triglycerides >=150 mg/dL HDL Cholesterol Men <40 mg /dL Women <40 mg/ dL Non-HDL cholesterol is a second target for therapy in persons with high triglycerides (>=200 mg/dL) Specimen Blood Performing Organization Address City/[facility] Phon e Number [facility] DEPARTMENT OF PATHOLOGY AND [address] [place] [address] [phone] [address] ECG 12 lead (07/03/2020 10:18 AM CDT) Pathologist Sig nature Ventricular rate 63 [facility] Atrial rate 63 [facility] MI interval 240 [facility] QRSD interval 78 [facility] QT interval 432 [facility] QTC interval 442 [facility] P axis 1 61 [facility] QRS axis 1 42 [facility] T wave axis 37 [facility] EKG impression Sinus rhythm with 1st [facility] degree AV block-Otherwise normal ECG-In automated comparison with ECG of 03-JUL-2020 10:17,-Sinus rhythm has replaced Junctional rhythm- Specimen Narrative Performed At This result has an attachment that is no t available. 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
--- OUTSIDE RECORDS SUMMARY | 2020-08-17 22:31 | XMS REPORT | Clinical Summary ---
:1945 Author Organization [facility] Address [address] [place] [address] Care Team Providers Name Role Phone Pcp, [...] Cohen MD Peer-to-P eer Call Medicine after 08/17/2019 Social History Tobacco Use Types Packs/Day Years Used Date Never Assessed Sex Assigned at Date Recorded Not on file Last Filed Vital Signs Vital Sign Reading Time Taken Comments Blood Pressure 116/59 02/09/2020 4:00 PM CDT [...] 5:00 PM CDT Body Mass Index 32.57 01/25/2020 5:00 PM CDT Plan of Treatment Health Maintenance Due Date Last Done Comments COLON CANCER SCREENING COLONOSCOPY 1945 PNEUMOCOCCAL 65+ YRS (1 of 1 - [id number]) 2012 INFLUENZA VACCINE (#1) 2020 Procedures Procedure Name Priority Date/Time Associated Comments [...] 360 ms QTC Calculation(Bazett) 412 ms R [place] 35 degrees [place] [address] & T wave abnormality, con library monitor lateral ischemia or digitalis effect Abnormal ECG [...] 412 ms QTC Calculation(Bazett) 466 ms P [place] 64 degrees [place] 18 degrees [place] 47 degrees Normal sinus rhythm Normal ECG [...] procedure a re in the results section. IL INSERT Routine 01/25/2020 9:00 AM Acute respiratory Res ults for this CATH,ART,PERCUT,CATHY CDT failure with proce dure are in ERM hypoxia (HCC) the results section. after 08/17/2019 Results RHYTHM STRIP - SCAN (02/10/2020 9:10 AM CDT) Narrative Performed At This result has an attachment that is no t available. POC-Glucose meter (02/09/2020 5:35 PM CDT)Only the most recent of60 results within the time period is included. POC-Glucose Meter 124 (H)Comment: 70 - 110 mg/dL [facility] : TESTED AT [address], [address]: Steam Pan Sponger/Technic glen ID = [id number] for RITO CRYSTAL Specimen Blood Performing Organization Address City/State/Zipcode Phone Number [address] [phone] CENTER US abdomen complete (02/09/2020 12:05 PM CDT) Specimen Narrative Performed At FINAL REPORT tvCompass HISTORY : Alcohol abuse, concern for asc ites and cirrhosis. Patient also with acute kidney injury and urinar y retention COMPARISON : None COMMENT : Complete ultrasound examination of the a olya was performed. The liver is normal in [...] duct measuring 4 mm in maximum diameter. Th e pancreas is poorly visualized secondary to overlying [...] Fabian Howard MD Report Verified Date/Time: 02/09/2020 13:37:24 Reading Location: [address] Radiolog y Reading Room Procedure Note [...] Verified Date/Time: 02/09/2020 1 3:37:24 Reading Location: [address] Radiolog y Reading Room Performing Organization Address City/[facility] Phone Number GE RIS ECG 12 lead (02/09/2020 7:37 AM CDT)Only the most recent of4 resultswithin the time period is included. Specimen Narrative Performed At Ventricular Rate 59 BPM GE MUSE Atrial Rate 59 BPM P-R Interval 254 ms QRS Duration 88 ms Q-T Interval 438 ms QTC Calculation(Bazett) 433 ms P [place] 70 degrees [place] 21 degrees [place] 64 degrees Sinus bradycardia with 1st degree [...] 438 ms QTC Calculation(Bazett) 433 ms P [place] 70 degrees [place] 21 degrees [place] 64 degrees Sinus bradycardia with 1st degree A-V bl ock Nonspecific T wave abnormality Abnormal ECG When compared with ECG of 08-FEB-2020 11 :33, No significant change was found Confirmed by MD Huffman Roberto ([id number]) on 02/09/2020 3:40:17 PM Performing Organization Address [facility] Phone Number [employer] MUSE Calcium, Ionized (02/09/2020 3:49 AM CDT)Only the most recent of15 results within the time period is included. Pathologist Sig nature Calcium, Ion 1.16 1.12 - 1.27 mmol/L [facility] pH, Blood 7.31 [facility] Specimen Blood Performing Organization Address City/[facility]/[employer] Phone Number [facility] [address] [phone] CENTER CBC with platelet count + automated diff (02/09/2020 3:49 AM CDT)Only the most recent of16 resultswithin the time period is included. Pathologist Sig nature WBC 7.1 3.5 - 10.5 [facility] K/L [facility] RBC 3.61 (L) 4.63 - 6.08 [facility] M/L [facility] Hemoglobin 11.2 (L) 13.7 - 17.5 [facility] GM/DL [facility] Hematocrit 34.8 (L) 40.1 - 51.0 % [facility] MCV 96.4 (H) 79.0 - 92.2 fL [facility] MCH 31.0 25.7 - 32.2 pg [facility] MCHC 32.2 (L) 32.3 - 36.5 [facility] RDW 12.9 11.6 - 14.4 % [facility] Platelets 322 150 - 450 K/CU [facility] MPV 10.2 9.4 - 12.4 fL [facility] nRBC 0 0 - 0 /100 WBC [facility] % Neutros 41 % [facility] % Lymphs 44 % [facility] % Monos 8 % [facility] % Eos 4 % [facility] % Baso 1 % [facility] # Neutros 2.95 1.78 - 5.38 [facility] # Lymphs 3.16 1.32 - 3.57 [facility] # Monos 0.59 0.30 - 0.82 [facility] # Eos 0.27 0.04 - 0.54 [facility] K/L [facility] # Baso 0.07 0.01 - 0.08 [facility] K/L [facility] Immature 1 0 - 1 % [facility] Granulocytes-Relative [facility] Specimen Blood Performing Organization Address City/[facility] Phone Number [address] [address] CENTER Phosphorus (02/09/2020 3:49 AM CDT)Only the most recent of18 resultswithin the time period is included. Pathologist Sig nature Phosphorus 3.5 2.3 - 4.7 mg/dL [facility] Specimen Blood Narrative Performed At [employer] LISA - DAMION Broussard [facility] Performing Organization Address [facility] Phone Number [address] [address] CENTER Ammonia (02/09/2020 3:49 AM CDT) Pathologist Sig nature Ammonia 28 18 - 72 mol/L [facility] Specimen Blood Narrative Performed At [employer] ID - DAMION Broussard [facility] Performing Organization Address City/[facility]/Zipcode Phone Number [address] [address] [place] Basic Metabolic Panel (02/09/2020 3:49 AM CDT)Only the most recent of33 results within the time period is included. Sodium 137 136 - 145 meq/L [facility] Potassium 4.0 3.5 - 5.1 meq/L [facility] Chloride 104 98 - 107 meq/L [facility] CO2 28 22 - 29 meq/L [facility] BUN 34 (H) 7 - 21 mg/dL [facility] Creatinine 1.32 (H) 0.57 - 1.25 [facility] mg/dL [facility] Glucose 87 70 - 105 mg/dL [facility] Calcium 9.1 8.4 - 10.2 [facility] mg/dL [facility] EGFR 53Comment: ESTIMATED mL/min/1.73 sq [facility] GFR IS NOT m [facility] ACCURATE CENTER CREATININE CLEARANCE IN PREDICTING GLOMERULAR FILTRATION RATE. ESTIMATED GFR IS NOT APPLICABLE FOR DIALYSIS PATIENTS. Specimen Blood Narrative Performed At [employer] ID - DAMION Broussard [facility] Performing Organization Address City/State/Zipcode Phone Number [facility] [address] [place] [address] CENTER Magnesium (02/08/2020 3:35 AM CDT)Only the most recent of36 resultswithin the time period is included. Pathologist Sig nature Magnesium 2.0Comment: Specimen 1.6 - 2.6 mg/dL [facility] slightly hemolyzed [facility] Specimen Blood Narrative Performed At [employer] ID - BRIGITTE Apple [facility] Performing Organization Address City/[facility]/Zipcode Phone Number [facility] [address] [place] [address] CENTER Comprehensive metabolic panel (02/08/2020 3:35 AM CDT)Only the most recent of7 resultswithin the time period is included. Protein, Total 7.7Comment: 6.0 - 8.3 [facility] Specimen slightly gm/dL [facility] Albumin 3.4 (L)Comment: 3.5 - 5.0 [facility] Specimen slightly g/dL [facility] Alkaline 45 40 - 150 U/L [facility] Phosphatase [facility] Total Bilirubin 0.4Comment: 0.2 - 1.2 [facility] Specimen slightly mg/dL [facility] Sodium 139 136 - 145 [facility] meq/L [facility] Potassium 3.9Comment: 3.5 - 5.1 [facility] Specimen slightly meq/L [facility] Chloride 106 98 - 107 [facility] meq/L [facility] CO2 26 22 - 29 meq/L [facility] BUN 40 (H) 7 - 21 mg/dL [facility] Creatinine 1.43 (H)Comment: 0.57 - 1.25 [facility] Specimen slightly mg/dL [facility] Glucose 98 70 - 105 [facility] mg/dL [facility] Calcium 9.7 8.4 - 10.2 [facility] mg/dL [facility] AST 26Comment: 5 - 34 U/L [facility] ALT 52Comment: 6 - 55 U/L [facility] EGFR 49Comment: mL/min/1.73 [facility] ESTIMATED GFR IS sq [facility] NOT [facility] CREATININE CLEARANCE IN PREDICTING GLOMERULAR FILTRATION RATE. ESTIMATED GFR IS NOT APPLICABLE FOR DIALYSIS PATIENTS. Specimen Blood Narrative Performed At [employer] Sp[employer]er ID - BRIGITTE W [facility] Performing Organization Address City/State/Zipcode Phone Number [facility] [address] [place] [address] CENTER Urinalysis w/Microscopic + Reflex to Culture (02/07/2020 4:10 PM CDT)Only the most recent of4 resultswithin the time period is included. Pathologist Sig nature Color, UA Colorless [facility] Clarity, UA Clear [facility] Specific [place], 1.013 1.001 - 1.035 [facility] pH, UA 5.0 5.0 - 8.0 [facility] Protein, UA Negative Negative [facility] Glucose, UA Negative Negative [facility] Ketones, UA Negative Negative [facility] Bilirubin, UA Negative Negative [facility] Blood, UA Negative Negative [facility] Nitrite, UA Negative Negative [facility] Leukocytes, UA Negative Negative [facility] Urobilinogen, UA 0.2 0.2 - 1.0 mg/dL [facility] RBC, UA 2 /HPF [facility] WBC, UA 1 /HPF [facility] Mucus Rare [facility] Squam Epithel, UA <1 /HPF [facility] Hyaline Casts, UA 8 /LPF [facility] Specimen Source [facility] Specimen Urine Narrative Performed At [employer]er ID - tech [facility] Performing Organization Address [facility] Phone Number [address] [address] CENTER aPTT (02/07/2020 5:19 AM CDT)Only the most recent of14 resultswithin the time period is included. Pathologist Sig nature PTT 33.0 22.5 - 36.0 seconds [facility] Specimen Blood Performing Organization Address [facility] Phone Number [address] [address] CENTER XR ankle 1 view left (02/05/2020 8:42 [...] Dereck Bass MD Report Verified Date/Time: 02/05/2020 21:50:12 Procedure Note Interface, External Ris In [...] Performing Organization Address City/State/Zipcode Phone Number GE Green Clean XR chest 1 view portable / bedside (02/05/2020 10:10 AM CDT)Only the most recent of8 resultswithin the time period is included. Specimen Narrative Performed At FINAL REPORT GE Green Clean RAD, CHEST, 1 VIEW, NON DEPT INDICATION: [...] Signed: JR Loyola Robert MD Report Verified Date/Time: 02/05/2020 10:26:24 Reading Location: [facility] Reading Room Procedure Note Interface, External Ris [...] Signed: JR Loyola Robert MD Report Verified Date/Time: 02/05/2020 1 0:26:24 Reading Location: [facility] Reading Room Performing Organization Address City/State/Zipcode Phone Number GE RIS B-type Natriuretic Factor (BNP) (02/05/2020 6:13 AM CDT)Only the most recent of 5 resultswithin the time period is included. Pathologist Sig nature BNP 66 0 - 100 pg/mL [facility] [place] Specimen Blood Narrative Performed At [employer] ID - DAMION Broussard [facility] Performing Organization Address City/[facility]/Zipcode Phone Number [address] [address] CENTER Clostridium difficile GDH Toxin (02/04/2020 11:23 AM CDT) C. Difficle Toxin Negative Negative [facility] C. Difficile GDH NegativeComment: No Negative [facility] Antigen indication of [facility] Clostridium CENTER difficile infection and no colonization. Discontinue enteric isolation and therapy. Specimen Stool - Rectum structure (body structure ) Narrative Performed At Testing performed by [employer] [facility] Assay. For GDH, published sensitivity of the assay is 98.7% compared to cytotoxicity testing. For Toxin AB, published sensitivity is 87.8% and specificity 99.4% compared to cytotoxicity testing. Verification of kit performance was done by the [facility] Microbiology Lab prior to clinical use. Performing Organization Address City/[facility]/Zipcode Phone Number [address] [address] CENTER PT/aPTT (02/04/2020 11:23 AM CDT)Only the most recent of6 resultswithin the time period is included. Pathologist Sig nature Protime 15.0 (H) 11.9 - 14.2 seconds [facility] INR 1.2 <=5.9 [facility] PTT 89.3 (H) 22.5 - 36.0 seconds [facility] Specimen Blood Narrative Performed At Effective 04/01/2019: PT Reference Range [facility] Change New: 11.9-14.2 Previous: 11.7-14.7 RECOMMENDED COUMADIN/WARFARIN INR THERAPY RANGES STANDARD DOSE: 2.0-3.0 Includes: PROPHYLAXIS for venous thrombosis, systemic embolization; TREATMENT for venous thrombosis and/or pulmonary embolus. HIGH RISK: Target INR is 2.5-3.5 for patients wiht mechanical heart valves. Performing Organization Address City/[facility]/Zipcode Phone Number [facility] [address] [place] [address] CENTER Blood Culture - Routine (Left Venipuncture) (02/03/2020 11:28 AM CDT)Only the most recent of6 resultswithin the time period is included. Pathologist Sig nature Result No growth in 5 days [facility] Specimen Blood - Entire left upper arm (body stru cture) Performing Organization Address City/[facility]/Zipcode Phone Number [facility] [address] [place] [address] [place] Blood gas, arterial (02/03/2020 2:56 AM CDT)Only the most recent of12 results within the time period is included. Pathologist Sig nature pH, Arterial 7.44 7.35 - 7.45 [facility] pCO2, Arterial 38 35 - 45 mmHg [facility] pO2, Arterial 244 (H) 80 - 90 mmHg [facility] O2 Sat, Arterial 99.6 (H) 96.0 - 97.0 % [facility] HCO3, Arterial 26 21 - 29 mmol/L [facility] Base Excess, Arterial 1.7 -2.0 - 3.0 [facility] mmol/L [facility] Patient Temperature 37.5 C [facility] FIO2 50.0 % [facility] Specimen Blood, Arterial Performing Organization Address City/State/Zipcode Phone Number [facility] [address] [place] [address] CENTER XR abdomen / KUB 1 view [...] Jace Ibrahim MD Report Verified Date/Time: 02/03/2020 03:33:27 Procedure Note Interface, External Ris In [...] 3:33:27 Performing Organization Address City/State/Zipcode Phone Number [facility] SPIN/CONCENTRATION CHARGE (02/01/2020 3:26 PM CDT)Only the most recent of2 resultswithin the time period is included. Pathologist Sig nature Concentration charged Done [facility] Specimen BAL - Structure of alveolar epithelium ( body structure) Performing Organization Address City/[facility]/Zipcode Phone Number [address] [address] [place] AFB culture + smear (non-sputum) (02/01/2020 3:26 PM CDT)Only the most recent of2 resultswithin the time period is included. Pathologist Sig nature Result No acid-fast bacilli [facility] isolated in 42 days [facility] AFB Smear No acid fast bacilli [facility] seen [facility] Specimen Bronch Washing - Bronchoscopic lavage (p rocedure) Performing Organization Address City/State/Zipcode Phone Number [address] [address] [place] Bronchial culture + gram stain (02/01/2020 3:26 PM CDT) Result <1+ Normal [facility] respiratory [facility] Gram Stain Result 2+ WBCs [facility] Gram Stain Result No organisms seen [facility] Specimen Bronch Washing - Bronchoscopic lavage (p rocedure) Performing Organization Address [facility] Phone Number [address] [address] [place] Fungus culture + smear (02/01/2020 3:26 PM CDT) Pathologist Sig nature Result <1+ Eli albicans [facility] (A) [facility] Fungus Smear No fungi seen [facility] Specimen Bronch Washing - Bronchoscopic lavage (p rocedure) Performing Organization Address City/[facility]/Zipcode Phone Number [address] [address] CENTER Urine culture (02/01/2020 1:37 PM CDT) Pathologist Sig nature Result No growth [facility] Specimen Urine - Urinary catheter, device (physic al object) Performing Organization Address [facility]/Zipcode Phone Number [address] [address] [place] Blood Culture Panel(BioFire) (02/01/2020 1:36 PM CDT) LISTERIA MONOCYTOGENES Not detected Not detected [facility] STAPHYLOCOCCUS Detected (A) Not detected [facility] Comment: [facility] Coagulase negative Staph species (CoNS)- methicillin r [facility] First-line therapy: Vancomycin MecA DETECTED Possible contamination. The likelihood of pathogenicity is increased if the organism is observed in multiple blood cultures obtained from separate venipunctures. Reference Range: Not Detected STAPHYLOCOCCUS AUREUS Not detected Not detected [facility] Streptococcus Not detected Not detected [facility] STREPTOCOCCUS AGALACTIAE Not detected Not detected [facility] (GROUP B) [facility] STREPTOCOCCUS PNEUMONIAE Not detected Not detected [facility] Streptococcus pyogenes Not detected Not detected [facility] (Group A) [facility] ACINETOBACTER BAUMANNII Not detected Not detected [facility] HAEMOPHILUS INFLUENZAE Not detected Not detected [facility] NEISSERIA MENINGITIDIS Not detected Not detected [facility] ENTEROBACTERIACEAE Not detected Not detected [facility] ENTEROBACTER CLOACOE Not detected Not detected [facility] KLEBSIELLA OXYTOCA Not detected Not detected [facility] KLEBSIELLA PNEUMONIAE Not detected Not detected [facility] PROTEUS Not detected Not detected [facility] SERRATIA MARCESCENS Not detected Not detected [facility] ELI ALBICANS Not detected Not detected [facility] ELI GLABRATA Not detected Not detected [facility] ELI KRUSEI Not detected Not detected [facility] ELI PARAPSILOSIS Not detected Not detected [facility] ELI TROPICALIS Not detected Not detected [facility] ESCHERICHIA COLI Not detected Not detected [facility] METHICILLIN-RESISTANCE Detected (A) Not detected [facility] VANCOMYCIN-RESISTANCE [facility] CARBAPENEM-RESISTANCE [facility] ENTEROCOCCUS Not detected Not detected [facility] PSEUDOMONAS AERUGINOSA Not detected Not detected [facility] Specimen Blood - Entire left upper arm (body stru cture) Narrative Performed At Other bacteria and resistance markers not [facility] targeted by this PCR panel cannot be excluded; therefore clinical correlation and follow up of serology, culture results, and other molecular studies is required. The results are not intended to be used as the sole means for clinical diagnosis or patient management decisions. This sample was tested at the [facility] Molecular Diagnostics Laboratory using the [employer] Blood Culture ID Panel. It is FDA cleared and has been verified and approved by the [facility] Molecular Diagnostics Laboratory for clinical use. This laboratory is CLIA-certified and [employer] (CAP)-accredited to perform high complexity testing. Performing Organization Address City/State/Zipcode Phone Number [address] [address] [place] Sputum Culture + Gram Stain (01/30/2020 11:16 AM CDT)Only the most recent of2 resultswithin the time period is included. Result 4+ Normal [facility] respiratory wilbur [facility] Gram Stain Result 2+ WBCs [facility] Gram Stain Result 5-[address] [facility] Gram Stain Result 2+ gram negative [facility] rods [facility] Gram Stain Result <1+ gram positive [facility] cocci in pairs and [facility] CENTER Gram Stain Result <1+ yeast [facility] Gram Stain Result 1+ gram variable [facility] rods [facility] Specimen Sputum - Endotracheal tube, device (phys ical object) Performing Organization Address City/State/Zipcode Phone Number [place] [phone] [place] [address] [place] PERIPHERAL VASCULAR REPORT - SCAN (01/29/2020 9:10 PM CDT) Narrative Performed At This result has an attachment that is no t available. Urinalysis Microscopic Only (01/29/2020 11:10 AM CDT) Pathologist Sig nature RBC, UA 1,122 /HPF [facility] WBC, UA 1 /HPF [facility] Mucus Rare [facility] Squam Epithel, UA 1 /HPF [facility] Specimen Urine Narrative Performed At Steam Pan Sponger ID - tech [facility] Performing Organization Address City/State/Zipcode Phone Number [facility] [address] [place] [address] CENTER Urinalysis with Microscopic If Indicated (01/29/2020 11:10 AM CDT) Color, UA Yellow [facility] Clarity, UA Hazy [facility] [facility] Specific [place], 1.011 1.001 - 1.035 [facility] pH, UA 6.0 5.0 - 8.0 [facility] Protein, UA 70 mg/dL (A) Negative [facility] Glucose, UA 300 mg/dL (A) Negative [facility] Ketones, UA Negative Negative [facility] Bilirubin, UA Negative Negative [facility] Blood, UA Large (A) Negative [facility] Nitrite, UA Negative Negative [facility] Leukocytes, UA Moderate (A) Negative [facility] Urobilinogen, UA 0.2 0.2 - 1.0 mg/dL [facility] Specimen Source [facility] Specimen Urine Narrative Performed At Steam Pan Sponger ID - [auto] [facility] Performing Organization Address City/State/Zipcode Phone Number [facility] [address] [place] [address] CENTER TSH/Free T4 If Indicated (01/29/2020 11:02 AM CDT) Pathologist Sig nida TSH 1.52 0.35 - 4.94 uIU/mL [facility] Specimen Blood Narrative Performed At Steam Pan Sponger ID - FANIG [facility] Performing Organization Address City/State/Zipcode Phone Number [facility] [address] [place] [address] CENTER Venous doppler legs bilateral (01/29/2020 11:00 AM CDT) Pathologist Sig nature Ejection Fraction [facility] Specimen Impressions Performed At Right Impression [facility] 1. There is [...] PV LAB - Lower Extremities DVT Study [facility] Demographics Patient Name JUAN DIEGO KELLEY Date of Study 01/29/2020 Age 74 Visit Number [id number] Gender Male Accession Number [id number] Date of 1945 Referring [facility] Room Number 7107 Physician Gas Welder Morena Browning Interpreting Yani Swan, RN, RVT Physician MD sAtrid sanchez RVT Procedure Type of Study: Veins: Lower Extremities DVT Study, VENOUS DOPPLER LEG, BILATERAL. Indications for Study:Hypoxemia. Patient Status:Routine. Study Location:Portable. Technical Quality:Adequate visualization . - Results were reported to:Sheela UMAÑA @ 6433. Risk Factors History of Disease + +----+------ + !Diagnosis !Date!Comments ! + +----+------ + !History/Risk Factors: ! !DM, HTN, OBESITY ! + +----+------ + Procedure Note Interface, External Ris In - 01/29/2020 6:17 PM CDT PV LAB - Lower Extremities DVT Study Demographics Patient Name JUAN DIEGO KELLEY Da te of Study 01/29/2020 Ag e 74 Visit Number [id number] Ge nder Male Accession Number [id number] Da te of 1945 Referring Debbie Diaz om Number [id number] Physician Gas Welder Morena Browning In terpreting Yani Swan RN, [...] time period is included. Pathologist Sig nature % Neutros 70 % [facility] % Lymphs 10 % [facility] % Monos 7 % [facility] % Eos 4 % [facility] % Bands 9 0 - 10 % [facility] # Neutros 5.53 (H) 1.78 - 5.38 K/ul [facility] # Lymphs 0.79 (L) 1.32 - 3.57 K/ul [facility] # Monos 0.55 0.30 - 0.82 K/uL [facility] # Eos 0.32 0.04 - 0.54 K/uL [facility] # Bands 0.71 0.00 - 0.80 K/uL [facility] Total Counted 100 [facility] RBC Morphology Normal [facility] WBC Morphology Normal [facility] Platelet Morphology Normal [facility] Specimen Blood Narrative Performed At Steam Pan Sponger ID - [id number] [facility] Performing Organization Address City/[facility]/Zipcode Phone Number [address] [address] CENTER Lactic Acid, Arterial (01/28/2020 3:10 AM CDT)Only the most recent of4 results within the time period is included. Pathologist Sig nature Lactate, Art 1.5 0.5 - 2.2 mmol/L [facility] Specimen Blood, Arterial Narrative Performed At Steam Pan Sponger ID - DAMION M [facility] Performing Organization Address City/[facility] Phone Number [address] [address] CENTER Urinalysis w/Microscopic (01/27/2020 6:19 AM CDT) Color, UA Yellow [facility] Clarity, UA Hazy [facility] Specific [place], 1.018 1.001 - 1.035 [facility] pH, UA 5.5 5.0 - 8.0 [facility] Protein, UA 30 mg/dL (A) Negative [facility] Glucose, UA >1000 mg/dL (A) Negative [facility] Ketones, UA Negative Negative [facility] Bilirubin, UA Negative Negative [facility] Blood, UA Moderate (A) Negative [facility] Nitrite, UA Negative Negative [facility] Leukocytes, UA Negative Negative [facility] Urobilinogen, UA 0.2 0.2 - 1.0 mg/dL [facility] RBC, UA 28 /HPF [facility] WBC, UA 3 /HPF [facility] Bacteria, UA Occasional [facility] Hyaline Casts, UA 1 /LPF [facility] Specimen Source [facility] Specimen Urine Narrative Performed At Steam Pan Sponger ID - [auto] [facility] Steam Pan Sponger ID - tech Performing Organization Address City/[facility] Phone Number [address] [address] CENTER Creatine Kinase (CK) (01/27/2020 4:37 AM CDT)Only the most recent of2 results within the time period is included. Pathologist Sig nature Total CK 149 29 - 200 U/L [facility] Specimen Blood Narrative Performed At Steam Pan Sponger ID - DAMION Broussard [facility] Performing Organization Address City/[facility] Phone Number [address] [address] [place] ECHOCARDIOGRAM REPORT - SCAN (01/26/2020 9:12 PM CDT) Narrative Performed At This result has an attachment that is no t available. Vancomycin level, trough (01/26/2020 5:18 PM CDT) Pathologist Sig nature Vancomycin Tr 12.5 10.0 - 20.0 ug/mL [facility] Specimen Blood Narrative Performed At Steam Pan Sponger ID - HARSHIL [facility] Performing Organization Address City/[facility]/Zipcode Phone Number [facility] [address] [place] [address] CENTER Cortisol (01/26/2020 2:42 PM CDT) Pathologist Sig nature Cortisol, Total 13.1 3.7 - 19.4 ug/dL [facility] Specimen Blood Narrative Performed At Steam Pan Sponger ID - HARSHIL [facility] Performing Organization Address City/State/Zipcode Phone Number [address] [address] CENTER Protein, random urine (01/26/2020 2:18 PM CDT)Only the most recent of2 results within the time period is included. Pathologist Sig nature Protein, Urine 25 (H) 0 - 14 mg/dL [facility] Specimen Urine Narrative Performed At Steam Pan Sponger ID - BS [facility] Performing Organization Address City/[facility]/Zipcode Phone Number [address] [address] [place] Creatinine, random urine (01/26/2020 2:18 PM CDT) Pathologist Sig nature Creatinine, Ur 123.0 mg/dL [facility] [place] Specimen Urine Narrative Performed At Reference Range: No Normals [facility] Steam Pan Sponger ID - BS Performing Organization Address City/[facility]/Zipcode Phone Number [address] [address] [place] 2D Echo W/Doppler(CW/PW/Color) (01/26/2020 1:55 PM CDT) Pathologist Sig nature Ejection Fraction [facility] Specimen Narrative Performed At Transthoracic Echocardiography Report (T TE) [facility] Demographics Patient Name JUAN DIEGO KELLEY Date of Study 01/26/2020 Gender Male Visit Number [id number] Race Unknown Room Number 7A05 Number Date of 1945 Referring Physician En Black PA-C Age 74 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 The LVEF was measured using Vance's bi-plane method of disk . LV endocardium is adequately visualized with IV ultrasound enhancing agent. Grade 1 diastolic dysfunction (impaired relaxati on and low-normal LA pressure). LV endocardium is partially visualized with IV ultrasound enhancing agent. Left Atrium LA size is mildly enlarged (35-41 ml/m2) . Right Ventricle RV [...] Valve Trileaflet aortic valve. Mild AoV cusp calc ification. No evidence of aortic stenosis. No evidence of aortic regurgitation. Mitral Valve Mild MV leaflet thickening. Trace mitral regurgitation. Tricuspid Valve TV structure is normal. A trace of tricuspid regurgitation. Unable to estimate peak systolic PA pressure; inadequate TR velocity signal. Pulmonic Valve Normal PV structure and function. Aorta Aortic root size (SInus [...] Gradient: 2.29 mmHg LVOT Diameter: 2.23 cm LVOT VTI: 15.28 cm LVOT Area: 3.91 cm^2 LVOT SV:59.65 ml LVOT CO: 5.01 l/min LVOT CI: 2.22 l/min/m^2 Procedure Note Interface, External Ris In - 01/26/2020 4:35 PM CDT Transthoracic Echocardiography Report (TTE) Demographics Patient Name JUAN DIEGO KELLEY Date of Study 01/26/2020 Gender Male Visit Number [id number] Race Unknown Room [place] [address] Number Date of 1945 Referrin g Physician En Black PA-C Age 74 year(s) Sonograp her Jessica [place]atten Head Housekeeper Mark Kimball MD, MD Procedure Type of [...] T CI: 2.22 l/min/m^2 Performing Organization Address City/[facility]/Zipcode Phone Number [facility] Troponin I (01/26/2020 4:28 AM CDT)Only the most recent of2 resultswithin the time period is included. Pathologist Sig nature Troponin I 0.18 (H) 0.00 - 0.03 ng/mL [facility] Specimen Blood Narrative Performed At Troponin I (TnI) levels must be interpreted [facility] in the context of the presenting symptoms and the clinical findings. Elevated TnI levels indicate myocardial damage, but are not specific for ischemic heart disease. Elevated TnI levels are seen in patients with other cardiac conditions (including myocarditis and congestive heart failure), and slight TnI elevations occur in patients with other conditions, including sepsis, renal failure, acidosis, acute neurological disease, and persistent tachyarrhythmia. Steam Pan Sponger ID - HARSHIL Performing Organization Address [facility]/[place] Phone Number [address] [address] CENTER Vancomycin level, random (01/25/2020 5:30 PM CDT) Pathologist Sig nature Vancomycin Rm 5.2 ug/mL [facility] Specimen Blood Narrative Performed At Reference Range: No Normals [facility] Steam Pan Sponger ID - BS Performing Organization Address [facility]/Zipcode Phone Number [address] [address] CENTER MRSA screen (01/25/2020 4:46 PM CDT) Pathologist Sig nature Result No MRSA isolated [facility] Specimen Nasal - Both anterior nares (body struct ure) Performing Organization Address [facility]/Zipcode Phone Number [address] [address] [address] [facility] (01/25/2020 4:36 PM CDT) Human Metapneumovirus Not detected Not detected, [facility] Rhinovirus Not detected Not detected, [facility] Influenza A Not detected Not detected, [facility] INFLUENZA A (NO [facility] SUBTYPE) [facility] Influenza A subtype H1 [facility] Influenza A Subtype H3 [facility] Influenza A Subtype [facility] H1-2009 [facility] Influenza B Not detected Not detected, [facility] Respiratory Syncytial Not detected Not detected, [facility] Virus [facility] Parainfluenza Virus 1 Not detected Not detected, [facility] Parainfluenza Virus 2 Not detected Not detected, [facility] Parainfluenza virus 3 Not detected Not detected, [facility] Parainfluenza Virus 4 Not detected Not detected, [facility] Adenovirus Not detected Not detected, [facility] Coronavirus 229E Not detected Not detected, [facility] Coronavirus HKU1 Not detected Not detected, [facility] Coronavirus NL63 Not detected Not detected, [facility] Coronavirus OC43 Not detected Not detected, [facility] Bordetella Pertussis Not detected Not detected, [facility] Chlamydophila Not detected Not detected, [facility] Pneumoniae [facility] Mycoplasma Pneumoniae Not detected Not detected, [facility] Specimen Nasopharyngeal - Nasopharyngeal wall str ucture (body structure) Narrative Performed At Other viruses and bacteria not targeted by [facility] this PCR panel cannot be excluded; therefore clinical correlation and follow up of serology, culture results, and other molecular studies is required. The results are not intended to be used as the sole means for clinical diagnosis or patient management decisions. This sample was tested at the [facility]ostics Laboratory using the [employer] FilmArray Respiratory Panel. It is FDA cleared and has been verified and approved by the [facility]ostics Laboratory for clinical use on nasopharyngeal swab specimens. The performance of the FilmArray RP has not been established in individuals who received influenza vaccine. Recent administration of a nasal influenza vaccine may cause false positive results for Influenza A and/or Influenza B. Performing Organization Address City/[facility]/Zipcode Phone Number [address] [address] CENTER C-Reactive Protein (01/25/2020 4:36 PM CDT) Pathologist Sig nature CRP 9.61 (H) 0.00 - 0.50 mg/dL [facility] Specimen Blood Narrative Performed At Steam Pan Sponger ID - BS [facility] Performing Organization Address City/[facility] Phone Number [address] [address] CENTER SARS-COV2 (01/25/2020 4:36 PM CDT) Pathologist Sig nature Scan Result SEE SCANNED REPORT [facility] Specimen Nasopharyngeal Narrative Performed At This result has an attachment that is no t available. Performing Organization Address City/[facility] Phone Number [facility] [address] [place], [place] Lactic acid, venous (01/25/2020 4:36 PM CDT) Lactate, Venous 6.86 (HH)Comment: 0.50 - 2.20 [facility] Specimen slightly mmol/L [facility] hemolyzed [place] Specimen Blood Narrative Performed At Steam Pan Sponger ID - BS [facility] Performing Organization Address [facility]/Zipcode Phone Number [address] [address] CENTER D-dimer (01/25/2020 4:36 PM CDT) Pathologist Sig nature D-Dimer, Quant 3.32 (H) <0.50 MG/L FEU [facility] Specimen Blood Narrative Performed At Intended Use: The D-Dimer Assay can be used [facility] to aid in the diagnosis of Deep Vein Thrombosis (DVT) and Pulmonary Embolism Disease (PED). In patients with low pre-test probability, various studies concerning STA Liatest D-dimer test have reported that with a cutoff value of 0.50 MG/L FEU, the Negative Predictive Value (NPV) regarding the exclusion of thrombosis is within 95-100% range. Performing Organization Address City/[facility] Phone Number [address] [address] CENTER Uric acid (01/25/2020 4:36 PM CDT) Pathologist Sig nature Uric Acid 10.7 (H) 2.6 - 7.2 mg/dL [facility] Specimen Blood Narrative Performed At Steam Pan Sponger ID - BS [facility]AL [place] Performing Organization Address [facility] Phone Number [address] [address] CENTER Lactate dehydrogenase (LDH) (01/25/2020 4:36 PM CDT) Pathologist Sig nature LDH 187 125 - 220 U/L [facility] Specimen Blood Narrative Performed At Steam Pan Sponger ID - BS [facility] Performing Organization Address City/[facility] Phone Number [address] [address] CENTER Insert Arterial Line (01/25/2020 9:00 AM CDT) Narrative Performed At Zofia Valdes NP 01/25/2020 11:05 PM Insert Arterial Line Date/Time: 01/25/2020 11:00 [...] Patient identity confirmed: arm band and hospital-assi gned identification number Time out: Immediately prior to procedure a "time out" was called to verify the correct patient, procedure, equipmen t, supportive employment case 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 Preparation: Patient [...] complications noted. Pulses are intac t. after 08/17/2019 Insurance Payer Benefit Plan / Subscriber ID Effective Dates Phone Addre ss Type Group MEDICARE MEDICARE PART [id number] 2012-Prese Medicare A nt INSTITUTIONAL S CNTRL CT [id number] 2020-Prese NTWK nt CDC REVIEW CDC REVIEW [id number] 2020-[place] [place] [address] Advance Directives For more information, please contact: [phone] Code Status Date Activated Date Inactivated Comments [...]
--- OUTSIDE RECORDS SUMMARY | 2020-08-17 22:38 | XMS REPORT | Continuity of Care Document ---
:1945 Author Organization [facility] t Address [address] [place] [address] Care Team Providers Name Role Phone Asked, Pcp Primary Care Physician Unavailable CARMELLA JAFFE Attending Clinician Unavailable LEENA Attending Clinician Unavailable Asked, Pcp Attending Clinician Unavailable Lucy Lopez MD Attending Clinician VICKI Attending Clinician Unavailable Vicki ENG Attending Clinician Jefe Billy MD Attending Clinician Sumeet Harrison MD Attending Clinician Zulema Drake MD Attending Clinician Jefe ENG Attending Clinician Ady Nelson MD Attending Clinician Nolan Garzon MD Attending Clinician Pob, Lab Main Attending Clinician Unavailable CARMELLA JAFFE Admitting Clinician Unavailable MICHELLE Admitting Clinician Unavailable VICKI Admitting Clinician Unavailable Duran ENG, Nolan Admitting Clinician Payers Payer Name Policy Type Policy Effective Date Expiration Date Sour ce Number DEPT OF [id number] 2015 [place] AFFAIRSDEPT OF 00:00:00 [facility] [id number]/2014-PresentMilitary TRICAREWPS-VAPCC [id number] 2019 [place] [id number] 00:00:00 Met poonam 020-PresentMilitary MEDICAREMEDICARE PART [id number] I [facility] [id number] 2011 00:00:00 - M edical -PresentMedicare Center INSTITUTIONALS CNTRL [id number] 2020 [facility] 00:00:00 - Medical [id number]/ Jose ter 0-Present [facility] REVIEWCDC [id number] 2020 [facility] [id number]/ 00:00:00 - [address] [id number] Advance Directives Directive Decision Effective Date Termination Date Comments Sour ce Partial Code This Yes 2020-01-25 2020-02-09 [facility] code status was 00:00:00 00:00:00 - Medical [...] Details Category Date Date Treatment Clinician Date Class 2 Class 2 Disease Active [place] [facility] Suicide Suicide Disease Active [place] attempt attempt 07-04 [facility] 00:00: st 00 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[facility] 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, disorder, 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 Me thodi atic atic 00:00: st stress stress 00 disorder disorder (PTSD) (PTSD) 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 [facility]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 00:00: st disorder disorder 00 Alcohol Alcohol Disease Active [place] withdrawal withdrawal 07-03 Me thodi 00:00: st 00 Falls Falls Disease Active [place] frequently frequently 07-03 Me thodi 00:00: st 00 THEO THEO Disease Active [place] (obstructi (obstructi 07-03 Me odi ve sleep ve sleep 00:00: st apnea) apnea) 00 Type 2 Type 2 Disease Active [place] diabetes diabetes 07-03 Method i mellitus mellitus 00:00: st 00 CHF CHF Disease Active [place] (congestiv (congestiv 07-03 Me odi e heart e heart 00:00: st failure) failure) 00 Paroxysmal Paroxysmal Disease Active [place] atrial atrial 07-03 [facility] fibrillati fibrillati 00:00: st on on 00 BPH BPH Disease Active [place] (benign (benign 07-03 [facility] prostatic prostatic 00:00: st hyperplasi hyperplasi 00 a) a) BPV BPV Disease Active [place] (benign (benign 30 [facility] positional positional 00:00: st vertigo) vertigo) 00 Essential Essential Disease Active Imelda ston hypertensi hypertensi 07-03 Me odi on on 00:00: st 00 Acute Acute Disease Active [facility] metabolic metabolic 3-28 [facility] - encephalop encephalop 00:00: Me dical athy athy 00 Center TRICIA (acute TRICIA (acute Disease Active [facility] kidney kidney 3-28 [facility] injury) 00:[facility]: Medical 00 Center Acute Acute Disease Active [facility] hypoxemic hypoxemic 3-23 [facility] - respirator respirator 00:00: Me dical y failure y failure 00 Cent er Aspiration Aspiration Disease Active [facility] pneumoniti pneumoniti 3-23 Felicia kes - s s 00:00: Medical 00 Center Allergies, Adverse Reactions, Alerts Allergy Allergy Status Severity Reaction(s) Onset Inactive Treating Comm ents Source Name Type Date Date Clinician Penicill DA Active [facility] 06[facility]04 [facility] Tetanus Propensi Active Other (See 2018-11 Imelda ston Toxoid ty to Comments) 0-30 [facility] adverse 00:00: st reaction 00 s to drug Penicill Propensi Active Rash [place] ins ty to 4-14 [facility] adverse 00:00: st reaction 00 s to drug Family History Family Member Diagnosis Comments Start Date Stop Date Source Natural father Alcohol abuse [facility] Natural mother Cancer [facility] Natural mother Diabetes [facility] Social History Social Habit Start Date Stop Date Quantity Comments Source Sex Assigned At [facility] Tobacco use and 2020-07-05 2020-07-[address] [facility] ethodist exposure 00:00:00 00:00:00 Alcohol intake 2020-07-05 2020-07-05 Current drinker [place] [facility] 00:00:00 00:00:00 of alcohol (finding) Alcohol Comment 2020-07-03 2020-07-03 1/4 pint daily [place] [facility] 00:00:00 00:00:00 Smoking Status Start Date Stop Date Source Never smoker [facility] Methodis t Medications Ordered Filled Start Stop Current Ordering Indication Dosage Frequency Signature Comments Components Source Medication Medication Date Date Medication? Clinician (SIG) Name Name aspirin Yes myocardial 81mg QD Take 81 mg [facility] (ECOTRIN) 9 infarction by mouth Methodi 81 MG 11:30: prevention daily. st enteric 35 coated tablet finasteride Yes benign 5mg QD Take 5 mg [facility] (PROSCAR) 5 07-18 prostatic by mouth Methodi mg tablet 11:30: hyperplasia daily. st 35 with lower urinary tract sx insulin Yes type 2 40U Inject 40 Imelda ston detemir -14 diabetes Units Methodi U-100 11:30: mellitus under the st (LEVEMIR) 35 skin. 100 unit/mL injection lovastatin Yes hyperlipide 40mg QD Take 40 mg [facility] (MEVACOR) 9-14 jossue by mouth Method i 10 MG 11:30: nightly. st tablet 35 metFORMIN 2019-0 Yes type 2 1000mg QD Take 1,000 [facility] (GLUCOPHAGE - diabetes mg by Met hodi ) 1,000 mg 11:30: mellitus mouth st tablet 35 daily with breakfast. tamsulosin 2020-0 Yes benign .4mg QD Take 0.4 [place] (FLOMAX) 9-14 prostatic mg by Metho di 0.4 mg 11:30: hyperplasia mouth st capsule 35 with lower daily with urinary dinner. tract sx multivitami 2019- No vitamin 1{tbl} QD Take 1 Prieto n 07-13 deficiency tablet by Met gabby (THERAGRAN) 00:00: 23:[address] tablet 00 :00 daily for 30 days .vitamin deficiency . folic acid 2019- No folate 1mg QD Take 1 [place] (FOLVITE) 1 07-13 deficiency tablet (1 Methodi MG tablet 00:00: 23:59 mg total) st 00 :00 by mouth daily for 30 days .inadequat e folic acid. thiamine 2019- No thiamine 100mg QD Take 1 [place] mononitrate 07-13 deficiency tablet Methodi , vit B1, 00:00: 23:59 ([address] (B-1) 100 00 :00 total) by mg tablet mouth daily for 30 days .deficienc y in thiamine or vitamin B1. meclizine 2019- No 25mg Q.[id number] Take 25 mg [facility] (ANTIVERT) 07-12 [id number] by mouth 3 Methodi 25 mg 14:18: 00:00 3D (three) st tablet 42 :00 times a day as needed for dizziness. citalopram 2019- No 40mg QD Take 40 mg [facility] (CeleXA) 40 07-12 by mouth Met hodi MG tablet 10:31: 00:[address] 35 :00 furosemide 2019-2019- No 40mg Q.5D Take 40 mg [facility] (LASIX) 40 07-12 by mouth 2 Me thodi mg tablet 10:31: 00:00 (two) st 35 :00 times a day. levothyroxi 2019- No 75ug QD Take 75 [place] ne 07-12 mcg by Methodi (SYNTHROID) 10:31: 00:[address] 75 mcg 35 :00 daily. tablet lisinopriL 2019- No 20mg QD Take 20 mg [facility] (PRINIVIL) 07-12 by mouth Meth janine 20 mg 10:31: 00:[address] tablet 35 :00 apixaban 2019-0 Yes 5mg Q.5D Take 1 [place] (ELIQUIS) 5 07-12 tablet (5 Met hodi mg tablet 00:00: mg total) st 00 by mouth 2 (two) times a day .afib. omeprazole 2019- Yes gastroesoph 20mg Q.5D Take 1 [place] OTC 07-12 ageal tablet (20 Methodi (PriLOSEC 00:00: reflux mg total) s t OTC) 20 MG 00 disease by mouth 2 EC tablet (two) times a day .gastroeso phageal reflux disease. citalopram 2019- No major 20mg QD Take 0.5 [place] (CeleXA) 40 07-12 depressive tablets Methodi MG tablet 00:00: 23:59 disorder (20 mg s t 00 :00 total) by mouth daily for 30 days .major depressive disorder. furosemide 2019- No hypertensio 20mg Q.5D Take 0.5 [place] (LASIX) 40 07-12 n tablets Metho di mg tablet 00:00: 23:59 ([address] 00 :00 total) by mouth 2 (two) times a day for 30 days .high blood pressure. lisinopriL 2019- No hypertensio 10mg QD Take 0.5 [place] (PRINIVIL) 07-12 n tablets Metho di 20 mg 00:00: 23:59 ([address] tablet 00 :00 total) by mouth daily for 30 days .high blood pressure. levothyroxi 2020- No hypothyroid 175ug QD Take 1 [place] ne 07-12 ism tablet Methodi (SYNTHROID) 00:00: 23:59 (175 mcg s t 175 mcg 00 :00 total) by tablet mouth daily for 30 days .a condition with low thyroid hormone levels. gabapentin 2020- No neuropathic 200mg Q.[id number] Take 2 [place] (NEURONTIN) 07-12 pain [id number] capsules Methodi 100 mg 00:00: 23:59 3D ([address] capsule 00 :00 total) by mouth 3 (three) times a day for 30 days .neuropath ic pain. pantoprazol 2019-0 Yes 40mg QD Take [address] e 4-08 tablet (40 [facility] - (PROTONIX) 00:00: mg total) Me dical 40 MG 00 by mouth Center tablet daily. tamsulosin 2019-0 Yes .4mg QD Take 1 [facility] (FLOMAX) 4-08 capsule [facility] - 0.4 mg Cap 00:00: (0.4 mg Medi danielle 24 hr 00 total) by Center capsule mouth daily. citalopram 2020- No 20mg QD Take [address] (CELEXA) 20 4-08 04-08 tablet (20 L ukes - MG tablet 00:00: 23:59 mg total) Me dical 00 :00 by mouth Center daily. folic acid 2020- No 1mg QD Take [address] (FOLVITE) 1 -08 04-08 tablet (1 Felicia kes - MG tablet 00:00: 23:59 mg total) Me dical 00 :00 by mouth Center daily. levothyroxi 2019-2020- No 175ug Take [address] ne 02-09-08 tablet [facility] - (SYNTHROID, 00:00: 23:59 (175 mcg M edical LEVOTHROID) 00 :00 total) by [facility] ter 175 MCG mouth tablet Every morning on an empty stomach. thiamine 2019-2020- No 100mg QD Take 1 [facility] t 100 MG 08 -08 tablet [facility] - tablet 00:00: 23:59 (100 mg Medical 00 :00 total) by Center mouth daily. furosemide 2019- No 20mg QD Take [address] (LASIX) 20 4-08 05-08 tablet (20 Felicia kes - MG [...] QD Take [address] [facility] n (LIPITOR) 4- 04-07 tablet (10 L ukes - 10 MG 00:00: 23:59 mg total) Medica l tablet 00 :00 by mouth Center nightly. carvediloL No 12.5mg Q.5D Take [address] (COREG) 02-08-07 tablet [facility] - 12.5 MG 00:00: 23:59 (12.5 mg Medic al tablet 00 :00 total) by Center mouth 2 (two) times daily. insulin 2020- No 12U Inject [address] lispro 02-08-07 Units [facility] - (HUMALOG) 00:00: 23:59 subcutaneo M edical 100 unit/mL 00 :00 usly 3 Center injection (three) times daily before meals. finasteride No 5mg QD Take [address] [facility] (PROSCAR) 5 02-08- tablet (5 Felicia kes - mg tablet 00:00: 23:59 mg total) Me dical 00 :00 by mouth Center daily. insulin No 40U Q.5D Inject [address] detemir 02-08 05-07 Units [facility] - U-100 00:00: 23:59 subcutaneo Medic al (LEVEMIR) 00 :00 usly 2 Center 100 unit/mL (two) injection times daily for 30 days. Immunizations Ordered Immunization Filled Immunization Date Status Commen ts Source Name Name FLUCALEXANDREAVAX QUAD PF 2020-07-12 [facility] 00:00:00 [facility] Vital Signs Vital Name Observation Time Observation Value Comments Source Systolic blood 2020-07-18 11:24:00 167 mm[Hg] Lee n [facility] pressure Diastolic blood 2020-07-18 11:24:00 80 mm[Hg] [place] [facility] pressure Heart rate 2020-07-18 11:24:00 66 /min Conner Pena Body temperature 2020-07-18 11:24:00 37.17 Rachael [facility] Respiratory rate 2020-07-18 11:24:00 17 /min [place] [facility] Oxygen saturation in 2020-07-12 05:56:35 96 /min Conner Pena Arterial blood by Pulse oximetry Body weight 2020-07-06 06:31:00 109.907 kg Conner Pena BMI 2020-07-06 06:31:00 34.77 kg/m2 Conner Pena Body height 2020-07-03 06:10:30 177.8 cm Conner Pena Systolic blood 2020-02-09 16:00:00 116 mm[Hg] [facility] Diastolic blood 2020-02-09 16:00:00 59 mm[Hg] [facility] Heart rate 2020-02-09 16:00:00 60 /min [facility] Body temperature 2020-02-09 16:00:00 36.83 Rachael [facility] Respiratory rate 2020-02-09 16:00:00 18 /min [facility] Oxygen saturation in 2020-02-09 16:00:00 96 /min [facility] Arterial blood by Medical Ce nter Pulse oximetry Body weight 2020-02-09 06:00:00 102.967 kg [facility] BMI 2020-02-09 06:00:00 32.57 kg/m2 [facility] Body height 2020-01-25 17:00:00 177.8 cm [facility] Procedures Procedure Date / Time Performing Clinician Source Performed POC GLUCOSE 2020-07-12 12:02:00 Callie Lopez POC GLUCOSE 2020-07-12 06:38:00 Callie Lopez POC GLUCOSE 2020-07-11 20:21:00 Callie Lopez POC GLUCOSE 2020-07-11 17:02:00 Callie Lopez POC GLUCOSE 2020-07-11 12:02:00 Callie Lopez POC GLUCOSE 2020-07-11 06:19:00 Callie Lopez POC GLUCOSE 2020-07-10 20:33:00 Callie Lopez POC GLUCOSE 2020-07-10 17:28:00 Callie Lopez POC GLUCOSE 2020-07-10 12:11:00 Callie Lopez POC GLUCOSE 2020-07-10 06:36:00 Callie Lopez T4, FREE 2020-07-09 23:00:00 Maliha Her In [facility]odist POC GLUCOSE 2020-07-09 20:36:00 Callie Lopez [facility] POC GLUCOSE 2020-07-09 17:10:00 Callie Lopez [facility] POC GLUCOSE 2020-07-09 12:11:00 Callie Lopez [facility] POC GLUCOSE 2020-07-09 06:43:00 Callie Lopez [facility] POC GLUCOSE 2020-07-08 20:23:00 Callie Lopez [facility] POC GLUCOSE 2020-07-08 17:04:00 Callie Lopez [facility] POC GLUCOSE 2020-07-08 12:06:00 Callie Lopez [facility] POC GLUCOSE 2020-07-08 07:11:00 Callie Lopez [facility] POC GLUCOSE 2020-07-07 19:49:00 Callie Lopez [facility] POC GLUCOSE 2020-07-07 17:08:00 Callie Lopez [facility] POC GLUCOSE 2020-07-07 12:03:00 Callie Lopez [facility] POC GLUCOSE 2020-07-07 06:49:00 Callie Lopez [facility] POC GLUCOSE 2020-07-06 20:58:00 Callie Lopez [facility] POC GLUCOSE 2020-07-06 17:02:00 Callie Lopez [facility] POC GLUCOSE 2020-07-06 12:03:00 Callie Lopez [facility] POC GLUCOSE 2020-07-06 07:58:00 Callie Lopez [facility] POC GLUCOSE 2020-07-06 06:27:00 Callie Lopez [facility] HC COMPLETE BLD COUNT 2020-07-05 22:00:00 Callie Lopez W/AUTO DIFF BASIC METABOLIC PANEL 2020-07-05 22:00:00 Callie Lopez FOLATE LEVEL 2020-07-05 22:00:00 Callie Lopez VITAMIN D 25 HYDROXY 2020-07-05 22:00:00 Callie Lopez LEVEL VITAMIN B12 LEVEL 2020-07-05 22:00:00 Callie Lopez THYROID STIMULATING 2020-07-05 22:00:00 Callie Lopez HORMONE ESTIMATED GFR 2020-07-05 22:00:00 Callie Lopez POC GLUCOSE 2020-07-05 20:29:00 Callie Lopez POC GLUCOSE 2020-07-05 17:30:00 Callie Lopez POC GLUCOSE 2020-07-05 12:25:00 Callie Lopez POC GLUCOSE 2020-07-05 07:20:00 Callie Lopez POC GLUCOSE 2020-07-05 06:15:00 Callie Lopez POC GLUCOSE 2020-07-04 20:53:00 Callie Lopez POC GLUCOSE 2020-07-04 17:40:00 Callie Lopez POC GLUCOSE 2020-07-04 11:55:00 Callie Lopez POC GLUCOSE 2020-07-04 06:51:00 Callie Lopez HEMOGLOBIN A1C 2020-07-04 06:15:00 Laureen Terrazas HIV AG/AB COMBINATION 2020-07-04 06:15:00 Laureen Terrazas SYPHILIS TOTAL ANTIBODY 2020-07-04 06:15:00 Laureen Terrazas Samantha LIPID PANEL 2020-07-04 04:00:00 Laureen Terrazas BASIC METABOLIC PANEL 2020-07-04 04:00:00 Callie Lopez ESTIMATED GFR 2020-07-04 04:00:00 Callie Lopez POC GLUCOSE 2020-07-03 20:16:00 Callie Lopez POC GLUCOSE 2020-07-03 17:44:00 Callie Lopez POC GLUCOSE 2020-07-03 11:56:00 Callie Lopez ECG 12-LEAD 2020-07-03 10:18:25 MkLaureen perez Conner Zac Singh POC GLUCOSE 2020-07-03 06:37:00 Callie Lopez RHYTHM STRIP - SCAN 2020-02-10 09:10:08 Lanie Bustos [facility] POCT-GLUCOSE METER 2020-02-09 17:35:00 Leslie Sierra [place] [facility] POCT-GLUCOSE METER 2020-02-09 12:47:00 Celso [place] [facility] US ABDOMEN COMPLETE 2020-02-09 12:05:00 Aman Nelson [facility] POCT-GLUCOSE METER 2020-02-09 08:24:00 Harlan [facility] ECG 12-LEAD 2020-02-09 07:37:[address] [facility] CALCIUM, IONIZED 2020-02-09 03:49:00 Leodan, Sammy K [facility] PHOSPHORUS 2020-02-09 03:49:00 Leodan, Sammy K [facility] AMMONIA 2020-02-09 03:49:[address] [facility] BASIC METABOLIC PANEL (7) 2020-02-09 03:49:[address] [facility] CBC W/PLT COUNT & AUTO 2020-02-09 03:49:00 Kishore Osorio [facility] POCT-GLUCOSE METER 2020-02-08 20:55:00 Aman Nelson [facility] POCT-GLUCOSE METER 2020-02-08 17:33:00 Aman Nelson [facility] POCT-GLUCOSE METER 2020-02-08 12:13:00 Aman Nelson [facility] ECG 12-LEAD 2020-02-08 11:33:[address] [facility] POCT-GLUCOSE METER 2020-02-08 07:16:00 Jefe, [facility] CALCIUM, IONIZED 2020-02-08 03:36:00 Leodan, [facility] BASIC METABOLIC PANEL (7) 2020-02-08 03:35:00 Leodan, Sammy [facility] MAGNESIUM 2020-02-08 03:35:00 Leodan, [facility] PHOSPHORUS 2020-02-08 03:35:00 Leodan, [facility] COMPREHENSIVE METABOLIC 2020-02-08 03:35:[address] [facility] CBC W/PLT COUNT & AUTO 2020-02-08 03:35:00 Giorgio Jacques [facility] POCT-GLUCOSE METER 2020-02-07 21:08:00 Jefe, [facility] POCT-GLUCOSE METER 2020-02-07 18:05:00 Jefe, [facility] URINALYSIS W/ REFLEX 2020-02-07 16:10:00 Jefe, [facility] URINE CULTURE [facility] BASIC METABOLIC PANEL (7) 2020-02-07 13:49:00 Leodan, Sammy Rodolfo [facility] MAGNESIUM 2020-02-07 13:49:00 Leodan, [facility] POCT-GLUCOSE METER 2020-02-07 12:48:00 Jefe, [facility] POCT-GLUCOSE METER 2020-02-07 07:03:00 Jefe, [facility] CALCIUM, IONIZED 2020-02-07 05:19:00 Leodan, [facility] PHOSPHORUS 2020-02-07 05:19:00 Leodan, [facility] MAGNESIUM 2020-02-07 05:19:00 Leodan, Sammy Reynolds [facility] APTT 2020-02-07 05:19:00 Leodan, Sammy Reynolds [facility] COMPREHENSIVE METABOLIC 2020-02-07 05:19:[address] [facility] CBC W/PLT COUNT & AUTO 2020-02-07 05:19:00 Giorgio Jacques Rodolfo [facility] POCT-GLUCOSE METER 2020-02-06 23:00:00 Jefe, [facility] BASIC METABOLIC PANEL (7) 2020-02-06 20:39:00 Leodan, Sammy Rodolfo [facility] MAGNESIUM 2020-02-06 20:39:00 Leodan, [facility] POCT-GLUCOSE METER 2020-02-06 19:10:00 Jefe, [facility] POCT-GLUCOSE METER 2020-02-06 12:30:00 Rodo Drake [facility] BASIC METABOLIC PANEL (7) 2020-02-06 09:54:00 Leodan, Sammy Rodolfo [facility] PHOSPHORUS 2020-02-06 09:54:00 Leodan, Sammy Rodolfo [facility] MAGNESIUM 2020-02-06 09:54:00 Leodan, Sammy Reynolds [facility] APTT 2020-02-06 09:54:00 Leodan, [facility] CBC W/PLT COUNT & AUTO 2020-02-06 09:54:00 Giorgio Jacques Rodolfo [facility] POCT-GLUCOSE METER 2020-02-06 05:45:00 Rodo Drake [facility] POCT-GLUCOSE METER 2020-02-06 00:25:00 Noelle [facility] BASIC METABOLIC PANEL (7) 2020-02-05 20:47:00 Leodan, Sammy K [facility] MAGNESIUM 2020-02-05 20:47:00 Leodan, [facility] XR ANKLE 1 VIEW LEFT 2020-02-05 20:42:00 Leodan, [facility] POCT-GLUCOSE METER 2020-02-05 17:55:00 Rodo Drake [facility] BASIC METABOLIC PANEL (7) 2020-02-05 14:17:00 Leodan, Sammy Reynolds [facility] MAGNESIUM 2020-02-05 14:17:00 [facility], [facility] XR CHEST 1 VIEW 2020-02-05 10:10:00 Rodo Drake [facility] PORTABLE/BEDSIDE Medical Center APTT 2020-02-05 10:05:00 [facility] POCT-GLUCOSE METER 2020-02-05 06:33:00 Rodo Drake [facility] APTT 2020-02-05 06:17:00 Leodan [facility] B-TYPE NATRIURETIC FACTOR 2020-02-05 06:13:00 [facility], [facility] (BNP) [facility] BASIC METABOLIC PANEL (7) 2020-02-05 06:13:00 Leodan, [facility] CALCIUM, IONIZED 2020-02-05 06:13:00 [facility], [facility] PHOSPHORUS 2020-02-05 06:13:00 [facility], [facility] MAGNESIUM 2020-02-05 06:13:00 [facility], [facility] CBC W/PLT COUNT & AUTO 2020-02-05 06:13:00 [facility], [facility] POCT-GLUCOSE METER 2020-02-05 00:34:00 Rodo Drake [facility] BASIC METABOLIC PANEL (7) 2020-02-04 23:26:00 [facility] 2020-02-04 23:26:00 [facility], [facility] POCT-GLUCOSE METER 2020-02-04 17:29:00 Noelle [facility] BASIC METABOLIC PANEL (7) 2020-02-04 12:32:00 Jesse Morris [facility] I [facility] MAGNESIUM 2020-02-04 12:32:00 Randalllincoln [facility] C. DIFFICILE GDH TOXIN 2020-02-04 11:23:00 Georgie Giorgio Reynolds [facility] PT/APTT 2020-02-04 11:23:00 Rodo Drake [facility] POCT-GLUCOSE METER 2020-02-04 11:20:00 Rodo Drake [facility] POCT-GLUCOSE METER 2020-02-04 05:52:00 Rodo Drake Zulema [facility] APTT 2020-02-04 04:51:00 Mp [facility] APTT 2020-02-04 03:42:00 Mp [facility] PHOSPHORUS 2020-02-04 03:02:00 [facility] CALCIUM, IONIZED 2020-02-04 03:02:00 [facility] BASIC METABOLIC PANEL (7) 2020-02-04 03:02:00 RandalllincolnJesse CH, I [facility] MAGNESIUM 2020-02-04 03:02:00 RandallJesse stark [facility] APTT 2020-02-04 03:02:00 Mp [facility] CBC W/PLT COUNT & AUTO 2020-02-04 03:02:[address] [facility] POCT-GLUCOSE METER 2020-02-03 23:58:00 Rodo Drake [facility] BASIC METABOLIC PANEL (7) 2020-02-03 20:50:00 Jesse Morris [facility] MAGNESIUM 2020-02-03 20:50:00 Jesse Morris [facility] POCT-GLUCOSE METER 2020-02-03 18:07:00 Rodo Drake [facility] POCT-GLUCOSE METER 2020-02-03 12:15:00 Rodo Drake [facility] BLOOD CULTURE 2020-02-03 11:28:00 Zara [facility] BASIC METABOLIC PANEL (7) 2020-02-03 11:28:00 Jesse Morris CH, I [facility] MAGNESIUM 2020-02-03 11:28:00 Jesse Morris [facility] POCT-GLUCOSE METER 2020-02-03 05:46:00 Rodo Drake [facility] BLOOD GAS, ARTERIAL 2020-02-03 02:56:00 Wayne [facility] PHOSPHORUS 2020-02-03 02:50:00 Lback [facility] MAGNESIUM 2020-02-03 02:50:00 Alexandra [facility] CALCIUM, IONIZED 2020-02-03 02:50:00 [facility] COMPRE[facility]ENSIVE METABOLIC 2020-02-03 02:50:00 [facility] APTT 2020-02-03 02:50:00 Jarad Gresham [facility] CBC W/PLT COUNT & AUTO 2020-02-03 02:50:00 [facility] ABDOMEN / KUB 1 VIEW 2020-02-03 00:15:00 Ila Freeman [facility] POCT-GLUCOSE METER 2020-02-03 00:11:00 Rodo Drake [facility] BASIC METABOLIC PANEL (7) 2020-02-02 21:09:00 Jesse Morris CH, I [facility] MAGNESIUM 2020-02-02 21:09:00 Alexandra Jesse [facility] XR ABDOMEN / KUB 1 VIEW 2020-02-02 18:46:00 Rodo Drake [facility] POCT-GLUCOSE METER 2020-02-02 17:30:00 Rodo Drake [facility] POCT-GLUCOSE METER 2020-02-02 12:05:00 Rodo Drake [facility] BASIC METABOLIC PANEL (7) 2020-02-02 12:03:00 ThomasJesse pettit CARYL I [facility] MAGNESIUM 2020-02-02 12:03:00 Jesse Morris [facility] POCT-GLUCOSE METER 2020-02-02 05:32:00 Rodo Drake [facility] PHOSPHORUS 2020-02-02 03:09:00 En Black [facility] BASIC METABOLIC PANEL (7) 2020-02-02 03:09:00 Randalllincoln Jesse CARYL I [facility] MAGNESIUM 2020-02-02 03:09:00 RandallJesse stark [facility] APTT 2020-02-02 03:09:00 Jarad Gresham [facility] CBC W/PLT COUNT & AUTO 2020-02-02 03:09:00 Ila Freeman [facility] CALCIUM, IONIZED 2020-02-02 03:04:00 Black En [facility] BLOOD GAS, ARTERIAL 2020-02-02 03:04:00 Wayne [facility] POCT-GLUCOSE METER 2020-02-02 00:25:00 Rodo Drake [facility] BASIC METABOLIC PANEL (7) 2020-02-01 20:24:00 Randalllincoln Jesse CARYL I [facility] MAGNESIUM 2020-02-01 20:24:00 RandallJesse stark [facility] APTT 2020-02-01 18:11:00 Jarad Gresham [facility] POCT-GLUCOSE METER 2020-02-01 17:11:00 Rodo Drake [facility] BRONCHIAL CULTURE + GRAM 2020-02-01 15:26:00 DatarChamp [facility] [employer] CULTURE + SMEAR 2020-02-01 15:26:00 Datar, Champ Carpenter [facility] (NON-SPUTUM) [facility] FUNGUS CULTURE + SMEAR 2020-02-01 15:26:00 Datar, [facility] Pauline [facility] SPIN/CONCENTRATION CHARGE 2020-02-01 15:26:00 Datar, [facility] Juan yordan [facility] XR CHEST 1 VIEW 2020-02-01 15:19:00 Datar, Champ Pauline [facility] PORTABLE/BEDSIDE Medical Center BLOOD CULTURE 2020-02-01 13:40:00 Rodo Drake [facility] URINE CULTURE 2020-02-01 13:37:00 Rodo Drake [facility] BASIC METABOLIC PANEL (7) 2020-02-01 13:37:00 Jesse Morris I [facility] MAGNESIUM 2020-02-01 13:37:00 Jesse Morris [facility] URINALYSIS W/ REFLEX 2020-02-01 13:37:[address] [facility] URINE CULTURE [facility] BLOOD CULTURE 2020-02-01 13:36:00 Rodo Drake [facility] BLOOD CULTURE 2020-02-01 13:36:00 Rodo Drake [facility] IDENTIFICATION [facility] Medical Jose ter POCT-GLUCOSE METER 2020-02-01 11:44:00 Rodo Drake Zulema [facility] POCT-GLUCOSE METER 2020-02-01 05:58:00 Rodo Drake [facility] APTT 2020-02-01 03:04:00 Jarad Gresham [facility] CBC W/PLT COUNT & AUTO 2020-02-01 03:04:00 Domi Jordan [facility] PHOSPHORUS 2020-02-01 02:59:00 Wayne [facility] CALCIUM, IONIZED 2020-02-01 02:59:00 Wayne En [facility] BLOOD GAS, ARTERIAL 2020-02-01 02:59:00 Wayne [facility] BASIC METABOLIC PANEL (7) 2020-02-01 02:59:00 RandallJesse stark CH I [facility] MAGNESIUM 2020-02-01 02:59:00 RandalllincolnJesse [facility] POCT-GLUCOSE METER 2020-02-01 00:14:00 Rodo Drake [facility] BASIC METABOLIC PANEL (7) 2020-01-31 20:40:00 RanadlllincolnJeffdexter HUTSON I [facility] MAGNESIUM 2020-01-31 20:40:00 Thomaswilver Jesse [facility] POCT-GLUCOSE METER 2020-01-31 18:49:00 Rodo Drake Zulema [facility] BASIC METABOLIC PANEL (7) 2020-01-31 13:01:00 Alexandra Jesse CH I [facility] MAGNESIUM 2020-01-31 13:01:00 Jesse Morris [facility] POCT-GLUCOSE METER 2020-01-31 11:22:00 Rodo Drake Zulema [facility] POCT-GLUCOSE METER 2020-01-31 06:21:00 Rodo Drake [facility] BLOOD GAS, ARTERIAL 2020-01-31 05:22:00 En [facility] CBC W/PLT COUNT & AUTO 2020-01-31 05:22:00 Elly Duarte [facility] APTT 2020-01-31 05:15:00 Jarad Gresham [facility] PHOSPHORUS 2020-01-31 05:11:00 En Black [facility] CALCIUM, IONIZED 2020-01-31 05:11:00 En Black [facility] BASIC METABOLIC PANEL (7) 2020-01-31 05:11:00 RandalllincolnJeffan CARYL I [facility] MAGNESIUM 2020-01-31 05:11:00 RandalllincolnJesse [facility] APTT 2020-01-31 00:40:00 Domi Jordan [facility] POCT-GLUCOSE METER 2020-01-30 23:55:00 Rodo Drake [facility] BASIC METABOLIC PANEL (7) 2020-01-30 20:30:00 Jesse Morris CH I [facility] MAGNESIUM 2020-01-30 20:30:00 ThomassyedaJesse stark [facility] POCT-GLUCOSE METER 2020-01-30 18:17:00 Rodo Drake [facility] PT/APTT 2020-01-30 18:12:00 Rodo Drake [facility] POCT-GLUCOSE METER 2020-01-30 11:17:00 Rodo Drake [facility] SPUTUM CULTURE + GRAM 2020-01-30 11:16:00 Domi Jordan [facility] PT/APTT 2020-01-30 11:16:00 Jarad Gresham [facility] BASIC METABOLIC PANEL (7) 2020-01-30 11:16:00 Jesse Morris CARYL I [facility] MAGNESIUM 2020-01-30 11:16:00 Jesse Morris [facility] POCT-GLUCOSE METER 2020-01-30 08:17:00 Rodo Drake [facility] POCT-GLUCOSE METER 2020-01-30 05:09:00 Jarad Harrison [facility] BLOOD GAS, ARTERIAL 2020-01-30 04:00:00 En [facility] PT/APTT 2020-01-30 04:00:00 Jarad Gresham [facility] CBC W/PLT COUNT & AUTO 2020-01-30 03:26:[address] [facility] PHOSPHORUS 2020-01-30 02:56:00 Wayne [facility] CALCIUM, IONIZED 2020-01-30 02:56:00 Wayne [facility] BASIC METABOLIC PANEL (7) 2020-01-30 02:56:00 Jesse Morris CH, I [facility] MAGNESIUM 2020-01-30 02:56:00 Jesse Morris [facility] B-TYPE NATRIURETIC FACTOR 2020-01-30 02:56:00 Rodo Drake [facility] (BNP) [facility] XR CHEST 1 VIEW 2020-01-30 00:05:00 Jarad Harrison [facility] - PORTABLE/BEDSIDE [facility] POCT-GLUCOSE METER 2020-01-29 23:30:00 Jarad Harrison [facility] PT/APTT 2020-01-29 22:46:00 Jarad Gresham [facility] PERIPHERAL VASCULAR 2020-01-29 21:10:34 Lanie Bustos [facility] BASIC METABOLIC PANEL (7) 2020-01-29 20:21:00 Jesse Morris CH, I [facility] MAGNESIUM 2020-01-29 20:21:00 Jesse Morris [facility] POCT-GLUCOSE METER 2020-01-29 18:02:00 Jarad Harrison [facility] POCT-GLUCOSE METER 2020-01-29 16:16:00 Jarad Harrison [facility] POCT-GLUCOSE METER 2020-01-29 11:57:00 Jarad Harrison [facility] URINALYSIS WITH 2020-01-29 11:10:00 Jesse Morris [facility] - MICROSCOPIC IF INDICATED [facility] URINALYSIS MICROSCOPIC 2020-01-29 11:10:00 Jesse Morris [facility] BASIC METABOLIC PANEL (7) 2020-01-29 11:02:00 Jesse Morris CH I [facility] MAGNESIUM 2020-01-29 11:02:00 Jesse Morris [facility] TSH/FREE T4 IF INDICATED 2020-01-29 11:02:00 Domi Jordan [facility] APTT 2020-01-29 11:02:00 JulianDomi [facility] VENOUS DOPPLER LEGS 2020-01-29 11:00:00 Taran Dupree [facility] POCT-GLUCOSE METER 2020-01-29 08:54:00 Jarad Harrison [facility] POCT-GLUCOSE METER 2020-01-29 05:49:00 Jarad Harrison [facility] PHOSPHORUS 2020-01-29 03:29:00 Gus Blackegan [facility] CALCIUM, IONIZED 2020-01-29 03:29:00 Wayne [facility] BLOOD GAS, ARTERIAL 2020-01-29 03:29:00 Wayne [facility] BASIC METABOLIC PANEL (7) 2020-01-29 03:29:00 Jesse Morris CH, I [facility] MAGNESIUM 2020-01-29 03:29:00 Jesse Morris [facility] CBC W/PLT COUNT & AUTO 2020-01-29 03:29:00 Jovanny Dias [facility] XR CHEST 1 VIEW 2020-01-29 03:10:00 Jarad Harrison [facility] - PORTABLE/BEDSIDE [facility] POCT-GLUCOSE METER 2020-01-28 23:40:00 Jarad Harrison [facility] BASIC METABOLIC PANEL (7) 2020-01-28 19:57:00 Jesse Morris CH I [facility] MAGNESIUM 2020-01-28 19:57:00 Jesse Morris [facility] PHOSPHORUS 2020-01-28 19:57:00 Jovanny Dias [facility] POCT-GLUCOSE METER 2020-01-28 17:46:00 Jarad Harrison [facility] POCT-GLUCOSE METER 2020-01-28 11:34:00 Jarad Harrison [facility] BASIC METABOLIC PANEL (7) 2020-01-28 11:19:00 Jesse Morris CH, I [facility] MAGNESIUM 2020-01-28 11:19:00 Jesse Morris [facility] POCT-GLUCOSE METER 2020-01-28 07:54:00 Jarad Harrison [facility] ECG 12-LEAD 2020-01-28 03:51:08 Unknown, Hl7 [facility] BLOOD GAS, ARTERIAL 2020-01-28 03:11:00 Wayne [facility] MAGNESIUM 2020-01-28 03:10:00 Black, [facility] PHOSPHORUS 2020-01-28 03:10:00 [facility] LACTIC ACID, ARTERIAL 2020-01-28 03:10:00 [facility] COMPREHENSIVE METABOLIC 2020-01-28 03:10:00 [facility] & AUTO 2020-01-28 03:10:00 [facility]CELL[facility] MANUAL DIFF) 2020-01-28 03:10:00 Kwesi Portillo CH, I [facility] CALCIUM, IONIZED 2020-01-28 02:02:00 Bandar Resnick [facility] POCT-GLUCOSE METER 2020-01-28 01:56:00 Jarad Harrison [facility] XR CHEST 1 VIEW 2020-01-28 01:32:00 Jarad Harrison [facility] - PORTABLE/BEDSIDE [facility] BASIC METABOLIC PANEL (7) 2020-01-27 20:03:00 Jesse Morris CH I [facility] MAGNESIUM 2020-01-27 20:03:00 Jesse Morris [facility] PHOSPHORUS 2020-01-27 20:03:00 Jesse Morris [facility] POCT-GLUCOSE METER 2020-01-27 18:40:00 Jarad Harrison [facility] POCT-GLUCOSE METER 2020-01-27 11:58:00 Jarad Harrison [facility] XR CHEST 1 VIEW 2020-01-27 10:49:00 Datar, Champ Carpenter [facility] URINALYSIS W/ MICROSCOPIC 2020-01-27 06:19:00 Kwesi Portillo [facility] POCT-GLUCOSE METER 2020-01-27 06:18:00 Mariajose [facility] BLOOD GAS, ARTERIAL 2020-01-27 04:38:00 Black, [facility] MAGNESIUM 2020-01-27 04:37:00 Black, [facility] PHOSPHORUS 2020-01-27 04:37:00 [facility] CALCIUM, IONIZED 2020-01-27 04:37:00 [facility] LACTIC ACID, ARTERIAL 2020-01-27 04:37:00 [facility] COMPREHENSIVE METABOLIC 2020-01-27 04:37:00 Bandar [facility] B-TYPE NATRIURETIC FACTOR 2020-01-27 04:37:00 [facility] CREATINE KINASE (CK) 2020-01-27 04:37:00 [facility] W/PLT COUNT & AUTO 2020-01-27 04:37:00 [facility] (CELLAVISION MANUAL DIFF) 2020-01-27 04:37:00 Kwesi Portillo [facility] ECHOCARDIOGRAM REPORT - 2020-01-26 21:12:42 Provider, Default [facility] POCT-GLUCOSE METER 2020-01-26 18:38:00 Mariajose [facility] VANCOMYCIN LEVEL, TROUGH 2020-01-26 17:18:00 Taran Dupree [facility] SPUTUM CULTURE + GRAM 2020-01-26 14:47:00 Taran Dupree [facility] BASIC METABOLIC PANEL (7) 2020-01-26 14:42:00 En Black CH, I [facility] CORTISOL 2020-01-26 14:42:00 Taran Dupree [facility] PROTEIN, RANDOM URINE 2020-01-26 14:18:00 Bandar [facility] CREATININE, RANDOM URINE 2020-01-26 14:18:00 Bandar [facility] URINALYSIS W/ REFLEX 2020-01-26 14:18:00 Taran Dupree [facility] URINE CULTURE [facility] POCT-GLUCOSE METER 2020-01-26 13:58:00 Clementina Billy [facility] 2D ECHO W/ DOPPLER 2020-01-26 13:55:58 Wayne [facility] (CW/PW/COLOR) [facility] PT/APTT 2020-01-26 08:33:00 Taran Dupree [facility] XR CHEST 1 VIEW 2020-01-26 05:56:00 Zofia Valdes [facility] PORTABLE/BEDSIDE Medical Center BLOOD GAS, ARTERIAL 2020-01-26 04:32:00 [facility], [facility]ED 2020-01-26 04:29:00 [facility] ACID, ARTERIAL 2020-01-26 04:29:00 Wayne [facility] MAGNESIUM 2020-01-26 04:28:00 [facility] 2020-01-26 04:28:00 Wayne [facility] COMPREHENSIVE METABOLIC 2020-01-26 04:28:00 Bandar [facility] CREATINE KINASE (CK) 2020-01-26 04:28:00 Bandar [facility] B-TYPE NATRIURETIC FACTOR 2020-01-26 04:28:00 Kwesi Portillo [facility] (BNP) [facility] TROPONIN I 2020-01-26 04:28:00 Dupree Taran Ajay [facility] CBC W/PLT COUNT & AUTO 2020-01-26 04:28:00 Bandar [facility] (CELLAVISION MANUAL DIFF) 2020-01-26 04:28:00 [facility] BLOOD GAS, ARTERIAL 2020-01-26 00:12:00 Lucio [facility] LACTIC ACID, ARTERIAL 2020-01-26 00:08:00 Latrell Ponce [facility] BASIC METABOLIC PANEL (7) 2020-01-26 00:08:[address] [facility] POCT-GLUCOSE METER 2020-01-26 00:08:00 Debbie Cohen [facility] BLOOD GAS, ARTERIAL 2020-01-25 20:22:00 Lucio [facility] PROTEIN, RANDOM URINE 2020-01-25 20:13:00 [facility] VANCOMYCIN LEVEL, RANDOM 2020-01-25 17:30:00 Gilmar Blancas [facility] CBC W/PLT COUNT & AUTO 2020-01-25 17:16:00 Gus Blackegan [facility] (CELLAVISION MANUAL DIFF) 2020-01-25 17:16:00 En Black [facility] URINALYSIS W/ REFLEX 2020-01-25 17:14:00 BlackGusEn [facility] - URINE CULTURE [facility] MRSA SCREEN 2020-01-25 16:46:00 Glen En [facility] BLOOD GAS, ARTERIAL 2020-01-25 16:45:00 Glen [facility] ECG 12-LEAD 2020-01-25 16:44:26 Unknown, Hl7 [facility] BLOOD CULTURE 2020-01-25 16:36:00 Wayne En [facility] RESPIRATORY PANEL [facility] 2020-01-25 16:36:00 Wayne [facility] S [facility] MISCELLANEOUS LAB ORDER 2020-01-25 16:36:00 Black [facility] B-TYPE NATRIURETIC FACTOR 2020-01-25 16:36:[address] [facility] (BNP) [facility] TROPONIN I 2020-01-25 16:36:00 Wayne [facility] COMPREHENSIVE METABOLIC 2020-01-25 16:36:00 Wayne [facility] PANEL [facility] LACTATE DEHYDROGENASE 2020-01-25 16:36:00 [facility] (LDH) [facility] C-REACTIVE PROTEIN 2020-01-25 16:36:00 [facility] URIC ACID 2020-01-25 16:36:00 [facility] MAGNESIUM 2020-01-25 16:36:00 [facility] 2020-01-25 16:36:00 [facility] CALCIUM, IONIZED 2020-01-25 16:36:00 [facility] D-DIMER 2020-01-25 16:36:00 [facility] LACTIC ACID, VENOUS 2020-01-25 16:36:00 [facility] XR CHEST 1 VIEW 2020-01-25 15:41:00 [facility] PORTABLE/BEDSIDE [facility] PA INSERT 2020-01-25 09:00:00 Zofia Valdes [facility] CATH,ART,PERCUT,SHORTTERM [facility] Plan of Care Planned Activity Planned Date Details Comments Source Future Scheduled 2020-07-05 INFLUENZA VACCINE (#1) [facility] 00:00:00 [code = INFLUENZA Medical Ce nter VACCINE (#1)] Future Scheduled 2012 65+ PNEUMOCOCCAL [facility] 00:00:00 VACCINE (1 of 1 - PPSV23) [code = 65+ PNEUMOCOCCAL VACCINE (1 of 1 - PPSV23)] Future Scheduled 2012 PNEUMOCOCCAL 65+ YRS [facility] - Test 00:00:00 (1 of 1 - Medical Center [id number] PCV13) [code = PNEUMOCOCCAL 65+ YRS (1 of 1 - [id number] PCV13)] Future Scheduled 1997 COLONOSCOPY SCREENING [place] [facility] 00:00:00 [code = COLONOSCOPY SCREENING] Future Scheduled 1997 SHINGLES VACCINES (#1) [place] [facility] 00:00:00 [code = SHINGLES VACCINES (#1)] Future Scheduled 1957 DIABETIC FOOT EXAM [place] [facility] 00:00:00 [code = DIABETIC FOOT EXAM] Future Scheduled 1957 URINE MICROALBUMIN [place] [facility] 00:00:00 [code = URINE MICROALBUMIN] Future Scheduled 1947 DIABETIC RETINAL EYE [facility] 00:00:00 EXAM [code = DIABETIC RETINAL EYE EXAM] Future Scheduled [address] [facility] - Test 00:00:00 malignant neoplasm of Medica l Center colon (procedure) [code = 723909906] Encounters Start End Encounter Admission Attending Care Care Encounter Source Date/Time Date/Time Type Type Clinicians Facility Department ID 2020-08-17 Outpatient READMISSFÉLIX WEIR ENCGEN ENCGEN [id number] ENCGEN 11:14:37 N VINNIE JAFFE 2020-08-16 Outpatient READMISSAMADOU NIETO [id number] ENCGEN 15:04:43 N CHRISTEN 2020-07-18 2020-07-18 Outpatient ASKED, NO [facility] [id number] [place] 00:00:00 00:00:[address] 2020-07-03 2020-07-12 [id number] [place] 00:00:00 00:00:00 CALLIE [address] 2019-12-17 2019-12-17 [facility] [id number] 07:58:01 10:31:00 Encounter Gilmar Davis [id number] Nolan Crenshaw [id number] Surgical [id number] [place] [id number] 2019-12-15 2019-12-15 Circle Edger Scooby Joan [facility] [id number] 15:39:58 15:54:58 Visit Lab Main Ryan [id number] [place] [id number] Seda [id number] nal [address] Building Results Test Description Test Time Test Comments Results Result Comments Source POC glucose 2020-07-12 12:05:29 Test Item Value Reference Range Interpretation Comme nts POC glucose (test code = 192 mg/dL 65-99 H Ope rator Name: Sawyer Myrick [id number]) ID: [id number] hartable: [facility] Notified electronic scale subassembler Interpretation (test code = Abnormal 84673-9) Conner PenaT4, [id number] 00:00:24 Test Item Value Reference Range Interpretation Comments T4, free (test code = 3024-7) 1.0 ng/dL 0.9-1.7 Conner PenaVitamin B12 [id number] 04:20:25 Test Item Value Reference Range Interpretation Comments Vitamin B12 (test 678 pg/mL 211-946 Significan t overlap code = 2132-9) exists betwee n normal and deficiency states.However, most patients with deficiencies wi ll have Serum B12 <2 00 pg/mL. Conner PenaFolate [id number] 04:20:25 Test Item Value Reference Range Interpretation Comments Folate (test code = 2284-8) >20.0 4.8-24.2 Conner PenaVitamin D 25 hydroxy [id number] 01:25:07 Test Item Value Reference Range Interpretation Comments Vitamin D, 38.4 ng/mL 30-150 This assay repo rts the 25-hydroxy (test sum of 25-h ydroxy code = 1988-) vitamin D3 an d 25-hydroxy tari min D2. Reference range :0-17 years:Deficienc y: less than 20ng/mLOpt imum level: greater than or equal to 20 ng/ mL.18 years and older:Deficienc y: less than 20ng/mLInsuffic iency: 20-29 ng/mLOpti mum Level: 30-80 ng /mLThe assay reportabl e range is 3.4 155.9 n g/mL. Levels higher t disla 150 ng/mL may be as sociated with toxicity.I f toxicity is cli nically suspected and t he reported result is >155.9 ng/mL,co ntact lab for alternative methods to obtain a def initive level.If separa te quantitation of 25-hydroxy tari min D3 and 25-hydroxy vitamin D2 is needed, p ghazal contact lab for alternative met hods. [facility] MethodistThyroid stimulating [id number] 23:25:38 Test Item Value Reference Range Interpretation Comments TSH (test code = 3016-3) 10.19 0.27- 4.20 uIU/mL H Lab Interpretation (test code = Abnormal 14559-6) [facility] MethodistBasic metabolic [id number] 23:18:16 Test Item Value Reference Range Interpretation Comments Sodium (test code = 2951-2) 137 135- 148 mEq/L Potassium (test code = 2823-3) 4.2 3.5- 5.0 mEq/L Chloride (test code = 2075-0) 93 98- 112 mEq/L L CO2 (test code = 2027-9) 29 24- 31 mEq/L Anion gap (test code = 66144-3) 15@ANIO 7- 15 mEq/L BUN (test code = 3094-0) 21 mg/dL 8-23 Creatinine (test code = 2160-0) 1.72 mg/dL 0.7-1.2 H Glucose (test code = 2345-7) 170 mg/dL 65-99 H Calcium (test code = 89890-1) 10.1 mg/dL 8.8-10.2 Lab Interpretation (test code = Abnormal 19115-7) [facility] MethodistEstimated [id number] 23:18:16 Test Item Value Reference Range Interpretation Comments Estimated GFR (test 39 mL/min/1.73 m2 Gael thakur Units code = 5488) InterpretationG 1 >=90 Coral l or highG2 60-89 Mildly decrease dG3a 45-59 Mil dly to moderately decr dpskkQ3n 30-44 Moderately to s everely decreasedG4 15-29 Severe ly decreasedG5 <15 Kidney wes lureThe eGFR was calcul ated using the Chron ic Kidney Disease Epidemiology Collaboration ( CKD-EPI) equation. Interpretation is based on recommendati ons of the National [facility]-Kidn ey Disease Outcome s Quality Initiat gurpreet (NKF-KDOQI) pub lished in 2013. Lab Interpretation Abnormal (test code = 42224-9) Conner AdventismCBC with platelet and [id number] 22:36:01 Test Item Value Reference Range Interpretation Comments WBC (test code = 62027-9) 7.72 4.50- 11.00 k/uL RBC (test code = 55489-1) 3.80 m/uL 4.4-6 L HGB (test code = 718-7) 11.8 g/dL 14-18 L HCT (test code = 4544-3) 36.8 % 41-51 L MCV (test code = 787-2) 96.8 fL 82-100 MCH (test code = 785-6) 31.1 pg 27-34 MCHC (test code = 786-4) 32.1 g/dL 31-37 RDW - SD (test code = 50.6 fL 37-55 13095-5) MPV (test code = 43505-9) 9.7 fL 8.8-13.2 Platelet count (test code 123 150- 400 k/uL L = 92498-6) Nucleated RBC (test code 0.00 /100 WBC = 15634-1) Neutrophils (test code = 55.4 % 39-69 22912-3) Lymphocytes (test code = 30.8 % 25-45 04225-2) Monocytes (test code = 8.5 % 0-10 81069-5) Eosinophils (test code = 4.3 % 0-5 32594-3) Basophils (test code = 0.5 % 0-1 61941-2) Immature granulocytes 0.5 % 0-1 "Immat ure (test code = 39792-9) granul ocytes" (promyelocytes, myelocytes, metamyelocytes) Lab Interpretation (test Abnormal code = 20857-4) Conner NeelistSyphilis total [id number] 09:52:06 Test Item Value Reference Range Interpretation Comments Syphilis total Non-reactive Non-reactive No serologica l antibody (test code evidence of syphilis = 6194) infection. [facility] AdventismHIV Ag/Ab [id number] 09:39:42 Test Item Value Reference Range Interpretation Comments HIV Ag/Ab combination (test code Non-reactive Non-reactive = 5299) [facility] MethodistHemoglobin [id number] 08:29:47 Test Item Value Reference Range Interpretation Comments Hemoglobin A1C (test 6.0 % 4-5.6 H HbA1c c utoffs for code = 34940-8) diagnosing diabetes:4.0% - 5.6% = normal5.7% - 6.4% = increased risk for diabetes (prediabetes)9> =6.5% = [id number] s for glycemic contro l (ADA 2016)< 7.0% Ta rget for non adults with irene betes. More or less stringent targe ts may be appropriate for individual zeina ents. <7.5% Target for Children and adolescents wit h type 1 diabetes. Lab Interpretation (test Abnormal code = 68361-3) [facility] MethodistLipid [id number] 07:52:09 Test Item Value Reference Interpretation Comments Range Cholesterol (test 149 mg/dL <200 code = 2093-3) Triglycerides (test 121 mg/dL <150 code = 2571-8) HDL cholesterol 69 mg/dL >40 (test code = 2085-9) LDL cholesterol 74 mg/dL <100 Result obtai jez by direct (test code = 2089-1) LDL sonu surement Lipid panel SeeBelow Total Cholester ol (mg/dL) interpretation (test < 200 code = 95023-4) Desirable 200-239 Borderline -high >=240 Hi gh Triglyceri marilynn (mg/dL) <150 No rmal 150-199 Borderline-high 200-499 High >=500 Very high HDL Choles terol (mg/dL) <40 Low (male) < 40 Low (female) L DL Cholesterol (mg /dL) <100 Optimal 1 00-129 Near or above o ptimal 130-159 Borderline-high 160-189 High >=190 Very high Risk Cat ergories that modify LDL goals.Risk Catergories LDL goal (mg/dL )CHD and CHD risk equiva lent <100 (10-year risk >20%)Multiple ( 2+) risk factors < 130 (10-year risk = <20%)0-1 risk factors <160 (<10-ye ar risk) Defining levels of lipids in metabolic syndromeTriglyc erides > =150 mg/dLHDL Choles terol Men <40 mg/dL Women <40 mg/dL Non-HDL cholest naveed is a second target f or therapy in personswith high triglycerides ( >=200 mg/dL) Conner [facility]ECG 12 [id number] 11:16:44 Test Item Value Reference Range Interpretation Comments Ventricular rate (test 63 code = 253) Atrial rate (test code 63 = 255) PA interval (test code 240 = 266) QRSD interval (test 78 code = 260) QT interval (test code 432 = 264) QTC interval (test code 442 = 265) P axis 1 (test code = 61 267) QRS axis 1 (test code = 42 268) T wave axis (test code 37 = 270) EKG impression (test Sinus rhythm with 1st code = 273) degree AV block-Otherwise normal ECG-In automated comparison with ECG of 03-JUL-2020 10:17,-Sinus rhythm has replaced Junctional rhythm- Conner MethodistGLUCOSE BEDSIDE [id number] 16:38:00 Test Item Value Reference Range Interpretation Comments GLUCOSE BEDSIDE TESTING (test code 133 mg/dL 70-110 H = GLUBED) GLUCOSE BEDSIDE [id number] 11:34:00 Test Item Value Reference Range Interpretation Comments GLUCOSE BEDSIDE TESTING (test code 141 mg/dL 70-110 H = GLUBED) BASIC METABOLIC [id number] 11:23:00 Test Item Value Reference Range Interpretation [...] CA) 9.0 MG/DL 8.5-10.1 N GLUCOSE BEDSIDE [id number] 08:36:00 Test Item Value Reference Range Interpretation Comments GLUCOSE BEDSIDE TESTING (test code 146 mg/dL 70-110 H = GLUBED) GLUCOSE BEDSIDE [id number] 20:10:00 Test Item Value Reference Range Interpretation Comments GLUCOSE BEDSIDE TESTING (test code 150 mg/dL 70-110 H = GLUBED) - CT ABD PELVIS W/O [id number] 10:02:00 Name: CANDIE KELLEY : 1945 Age/S: 74 / M [address] [address] [place] Unit #: [id number] Loc: [place] [address] Phys: Russ Gordon MD Acct: [id number] Dis Date: Status: ADM IN PHONE #: [phone] Exam Date: 06/06/2020 0909 FAX #: Reason: RENAL ST ONE PROTOCOL EXAMS: CPT: [id number] CT ABD PELVIS W/O CONT 90990 TIME OF STUDY: 06/06/2020 6:00 AM REASON [...] appearance. There is no mesenteric or retroperitoneal a denopathy. The bowel loops are nondilated. A normal [...] 1 Signed Report (CONTINUED) Name: CANDIE KELLEY : 1945 Age/S: 74 / M [address] [address] [place] Unit #: [id number] Loc: [place] [address] Phys: Russ Gordon MD Acct: [id number] Dis Date: Status: ADM IN PHONE #: [phone] Exam Date: 06/06/2020 0909 FAX #: Reason: RENAL STONE PROTOCOL EXAMS: CPT: [id number] CT ABD PELVIS W/O CONT 73362 <Continued> CC: Russ Harrison MD; Hemal Nolasco MD Technologist:Demond Lieberman, RT(R)(CT) CTDI: DLP: Trnscb Date/Time: 06/06/2020 (1002) t.SDR.SI1 Orig Print D/T: S: 06/06/2020 (1005) PAGE 2 Signed ReportCBC W/AUTO [id number] 08:29:00 Test Item Value Reference Range Interpretation [...] NT WITH AUTO DIFFERENTI AL. COMPREHENSIVE METABOLIC [id number] 08:26:00 Test Item Value Reference Range Interpretation [...] 43 Unit/L 50-136 L code = ALKP) [id number] 08:26:00 Test Item Value Reference Range Interpretation Comments MAGNESIUM (test code = MAG) 1.8 MG/DL 1.8-2.4 N GLUCOSE BEDSIDE [id number] 17:13:00 Test Item Value Reference Range Interpretation Comments GLUCOSE BEDSIDE TESTING (test code 127 mg/dL 70-110 H = GLUBED) - US RETROPERITONEAL [id number] 17:09:00 Name: CANDIE KELLEY [place] : 1945 Age/S: 74 / M [address] [address] [place] Unit #: [id number] Loc: [place] [address] Phys: Russ Gordon MD Acct: [id number] Dis Date: Status: ADM IN PHONE #: [phone] Exam Date: 06/05/2020 1640 FAX #: Reason: R/O ASCI WYATT VS URINARY RETENTION EXAMS: CPT: [id number] US RETROPERITONEAL COM 90581 ULTRASOUND: - US RETROPERITONEAL COM History: Ascites, urinary retention Comparison: None. B-mode/Koo scale imaging with color Doppler perfusion imaging and spec tral analysis was performed. No ascites seen. The [...] Technologist: Wendy Childers Trnscb Date/Time: 06/05/2020 (1709) KelleM1 PAGE 1 Signed Report Name: CANDIE KELLEY [place] : 1945 Age/S: 74 / M [address] [facility] [place] Unit #: [id number] Loc: [place] [address] Phys: Russ Gordon MD Acct: [id number] Dis Date: Status: ADM IN PHONE #: [phone] Exam Date: 06/05/2020 1640 FAX #: Reason: R/O ASCITES VS URINARY RETENTION EXAMS: CPT: [id number] [facility] [address] <Continued> Orig Print D/T: S: 06/05/2020 (7670) Probe: PAGE 2 Signed ReportGLUCOSE BEDSIDE TESTING 2020-06-05 12:41:00 Test Item Value Reference Range Interpretation Comments GLUCOSE BEDSIDE TESTING (test code 149 mg/dL 70-110 H = GLUBED) CBC W/AUTO [id number] 10:09:00 Test Item Value Reference Range Interpretation [...] DIFF REQUIRED NO DIFF/SCN CRITERIA SLIDE R MOHIT (test code = MDIFF) CONSISTA NT WITH AUTO DIFFERENTI AL. GLUCOSE BEDSIDE [id number] 08:51:00 Test Item Value Reference Range Interpretation Comments GLUCOSE BEDSIDE TESTING (test code 177 mg/dL 70-110 H = GLUBED) BASIC METABOLIC [id number] 08:40:00 Test Item Value Reference Range Interpretation [...] CA) 9.1 MG/DL 8.5-10.1 N BASIC METABOLIC [id number] 08:38:00 Test Item Value Reference Range Interpretation [...] 9.1 MG/DL 8.5-10.1 N NT PRO-BRAIN NATRIURETIC [id number] 08:35:00 Test Item Value Reference Range Interpretation Comments NT PRO-BRAIN NATRIURETIC PEPTI 148 PG/ML 0-100 H (test code = PROBNP) CBC W/AUTO [id number] 08:27:00 Test Item Value Reference Range Interpretation [...] REQUIRED (test code = DIFF/SCN CRITERIA MDIFF) [id number] 01:56:00 Test Item Value Reference Range Interpretation [...] julita yby method. Completed by Nursing: NOCoronavirus 2018 nCoV [id number] 00:15:00 Test Item Value Reference Range Interpretation Comments Coronavirus 2019 nCoV Negative Negative Per alex nufacturer, Bedside (test code = negativ e results should [id number]) be treated aspresumptive a nd, if inconsistent [...] symptoms consis tent with COVID-19. Emergent procedure? [id number] 22:54:00 Test Item Value Reference Range Interpretation Comments MAGNESIUM (test code = MAG) 1.7 MG/DL 1.8-2.4 L [id number] 22:50:00 Test Item Value Reference Range Interpretation [...] (test code = No acid fast bacilli 38513-3) seen [facility]NON-SPUTUM)2020-03-14 15:14:00 Test Item Value Reference Range Interpretation Comments CULTURE (BEAKER) (test No acid-fast bacilli code = 1095) isolated in 42 days AFB SMEAR (BEAKER) No acid fast bacilli (test code = 994) seen [id number] 08:28:00 Test Item Value Reference Range Interpretation Comments Ammonia (test code = 28 18- 72 mol/L 08868-9) JOSE FRANCISCO (test code = JOSE FRANCISCO) Superintendent Stations ID - DAMION M Lab Interpretation (test Normal code = 67056-7) [facility]2020-[facility] 08:28:00 Test Item Value Reference Range Interpretation Comments AMMONIA (BEAKER) (test code = 348) 28 mol/L 18-72 Superintendent Stations ID - DAMION MFungus culture + [id number] 18:10:00 Test Item Value Reference Range Interpretation Comments Result (test code = <1+ Miguel Ángel A 6463-4) albicans Fungus Smear (test code = No fungi seen 1406) Lab Interpretation (test Abnormal code = 77789-1) [facility] + [id number] 18:10:00 Test Item Value Reference Range Interpretation Comments CULTURE (BEAKER) A <1+ Miguel Ángel albicans (test code = 1095) FUNGUS SMEAR No fungi seen (BEAKER) (test code = 1406) POC-Glucose [id number] 17:46:00 Test Item Value Reference Range Interpretation Comments POC-Glucose Meter (test 124 mg/dL 70-110 H : TE STED AT [facility] code = 1538) [address] [facility], [facility] 30: Superintendent Stations/Techni antonio ID = [id number] for CRYSTAL VERAS Lab Interpretation (test Abnormal code = 57283-2) [facility] Center[facility] [id number] 17:46:00 Test Item Value Reference Range Interpretation Comments POC-GLUCOSE METER 124 mg/dL 70-110 H : TESTED A T [facility] 6720 (ARIES) (test code = [place], 1538) [address]: Superintendent Stations/Techni antonio ID = [id number] for CRYSTAL JOSE ECG 12 [id number] 15:40:18Interface, External Ris In - 02/09/2020 3:40 PM CDTVentricular Rate 59 BPMAtrial Rate 59 BPMP-R Interval 254 msQRS Duration 88 msQ-T Interval 438 msQTC Calculation(Bazett) 433 msP [place] 70 degreesR [place] 21 degreesT [place] 64 degreesSinus bradycardia with 1st degree A-V blockNonspecific T wave abnormalityAbnormal ECGWhen compared with ECG of 08-FEB-2020 11:33,No significant change was foundConfirmed by MD Nathanael, Steven ([id number]) on 02/09/2020 3:40:17 [facility] 2020-02-09 13:37:00Reason for exam:->alcohol abuse- [...] MDReport Verified Date/Time: 02/09/2020 13:37:24 Reading Location: [address] Radiology Reading Room US abdomen [id number] 13:37:00Interface, External Ris In - 02/09/2020 1:39 PM CDTFINAL REPORT HISTORY : Al cohol abuse, concern for ascites and cirrhosis. Patient [...] MDReport Verified Date/Time: 02/09/2020 13:37:24 Reading Location: [address] Radiology Readin g Room [facility] [id number] 12:58:00 Test Item Value Reference Range Interpretation Comments POC-GLUCOSE METER 145 mg/dL 70-110 H : TESTED A T [facility] 67[address] (BEAKER) (test code = [place], 1538) [address]: Superintendent Stations/Techni antonio ID = [id number] for CRYSTAL JOSE POCT-GLUCOSE [id number] 08:36:00 Test Item Value Reference Range Interpretation Comments POC-GLUCOSE METER 100 mg/dL 70-110 : TESTED A T [facility] 6720 (BEAKER) (test code = [place], 1538) [address]: Superintendent Stations/Techni antonio ID = [id number] for CRYSTAL JOSE Calcium, [id number] 07:15:00 Test Item Value Reference Range Interpretation Comments Calcium, Ion (test code = 1993-) 1.16 mmol/L 1.12-1.27 pH, Blood (test code = 25176-1) 7.31 [facility]CALCIUM, [id number] 07:15:00 Test Item Value Reference Range Interpretation Comments CALCIUM IONIZED (BEAKER) (test 1.16 mmol/L 1.12-1.27 code = 698) PH, BLOOD (BEAKER) (test code = 7.31 1810) Basic Metabolic [id number] 04:26:00 Test Item Value Reference Range Interpretation Comments Sodium (test code = 137 meq/L 377-490 2429-2) Potassium (test code = 4.0 meq/L 3.5-5.1 2823-3) Chloride (test code = 104 meq/L 98-107 2075-0) CO2 (test code = 28 meq/L 22-29 2028-9) BUN (test code = 34 mg/dL 7-21 H 3094-0) Creatinine (test code 1.32 mg/dL 0.57-1.25 H = 2160-0) Glucose (test code = 87 mg/dL 70-105 2345-7) Calcium (test code = 9.1 mg/dL 8.4-10.2 61589-6) EGFR (test code = 53 mL/min/1.73 [place] [address]-0) NOT ACCURATE CREATININE CLEARANCE IN PREDICTING GLOMERULAR FILTRATION RATE . ESTIMATED GFR I S NOT APPLICABLE FOR DIALYSIS PATIENTS. JOSE FRANCISCO (test code = JOSE FRANCISCO) Superintendent Stations ID - DAMION M Lab Interpretation Abnormal (test code = 99480-2) [facility] CenterPhosphorus2020-04-07 04:26:00 Test Item Value Reference Range Interpretation Comments Phosphorus (test code = 3.5 mg/dL 2.3-4.7 2777-1) JOSE FRANCISCO (test code = JOSE FRANCISCO) Superintendent Stations LISA BRUNO M Lab Interpretation (test Normal code = 29726-8) [facility] CenterPHOSPHORUS2020-04-07 04:26:00 Test Item Value Reference Range Interpretation Comments PHOSPHORUS (BEAKER) (test code = 3.5 mg/dL 2.3-4.7 604) Superintendent Stations LISA BRUNO MBASIC METABOLIC [id number] 04:26:00 Test Item Value Reference Range Interpretation [...] S NOT APPLICABLE FOR DIALYSIS PATIEN TS. Superintendent Stations LISA BRUNO MCBC with platelet count + automated [id number] 04:16:00 Test Item Value Reference Range Interpretation [...] 450 K/CU MM MPV (test code = 20665-5) 10.2 fL 9.4-12.4 nRBC (test code = [...] 2801) Lab Interpretation (test code = Abnormal 49627-1) [facility] W/PLT COUNT & AUTO [id number] 04:16:00 Test Item Value Reference Range Interpretation [...] PERCENT (BEAKER) (test code = 2801) POCT-GLUCOSE [id number] 21:12:00 Test Item Value Reference Range Interpretation Comments POC-GLUCOSE METER 132 mg/dL 70-110 H : TESTED A T [facility] 6720 (BEAKER) (test code = [facility], 1538) [address]: Superintendent Stations/Techni antonio ID = [id number] for SA MONTEZ, RONI POCT-GLUCOSE [id number] 17:47:00 Test Item Value Reference Range Interpretation Comments POC-GLUCOSE METER 158 mg/dL 70-110 H : TESTED A T [facility] 67[address] (BEAKER) (test code = [facility], 1538) [address]: Superintendent Stations/Techni antonio ID = [id number] for SA NTOS, CRYSTAL Blood Culture - Routine (Left Venipuncture)2020-02-08 13:00:00 Test Item Value Reference Range Interpretation Comments Result (test code = No growth in 5 days 6463-4) [facility] CenterBLOOD [id number] 13:00:00 Test Item Value Reference Range Interpretation Comments CULTURE (BEAKER) (test No growth in 5 days code = 1095) BLOOD [id number] 13:00:00 Test Item Value Reference Range Interpretation Comments CULTURE (BEAKER) (test No growth in 5 days code = 1095) POCT-GLUCOSE [id number] 12:24:00 Test Item Value Reference Range Interpretation Comments POC-GLUCOSE METER 141 mg/dL 70-110 H : Notified RN/MD: (MÓNICAAKER) (test code = TESTED AT [place] [address]) [place], [address]: Superintendent Stations/Techni antonio ID = [id number] for SA NTOS, CRYSTAL POCT-GLUCOSE [id number] 08:24:00 Test Item Value Reference Range Interpretation Comments POC-GLUCOSE METER 109 mg/dL 70-110 : Notified RN/MD: (ARIES) (test code = TESTED AT [place] [address]) [place], [address]: Superintendent Stations/Techni antonio ID = [id number] for SA NTOS, CRYSTAL CALCIUM, [id number] 07:47:00 Test Item Value Reference Range Interpretation Comments CALCIUM IONIZED (BEAKER) (test 1.17 mmol/L 1.12-1.27 code = 698) PH, BLOOD (BEAKER) (test code = 7.34 1810) Comprehensive metabolic [id number] 04:20:00 Test Item Value Reference Range Interpretation Comments Protein, Total (test 7.7 6.0- 8.3 gm/dL Speci men slightly code = 2885-2) hemolyzed Albumin (test code = 3.4 g/dL 3.5-5 L Specime n slightly 50256-5) hemolyzed Alkaline Phosphatase 45 U/L 40-150 (test code = 6768-6) Total Bilirubin (test 0.4 mg/dL 0.2-1.2 Specim en slightly code = 1975-2) hemolyzed Sodium (test code = 139 meq/L 788-740 3750-2) Potassium (test code = 3.9 meq/L 3.5-5.1 Speci men slightly 2823-3) hemolyzed Chloride (test code = 106 meq/L 98-107 2075-0) CO2 (test code = 26 meq/L 22-29 8-9) BUN (test code = 40 mg/dL 7-21 H 3094-0) Creatinine (test code 1.43 mg/dL 0.57-1.25 H Specim en slightly = 2160-0) hemolyzed Glucose (test code = 98 mg/dL 70-105 2345-7) Calcium (test code = 9.7 mg/dL 8.4-10.2 00477-3) AST (test code = 26 U/L 5-34 Specimen sl ightly 1920-8) hemolyzed ALT (test code = 52 U/L 6-55 Specimen sl ightly 1742-6) hemolyzed EGFR (test code = 49 mL/min/1.73 [place] [address]-8) NOT ACCURATE CREATININE CLEARANCE IN PREDICTING GLOMERULAR FILTRATION RATE . ESTIMATED GFR I S NOT APPLICABLE FOR DIALYSIS PATIENTS. JOSE FRANCISCO (test code = JOSE FRANCISCO) Superintendent Stations ID Edel BRIGGS W Lab Interpretation Abnormal (test code = 12377-3) [facility] CenterMagnesium2020-04-[facility] 04:20:00 Test Item Value Reference Range Interpretation Comments Magnesium (test code = 2.0 mg/dL 1.6-2.6 Speci men 69789-0) slightly hemolyzed JOSE FRANCISCO (test code = JOSE FRANCISCO) Superintendent Stations ID Edel BRIGGS W Lab Interpretation Normal (test code = 71003-1) [facility] CenterMAGNESIUM2020-04-06 04:20:00 Test Item Value Reference Range Interpretation Comments MAGNESIUM (BEAKER) 2.0 mg/dL 1.6-2.6 Specimen slightly (test code = 627) hemolyzed Superintendent Stations ID - BRIGITTE [id number] 04:20:00 Test Item Value Reference Range Interpretation Comments PHOSPHORUS (BEAKER) 4.3 mg/dL 2.3-4.7 Specimen slightly (test code = 604) hemolyzed Superintendent Stations ID Edel BRIGGS WBASIC METABOLIC [id number] 04:20:00 Test Item Value Reference Range Interpretation [...] APPLICABLE FOR DIALYSIS PATIEN TS. COMPREHENSIVE METABOLIC [id number] 04:20:00 Test Item Value Reference Range Interpretation [...] S NOT APPLICABLE FOR DIALYSIS PATIEN TS. Superintendent Stations ID - BRIGITTE WCBC W/PLT COUNT & AUTO [id number] 04:02:00 Test Item Value Reference Range Interpretation [...] PERCENT (BEAKER) (test code = 2801) POCT-GLUCOSE [id number] 21:20:00 Test Item Value Reference Range Interpretation Comments POC-GLUCOSE METER 213 mg/dL 70-110 H : TESTED A T [facility] 6720 (BEAKER) (test code = [facility], 1538) [address]: Superintendent Stations/Techni antonio ID = [id number] for UL LATTIL, MARCIANO POCT-GLUCOSE [id number] 18:16:00 Test Item Value Reference Range Interpretation Comments POC-GLUCOSE METER 177 mg/dL 70-110 H : TESTED A T [facility] 67[address] (BEAKER) (test code = [facility], 1538) [address]: Superintendent Stations/Techni antonio ID = [id number] for OK KAMLA, CHAR Urinalysis w/Microscopic + Reflex to [id number] 16:39:00 Test Item Value Reference Range Interpretation Comments Color, UA (test code = Colorless 5778-6) Clarity, UA (test code = Clear 5767-9) Specific [place], UA (test 1.013 1.001-1.035 code = 5811-5) pH, UA (test code = 5.0 5.0-8.0 5803-2) Protein, UA (test code = Negative Negative 28110-2) Glucose, UA (test code = Negative Negative 365) Ketones, UA (test code = Negative Negative 1084-8) Bilirubin, UA (test code = Negative Negative 97180-3) Blood, UA (test code = Negative Negative 87537-3) Nitrite, UA (test code = Negative Negative 5802-4) Leukocytes, UA (test code Negative Negative = 5799-2) Urobilinogen, UA (test 0.2 mg/dL 0.2-1 code = 45316-2) RBC, UA (test code = 2 /HPF 06929-5) WBC, UA (test code = 1 /HPF 5821-4) Mucus (test code = 8247-9) Rare Squam Epithel, UA (test <1 /HPF code = 23765-2) Hyaline Casts, UA (test 8 /LPF code = 12863-7) Specimen Source (test code = 2795) JOSE FRANCISCO (test code = JOSE FRANCISCO) Superintendent Stations ID - Equigerminal [facility]INALYSIS W/ REFLEX URINE [id number] 16:39:00 Test Item Value Reference Range Interpretation [...] /LPF 514) SOURCE(BEAKER) (test code = 2795) Superintendent Stations ID - [id number] 14:19:00 Test Item Value Reference Range Interpretation Comments MAGNESIUM (BEAKER) 2.0 mg/dL 1.6-2.6 Specimen slightly (test code = 627) hemolyzed Superintendent Stations ID - CHIQUIS FBASIC METABOLIC [id number] 14:19:00 Test Item Value Reference Range Interpretation [...] S NOT APPLICABLE FOR DIALYSIS PATIEN TS. Superintendent Stations ID - CHIQUIS FPOCT-GLUCOSE [id number] 12:59:00 Test Item Value Reference Range Interpretation Comments POC-GLUCOSE METER 148 mg/dL 70-110 H : TESTED A T [facility] 6720 (BEAKER) (test code = ANAHI Osorio [place], 1538) [address]: Superintendent Stations/Techni antonio ID = [id number] for CO RTEZ, YO POCT-GLUCOSE [id number] 07:14:00 Test Item Value Reference Range Interpretation Comments POC-GLUCOSE METER 86 mg/dL 70-110 : TESTED A T [facility] 6720 (BEAKER) (test [facility], [address]: code = 1538) Superintendent Stations/Techni antonio ID = [id number] for HAIDER KRUGER IN [id number] 06:46:00 Test Item Value Reference Range Interpretation Comments MAGNESIUM (BEAKER) 1.9 mg/dL 1.6-2.6 Specimen slightly (test code = 627) hemolyzed Superintendent Stations ID - TONNY [id number] 06:46:00 Test Item Value Reference Range Interpretation Comments PHOSPHORUS (BEAKER) 4.4 mg/dL 2.3-4.7 Specimen slightly (test code = 604) hemolyzed Superintendent Stations ID - TONNY LCOMPREHENSIVE METABOLIC [id number] 06:46:00 Test Item Value Reference Range Interpretation [...] S NOT APPLICABLE FOR DIALYSIS PATIEN TS. Superintendent Stations ID - PIAYA LCALCIUM, [id number] 06:41:00 Test Item Value Reference Range Interpretation Comments CALCIUM IONIZED (BEAKER) (test 1.22 mmol/L 1.12-1.27 code = 698) PH, BLOOD (BEAKER) (test code = 7.31 1810) [id number] 06:26:00 Test Item Value Reference Range Interpretation Comments PTT (test code = 27641-4) 33.0 22.5- 36.0 seconds Lab Interpretation (test code = Normal 35627-1) [facility]APTT[facility] 06:26:00 Test Item Value Reference Range Interpretation Comments PARTIAL THROMBOPLASTIN TIME 33.0 seconds 22.5-36.0 (BEAKER) (test code = 760) CBC W/PLT COUNT & AUTO [id number] 06:08:00 Test Item Value Reference Range Interpretation [...] PERCENT (BEAKER) (test code = 2801) POCT-GLUCOSE [id number] 23:12:00 Test Item Value Reference Range Interpretation Comments POC-GLUCOSE METER 119 mg/dL 70-110 H : TESTED A T [facility] 6720 (BEAKER) (test code = ANAHI Devon [facility], 1538) [address]: Superintendent Stations/Techni antonio ID = [id number] for Kayleigh Soto [id number] 21:23:00 Test Item Value Reference Range Interpretation Comments MAGNESIUM (BEAKER) (test code = 1.9 mg/dL 1.6-2.6 627) Superintendent Stations ID - DBBASIC METABOLIC [id number] 21:23:00 Test Item Value Reference Range Interpretation [...] S NOT APPLICABLE FOR DIALYSIS PATIEN TS. Superintendent Stations ID - DBPOCT-GLUCOSE [id number] 19:22:00 Test Item Value Reference Range Interpretation Comments POC-GLUCOSE METER 114 mg/dL 70-110 H : TESTED A T [facility] 6720 ([employer]) (test code = [facility], 153) [address]: Superintendent Stations/Techni antonio ID = [id number] for Kayleigh Soto POCT-GLUCOSE [id number] 18:30:00 Test Item Value Reference Range Interpretation Comments POC-GLUCOSE METER 170 mg/dL 70-110 H : TESTED A T [facility] 6720 (etaskrAKER) (test code = [facility], 153) [address]: Superintendent Stations/Techni antonio ID = [id number] for KRISTIAN LOZANO POCT-GLUCOSE [id number] 18:22:00 Test Item Value Reference Range Interpretation Comments POC-GLUCOSE METER 64 mg/dL 70-110 L : TESTED A T [facility] 6720 ([employer]) (test code = [facility], 153) [address]: Superintendent Stations/Techni antonio ID = [id number] for LUZ MARINA Guthrie ROZ BLOOD [id number] 16:00:00 Test Item Value Reference Range Interpretation Comments CULTURE ([employer]) (test No growth in 5 days code = 1095) Clostridium difficile GDH [id number] 13:33:00 Test Item Value Reference Range Interpretation Comments C. Difficle Toxin Negative Negative (test code = 9758819367) C. Difficile GDH Negative Negative No indicati on of Antigen (test code = Clostri dium 3247065005) difficile infection and n o colonization. Discontinue enteric isolati on and therapy. JOSE FRANCISCO (test code = Testing performed JOSE FRANCISCO) by [employer] Rapid Cassette Assay. For GDH, published sensitivity of the assay is 98.7% compared to cytotoxicity testing. For Toxin AB, published sensitivity is 87.8% and specificity 99.4% compared to cytotoxicity testing.Verificati on of kit performance was done by the [facility] Microbiology Lab prior to clinical use. Lab Interpretation Normal (test code = 42628-3) [facility]. DIFFICILE GDH [id number] 13:33:00 Test Item Value Reference Range Interpretation Comments CDT TOXIN (test code Negative Negative = [id number]) CDT GDH ANTIGEN (test Negative Negative No ind ication of code = [id number]) Clostridi um difficile infection and n o colonization. Discontinue ent mirtha isolation and t herapy. Testing performed by Alere Rapid Cassette Assay. For GDH, published sensitivity of the assay is 98.7% compared to cytotoxicity testing. For Toxin AB, published sensitivity is 87.8% and specificity 99.4% compared to cytotoxicity testing.Verification of kit performance was done by the [facility] Microbiology Lab prior to clinical use.[id number] 10:43:00 Test Item Value Reference Range Interpretation Comments MAGNESIUM (BEAKER) 1.8 mg/dL 1.6-2.6 Specimen slightly (test code = 627) hemolyzed Superintendent Stations LISA SIM [id number] 10:43:00 Test Item Value Reference Range Interpretation Comments PHOSPHORUS (BEAKER) 3.5 mg/dL 2.3-4.7 Specimen slightly (test code = 604) hemolyzed Superintendent Stations LISA SIM FBASIC METABOLIC [id number] 10:43:00 Test Item Value Reference Range Interpretation [...] S NOT APPLICABLE FOR DIALYSIS PATIEN TS. Superintendent Stations ID - CHIQUIS [id number] 10:36:00 Test Item Value Reference Range Interpretation Comments PARTIAL THROMBOPLASTIN TIME 30.1 seconds 22.5-36.0 (BEAKER) (test code = 760) CBC W/PLT COUNT & AUTO [id number] 10:12:00 Test Item Value Reference Range Interpretation [...] PERCENT (BEAKER) (test code = 2801) POCT-GLUCOSE [id number] 00:37:00 Test Item Value Reference Range Interpretation Comments POC-GLUCOSE METER 82 mg/dL 70-110 : TESTED A T [facility] 6720 (BEAKER) (test code = ANAHI Devon [facility], 1538) [address]: Superintendent Stations/Techni antonio ID = [id number] for RONALD LOU RAD, ANKLE, 1 VIEW, [id number] 21:50:00Reason for exam:->left lateral ankle pain; r/o fractureFINAL REPORT RAD, ANKLE, 1 VIEW, LEFT CLINICAL HISTORY: left lateral ankle pain; r/o fracture TECHNIQUE: RAD, ANKLE, 1 VIEW, LEFT COMPARISON: None IMPRESSION: There is no evidence of fracture or traumatic malalignment. Small calcaneal spur. No focal soft tissue abnormality. Signed: Dereck Aguirre MDReport Verified Date/Time: 02/05/2020 21:50:12 XR ankle 1 view [id number] 21:50:00Interface, External Ris In - 02/05/2020 9:53 PM CDTFINAL REPORT RAD, ANKLE, 1 VIEW, LEFT CLINICAL HISTORY: left lateral ankle pain; r/o fracture TECHNIQUE: RAD, ANKLE, 1 VIEW, LEFT COMPARISON: None IMPRESSION: There is no evidence of fracture or traumatic malalignment. Small calcaneal spur. No focal soft tissue abnormality. Signed: Dereck Aguirre MDReport Verified Date/Time:02/05/2020 21:50:12 [facility] 21:14:00 Test Item Value Reference Range Interpretation Comments MAGNESIUM (BEAKER) (test code = 2.1 mg/dL 1.6-2.6 627) Superintendent Stations ID - DAMION MBASIC METABOLIC [id number] 21:14:00 Test Item Value Reference Range Interpretation [...] S NOT APPLICABLE FOR DIALYSIS PATIEN TS. Superintendent Stations ID - DAMION MPOCT-GLUCOSE [id number] 18:07:00 Test Item Value Reference Range Interpretation Comments POC-GLUCOSE METER 291 mg/dL 70-110 H : TESTED A T [facility] 6720 (BEAKER) (test code = A[place], 1538) [address]: Superintendent Stations/Techni antonio ID = [id number] for BRIANNE LIN [id number] 14:46:00 Test Item Value Reference Range Interpretation Comments MAGNESIUM (BEAKER) (test code = 2.2 mg/dL 1.6-2.6 627) Superintendent Stations ID - NTPBASIC METABOLIC [id number] 14:46:00 Test Item Value Reference Range Interpretation [...] S NOT APPLICABLE FOR DIALYSIS PATIEN TS. Superintendent Stations ID - [id number] 10:36:00 Test Item Value Reference Range Interpretation Comments PARTIAL THROMBOPLASTIN TIME 42.7 seconds 22.5-36.0 H (BEAKER) (test code = 760) RAD, CHEST, 1 VIEW, NON [id number] 10:26:00Reason for exam:->pneumonia, pulm edemaShould this be [...] MDReport Verified Date/Time: 02/05/2020 10:26:24 [facility] 1 view portable / [id number] 10:26:00Interface, External Ris In - 02/05/2020 10:28 AM CDTFINAL REPORT RAD, CHEST, 1 VIEW, NON DEPT INDICATION: pneumonia, pulm edema COMPARISON: Prior day's exam FINDINGS: Portable frontal view of the chest. IMPRESSION: Limited by underpenetration and patient rotation.Support Lines: Interval extubation. Enteric tube is stable. Lungs and pleura: Lungs are hypoinflated with central congestive changes favoring edema. No cerebral effusion. No pneumothorax.Heart and mediastinum: Stable contours. Additional findings: None. Signed: JR Loyola Robert MDReport Verified Date/Time:02/05/2020 10:26:24 Reading Location: [facility] Radiology Reading Room [facility] 07[facility]25[facility]00 Test Item Value Reference Range Interpretation Comments PARTIAL THROMBOPLASTIN TIME > seconds 22.5-36.0 HH (BEAKER) (test code = 760) B-type Natriuretic Factor (BNP)2020-02-05 06:54:00 Test Item Value Reference Range Interpretation Comments BNP (test code = 78188-2) 66 pg/mL 0-100 JOSE FRANCISCO (test code = JOSE FRANCISCO) Superintendent Stations ID - DAMION M Lab Interpretation (test Normal code = 13369-7) [facility] NAT[facility] FACTOR (BNP)2020-02-05 06:54:00 Test Item Value Reference Range Interpretation Comments B-TYPE NATRIURETIC PEPTIDE (BEAKER) 66 pg/mL 0-100 (test code = 700) Superintendent Stations ID - DAMION [id number] 06:48:00 Test Item Value Reference Range Interpretation Comments PHOSPHORUS (BEAKER) (test code = 4.6 mg/dL 2.3-4.7 604) Superintendent Stations ID - DAMION [id number] 06:48:00 Test Item Value Reference Range Interpretation Comments MAGNESIUM (BEAKER) (test code = 2.4 mg/dL 1.6-2.6 627) Superintendent Stations ID - DAMION MBASIC METABOLIC [id number] 06:48:00 Test Item Value Reference Range Interpretation [...] S NOT APPLICABLE FOR DIALYSIS PATIEN TS. Superintendent Stations ID - DAMION MPOCT-GLUCOSE [id number] 06:45:00 Test Item Value Reference Range Interpretation Comments POC-GLUCOSE METER 190 mg/dL 70-110 H : [facility] ([facility] (test code = ANAHI Osorio [facility], 1538) [address]: Superintendent Stations/Techni antonio ID = [id number] for ALEX BATES TERRI CALCIUM, [id number] 06:33:00 Test Item Value Reference Range Interpretation Comments CALCIUM IONIZED (BEAKER) (test 1.17 mmol/L 1.12-1.27 code = 698) PH, BLOOD (BEAKER) (test code = 7.36 1810) CBC W/PLT COUNT & AUTO [id number] 06:28:00 Test Item Value Reference Range Interpretation [...] 0-1 PERCENT (BEAKER) (test code = 2801) [id number] 01:07:00 Test Item Value Reference Range Interpretation Comments MAGNESIUM (BEAKER) (test code = 2.5 mg/dL 1.6-2.6 627) Superintendent Stations ID - PIAYA LBASIC METABOLIC [id number] 01:07:00 Test Item Value Reference Range Interpretation [...] S NOT APPLICABLE FOR DIALYSIS PATIEN TS. Superintendent Stations ID - TONNY LPOCT-GLUCOSE [id number] 00:45:00 Test Item Value Reference Range Interpretation Comments POC-GLUCOSE METER 158 mg/dL 70-110 H : TESTED A T [facility] 6720 (BEAKER) (test code = [facility], 1538) [address]: Superintendent Stations/Techni antonio ID = [id number] for TERRI DAVIS POCT-GLUCOSE [id number] 17:40:00 Test Item Value Reference Range Interpretation Comments POC-GLUCOSE METER 176 mg/dL 70-110 H : TESTED A T [facility] 6720 (BEAKER) (test code = [facility], 1538) [address]: Superintendent Stations/Techni antonio ID = [id number] for BRIANNE LIN [id number] 13:00:00 Test Item Value Reference Range Interpretation Comments MAGNESIUM (BEAKER) (test code = 1.9 mg/dL 1.6-2.6 627) Superintendent Stations ID - CHIQUIS FBASIC METABOLIC [id number] 13:00:00 Test Item Value Reference Range Interpretation [...] S NOT APPLICABLE FOR DIALYSIS PATIEN TS. Superintendent Stations ID - CHIQUIS FBronchial culture + gram [id number] 11:46:00 Test Item Value Reference Range Interpretation Comments Result (test code = <1+ Normal respiratory 6463-4) wilbur present Gram Stain Result No organisms seen (test code = 1123) [facility] + [facility]AM [id number] 11:46:00 Test Item Value Reference Range Interpretation Comments CULTURE (BEAKER) <1+ Normal respiratory (test code = 1095) wilbur present GRAM STAIN RESULT 2+ WBCs (BEAKER) (test code = 1123) GRAM STAIN RESULT No organisms seen (BEAKER) (test code = 12826) [id number] 11:43:00 Test Item Value Reference Range Interpretation Comments Protime (test code = 15.0 11.9- 14.2 H 5902-2) seconds INR (test code = 1.2 <=5.9 6301-6) PTT (test code = 89.3 22.5- 36.0 H 02263-3) seconds JOSE FRANCISCO (test code = JOSE FRANCISCO) Effective 04/01/2019: PT Reference Range ChangeNew: 11.9-14.2 Previous: 11.7-14.7 RECOMMENDED COUMADIN/WARFARIN INR THERAPY RANGESSTANDARD DOSE: 2.0-3.0 Includes: PROPHYLAXIS for venous thrombosis, systemic embolization; TREATMENT for venous thrombosis and/or pulmonary embolus.HIGH RISK: Target INR is 2.5-3.5 for patients wiht mechanical heart valves. Lab Interpretation Abnormal (test code = 09000-5) [facility] CenterPT/[id number] 11:43:00 Test Item Value Reference Range Interpretation [...] is2.5-3.5 for patients wiht mechanical heart valves.POCT-GLUCOSE [id number] 11:38:00 Test Item Value Reference Range Interpretation Comments POC-GLUCOSE METER 173 mg/dL 70-110 H : TESTED A T [facility] 6720 (etaskrAKER) (test code = [employer] [facility], 1538) [address]: Superintendent Stations/Techni antonio ID = [id number] for BRIANNE LIN BLOOD [id number] 10:14:00 Test Item Value Reference Range Interpretation Comments CULTURE A From Aerobic An d (BEAKER) (test Anaerobic Bot tles code = 1095) Coagulase negat gurpreet Staphylococcus GRAM STAIN From aerobic and RESULT (BEAKER) anaerobic (test code = bottles: gram 1123) positive cocci in clusters POCT-GLUCOSE [id number] 06:04:00 Test Item Value Reference Range Interpretation Comments POC-GLUCOSE METER 231 mg/dL 70-110 H : TESTED A T [facility] 6720 (BEAKER) (test code = [facility] [employer] [facility], 1538) [address]: Superintendent Stations/Techni antonio ID = [id number] for MARY DURAN ROZ [id number] 05:28:00 Test Item Value Reference Range Interpretation Comments PARTIAL THROMBOPLASTIN TIME 87.0 seconds 22.5-36.0 H (BEAKER) (test code = 760) [id number] 04:00:00 Test Item Value Reference Range Interpretation Comments PARTIAL THROMBOPLASTIN TIME 160.0 seconds 22.5-36.0 HH (BEAKER) (test code = 760) [id number] 03:34:00 Test Item Value Reference Range Interpretation Comments PARTIAL THROMBOPLASTIN TIME 157.3 seconds 22.5-36.0 HH (BEAKER) (test code = 760) [id number] 03:29:00 Test Item Value Reference Range Interpretation Comments PHOSPHORUS (BEAKER) (test code = 4.5 mg/dL 2.3-4.7 604) Superintendent Stations ID - [id number] 03:29:00 Test Item Value Reference Range Interpretation Comments MAGNESIUM (BEAKER) (test code = 2.0 mg/dL 1.6-2.6 627) Superintendent Stations ID - LMBASIC METABOLIC [id number] 03:29:00 Test Item Value Reference Range Interpretation [...] S NOT APPLICABLE FOR DIALYSIS PATIEN TS. Superintendent Stations ID - LMCALCIUM, [id number] 03:13:00 Test Item Value Reference Range Interpretation Comments CALCIUM IONIZED (BEAKER) (test 1.05 mmol/L 1.12-1.27 L code = 698) PH, BLOOD (BEAKER) (test code = 7.34 1810) CBC W/PLT COUNT & AUTO [id number] 03:12:00 Test Item Value Reference Range Interpretation [...] PERCENT (BEAKER) (test code = 2801) POCT-GLUCOSE [id number] 00:09:00 Test Item Value Reference Range Interpretation Comments POC-GLUCOSE METER 165 mg/dL 70-110 H : TESTED A T [facility] 6720 (BEAKER) (test code = [facility], 1538) [address]: Superintendent Stations/Techni antonio ID = [id number] for ROZ LEVINE [id number] 21:34:00 Test Item Value Reference Range Interpretation Comments MAGNESIUM (BEAKER) (test code = 2.1 mg/dL 1.6-2.6 627) Superintendent Stations ID Edel SIM FBASIC METABOLIC [id number] 21:34:00 Test Item Value Reference Range Interpretation [...] S NOT APPLICABLE FOR DIALYSIS PATIEN TS. Superintendent Stations ID Edel SIM FPOCT-GLUCOSE [id number] 18:20:00 Test Item Value Reference Range Interpretation Comments POC-GLUCOSE METER 202 mg/dL 70-110 H : TESTED A T [facility] 6720 (BEAKER) (test code = [facility], 1538) 34963: Superintendent Stations/Techni antonio ID = [id number] for ALEX RIN, DREA [id number] 12:36:00 Test Item Value Reference Range Interpretation Comments MAGNESIUM (BEAKER) (test code = 2.3 mg/dL 1.6-2.6 627) Superintendent Stations ID - CHIQUIS FBASIC METABOLIC [id number] 12:36:00 Test Item Value Reference Range Interpretation [...] S NOT APPLICABLE FOR DIALYSIS PATIEN TS. Superintendent Stations ID - CHIQUIS FPOCT-GLUCOSE [id number] 12:26:00 Test Item Value Reference Range Interpretation Comments POC-GLUCOSE METER 188 mg/dL 70-110 H : TESTED A T [facility] 6720 (BEAKER) (test code = [facility], 1538) 90391: Superintendent Stations/Techni antonio ID = [id number] for ALEX RIN, DREA Urine [id number] 07:59:00 Test Item Value Reference Range Interpretation Comments Result (test code = 6463-4) [facility] [id number] 05:57:00 Test Item Value Reference Range Interpretation Comments POC-GLUCOSE METER 199 mg/dL 70-110 H : TESTED A T [facility] 6720 (BEAKER) (test code = [facility], 1538) 26413: Superintendent Stations/Techni antonio ID = [id number] for MARÍA HOLGUIN Blood gas, [id number] 03:37:00 Test Item Value Reference Range Interpretation Comments pH, Arterial (test code = 2744-1) 7.44 7.35-7.45 pCO2, Arterial (test code = 38 35- 45 mmHg 2018-) pO2, Arterial (test code = 2703-7) 244 80- 90 mmHg H O2 Sat, Arterial (test code = 99.6 % 96-97 H 2707-6) HCO3, Arterial (test code = 26 mmol/L 21-29 1959-4) Base Excess, Arterial (test code = 1.7 mmol/L -2-3 1925-7) Patient Temperature (test code = 37.5 C 8310-5) FIO2 (test code = 1819) 50 % Lab Interpretation (test code = Abnormal 57759-6) [facility], [id number] 03:37:00 Test Item Value Reference Range Interpretation [...] (test code = 1819) 50.0 % CALCIUM, [id number] 03:37:00 Test Item Value Reference Range Interpretation Comments CALCIUM IONIZED (BEAKER) (test 1.14 mmol/L 1.12-1.27 code = 698) PH, BLOOD (BEAKER) (test code = 7.45 1810) [id number] 03:34:00 Test Item Value Reference Range Interpretation Comments MAGNESIUM (BEAKER) (test code = 2.5 mg/dL 1.6-2.6 627) Superintendent Stations ID - DAMION MCOMPREHENSIVE METABOLIC [id number] 03:34:00 Test Item Value Reference Range Interpretation [...] S NOT APPLICABLE FOR DIALYSIS PATIEN TS. Superintendent Stations ID - DAMION [id number] 03:33:00 Test Item Value Reference Range Interpretation Comments PHOSPHORUS (BEAKER) (test code = 4.3 mg/dL 2.3-4.7 604) Superintendent Stations ID - DAMION MRAD, ABDOMEN/KUB, 1 VIEW [id number] 03:33:00Reason for exam:->NG tube placement checkFINAL REPORT [...] the bilateral bases, incompletely evaluated. Signed: Sun Ibrahimort Verified Date/Time: 02/03/2020 03:33:27 XR abdomen / KUB 1 [id number] 03:33:00Interface, External Ris In - 02/03/2020 3:35 [...] Sun Ibrahim MDReport Verified Date/Time: 02/03/2020 03:33:27 [facility]27[facility]00 Test Item Value Reference Range Interpretation Comments PARTIAL THROMBOPLASTIN TIME 85.5 seconds 22.5-36.0 H (BEAKER) (test code = 760) CBC W/PLT COUNT & AUTO [id number] 03:21:00 Test Item Value Reference Range Interpretation [...] PERCENT (BEAKER) (test code = 2801) POCT-GLUCOSE [id number] 00:28:00 Test Item Value Reference Range Interpretation Comments POC-GLUCOSE METER 209 mg/dL 70-110 H : TESTED Gael Porter [facility] 6720 (BEAKER) (test code = [place], 1538) [address]: Superintendent Stations/Techni antonio ID = [id number] for ROOSEVELT SWANSON2020-03-31 21:46:00 Test Item Value Reference Range Interpretation Comments MAGNESIUM (BEAKER) (test code = 1.9 mg/dL 1.6-2.6 627) Superintendent Stations ID - DBBASIC METABOLIC [id number] 21:46:00 Test Item Value Reference Range Interpretation [...] S NOT APPLICABLE FOR DIALYSIS PATIEN TS. Superintendent Stations ID - DBRAD, ABDOMEN/KUB, 1 VIEW [id number] 19:20:00Reason for exam:- >NG TUBE PLACEMENTShould this be performed at the bedside?->YesFINAL REPORT Abdomen one view Comparison: None. Reason for exam: NG TUBE PLACEMENT Findings: Supine view of the abdomen was obtained. There is a nasogastric tube with tip in thegastric body. There is no bowel obstruction. There are small bibasilar opacities which may representatelectasis and/or pneumonia. Signed: Talia Trivedieport Verified Date/Time: 02/02/2020 19:20:58 POCT-GLUCOSE [id number] 17:41:00 Test Item Value Reference Range Interpretation Comments POC-GLUCOSE METER 167 mg/dL 70-110 H : TESTED A T [facility] 6720 (BEAKER) (test code = [place], 1538) [address]: Superintendent Stations/Techni antonio ID = [id number] for SLICK RODRIGUEZ Blood Culture Panel([employer])2020-02-02 16:11:00 Test Item Value Reference Interpretation Comments Range LISTERIA MONOCYTOGENES Not detected Not detected (test code = 74606-7) STAPHYLOCOCCUS (test Detected Not detected A Coagula se code = 13833-5) negative Sta ph species (CoNS)- methicillin resistantFirst- li ne therapy: Vancomycin MecA DETECTED Possib le contamination. The likelihood of pathogenicity i s increased if th e organism is observed in multiple blood cultures obtain ed from separate venipunctures. Reference Range : Not Detected STAPHYLOCOCCUS AUREUS Not detected Not detected (test code = 21083-2) Streptococcus (test Not detected Not detected code = 03213-1) STREPTOCOCCUS Not detected Not detected AGALACTIAE (GROUP B) (test code = 77272-7) STREPTOCOCCUS Not detected Not detected PNEUMONIAE (test code = 00968-0) Streptococcus pyogenes Not detected Not detected (Group A) (test code = 42830-7) ACINETOBACTER BAUMANNII Not detected Not detected (test code = 71218-5) HAEMOPHILUS INFLUENZAE Not detected Not detected (test code = 01854-8) NEISSERIA MENINGITIDIS Not detected Not detected (test code = 30523-6) ENTEROBACTERIACEAE Not detected Not detected (test code = 11086-5) ENTEROBACTER CLOACOE Not detected Not detected COMPLEX (test code = 99895-1) KLEBSIELLA OXYTOCA Not detected Not detected (test code = 71951-4) KLEBSIELLA PNEUMONIAE Not detected Not detected (test code = 39901-5) PROTEUS (test code = Not detected Not detected 46715-3) SERRATIA MARCESCENS Not detected Not detected (test code = 23514-9) MIGUEL ÁNGEL ALBICANS (test Not detected Not detected code = 74601-8) MIGUEL ÁNGEL GLABRATA (test Not detected Not detected code = 51456-1) MIGUEL ÁNGEL KRUSEI (test Not detected Not detected code = 14195-3) MIGUEL ÁNGEL PARAPSILOSIS Not detected Not detected (test code = 56761-2) MIGUEL ÁNGEL TROPICALIS Not detected Not detected (test code = 98741-2) ESCHERICHIA COLI (test Not detected Not detected code = 38660-5) METHICILLIN-RESISTANCE Detected Not detected A GENE (test code = 97496-8) VANCOMYCIN-RESISTANCE GENE (test code = 91215-9) CARBAPENEM-RESISTANCE GENE (test code = 57602-1) ENTEROCOCCUS (test code Not detected Not detected = 70018-8) PSEUDOMONAS AERUGINOSA Not detected Not detected (test code = 60659-8) JOSE FRANCISCO (test code = JOSE FRANCISCO) Other bacteria and resistance markers not targeted by this PCR panel cannot be excluded; therefore clinical correlation and follow up of serology, culture results, and other molecular studies is required. The results are not intended to be used as the sole means for clinical diagnosis or patient management decisions. This sample was tested at the [facility] Molecular Diagnostics Laboratory using the [employer] Blood Culture ID Panel. It is FDA cleared and has been verified and approved by the [facility] Molecular Diagnostics Laboratory for clinical use. This laboratory is CLIA-certified and [employer] (CAP)-accredited to perform high complexity testing. Lab Interpretation Abnormal (test code = 50701-6) [facility] [id number] 16:11:00 Test Item Value Reference Range Interpretation Comments LISTERIA MONOCYTOGENES Not detected Not detected (test code = 0347410) STAPHYLOCOCCUS (test Detected Not detected A Coagula se negative code = 5940594) Staph specie s (CoNS)- methicillin resistantFirst- miguelito e therapy: Vancomycin MecA DETECTED Possib le contamination. The likelihood of pathogenicity i s increased if th e organism is observed in multiple blood cultures obtain ed from separate venipunctures. Reference Range : Not Detected STAPHYLOCOCCUS AUREUS Not detected Not detected (test code = 5130420) STREPTOCOCCUS (test code Not detected Not detected = 3115245) STREPTOCOCCUS AGALACTIAE Not detected Not detected (GROUP B) (test code = 7665388) STREPTOCOCCUS PNEUMONIAE Not detected Not detected (test code = 4251536) STREPTOCOCCUS PYOGENES Not detected Not detected (GROUP A) (test code = 0351109) ACINETOBACTER BAUMANNII Not detected Not detected (test code = 5765441) HAEMOPHILUS INFLUENZAE Not detected Not detected (test code = 2954127) NEISSERIA MENINGITIDIS Not detected Not detected (test code = 8963346) ENTEROBACTERIACEAE (test Not detected Not detected code = 9863356) ENTEROBACTER CLOACOE Not detected Not detected COMPLEX (test code = 7828396) KLEBSIELLA OXYTOCA (test Not detected Not detected code = 9215511) KLEBSIELLA PNEUMONIAE Not detected Not detected (test code = 1650) PROTEUS (test code = Not detected Not detected 7614223) SERRATIA MARCESCENS Not detected Not detected (test code = 3600930) MIGUEL ÁNGEL ALBICANS (test Not detected Not detected code = 4352097) MIGUEL ÁNGEL GLABRATA (test Not detected Not detected code = 5478793) MIGUEL ÁNGEL KRUSEI (test Not detected Not detected code = 7705628) MIGUEL ÁNGEL PARAPSILOSIS Not detected Not detected (test code = 4436547) MIGUEL ÁNGEL TROPICALIS (test Not detected Not detected code = 9489179) ESCHERICHIA COLI (test Not detected Not detected code = 6488749) METHICILLIN-RESISTANCE Detected Not detected A GENE (test code = 3043531) VANCOMYCIN-RESISTANCE GENE (test code = 7913774) CARBAPENEM-RESISTANCE GENE (test code = 3321428) ENTEROCOCCUS-BEAKER Not detected Not detected (test code = 0650647) PSEUDOMONAS Not detected Not detected AERUGINOSA-BEAKER (test code = 4390814) Other bacteria and resistance markers not targeted by this PCR panel cannot be excluded; therefore clinical correlation and follow up of serology, culture results, and other molecular studies is required. The results are not intended to be used as the sole means for clinical diagnosis or patient management decisions. This sample was tested at the [facility] Molecular Diagnostics Laboratory using the [employer] Blood Culture ID Panel. It is FDA cleared and has been verified and approved by the [facility] Molecular Diagnostics Laboratory for clinical use. This laboratory is CLIA-certified and College ofAmerican Pathologists (CAP)-accredited to perform high complexity testing.MAGNESIUM 2020-02-02 14:02:00 Test Item Value Reference Range Interpretation Comments MAGNESIUM (BEAKER) (test code = 2.0 mg/dL 1.6-2.6 627) Superintendent Stations ID - DAMION MBASIC METABOLIC [id number] 14:02:00 Test Item Value Reference Range Interpretation [...] S NOT APPLICABLE FOR DIALYSIS PATIEN TS. Superintendent Stations ID - DAMION MPOCT-GLUCOSE [id number] 12:16:00 Test Item Value Reference Range Interpretation Comments POC-GLUCOSE METER 230 mg/dL 70-110 H : TESTED A T [facility] 6720 (BEAKER) (test code = [facility], 1538) [address]: Superintendent Stations/Techni antonio ID = [id number] for SLICK RODRIGUEZ SPIN/CONCENTRATION [id number] 10:51:00 Test Item Value Reference Range Interpretation Comments Concentration charged (test code = Done 2657) [facility] [id number] 10:51:00 Test Item Value Reference Range Interpretation Comments CONCENTRATION CHARGED (BEAKER) (test Done code = 2657) SPIN/CONCENTRATION [id number] 10:51:00 Test Item Value Reference Range Interpretation Comments CONCENTRATION CHARGED (BEAKER) (test Done code = 2657) POCT-GLUCOSE [id number] 05:43:00 Test Item Value Reference Range Interpretation Comments POC-GLUCOSE METER 287 mg/dL 70-110 H : TESTED A T [facility] 6720 (BEAKER) (test code = [facility], 1538) [address]93[address]: Superintendent Stations/Techni antonio ID = [id number] for MARÍA HOLGUIN [id number] 04:00:00 Test Item Value Reference Range Interpretation Comments PARTIAL THROMBOPLASTIN TIME 78.5 seconds 22.5-36.0 H (BEAKER) (test code = 760) [id number] 03:54:00 Test Item Value Reference Range Interpretation Comments PHOSPHORUS (BEAKER) (test code = 3.5 mg/dL 2.3-4.7 604) Superintendent Stations ID Edel BRUNO [id number] 03:54:00 Test Item Value Reference Range Interpretation Comments MAGNESIUM (BEAKER) (test code = 2.2 mg/dL 1.6-2.6 627) Superintendent Stations ID - DAMION MBASIC METABOLIC [id number] 03:54:00 Test Item Value Reference Range Interpretation [...] S NOT APPLICABLE FOR DIALYSIS PATIEN TS. Superintendent Stations ID - DAMION MCBC W/PLT COUNT & AUTO [id number] 03:26:00 Test Item Value Reference Range Interpretation [...] (BEAKER) (test code = 2801) BLOOD GAS, [id number] 03:11:00 Test Item Value Reference Range Interpretation [...] (test code = 1819) 50.0 % CALCIUM, [id number] 03:11:00 Test Item Value Reference Range Interpretation Comments CALCIUM IONIZED (BEAKER) (test 1.11 mmol/L 1.12-1.27 L code = 698) PH, BLOOD (BEAKER) (test code = 7.49 1810) POCT-GLUCOSE [id number] 00:37:00 Test Item Value Reference Range Interpretation Comments POC-GLUCOSE METER 219 mg/dL 70-110 H : TESTED A T [facility] 6720 (BEAKER) (test code = ANAHI Osorio [facility], 1538) 28750: Superintendent Stations/Techni antonio ID = [id number] for ROZ LEVINE [id number] 20:47:00 Test Item Value Reference Range Interpretation Comments MAGNESIUM (BEAKER) (test code = 1.9 mg/dL 1.6-2.6 627) Superintendent Stations ID - bspa59OSLJO METABOLIC [id number] 20:47:00 Test Item Value Reference Range Interpretation [...] S NOT APPLICABLE FOR DIALYSIS PATIEN TS. Superintendent Stations ID - [id number] 18:33:00 Test Item Value Reference Range Interpretation Comments PARTIAL THROMBOPLASTIN TIME 70.5 seconds 22.5-36.0 H (BEAKER) (test code = 760) POCT-GLUCOSE [id number] 17:22:00 Test Item Value Reference Range Interpretation Comments POC-GLUCOSE METER 243 mg/dL 70-110 H : TESTED A T [facility] 6720 (BEAKER) (test code = [facility] [place], 1538) [address]: Superintendent Stations/Techni antonio ID = [id number] for KRISTIAN LOZANO RAD, CHEST, 1 VIEW, NON [id number] 15:25:00Reason for exam:- >pneumoniaReason for exam:->post bronchShould this be performed at the bedside?->YesFINAL REPORT Chest, one view HISTORY: Status post bronchoscopy Comparison: 01/30/2020 Findings: Lungs: Mild right basilar airspace disease. Heart: Normal in size. Pleura: No pleural effusion or pneumothorax. Bones: Unremarkable. Lines/tubes: Unchanged in position. IMPRESSION: No significant interval change. Signed: Rafat Torrez [facility] Verified Date/Time: 02/01/2020 15:25:50 Reading Location: [facility] Diagnostic Imaging Reading Room - [place] [address] Sputum Culture + Gram [id number] 15:15:00 Test Item Value Reference Range Interpretation Comments Result (test code = 4+ Normal respiratory 6463-4) wilbur present Gram Stain Result 1+ gram variable rods (test code = 1123) [facility] CenterPUTUM C[facility] + GRAM [id number] 15:15:00 Test Item Value Reference Range Interpretation Comments CULTURE (BEAKER) 4+ Normal respiratory (test code = 1095) wilbur present GRAM STAIN RESULT 2+ WBCs (BEAKER) (test code = 1123) GRAM STAIN RESULT 5-10 epithelial cells (BEAKER) (test code = 10064) GRAM STAIN RESULT 2+ gram negative rods (BEAKER) (test code = 45770) GRAM STAIN RESULT <1+ gram positive cocci (BEAKER) (test code = in pairs and clusters 290741) GRAM STAIN RESULT <1+ yeast (BEAKER) (test code = 621597) GRAM STAIN RESULT 1+ gram variable rods (BEAKER) (test code = 283533) URINALYSIS W/ REFLEX URINE [id number] 14:22:00 Test Item Value Reference Range Interpretation [...] 1574) Occasional SOURCE(BEAKER) (test code = 2795) Superintendent Stations ID - [auto]Superintendent Stations ID - [id number] 14:08:00 Test Item Value Reference Range Interpretation Comments MAGNESIUM (BEAKER) (test code = 1.9 mg/dL 1.6-2.6 627) Superintendent Stations ID - DAMION MBASIC METABOLIC [id number] 14:08:00 Test Item Value Reference Range Interpretation [...] S NOT APPLICABLE FOR DIALYSIS PATIEN TS. Superintendent Stations ID - DAMION MPOCT-GLUCOSE [id number] 11:55:00 Test Item Value Reference Range Interpretation Comments POC-GLUCOSE METER 247 mg/dL 70-110 H : TESTED A T [facility] 6720 (BEAKER) (test code = [facility], 1538) 27940: Superintendent Stations/Techni antonio ID = [id number] for KRISTIAN LOZANO POCT-GLUCOSE [id number] 06:09:00 Test Item Value Reference Range Interpretation Comments POC-GLUCOSE METER 236 mg/dL 70-110 H : TESTED A T [facility] 6720 (BEAKER) (test code = [facility] [employer] [facility], 1538) 83203: Superintendent Stations/Techni antonio ID = [id number] for ROZ LEVINE [id number] 03:37:00 Test Item Value Reference Range Interpretation Comments PHOSPHORUS (BEAKER) (test code = 2.7 mg/dL 2.3-4.7 604) Superintendent Stations ID - DAMION [id number] 03:37:00 Test Item Value Reference Range Interpretation Comments MAGNESIUM (BEAKER) (test code = 2.3 mg/dL 1.6-2.6 627) Superintendent Stations ID - DAMION MBASIC METABOLIC [id number] 03:37:00 Test Item Value Reference Range Interpretation [...] S NOT APPLICABLE FOR DIALYSIS PATIEN TS. Superintendent Stations ID - DAMION [id number] 03:32:00 Test Item Value Reference Range Interpretation Comments PARTIAL THROMBOPLASTIN TIME 66.5 seconds 22.5-36.0 H (BEAKER) (test code = 760) BLOOD GAS, [id number] 03:19:00 Test Item Value Reference Range Interpretation [...] (test code = 1819) 40.0 % CALCIUM, [id number] 03:15:00 Test Item Value Reference Range Interpretation Comments CALCIUM IONIZED (BEAKER) (test 1.14 mmol/L 1.12-1.27 code = 698) PH, BLOOD (BEAKER) (test code = 7.47 1810) CBC W/PLT COUNT & AUTO [id number] 03:09:00 Test Item Value Reference Range Interpretation [...] PERCENT (BEAKER) (test code = 2801) POCT-GLUCOSE [id number] 00:26:00 Test Item Value Reference Range Interpretation Comments POC-GLUCOSE METER 183 mg/dL 70-110 H : TESTED A T [facility] 6720 (BEAKER) (test code = ANAHI Osorio [facility], 1538) 48766: Superintendent Stations/Techni antonio ID = [id number] for ROZ LEVINE [id number] 21:06:00 Test Item Value Reference Range Interpretation Comments MAGNESIUM (BEAKER) (test code = 1.9 mg/dL 1.6-2.6 627) Superintendent Stations ID - BSBASIC METABOLIC [id number] 21:06:00 Test Item Value Reference Range Interpretation [...] S NOT APPLICABLE FOR DIALYSIS PATIEN TS. Superintendent Stations ID - BSPOCT-GLUCOSE [id number] 19:01:00 Test Item Value Reference Range Interpretation Comments POC-GLUCOSE METER 234 mg/dL 70-110 H : TESTED A T [facility] 6720 (BEAKER) (test code = ANAHI Osorio [facility], 1538) 63373: Superintendent Stations/Techni antonio ID = [id number] for BRIANNE LIN BASIC METABOLIC [id number] 13:27:00 Test Item Value Reference Range Interpretation [...] S NOT APPLICABLE FOR DIALYSIS PATIEN TS. Superintendent Stations ID - [id number] 13:26:00 Test Item Value Reference Range Interpretation Comments MAGNESIUM (BEAKER) 2.0 mg/dL 1.6-2.6 Specimen slightly (test code = 627) hemolyzed Superintendent Stations ID - DBPOCT-GLUCOSE [id number] 11:35:00 Test Item Value Reference Range Interpretation Comments POC-GLUCOSE METER 355 mg/dL 70-110 H : TESTED A T [facility] 6720 (BEAKER) (test code = [facility] [place], 1538) 51746: Superintendent Stations/Techni antonio ID = [id number] for BRIANNE LIN BLOOD GAS, [id number] 06:43:00 Test Item Value Reference Range Interpretation [...] (test code = 1819) 40.0 % POCT-GLUCOSE [id number] 06:33:00 Test Item Value Reference Range Interpretation Comments POC-GLUCOSE METER 291 mg/dL 70-110 H : TESTED A T [facility] 6720 (BEAKER) (test code = [facility] [place], 1538) [address]35[address]: Superintendent Stations/Techni antonio ID = [id number] for TERRI DAVIS CALCIUM, [id number] 06:28:00 Test Item Value Reference Range Interpretation Comments CALCIUM IONIZED (BEAKER) (test 1.08 mmol/L 1.12-1.27 L code = 698) PH, BLOOD (BEAKER) (test code = 7.42 1810) [id number] 06:00:00 Test Item Value Reference Range Interpretation Comments MAGNESIUM (BEAKER) 2.1 mg/dL 1.6-2.6 Specimen slightly (test code = 627) hemolyzed Superintendent Stations ID - [id number] 06:00:00 Test Item Value Reference Range Interpretation Comments PHOSPHORUS (BEAKER) 2.8 mg/dL 2.3-4.7 Specimen slightly (test code = 604) hemolyzed Superintendent Stations ID - DBBASIC METABOLIC [id number] 06:00:00 Test Item Value Reference Range Interpretation [...] S NOT APPLICABLE FOR DIALYSIS PATIEN TS. Superintendent Stations ID - [id number] 05:53:00 Test Item Value Reference Range Interpretation Comments PARTIAL THROMBOPLASTIN TIME 82.7 seconds 22.5-36.0 H (BEAKER) (test code = 760) CBC W/PLT COUNT & AUTO [id number] 05:43:00 Test Item Value Reference Range Interpretation [...] H PERCENT (BEAKER) (test code = 2801) [id number] 01:48:00 Test Item Value Reference Range Interpretation Comments PARTIAL THROMBOPLASTIN TIME 76.9 seconds 22.5-36.0 H (BEAKER) (test code = 760) POCT-GLUCOSE [id number] 00:07:00 Test Item Value Reference Range Interpretation Comments POC-GLUCOSE METER 285 mg/dL 70-110 H : TESTED A T [facility] 6720 (BEAKER) (test code = ANAHI Devon [facility], 1538) 74671: Superintendent Stations/Techni antonio ID = [id number] for TERRI DAVIS [id number] 20:58:00 Test Item Value Reference Range Interpretation Comments MAGNESIUM (BEAKER) (test code = 1.6 mg/dL 1.6-2.6 627) Superintendent Stations ID - NTPBASIC METABOLIC [id number] 20:58:00 Test Item Value Reference Range Interpretation [...] S NOT APPLICABLE FOR DIALYSIS PATIEN TS. Superintendent Stations ID - [id number] 18:36:00 Test Item Value Reference Range Interpretation [...] is2.5-3.5 for patients wiht mechanical heart valves.POCT-GLUCOSE [id number] 18:33:00 Test Item Value Reference Range Interpretation Comments POC-GLUCOSE METER 205 mg/dL 70-110 H : [facility] ([facility] (test code = ANAHI Osorio [facility], 1538) 27321: Superintendent Stations/Techni antonio ID = [id number] for BRIANNE LIN BLOOD [id number] 18:00:00 Test Item Value Reference Range Interpretation Comments CULTURE (BEAKER) (test No growth in 5 days code = 1095) BLOOD [id number] 18:00:00 Test Item Value Reference Range Interpretation Comments CULTURE (BEAKER) (test No growth in 5 days code = 1095) [id number] 12:05:00 Test Item Value Reference Range Interpretation Comments MAGNESIUM (BEAKER) 1.7 mg/dL 1.6-2.6 Specimen slightly (test code = 627) hemolyzed Superintendent Stations ID - TONNY LBASIC METABOLIC [id number] 12:05:00 Test Item Value Reference Range Interpretation [...] S NOT APPLICABLE FOR DIALYSIS PATIEN TS. Superintendent Stations ID - PIAYA [id number] 12:01:00 Test Item Value Reference Range Interpretation [...] is2.5-3.5 for patients wiht mechanical heart valves.POCT-GLUCOSE [id number] 11:40:00 Test Item Value Reference Range Interpretation Comments POC-GLUCOSE METER 285 mg/dL 70-110 H : TESTED A T [facility] 6720 ([employer]) (test code = [facility] [place], 1538) 70344: Superintendent Stations/Techni antonio ID = [id number] for BRIANNE LIN POCT-GLUCOSE [id number] 08:30:00 Test Item Value Reference Range Interpretation Comments POC-GLUCOSE METER 286 mg/dL 70-110 H : TESTED A T [facility] 6720 ([employer]) (test code = [facility] [place], 1538) 98544: Superintendent Stations/Techni antonio ID = [id number] for BRIANNE LIN POCT-GLUCOSE [id number] 05:21:00 Test Item Value Reference Range Interpretation Comments POC-GLUCOSE METER 309 mg/dL 70-110 H : [facility] (BEAKER[facility] (test code = ANAHI Osorio [facility], 1538) 04749: Superintendent Stations/Techni antonio ID = [id number] for Pau Denton [id number] 04:59:00 Test Item Value Reference Range Interpretation Comments PHOSPHORUS (BEAKER) (test code = 3.1 mg/dL 2.3-4.7 604) Superintendent Stations ID - TONNY [id number] 04:59:00 Test Item Value Reference Range Interpretation Comments MAGNESIUM (BEAKER) (test code = 1.8 mg/dL 1.6-2.6 627) Superintendent Stations ID - TONNY LBASIC METABOLIC [id number] 04:59:00 Test Item Value Reference Range Interpretation [...] S NOT APPLICABLE FOR DIALYSIS PATIEN TS. Superintendent Stations ID - TONNY LB-TYPE NATRIURETIC FACTOR (BNP)2020-01-30 04:48:00 Test Item Value Reference Range Interpretation Comments B-TYPE NATRIURETIC PEPTIDE (BEAKER) 172 pg/mL 0-100 H (test code = 700) Superintendent Stations ID - TONNY [id number] 04:39:00 Test Item Value Reference Range Interpretation [...] mechanical heart valves.CBC W/PLT COUNT & AUTO [id number] 04:30:00 Test Item Value Reference Range Interpretation [...] PERCENT (BEAKER) (test code = 2801) CALCIUM, [id number] 04:18:00 Test Item Value Reference Range Interpretation Comments CALCIUM IONIZED (BEAKER) (test 1.16 mmol/L 1.12-1.27 code = 698) PH, BLOOD (BEAKER) (test code = 7.43 1810) BLOOD GAS, [id number] 04:17:00 Test Item Value Reference Range Interpretation [...] 45.0 % RAD, CHEST, 1 VIEW, NON [id number] 01:32:00Reason for exam:->respiratory failureShould this be performed at the bedside?->YesFINAL REPORT RAD, CHEST, 1 VIEW, NON DEPT INDICATION: respiratory failure COMP ARISON: Prior day's exam FINDINGS: Portable frontal view of the chest. IMPRESSION: Support Lines:Stable. Lungs and pleura: Unchanged airspace and pleural opacities. No pneumothorax.Heart and mediastinum: Stable contours. Additional findings: None. Signed: Sun Ibrahim Verified Date/ Time: 01/30/2020 01:32:33 POCT-GLUCOSE [id number] 23:41:00 Test Item Value Reference Range Interpretation Comments POC-GLUCOSE METER 326 mg/dL 70-110 H : TESTED A T [facility] 6720 (BEAKER) (test code = ENEDINADUANE Osorio [facility], 1538) 19069: Superintendent Stations/Techni antonio ID = [id number] for Pau Denton [id number] 23:07:00 Test Item Value Reference Range Interpretation [...] INR is2.5-3.5 for patients wiht mechanical heart valves.[id number] 21:32:00 Test Item Value Reference Range Interpretation Comments MAGNESIUM (BEAKER) 1.9 mg/dL 1.6-2.6 Specimen moderately (test code = 627) hemolyzed Superintendent Stations ID - QUINN EBASIC METABOLIC [id number] 21:32:00 Test Item Value Reference Range Interpretation [...] S NOT APPLICABLE FOR DIALYSIS PATIEN TS. Superintendent Stations ID - QUINN EPOCT-GLUCOSE [id number] 18:32:00 Test Item Value Reference Range Interpretation Comments POC-GLUCOSE METER 327 mg/dL 70-110 H : [facility] (BEAKER[facility] (test code = [facility] [place], 1538) 09071: Superintendent Stations/Techni antonio ID = [id number] for WILBERT SALDANA Venous doppler legs [id number] 18:17:35Ejection FractionSLEH ECHO HEARTLAB MKCKESSON CPACSRight Impression1. [...] Name CANDIE KELLEY Date of Study 01/29/2020MRN [id number] Age 74 Visit Number [id number] Gender Male Accession Number [id number] Date of 1945 Referring [facility] Vicki Room Number 7107 Physician Piano Regulator Morena Browning Interpreting Yani Swan RN, RVT Physician MD Astrid Siddiqi RVT ProcedureType of Study: Veins: Lower Extremities DVT Study, VENOUS DOPPLER LEG, BILATERAL. Indications for Study:Hypoxemia.Patient Status:Routine.Study Location:Portable.Technical Quality:Adequate visualization. - Results were reported to:Sheela UMAÑA @ 1200.Risk FactorsHistory of Disease+ +----+ --+!Diagnosis !Date!Comments !+ [...] in cm/s ; Diameters are measured in [facility] POCT-GLUCOSE [id number] 16:40:00 Test Item Value Reference Range Interpretation Comments POC-GLUCOSE METER 328 mg/dL 70-110 H : TESTED A T [facility] 6720 (BEAKER) (test code = ANAHI Osorio [place], 1538) 17264: Superintendent Stations/Techni antonio ID = [id number] for AMNA CASTANEDA [id number] 16:31:00 Test Item Value Reference Range Interpretation Comments Scan Result (test code = SEE SCANNED REPORT [id number]) [facility] [id number] 16:31:00 Test Item Value Reference Range Interpretation Comments SCAN RESULT (test code = SEE SCANNED REPORT [id number]) POCT-GLUCOSE [id number] 12:19:00 Test Item Value Reference Range Interpretation Comments POC-GLUCOSE METER 328 mg/dL 70-110 H : TESTED A T [facility] 6720 (BEAKER) (test code = ANAHI Osorio [facility], 1538) 74009: Superintendent Stations/Techni antonio ID = [id number] for KRISTIAN LOZANO TSH/Free T4 If [id number] 11:50:00 Test Item Value Reference Range Interpretation Comments TSH (test code = 10324-0) 1.52 0.35- 4.94 uIU/mL JOSE FRANCISCO (test code = JOSE FRANCISCO) Superintendent Stations ID - ROSIGGYG Lab Interpretation (test Normal code = 26778-9) [facility] T4 IF [id number] 11:50:00 Test Item Value Reference Range Interpretation Comments THYROID STIMULATING HORMONE 1.52 uIU/mL 0.35-4.94 (BEAKER) (test code = 772) Superintendent Stations ID - ROSIANGUrinalysis Microscopic [id number] 11:30:00 Test Item Value Reference Range Interpretation Comments RBC, UA (test code = 1122 /HPF 44578-5) WBC, UA (test code = 1 /HPF 5821-4) Mucus (test code = 8247-9) Rare Squam Epithel, UA (test 1 /HPF code = 54878-5) JOSE FRANCISCO (test code = JOSE FRANCISCO) Superintendent Stations ID - tech [facility] [id number] 11:30:00 Test Item Value Reference Range Interpretation Comments RBC UA (BEAKER) (test code = 519) 1122 /HPF WBC UA (BEAKER) (test code = 520) 1 /HPF MUCUS (BEAKER) (test code = 1574) Rare SQUAMOUS EPITHELIAL (BEAKER) (test 1 /HPF code = 516) Superintendent Stations ID - [id number] 11:30:00 Test Item Value Reference Range Interpretation Comments MAGNESIUM (BEAKER) 2.0 mg/dL 1.6-2.6 Specimen slightly (test code = 627) hemolyzed Superintendent Stations ID - ROSIANGBASIC METABOLIC [id number] 11:30:00 Test Item Value Reference Range Interpretation [...] S NOT APPLICABLE FOR DIALYSIS PATIEN TS. Superintendent Stations ID - ROSIANGUrinalysis with Microscopic If [id number] 11:27:00 Test Item Value Reference Range Interpretation Comments Color, UA (test code = Yellow 5778-6) Clarity, UA (test code = Hazy 5767-9) Specific [place], UA (test 1.011 1.001-1.035 code = 5811-5) pH, UA (test code = 6.0 5.0-8.0 5803-2) Protein, UA (test code = 70 mg/dL Negative A 80658-2) Glucose, UA (test code = 300 mg/dL Negative A 365) Ketones, UA (test code = Negative Negative 1374-8) Bilirubin, UA (test code = Negative Negative 89003-6) Blood, UA (test code = Large Negative A 17237-9) Nitrite, UA (test code = Negative Negative 5802-4) Leukocytes, UA (test code Moderate Negative A = 5799-2) Urobilinogen, UA (test 0.2 mg/dL 0.2-1 code = 56300-7) Specimen Source (test code = 2795) JOSE FRANCISCO (test code = JOSE FRANCISCO) Superintendent Stations ID - [auto] Lab Interpretation (test Abnormal code = 46368-8) [facility] WITH MICROSCOPIC IF [id number] 11:27:00 Test Item Value Reference Range Interpretation [...] = 463) SOURCE(BEAKER) (test code = 2795) Superintendent Stations ID - [auto][id number] 11:22:00 Test Item Value Reference Range Interpretation Comments PARTIAL THROMBOPLASTIN TIME 29.3 seconds 22.5-36.0 (BEAKER) (test code = 760) Prior to initiating heparinPOCT-GLUCOSE [id number] 09:13:00 Test Item Value Reference Range Interpretation Comments POC-GLUCOSE METER 249 mg/dL 70-110 H : TESTED A T [facility] 6720 (BEAKER) (test code = [place], 1538) 56683: Superintendent Stations/Techni antonio ID = [id number] for AMNA CASTANEDA POCT-GLUCOSE [id number] 06:09:00 Test Item Value Reference Range Interpretation Comments POC-GLUCOSE METER 251 mg/dL 70-110 H : TESTED A T [facility] 6720 (BEAKER) (test code = [place], 1538) 71238: Superintendent Stations/Techni antonio ID = [id number] for MARÍA HOLGUIN BASIC METABOLIC [id number] 04:23:00 Test Item Value Reference Range Interpretation [...] S NOT APPLICABLE FOR DIALYSIS PATIEN TS. Superintendent Stations ID - TONNY [id number] 04:07:00 Test Item Value Reference Range Interpretation Comments PHOSPHORUS (BEAKER) (test code = 3.0 mg/dL 2.3-4.7 604) Superintendent Stations ID - TONNY [id number] 04:07:00 Test Item Value Reference Range Interpretation Comments MAGNESIUM (BEAKER) (test code = 2.3 mg/dL 1.6-2.6 627) Superintendent Stations ID - TONNY LCBC W/PLT COUNT & AUTO [id number] 03:42:00 Test Item Value Reference Range Interpretation [...] (BEAKER) (test code = 2801) BLOOD GAS, [id number] 03:39:00 Test Item Value Reference Range Interpretation [...] (test code = 1819) 50.0 % CALCIUM, [id number] 03:38:00 Test Item Value Reference Range Interpretation Comments CALCIUM IONIZED (BEAKER) (test 1.14 mmol/L 1.12-1.27 code = 698) PH, BLOOD (BEAKER) (test code = 7.47 1810) RAD, CHEST, 1 VIEW, NON [id number] 03:24:00Reason for exam:->respiratory failureShould this be performed [...] Sun Ibrahim Verified Date/Time: 01/29/2020 03:24:48 -GLUCOSE [id number] 23:53:00 Test Item Value Reference Range Interpretation Comments POC-GLUCOSE METER 282 mg/dL 70-110 H : TESTED A T [facility] 6720 (BEAKER) (test code = [place], 1538) 12758: Superintendent Stations/Techni antonio ID = [id number] for MARÍA HOLGUIN [id number] 21:58:00 Test Item Value Reference Range Interpretation Comments PHOSPHORUS (BEAKER) 2.1 mg/dL 2.3-4.7 L Specimen slightly (test code = 604) hemolyzed Superintendent Stations ID - DBBASIC METABOLIC [id number] 21:14:00 Test Item Value Reference Range Interpretation [...] S NOT APPLICABLE FOR DIALYSIS PATIEN TS. Superintendent Stations ID - [id number] 20:35:00 Test Item Value Reference Range Interpretation Comments MAGNESIUM (BEAKER) (test code = 1.5 mg/dL 1.6-2.6 L 627) Superintendent Stations ID - DBPOCT-GLUCOSE [id number] 18:05:00 Test Item Value Reference Range Interpretation Comments POC-GLUCOSE METER 243 mg/dL 70-110 H : TESTED A T [facility] 6720 (BEAKER) (test code = [place], 1538) 50803: Superintendent Stations/Techni antonio ID = [id number] for DAKOTA ORELLANA, KRISTIAN [id number] 12:02:00 Test Item Value Reference Range Interpretation Comments MAGNESIUM (BEAKER) 2.3 mg/dL 1.6-2.6 Specimen slightly (test code = 627) hemolyzed Superintendent Stations ID - CHIQUIS FBASIC METABOLIC [id number] 12:02:00 Test Item Value Reference Range Interpretation [...] S NOT APPLICABLE FOR DIALYSIS PATIEN TS. Superintendent Stations ID Edel SIM FPOCT-GLUCOSE [id number] 11:47:00 Test Item Value Reference Range Interpretation Comments POC-GLUCOSE METER 200 mg/dL 70-110 H : TESTED A T [facility] 6720 (BEAKER) (test code = ANAHI PRIET[place], 1538) [address]: Superintendent Stations/Techni antonio ID = [id number] for [place] LLIAMS, KRISTIAN SPUTUM CULTURE + GRAM [id number] 11:24:00 Test Item Value Reference Range Interpretation Comments CULTURE (BEAKER) 4+ Normal respiratory (test code = 1095) wilbur present GRAM STAIN RESULT 4+ WBCs (BEAKER) (test code = 1123) GRAM STAIN RESULT 10-15 epithelial cells (BEAKER) (test code = 03816) GRAM STAIN RESULT 2+ gram positive cocci in (BEAKER) (test code chains and pairs = 50177) GRAM STAIN RESULT 1+ yeast with (BEAKER) (test code pseudohyphae = 961281) GRAM STAIN RESULT <1+ gram variable rods (BEAKER) (test code = 382601) POCT-GLUCOSE [id number] 10:02:00 Test Item Value Reference Range Interpretation Comments POC-GLUCOSE METER 236 mg/dL 70-110 H : TESTED A T [facility] 6720 (BEAKER) (test code = ANAHI Osorio [facility], 1538) [address]: Superintendent Stations/Techni antonio ID = [id number] for RIZWAN SALCEDO POCT-GLUCOSE [id number] 09:58:00 Test Item Value Reference Range Interpretation Comments POC-GLUCOSE METER 285 mg/dL 70-110 H : TESTED A T [facility] 6720 (BEAKER) (test code = [facility] Devon [facility], 1538) 810[address]: Superintendent Stations/Techni antonio ID = [id number] for ROZ LEVINE Manual [id number] 08:52:00 Test Item Value Reference Range Interpretation Comments % Neutros (test code = 70 % 2816) % Lymphs (test code = 10 % [...] JOSE FRANCISCO (test code = JOSE FRANCISCO) Superintendent Stations ID - [id number] Lab Interpretation (test Abnormal code = 29860-9) [facility] W/PLT COUNT & AUTO [id number] 08:52:00 Test Item Value Reference Range Interpretation [...] MORPHOLOGY (BEAKER) (test code Normal = 486) Superintendent Stations ID - [id number], CHEST, 1 VIEW, NON [id number] 04:04:00Reason for exam:->respiratory failureShould this be performed at the bedside?->Yes FINAL REPORT RAD, CHEST, 1 VIEW, NON DEPT INDICATION: respiratory failure COMPARISON: Prior day's exam FINDINGS: Portable frontal view of the chest. IMPRESSION: Support Lines:Stable. Lungs and pleura: Mildly improved aeration of the left base with persistent right basilar atelectasis. No pneumothorax.Heart and mediastinum: Stable contours. Additional findings: None. Signed:Sun Ibrahim Verified Date/Time: 01/28/2020 04:04:58 REHENSIVE METABOLIC [id number] 03:50:00 Test Item Value Reference Range Interpretation [...] 1092) DATA TO CALCULA TE ESTIMATED GFR. Superintendent Stations ID - DAMION MCALCIUM, [id number] 03:46:00 Test Item Value Reference Range Interpretation Comments CALCIUM IONIZED (BEAKER) (test 1.13 mmol/L 1.12-1.27 code = 698) PH, BLOOD (BEAKER) (test code = 7.42 1810) BLOOD GAS, [id number] 03:45:00 Test Item Value Reference Range Interpretation [...] (BEAKER) (test code = 1819) 60.0 % [id number] 03:45:00 Test Item Value Reference Range Interpretation Comments PHOSPHORUS (BEAKER) (test code = 2.8 mg/dL 2.3-4.7 604) Superintendent Stations ID - DAMION [id number] 03:45:00 Test Item Value Reference Range Interpretation Comments MAGNESIUM (BEAKER) (test code = 1.9 mg/dL 1.6-2.6 627) Superintendent Stations ID - DAMION MLactic Acid, [id number] 03:37:00 Test Item Value Reference Range Interpretation Comments Lactate, Art (test code = 1.5 mmol/L 0.5-2.2 2874) JOSE FRANCISCO (test code = JOSE FRANCISCO) Superintendent Stations ID - DAMION M Lab Interpretation (test Normal code = 53990-7) [facility] PeninsulaLACT[facility] ACID, [id number] 03:37:00 Test Item Value Reference Range Interpretation Comments LACTATE BLOOD ARTERIAL (2) 1.5 mmol/L 0.5-2.2 (BEAKER) (test code = 2874) Superintendent Stations ID - DAMION MBASIC METABOLIC [id number] 20:38:00 Test Item Value Reference Range Interpretation [...] 1092) DATA TO CALCULA TE ESTIMATED GFR. Superintendent Stations ID - [id number] 20:29:00 Test Item Value Reference Range Interpretation Comments PHOSPHORUS (BEAKER) (test code = 2.2 mg/dL 2.3-4.7 L 604) Superintendent Stations ID - [id number] 20:29:00 Test Item Value Reference Range Interpretation Comments MAGNESIUM (BEAKER) (test code = 1.9 mg/dL 1.6-2.6 627) Superintendent Stations ID - DBPOCT-GLUCOSE [id number] 18:51:00 Test Item Value Reference Range Interpretation Comments POC-GLUCOSE METER 227 mg/dL 70-110 H : TESTED A T [facility] 6720 (BEAKER) (test code = ANAHI Osorio [place], 1538) [address]: Superintendent Stations/Techni antonio ID = [id number] for KRISTIAN LOZANO POCT-GLUCOSE [id number] 12:10:00 Test Item Value Reference Range Interpretation Comments POC-GLUCOSE METER 295 mg/dL 70-110 H : TESTED A T [facility] 6720 (BEAKER) (test code = ANAHI Osorio [facility], 1538) [address]85[address]: Superintendent Stations/Techni antonio ID = [id number] for KRISTIAN LOZANO RAD, CHEST, 1 VIEW, NON [id number] 11:12:00Reason for exam:->Eval for congestion Should this be performed at the bedside?->YesFINAL REPORT Chest, portable AP view History: Congestion Comparison: 0 IMPRESSION: Endotracheal tube is in stable position. The heart is unchanged in size and configuration. Bibasilar atelectasis is present. There is mild interstitial prominence which may relate to a component of edema. No sizable pleural effusion or pneumothorax. Signed: Fabian Lewisort Verified Date/Time: 01/27/2020 11:12:34 Reading Location: [facility] Diagnostic Imaging Reading Room - [facility] 1.310.12 MRSA [id number] 10:55:00 Test Item Value Reference Range Interpretation Comments Result (test code = 6463-4) No MRSA isolated [facility]MR[facility] [id number] 10:55:00 Test Item Value Reference Range Interpretation Comments CULTURE (BEAKER) (test code No MRSA isolated = 1095) CBC W/PLT COUNT & AUTO [id number] 08:03:00 Test Item Value Reference Range Interpretation [...] CONCENTRATION Decreased (CELLAVISION)(BEAKER) (test code = 3438) Superintendent Stations ID - Natasha OverholtUser comments: Slide comments:Urinalysis w/[id number] 07:15:00 Test Item Value Reference Range Interpretation Comments Color, UA (test code = Yellow 5778-6) Clarity, UA (test code = Hazy 5767-9) Specific [place], UA 1.018 1.001-1.035 (test code = 5811-5) pH, UA (test code = 5.5 5.0-8.0 5803-2) Protein, UA (test code = 30 mg/dL Negative A 03576-5) Glucose, UA (test code = >1000 mg/dL Negative A 365) Ketones, UA (test code = Negative Negative 2514-8) Bilirubin, UA (test code Negative Negative = 07009-3) Blood, UA (test code = Moderate Negative A 56030-2) Nitrite, UA (test code = Negative Negative 5802-4) Leukocytes, UA (test code Negative Negative = 5799-2) Urobilinogen, UA (test 0.2 mg/dL 0.2-1 code = 88994-7) RBC, UA (test code = 28 /HPF 04991-9) WBC, UA (test code = 3 /HPF 5821-4) Bacteria, UA (test code = Occasional 37797-3) Hyaline Casts, UA (test 1 /LPF code = 78108-6) Specimen Source (test code = 2795) JOSE FRANCISCO (test code = JOSE FRANCISCO) Superintendent Stations ID - [auto]Superintendent Stations ID - tech Lab Interpretation (test Abnormal code = 05745-5) [facility]INALYSIS W/ [id number] 07:15:00 Test Item Value Reference Range Interpretation [...] /LPF = 514) SOURCE(BEAKER) (test code = 2796) Superintendent Stations ID - [auto]Superintendent Stations ID - techPOCT-GLUCOSE [id number] 06:30:00 Test Item Value Reference Range Interpretation Comments POC-GLUCOSE METER 319 mg/dL 70-110 H : TESTED A T [facility] 6720 (BEAKER) (test code = ANAHI PRIET[place], 1538) [address]: Superintendent Stations/Techni antonio ID = [id number] for CL LNA MARQUEZ [id number] 05:49:00 Test Item Value Reference Range Interpretation Comments PHOSPHORUS (BEAKER) (test code = 1.4 mg/dL 2.3-4.7 LL 604) Superintendent Stations ID - DAMION MLACTIC ACID, [id number] 05:36:00 Test Item Value Reference Range Interpretation Comments LACTATE BLOOD 1.9 mmol/L 0.5-2.2 Specimen moder ately ARTERIAL (2) (BEAKER) hemoly zed (test code = 2874) Superintendent Stations ID - DAMION MCOMPREHENSIVE METABOLIC [id number] 05:31:00 Test Item Value Reference Range Interpretation [...] 1092) DATA TO CALCULA TE ESTIMATED GFR. Superintendent Stations ID - DAMION MB-TYPE NATRIURETIC FACTOR (BNP)2020-01-27 05:31:00 Test Item Value Reference Range Interpretation Comments B-TYPE NATRIURETIC PEPTIDE (BEAKER) 35 pg/mL 0-100 (test code = 700) Superintendent Stations ID - DAMION MCreatine Kinase (CK)2020-01-27 05:30:00 Test Item Value Reference Range Interpretation Comments Total CK (test code = 149 U/L 29-200 2157-6) JOSE FRANCISCO (test code = JOSE FRANCISCO) Superintendent Stations ID - DAMION M Lab Interpretation (test Normal code = 46918-6) [facility] CenterMAGNESIUM2020-03-25 05:30:00 Test Item Value Reference Range Interpretation Comments MAGNESIUM (BEAKER) (test code = 1.6 mg/dL 1.6-2.6 627) Superintendent Stations ID - DAMION MCREATINE KINASE (CK)2020-01-27 05:30:00 Test Item Value Reference Range Interpretation Comments CREATINE KINASE TOTAL (BEAKER) (test 149 U/L 29-200 code = 380) Superintendent Stations ID - DAMION MBLOOD GAS, [id number] 05:25:00 Test Item Value Reference Range Interpretation [...] (test code = 1819) 40.0 % CALCIUM, [id number] 05:24:00 Test Item Value Reference Range Interpretation Comments CALCIUM IONIZED (BEAKER) (test 1.12 mmol/L 1.12-1.27 code = 698) PH, BLOOD (BEAKER) (test code = 7.45 1810) POCT-GLUCOSE [id number] 18:55:00 Test Item Value Reference Range Interpretation Comments POC-GLUCOSE METER 196 mg/dL 70-110 H : TESTED A T [facility] 67[facility] (BEAKER) (test code [place], = 1538) [address]: Superintendent Stations/Techni antonio ID = [id number] for Moon Ruiz Vancomycin level, [id number] 18:00:00 Test Item Value Reference Range Interpretation Comments Vancomycin Tr (test code = 12.5 ug/mL 08-23 4092-3) JOSE FRANCISCO (test code = JOSE FRANCISCO) Superintendent Stations ID - HARSHIL Lab Interpretation (test Normal code = 92812-8) [facility] CenterVANCOMYCIN LEVEL, [id number] 18:00:00 Test Item Value Reference Range Interpretation Comments VANCOMYCIN TROUGH (ARIES) (test 12.5 ug/mL 10.0-20.0 code = 522) Superintendent Stations ID - [id number] Echo W/Doppler(CW/PW/Color)2020-01-26 16:35:14Ejection FractionSLEH ECHO HEARTLAB MKCKESSON CPACSInterface, External Ris In - 01/26/2020 4:35 PM CDTTransthoracic Echocardiography Report (TTE) Demographics Patient Name CANDIE KELLEY Date of Study 01/26/2020 Gender Male Visit Number [id number] Race Unknown Room Number 7A05 Number Date of 1945 Referring Physician En Black PA-C Age 74 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 Mark Ocasio Physician MD Albania Gonzalez MD [...] CO: 5.01 l/min LVOT CI: 2.22 l/min/m^2[facility] PeninsulaCortisol2020-03-24 15:42:00 Test Item Value Reference Range Interpretation Comments Cortisol, Total (test code 13.1 ug/dL 3.7-19.4 = 2755) JOSE FRANCISCO (test code = JOSE FRANCISCO) Superintendent Stations ID - HARSHIL Lab Interpretation (test Normal code = 21974-2) [facility] CenterCORTISOL2020-03-24 15:42:00 Test Item Value Reference Range Interpretation Comments CORTISOL, TOTAL (BEAKER) (test 13.1 ug/dL 3.7-19.4 code = 2755) Superintendent Stations ID - EMERSONBASIC METABOLIC [id number] 15:20:00 Test Item Value Reference Range Interpretation [...] 1092) DATA TO CALCULA TE ESTIMATED GFR. Superintendent Stations ID - EMERSONCreatinine, random [id number] 15:13:00 Test Item Value Reference Range Interpretation Comments Creatinine, Ur 123.0 mg/dL (test code = 2161-8) JOSE FRANCISCO (test code = Reference Range: No JOSE FRANCISCO) NormalsOperator ID - BS [facility] CenterProtein, random [id number] 15:13:00 Test Item Value Reference Range Interpretation Comments Protein, Urine (test code = 25 mg/dL 0-14 H 2888-6) JOSE FRANCISCO (test code = JOSE FRANCISCO) Superintendent Stations ID - BS Lab Interpretation (test Abnormal code = 85984-9) [facility] CenterCREATININE, RANDOM [id number] 15:13:00 Test Item Value Reference Range Interpretation Comments CREATININE URINE (BEAKER) (test 123.0 mg/dL code = 375) Reference Range: No NormalsOperator ID - BSPROTEIN, RANDOM [id number] 15:13:00 Test Item Value Reference Range Interpretation Comments PROTEIN, URINE (BEAKER) (test code = 25 mg/dL 0-14 H 1569) Superintendent Stations ID - BSURINALYSIS W/ REFLEX URINE [id number] 15:11:00 Test Item Value Reference Range Interpretation [...] = 1521) SOURCE(BEAKER) (test code = 2795) Superintendent Stations ID - [auto]Superintendent Stations ID - techPOCT-GLUCOSE [id number] 15:01:00 Test Item Value Reference Range Interpretation Comments POC-GLUCOSE METER 208 mg/dL 70-110 H : TESTED A T [facility] 6720 (BEAKER) ([facility] = 1538) 12[address]: Superintendent Stations/Techni antonio ID = [id number] for Moon Ruiz PT/[id number] 09:22:00 Test Item Value Reference Range Interpretation [...] is2.5-3.5 for patients wiht mechanical heart valves.Troponin [id number] 08:53:00 Test Item Value Reference Range Interpretation Comments Troponin I (test code = 0.18 ng/mL 0-0.03 H 58376-0) JOSE FRANCISCO (test code = JOSE FRANCISCO) [...] HARSHIL Lab Interpretation (test Abnormal code = 10088-0) [facility] CenterTROPONIN [id number] 08:53:00 Test Item Value Reference Range Interpretation [...] failure, acidosis, acute neurological disease, and persistent tachyarrhythmia.Superintendent Stations ID - EMERSONCBC W/PLT COUNT & AUTO [id number] 07:57:00 Test Item Value Reference Range Interpretation [...] CONCENTRATION Adequate (CELLAVISION)(BEAKER) (test code = 3438) Superintendent Stations ID - [id number] ID - Su Lance comments: Slide comments:RAD, CHEST, 1 VIEW, NON [id number] 07:23:00Reason for exam:->intubationShould this be performed at the bedside?->YesFINAL REPORT RAD, CHEST, 1 VIEW, NON DEPT INDICATION: intubation COMPARISON: Prior day's exam FINDINGS: Portable frontal view of the chest. IMPRESSION: Limited by suboptimal technique and patient positioning.Support Lines: Stable. Lungs and pleura: Stable subsegmental atelectasis on the left. No pneumothorax.Heart and mediastinum: Stable contours. Additional findings: None. Signed: JR Milla, Shannan KERVINeport Verified Date/Time: 01/26/2020 07:23:59 Reading Location: [facility] Radiology Reading Room 07:23 AMLACTIC ACID, [id number] 05:32:00 Test Item Value Reference Range Interpretation Comments LACTATE BLOOD 2.7 mmol/L 0.5-2.2 H Specimen sligh tly ARTERIAL (2) (BEAKER) hemoly zed (test code = 2874) Superintendent Stations ID - DAMION MCALCIUM, [id number] 05:30:00 Test Item Value Reference Range Interpretation Comments CALCIUM IONIZED (BEAKER) (test 1.11 mmol/L 1.12-1.27 L code = 698) PH, BLOOD (BEAKER) (test code = 7.42 1810) COMPREHENSIVE METABOLIC [id number] 05:30:00 Test Item Value Reference Range Interpretation [...] 1092) DATA TO CALCULA TE ESTIMATED GFR. Superintendent Stations ID - DAMION [id number] 05:29:00 Test Item Value Reference Range Interpretation Comments PHOSPHORUS (BEAKER) (test code = 2.6 mg/dL 2.3-4.7 604) Superintendent Stations ID - DAMION [id number] 05:29:00 Test Item Value Reference Range Interpretation Comments MAGNESIUM (BEAKER) (test code = 1.5 mg/dL 1.6-2.6 L 627) Superintendent Stations ID - DAMION MCREATINE KINASE (CK)2020-01-26 05:29:00 Test Item Value Reference Range Interpretation Comments CREATINE KINASE TOTAL (BEAKER) (test 100 U/L 29-200 code = 380) Superintendent Stations ID - DAMION MB-TYPE NATRIURETIC FACTOR (BNP)2020-01-26 05:26:00 Test Item Value Reference Range Interpretation Comments B-TYPE NATRIURETIC PEPTIDE (BEAKER) 113 pg/mL 0-100 H (test code = 700) Superintendent Stations ID - DAMION MBLOOD GAS, [id number] 05:20:00 Test Item Value Reference Range Interpretation [...] code = 1819) 80.0 % BASIC METABOLIC [id number] 00:39:00 Test Item Value Reference Range Interpretation [...] 1092) DATA TO CALCULA TE ESTIMATED GFR. Superintendent Stations ID - BSLACTIC ACID, [id number] 00:34:00 Test Item Value Reference Range Interpretation Comments LACTATE BLOOD ARTERIAL (2) 3.1 mmol/L 0.5-2.2 H (BEAKER) (test code = 2874) Superintendent Stations ID - BSBLOOD GAS, [id number] 00:30:00 Test Item Value Reference Range Interpretation [...] (test code = 1819) 80.0 % POCT-GLUCOSE [id number] 00:23:00 Test Item Value Reference Range Interpretation Comments POC-GLUCOSE METER 248 mg/dL 70-110 H : TESTED A T [facility] 6720 (BEAKER) (test code = ANAHI PRIETO [place], 1538) 285[address]: Superintendent Stations/Techni antonio ID = [id number] for AL I, TAMERA Respiratory Panel [id number] 21:07:00 Test Item Value Reference Range Interpretation Comments Human Metapneumovirus Not detected Not detected, (test code = 19784-3) Equivocal Rhinovirus (test code = Not detected Not detected, 47772-2) Equivocal INFLUENZA A (NO Not detected Not detected, SUBTYPE) (test code = Equivocal 17198-7) Influenza A subtype H1 (test code = 06398-5) Influenza A Subtype H3 (test code = 43067-6) Influenza A Subtype H1-2009 (test code = 50993-7) Influenza B (test code Not detected Not detected, = 11886-9) Equivocal Respiratory Syncytial Not detected Not detected, Virus (test code = Equivocal 83198-0) Parainfluenza Virus 1 Not detected Not detected, (test code = 18807-2) Equivocal Parainfluenza Virus 2 Not detected Not detected, (test code = 12457-6) Equivocal Parainfluenza virus 3 Not detected Not detected, (test code = 24234-4) Equivocal Parainfluenza Virus 4 Not detected Not detected, (test code = 77871-0) Equivocal Adenovirus (test code = Not detected Not detected, 02438-0) Equivocal Coronavirus 229E (test Not detected Not detected, code = 17654-4) Equivocal Coronavirus HKU1 (test Not detected Not detected, code = 42780-0) Equivocal Coronavirus NL63 (test Not detected Not detected, code = 28488-1) Equivocal Coronavirus OC43 (test Not detected Not detected, code = 13153-6) Equivocal Bordetella Pertussis Not detected Not detected, (test code = 60767-2) Equivocal Chlamydophila Not detected Not detected, Pneumoniae (test code = Equivocal 70278-9) Mycoplasma Pneumoniae Not detected Not detected, (test code = 82041-8) Equivocal JOSE FRANCISCO (test code = JOSE FRANCISCO) Other viruses and bacteria not targeted by this PCR panel cannot be excluded; therefore clinical correlation and follow up of serology, culture results, and other molecular studies is required. The results are not intended to be used as the sole means for clinical diagnosis or patient management decisions. This sample was tested at the [facility] Molecular Diagnostics Laboratory using the Stromedix Respiratory Panel. It is FDA cleared and has been verified and approved by the [facility] Molecular Diagnostics Laboratory for clinical use on nasopharyngeal swab specimens. The performance of the FilmArray RP has not been established in individuals who received influenza vaccine. Recent administration of a nasal influenza vaccine may cause false positive results for Influenza A and/orInfluenza B. [facility] PeninsulaRESPIRATORY PANEL [id number] 21:07:00 Test Item Value Reference Range Interpretation [...] decisions. This sample was tested at the [facility] Molecular Diagnostics Laboratory using the Vaxart FilmArray Respiratory Panel. It is FDA cleared and has been verified and approved by the [facility] Molecular Diagnostics Laboratory for clinical use on nasopharyngeal swab specimens.The performance of the FilmArrayRP has not been established in individuals who received influenza vaccine. Recent administration ofa nasal influenza vaccine may cause false positive results for Influenza A and/orInfluenza B.PROTEIN, RANDOM [id number] 20:49:00 Test Item Value Reference Range Interpretation Comments PROTEIN, URINE (BEAKER) (test code = 22 mg/dL 0-14 H 1569) Superintendent Stations ID - BSBLOOD GAS, [id number] 20:43:00 Test Item Value Reference Range Interpretation [...] 1819) 80.0 % URINALYSIS W/ REFLEX URINE [id number] 20:39:00 Test Item Value Reference Range Interpretation [...] /LPF 514) SOURCE(BEAKER) (test code = 2795) Superintendent Stations ID - [auto]Superintendent Stations ID - techVancomycin level, [id number] 18:53:00 Test Item Value Reference Range Interpretation Comments Vancomycin Rm (test 5.2 ug/mL code = 66790-9) JOSE FRANCISCO (test code = Reference Range: No JOSE FRANCISCO) NormalsOperator ID - BS [facility] PeninsulaVANCOMYCIN LEVEL, [id number] 18:53:00 Test Item Value Reference Range Interpretation Comments VANCOMYCIN RANDOM (BEAKER) (test 5.2 ug/mL code = 523) Reference Range: No NormalsOperator ID - BSCALCIUM, [id number] 18:06:00 Test Item Value Reference Range Interpretation Comments CALCIUM IONIZED (BEAKER) (test 1.09 mmol/L 1.12-1.27 L code = 698) PH, BLOOD (BEAKER) (test code = 7.17 1810) CBC W/PLT COUNT & AUTO [id number] 17:58:00 Test Item Value Reference Range Interpretation [...] CONCENTRATION Adequate (CELLAVISION)(BEAKER) (test code = 3438) Superintendent Stations ID - vicente Medina comments: Slide comments:TROPONIN [id number] 17:58:00 Test Item Value Reference Range Interpretation [...] failure, acidosis, acute neurological disease, and persistent tachyarrhythmia.Superintendent Stations ID - BSLactic acid, venous 2020-01-25 17:57:00 Test Item Value Reference Range Interpretation Comments Lactate, Venous (test 6.86 mmol/L 0.5-2.2 HH Specim en code = 2872) slightly hemolyzed JOSE FRANCISCO (test code = JOSE FRANCISCO) Superintendent Stations ID - BS Lab Interpretation Abnormal (test code = 18724-2) [facility] CenterLACTIC ACID, [id number] 17:57:00 Test Item Value Reference Range Interpretation Comments LACTATE BLOOD VENOUS 6.86 mmol/L 0.50-2.20 HH Specime n slightly (2) (BEAKER) (test hemolyzed code = 2872) Superintendent Stations ID - BSB-TYPE NATRIURETIC FACTOR (BNP)2020-01-25 17:54:00 Test Item Value Reference Range Interpretation Comments B-TYPE NATRIURETIC PEPTIDE (BEAKER) 110 pg/mL 0-100 H (test code = 700) Superintendent Stations ID - BSLactate dehydrogenase (LDH)2020-01-25 17:52:00 Test Item Value Reference Range Interpretation Comments LDH (test code = 2532-0) 187 U/L 125-220 JOSE FRANCISCO (test code = JOSE FRANCISCO) Superintendent Stations ID - BS Lab Interpretation (test Normal code = 01411-2) [facility] CenterUric [id number] 17:52:00 Test Item Value Reference Range Interpretation Comments Uric Acid (test code = 10.7 mg/dL 2.6-7.2 H 3084-1) JOSE FRANCISCO (test code = JOSE FRANCISCO) Superintendent Stations ID - BS Lab Interpretation (test Abnormal code = 76514-4) [facility] CenterC-Reactive [id number] 17:52:00 Test Item Value Reference Range Interpretation Comments CRP (test code = 676) 9.61 mg/dL 0-0.5 H JOSE FRANCISCO (test code = JOSE FRANCISCO) Superintendent Stations ID - BS Lab Interpretation (test Abnormal code = 86498-7) [facility] CenterURIC [id number] 17:52:00 Test Item Value Reference Range Interpretation Comments URIC ACID (BEAKER) (test code = 10.7 mg/dL 2.6-7.2 H 773) Superintendent Stations ID - [id number] 17:52:00 Test Item Value Reference Range Interpretation Comments MAGNESIUM (BEAKER) (test code = 1.2 mg/dL 1.6-2.6 L 627) Superintendent Stations ID - [id number] 17:52:00 Test Item Value Reference Range Interpretation Comments PHOSPHORUS (BEAKER) (test code = 2.2 mg/dL 2.3-4.7 L 604) Superintendent Stations ID - BSLACTATE DEHYDROGENASE (LDH)2020-01-25 17:52:00 Test Item Value Reference Range Interpretation Comments LACTATE DEHYDROGENASE (BEAKER) (test 187 U/L 125-220 code = 635) Superintendent Stations ID - BSC-REACTIVE [id number] 17:52:00 Test Item Value Reference Range Interpretation Comments C-REACTIVE PROTEIN (BEAKER) (test 9.61 mg/dL 0.00-0.50 H code = 676) Superintendent Stations ID - BSCOMPREHENSIVE METABOLIC [id number] 17:52:00 Test Item Value Reference Range Interpretation [...] 1092) DATA TO CALCULA TE ESTIMATED GFR. Superintendent Stations ID - [id number] 17:40:00 Test Item Value Reference Range Interpretation Comments D-Dimer, Quant (test code 3.32 <0.50 MG/L FEU H = 44771-1) JOSE FRANCISCO (test code = JOSE FRANCISCO) [...] range. Lab Interpretation (test Abnormal code = 94123-4) [id number] 17:40:00 Test Item Value Reference Range Interpretation [...] of thrombosis is within 95-100% range.BLOOD GAS, [id number] 17:13:00 Test Item Value Reference Range Interpretation [...] 100.0 % RAD, CHEST, 1 VIEW, NON [id number] 16:23:00Post-intubationReason for exam:- >ETTShould this be performed at the bedside?->YesFINAL REPORT RAD, CHEST, 1 VIEW, NON DEPT INDICATION: ETT COMPARISON: None FIN DINGS: Portable frontal view of the chest. IMPRESSION: Support Lines: Enteric tube terminates 5.6cm above the tiffany. Enteric tube courses into the upper abdomen with tip outside the [id number].Lungs and pleura: Retrocardiac consolidation likely atelectasis but pneumonia not excluded. No pneumothorax. Blunted left costophrenic angle likely due to atelectasis but small effusions not excluded.Heart and mediastinum: No acute finding. Additional findings: None. Signed: Dereck Aguirre MDReport Verified Date/Time: 01/25/2020 16:23:41 Insert Arterial [id number] 09:00:00Zofia Valdes NP 01/25/2020 11:05 PMInsert Arterial LineDate/Time: 01/25/2020 [...] to verify the correct patient, procedure, equipment, geophysical support specialist and site/side marked as required.Preparation: Patient was [...] Hemostasis achieved. No complications noted. Pulses are intact.[facility]
--- NOTE | 2020-08-18 00:33 | EDPHYS ---
Physician Documentation [facility] Name: Juan Diego Kelley Age: 75 yrs Sex: Male : 1945 Arrival Date: 08/17/2020 Time: 22:26 Bed 7 Private MD: ED Physician Cristian Morales HPI: 08/17 22:30 This 75 yrs old Male presents to ER via EMS with complaints of Fall Injury. cp 22:30 Details of fall: The patient fell from an upright position, while walking. cp 22:30 Onset: The symptoms/episode began/occurred today. Associated injuries: The patient cp sustained injury to the head, hematoma, laceration, of the scalp. 22:30 Patient reports being released from rehab facility today and while at home sustained cp fall while walking to bathroom. Patient admits to drinking alcohol tonight. Historical: - Allergies: 22:34 PENICILLINS; wh 22:34 Tetanus Vaccines \T\ Toxoid; wh - PMHx: 22:34 CHF; Diabetes - IDDM; Hypertension; wh - Immunization history: Last tetanus immunization: allergic to. - Social history:: Smoking status: Patient/guardian denies using. ROS: 22:35 Constitutional: Negative for body aches, chills, fever. cp 22:35 Eyes: Negative for injury, pain, redness, and discharge. cp 22:35 Cardiovascular: Negative for chest pain, palpitations. 22:35 Respiratory: Negative for cough, shortness of breath. 22:35 Abdomen/GI: Negative for abdominal pain, vomiting. 22:35 Back: Negative for pain at rest, pain with movement. 22:35 MS/extremity: Negative for decreased range of motion, deformity. 22:35 Skin: Positive for hematoma, laceration(s), of the scalp. 22:35 Neuro: Positive for loss of consciousness, Negative for altered mental status, syncope, weakness. 22:35 All other systems are negative. Exam: 22:45 Constitutional: The patient appears in no acute distress, alert, awake, cp non-diaphoretic, non-toxic, well developed, well nourished. 22:45 Head/face: Noted is a laceration(s), that is linear, of the scalp. cp 22:45 Eyes: Periorbital structures: appear normal, Pupils: equal, round, and reactive to light and accomodation, Extraocular movements: intact throughout, Conjunctiva: normal, no exudate, no injection, Lids and lashes: appear normal, bilaterally. 22:45 ENT: External ear(s): are unremarkable, Nose: is normal, Mouth: Lips: moist, Oral mucosa: moist, Posterior pharynx: Airway: no evidence of obstruction, patent. 22:45 Neck: C-spine: vertebral tenderness, that is mild, appreciated at C5 and C6, crepitus, is not appreciated, ROM/movement: is normal, is supple, without pain, no range of motions limitations, no nuchal rigidity. 22:45 Chest/axilla: Inspection: normal, Palpation: is normal, no crepitus, no tenderness. 22:45 Cardiovascular: Rate: bradycardic, Rhythm: regular, Edema: is not appreciated, JVD: is not appreciated. 22:45 Respiratory: the patient does not display signs of respiratory distress, Respirations: normal, no use of accessory muscles, labored breathing, is not present. 22:45 Abdomen/GI: Inspection: abdomen appears normal, Palpation: abdomen is soft and non-tender, in all quadrants. 22:45 Skin: injury, abrasion(s), small abrasion noted, of the proximal right forearm, that can be described as with mild bleeding. 22:45 Neuro: Orientation: to person, place \T\ time. Mentation: is normal, Motor: moves all fours, strength is normal. Vital Signs: 22:31 BP 128 / 76; Pulse 59; Resp 18; Temp 98.3; Pulse Ox 98% ; Weight 104.33 kg; Height 5 wh ft. 10 in. (177.80 cm); 08/18 00:00 BP 141 / 75; Pulse 57; Resp 18; Pulse Ox 96% on R/A; wh 08/17 22:31 Body Mass Index 33.00 (104.33 kg, 177.80 cm) [place] Coma Score: 08/17 22:36 Eye Response: spontaneous(4). Verbal Response: oriented(5). Motor Response: obeys rv commands(6). Total: 15. Trauma Score (Adult): 22:36 Eye Response: spontaneous(1); Verbal Response: oriented(1); Motor Response: obeys rv commands(2); Systolic BP: > 89 mm Hg(4); Respiratory Rate: 10 to 29 per min(4); Mason Score: 15; Trauma Score: 12 Laceration: 08/18 00:27 Wound Repair of 2cm ( 0.8in ) subcutaneous laceration to scalp. Linear shaped.. Distal cp neuro/vascular/tendon intact. Wound prep: Moderate cleansing by nurse. Skin closed with 3 1-0 Pretty using staple gun. Patient tolerated well. MDM: 08/17 22:28 Patient medically screened. cp 23:00 Differential diagnosis: closed head injury, contusion, fracture, laceration, multiple cp trauma. 08/18 00:00 Test interpretation: by ED physician or midlevel provider: xrays of right forearm cp negative for fracture. 00:31 Data reviewed: vital signs, nurses notes, lab test result(s), radiologic studies, CT cp scan, and as a result, I will discharge patient. Special discussion: Based on the patient's history, exam and DX evaluation, there is no indication for emergent intervention or inpatient TX. It is understood by the patient/guardian that if the SXs persist or worsen they need to return immediately for re-evaluation. 00:31 ED course: VSS. Patient clinically sober and observed ambulating in ED. Head CT cp negative for fracture and/or intracranial bleeding. Will discharge to home for continued monitoring. 08/17 22:27 Order name: CT Head C Spine cp 08/17 22:33 Order name: XRAY Forearm RIGHT cp 08/17 22:27 Order name: C-Collar; Complete Time: 22:39 cp 08/18 01:01 Order name: Wound Care; Complete Time: 01:01 wh Administered Medications: No medications were administered Disposition: 01:30 Chart complete. cp 07:08 Co-signature as Attending Physician, Cristian Morales MD. mh7 Disposition: 08/18/20 00:33 Discharged to Home. Impression: Laceration without foreign body of scalp, Fall on same level from slipping, tripping and stumbling. - Condition is Stable. - Discharge Instructions: Head Injury, Adult, Laceration Care, Adult. - Medication Reconciliation Form, Thank You Letter, Antibiotic Education, Prescription Opioid Use form. - Follow up: Private Physician; When: 1 week; Reason: Staple/Suture removal. - Problem is new. - Symptoms have improved. Signatures: Dispatcher [employer] EDMS Stef Padilla PA PA cp Galen, Ann Cristian Morales MD MD mh7 Corrections: (The following items were deleted from the chart) 00:00 08/17 23:35 Wound Care ordered. cp 08/18 01:21 00:33 08/18/2020 00:33 Discharged to Home. Impression: Laceration without foreign body wh of scalp; Fall on same level from slipping, tripping and stumbling. Condition is Stable. Forms are Medication Reconciliation Form, Thank You Letter, Antibiotic Education, Prescription Opioid Use. Follow up: Private Physician; When: 1 week; Reason: Staple/Suture removal. Problem is new. Symptoms have improved. cp
--- NOTE | 2020-08-18 00:33 | ER ---
Nurse's Notes [facility] Name: Juan Diego Kelley Age: 75 yrs Sex: Male : 1945 Arrival Date: 08/17/2020 Time: 22:26 Bed 7 Private MD: Diagnosis: Laceration without foreign body of scalp;Fall on same level from slipping, tripping and stumbling Presentation: 08/17 22:28 Chief complaint: EMS states: Pt was found by on floor, Pt was discharged from [facility] today. Pt stated had a pint of whiskey, was walking to the bathroom when he slipped and fell hitting the corner of a dresser. Pt had a laceration on back of head and abrasion on right forearm. Pt with + LOC and is on blood thinners. Care prior to arrival: Glucose check: 91. Mechanism of Injury: Fall. Trauma event details: Injury occurred in the [facility]. 22:28 Acuity: DANIEL 3 22:28 Method Of Arrival: EMS: [facility] 22:31 Coronavirus screen: Client denies travel out of the [place] in the last 14 days. At this time, the client does not indicate any symptoms associated with coronavirus-19. Ebola Screen: Patient negative for fever greater than or equal to 101.5 degrees Fahrenheit, and additional compatible Ebola Virus Disease symptoms Patient denies exposure to infectious person. Initial Sepsis Screen: Does the patient meet any 2 criteria? No. Patient's initial sepsis screen is negative. Does the patient have a suspected source of infection? No. Patient's initial sepsis screen is negative. Risk Assessment: Do you want to hurt yourself or someone else? Patient reports no desire to harm self or others. Onset of symptoms was August 17, 2020. Trauma Activation: Physician: ED Physician; Name: 22:30; Notified At: ; Arrived At: Physician: General Surgeon; Name: ; Notified At: ; Arrived At: Physician: Radiology; Name: ; Notified At: ; Arrived At: Physician: Respiratory; Name: ; Notified At: ; Arrived At: Physician: Lab; Name: ; Notified At: ; Arrived At: Historical: - Allergies: 22:34 PENICILLINS; 22:34 Tetanus Vaccines \T\ Toxoid; - PMHx: 22:34 CHF; Diabetes - IDDM; Hypertension; wh - Immunization history: Last tetanus immunization: allergic to. - Social history:: Smoking status: Patient/guardian denies using. Screenin:32 Abuse screen: Denies threats or abuse. Denies injuries from another. Nutritional wh screening: No deficits noted. Tuberculosis screening: No symptoms or risk factors identified. Fall Risk Fall in past 12 months (25 points). Primary Survey: 22:35 NO uncontrolled hemorrhage observed. Breathing/Chest: Respiratory pattern: regular, rv Respiratory effort: spontaneous, unlabored, Breath sounds: clear, bilaterally. Circulation: Skin color: pink. Disability Alert. Exposure/Environment: There is no evidence of uncontrolled external bleeding. Obvious injury(ies) are noted at this time: laceration on the back of the head A warming method has been applied: A warm blanket has been provided to the patient. 08/18 00:00 Reassessment Airway Airway Patent Breathing/Chest Respiratory pattern Regular wh Respiratory effort Spontaneous Unlabored Breath sounds Clear Circulation Heart tones Present Disability Alert. Assessment: 08/17 22:32 General: Appears uncomfortable, Behavior is uncooperative. Pain: Complains of pain in rv scalp. Neuro: Level of Consciousness is awake, alert, obeys commands, Oriented to person, place, time, situation. EENT: Nares are clear. EENT: no drainage noted.. Cardiovascular:. Cardiovascular: Patient's skin is warm and dry. Respiratory: Airway is patent Respiratory effort is even, unlabored, Breath sounds are clear bilaterally. GI: No signs and/or symptoms were reported involving the gastrointestinal system. : No signs and/or symptoms were reported regarding the genitourinary system. Derm: Injury Description: Head injury sustained to scalp is open, bleeding, had loss of consciousness, Laceration sustained to scalp is clean, full thickness, 2.6 to 7.5 cm long, bleeding moderately. 23:30 Reassessment: Patient appears in no apparent distress at this time. Patient and/or wh family updated on plan of care and expected duration. Pain level reassessed. Patient is alert, oriented x 3, equal unlabored respirations, skin warm/dry/pink. 08/18 00:30 Reassessment: Patient appears in no apparent distress at this time. Patient and/or wh family updated on plan of care and expected duration. Pain level reassessed. Patient is alert, oriented x 3, equal unlabored respirations, skin warm/dry/pink. Pt was ambulated using a wheeled walker was able to ambulate, notified Provider, Pt awaiting for flower buncher or picker. Vital Signs: 08/17 22:31 BP 128 / 76; Pulse 59; Resp 18; Temp 98.3; Pulse Ox 98% ; Weight 104.33 kg; Height 5 wh ft. 10 in. (177.80 cm); 08/18 00:00 BP 141 / 75; Pulse 57; Resp 18; Pulse Ox 96% on R/A; wh 08/17 22:31 Body Mass Index 33.00 (104.33 kg, 177.80 cm) Mason Coma Score: 08/17 22:36 Eye Response: spontaneous(4). Verbal Response: oriented(5). Motor Response: obeys rv commands(6). Total: 15. Trauma Score (Adult): 22:36 Eye Response: spontaneous(1); Verbal Response: oriented(1); Motor Response: obeys rv commands(2); Systolic BP: > 89 mm Hg(4); Respiratory Rate: 10 to 29 per min(4); Mason Score: 15; Trauma Score: 12 ED Course: 22:26 Patient arrived in ED. cl3 22:27 Cristian Morales MD is Attending Physician. mh7 22:27 Stef Padilla PA is PHCP. cp 22:28 Ann Aaron is Primary Nurse. wh 22:30 Triage completed. wh 22:33 Patient has correct armband on for positive identification. Bed in low position. Call light in reach. Side rails up X 1. Pulse ox on. NIBP on. 22:34 Arm band placed on right wrist. wh 22:34 Thermoregulation: warm blanket given to patient. wh 22:36 Patient maintains SpO2 saturation greater than 95% on room air. rv 22:45 Patient did not have IV access during this emergency room visit. wh 22:54 XRAY Forearm RIGHT In Process Unspecified. EDMS 22:59 CT Head C Spine In Process Unspecified. EDMS 08/18 00:13 Assist provider with laceration repair on scalp that was 2.5 cm. or less using chioma. Set up tray. Performed by Stef RAMOS Patient tolerated well. Administered Medications: No medications were administered Output: 00:59 Urine: 450ml (Voided); Total: 450ml. Outcome: 00:33 Discharge ordered by . makayla 00:59 Patient's length of stay was not longer than 2 hours. 01:00 Discharged to home via wheelchair, with family. 01:00 Condition: stable 01:00 Discharge instructions given to patient, Instructed on discharge instructions, follow up and referral plans. wound care, POC Demonstrated understanding of instructions, follow-up care, wound care. 01:21 Patient left the ED. Signatures: Dispatcher [employer] EDMS Stef Padilla PA PA cp [place]alo, Winsy Humberto Flores RN RN [place] cl3 Cristian Morales MD MD mh7 Corrections: (The following items were deleted from the chart) 00:13 10 22:45 No provider procedures requiring assistance completed. [facility] 08/18 01:00 00:13 Assist provider with laceration repair on scalp that was 2.5 cm. or less using chioma. Set up tray. Performed by Stef RAMOS Patient tolerated well.
[2020-08-18 01:40] VITALS: TEMP 98.3
[2020-08-18 01:42] VITALS: BP 141/75; O2SAT 96
--- NOTE | 2020-08-18 08:47 | RAD REPORT ---
EXAM DESCRIPTION: RAD - Forearm Right - 08/17/2020 10:57 pm CLINICAL HISTORY: fall COMPARISON: No comparisons FINDINGS: No acute fracture or dislocation is seen.
--- NOTE | 2020-08-18 14:20 | RAD REPORT ---
EXAM DESCRIPTION: 1. CT of the head without contrast 2. CT of the cervical spine without contrast. CLINICAL HISTORY: Fall/pain COMPARISON: None available TECHNIQUE: Axial CT of the head obtained from the skull apex to the skull base without contrast. Axi al CT images of the cervical spine obtained from the skull base through the thoracic inlet. Sagittal and coronal reformatted images available. FINDINGS: CT head: No acute intracranial hemorrhage identified. No mass effect, shift of the midline, abnormal extra-a xial fluid collection or CT evidence of acute ischemic change identified. The ventricular system and sulcal spaces are mildly enlarged compatible with mild cerebral atrophy. Scattered areas of hypoden sity throughout the supratentorial white matter are nonspecific and may be related to chronic small v essel ischemic change. Small fat density structure in the quadrigeminal plate cistern is compatible w ith a small lipoma. The visualized paranasal sinuses and the mastoids are clear. No skull fracture identified. Visual ized orbits and globes are unremarkable. Contusion/hematoma within the posterior scalp subcutaneous s oft tissues. Cervical CT: Alignment of the cervical spine is maintained without evidence of subluxation. The atlantoaxial, at lantodental, and occipitoatlantal intervals are preserved. No fracture identified. Vertebral body h eight preserved. Prevertebral soft tissues are unremarkable. [id number] multilevel loss of intervertebral disc height with endplate spondylosis, facet arthr opathy, and uncovertebral spurring. Degenerative change of the atlantodental articulation. Visualized skull base is intact. No fracture of the visualized facial bones. Visualized mastoid air c ells and paranasal sinuses are well aerated. Visualized thyroid is unremarkable. No cervical lymphadenopathy. No pneumothorax in the visualized lung apices. Carotid artery atherosclerosis. IMPRESSION: 1. No acute intracranial abnormality. 2. No acute fracture or subluxation of the cervical spine. 3. Multilevel degenerative change of the cervical spine. This exam was performed according to our departmental dose-optimization program, which includes autom ated exposure control, adjustment of the mA and/or kV according to patient size and/or use of iterati ve reconstruction technique. Electronically signed by: Jarad Juarez 08/17/2020 11:17 PM CDT Due to temporary technical issues with the PACS/Fluency reporting system, reports are being signed by the in house radiologist without review as a courtesy to ensure prompt reporting. The interpreting r adiologist is fully responsible for the content of the report.
== END 2020-08-18 01:21 | disposition home or self-care (01) ==
LOC: ER 22:26
PROC: 0JQ00ZZ Repair Scalp Subcutaneous Tissue and Fascia, Open Approach (ICD-10-PCS; principal; 2020-08-18)
DX: S01.01XA Laceration without foreign body of scalp, initial encounter (principal); W01.0XXA Fall on same level from slipping, tripping and stumbling without subsequent striking against object, initial encounter; Y93.01 Activity, walking, marching and hiking; Y92.002 Bathroom of unspecified non-institutional (private) residence as the place of occurrence of the external cause; Z88.0 Allergy status to penicillin; Z88.7 Allergy status to serum and vaccine; I10 Essential (primary) hypertension
CPT/HCPCS: 70450; 72125; 99284